=== PATIENT | female | born 1955 | race Caucasian/White ===

== ENCOUNTER → 2017-03-24 | Outpatient (CLI) | payer BC, SELFPAY | PROVIDERS: Family Provider Family Medicine; Visit Provider Family Medicine | DX: M79.605 Pain in left leg (principal) | CPT/HCPCS: 93971 ==

== ENCOUNTER → 2017-07-12 09:15 | Outpatient (CLI) | payer BC, SELFPAY ==
--- NOTE | 2017-07-12 09:30 | MR_ITS ---
MR lumbar spine wo con, MR 3-d myelogram/MRCP HISTORY: PT states low back pain X 6 months or longer. Bilateral Leg Pain, Numbness and tingling. ITS.REASON: SPINAL STENOSIS OF LUMBAR REGION ORDERING PHYSICIAN: Juan Pablo Nelson MD PATIENT AGE: 61 years COMPARISON: Prior MRI 06/28/13 TECHNIQUE: Standard multiplanar multiecho sequences are performed without contrast. 3-D MIP and myelographic images are also rendered and reviewed FINDINGS: There is normal alignment. The spinal cord ends at the L1-L2 level. Mild degenerative disc disease L1-L2 with minimal broad-based right paracentral disc protrusion causing mild right lateral recess narrowing abutting upon the anterior aspect of the right L2 nerve root with mild right lateral foraminal narrowing. L2-L3: Mild degenerative disc disease with minimal bulging disc along the second ligamentum hypertrophy. L3-L4: Minimal concentric bulging disc. Mild disc desiccation. L4-L5: Degenerative disc disease with bulging disc along with spurring of the endplates and facet hypertrophy with moderate bilateral foraminal narrowing and mild right lateral recess narrowing. L5-S1: Mild concentric bulging disc along with facet and ligamentum flavum hypertrophy with mild to moderate left foraminal narrowing. No extruded herniated disc. No fracture or dislocation. IMPRESSION: Multilevel lumbar spondylosis with degenerative disc disease, bulging disc, and facet and ligamentum flavum hypertrophy. Please see above for detailed description at each level. 2. Minimal broad-based right paracentral disc protrusion at L1-L2 causing mild right lateral recess narrowing abutting upon the anterior aspect of the right L2 nerve root with mild right lateral foraminal narrowing 3. Degenerative disc disease L4-5 with bulging disc along with spurring of the endplates and facet hypertrophy with moderate bilateral foraminal narrowing and mild right lateral recess narrowing
== END ==
PROVIDERS: Family Provider Family Medicine; PCP Family Medicine; Visit Provider Family Medicine
DX: M48.061 Spinal stenosis, lumbar region without neurogenic claudication (principal)
CPT/HCPCS: 72148; 76376

== ENCOUNTER 2017-10-06 10:00 | Outpatient (RCR) | payer BC, SELFPAY | END 2017-10-06 10:01 | disposition home or self-care (01) | LOC: PT 10:00 | PROVIDERS: Family Provider Family Medicine; PCP Family Medicine; Visit Provider Neurological Surgery | DX: M54.5 Low back pain (principal) | CPT/HCPCS: 97012; 97110; 97163; 97164 ==

== ENCOUNTER → 2017-10-17 08:48 | Outpatient (CLI) | payer BC, SELFPAY ==
--- NOTE | 2017-10-17 08:53 | XR_ITS ---
XR chest 2V HISTORY: ITS.REASON: LEFT SIDED CHEST WALL PAIN ORDERING PHYSICIAN: Juan Pablo Nelson MD PATIENT AGE: 62 years COMPARISON: PA and lateral chest 09/07/2016 FINDINGS: The cardiomediastinal silhouette and pulmonary vascularity are within normal limits. The lungs are clear without infiltrates, suspicious nodules, or pleural effusions. No acute bony abnormalities. Again noted are surgical clips projecting over the left lower lung field and left chest wall. There has been previous anterior cervical fusion. IMPRESSION: Negative chest, no acute finding
== END ==
PROVIDERS: PCP Family Medicine; Visit Provider Family Medicine
DX: R07.89 Other chest pain (principal)
CPT/HCPCS: 71046

== ENCOUNTER → 2017-11-01 12:49 | Outpatient (CLI) | payer BC, SELFPAY ==
--- NOTE | 2017-11-01 12:51 | US_ITS ---
US breast LT complete INDICATION: Left-sided breast pain ORDERING PHYSICIAN: Juan Pablo Nelson MD PATIENT AGE: 62 years COMPARISON: None TECHNIQUE: Complete left breast ultrasound with axilla FINDINGS: The patient has a left breast implant. No sonographic abnormalities are evident within the breast tissue. Sonographically, the implant appears intact. The implant however could be better evaluated with MRI if clinically warranted. IMPRESSION: Left implant in place, no breast nodules apparent. Negative ultrasound does not exclude the possibility of malignancy. Further evaluation suggested. Mammography may be of further value. MRI would be of further value for implant integrity of clinically warranted. BI-RADS Category: 0 Need Additional Imaging Evaluation RECOMMENDED FOLLOW-UP: IMM - IMMEDIATE FOLLOW-UP RECOMMENDED Negative ultrasound does not exclude the possibility of malignancy. (A letter has been sent to the patient regarding results of the study.)
== END ==
PROVIDERS: Family Provider Family Medicine; PCP Family Medicine; Visit Provider Family Medicine
DX: N64.4 Mastodynia (principal)
CPT/HCPCS: 76641

== ENCOUNTER 2018-01-02 11:00 | Outpatient (RCR) | payer BC, SELFPAY ==
--- NOTE | 2017-12-27 10:50 | HMH.PTOPEV ---
PT Outpatient Evaluation Rehab PT Outpatient Evaluation Start: 12/27/17 10:33 Freq: Status: Active Protocol: Document 12/27/17 10:33 WANDA (Rec: 12/27/17 10:50 WANDA [id number]) Electronically Signed By Alek Garcia, PT 12/27/17 10:33 Outpatient Therapy Subjective History Subjective History Patient is a 62 year old female presenting to outpatient PT with reports of chronic low back pain starting approximately 10 years ago of insidious onset. Most recent exacerbation started 12/14/17 after an episode of mowing her lawn. She have previously received skilled PT services and reports significant relief with lumbar traction. Pt reports LLE radiculopathy to L anterior thigh. No comorbidites to report. Chief Complaint Pain Paresthesia Symptom Type Ache Dull Numbness Symptoms Relieved By Rest/Positioning Ice OTC Meds Symptoms Aggravated By Sitting Bending/Stooping Walking Lifting Prior Functional Limitations Lifting Housework Standing Sitting Squatting Recreation Activity Walking Current Functional Limitations Lifting Housework Standing Sitting Squatting Recreation Activity Walking Symptom Description Constant but Variable Level of pain today (0-10) 5 Pain scale - at its best (0-10) 4 Pain scale - at its worst (0-10) 7 Lumbopelvic Eval Posture Thoracic Spine Posture Standing Position Flattened Lumbar Spine Posture Standing Position Flattened Assistive device Assistive Devices None / NA Gait Observation General Gait Pattern Observation No Deviations/Normal Palapation tenderness bilateral lumbar spinal tenderness Yes: 3/4 paraspinal tenderness Yes: 3/4 buttock tenderness Yes: 2/4 Accessory Movem
== END 2018-01-02 11:01 | disposition home or self-care (01) ==
LOC: PT 11:00
PROVIDERS: Family Provider Family Medicine; PCP Family Medicine; Visit Provider Family Medicine
DX: M54.42 Lumbago with sciatica, left side (principal); M54.41 Lumbago with sciatica, right side
CPT/HCPCS: 97012; 97163

== ENCOUNTER → 2018-05-05 09:12 | Outpatient (CLI) | payer BC, SELFPAY ==
--- NOTE | 2018-05-05 09:18 | CA_ITS ---
PROCEDURE: 2-D M-mode and color Doppler study INDICATIONS FOR THE TEST: Chest pain COPD Heart Murmur Tobacco Smoking Palpitations Fatigue Syncope Edema HypertensionXDiabetes Mellitus Rheumatic Fever SOB HAWK Obesity HyperlipidemiaX Family History HD Additional History CAD BREAST IMPLANT TDS PATIENT INFORMATION HEIGHT: 67 WEIGHT:171 GENDER: Female B/P:149/84 2-D/M-MODE INTERPRETATION: 2-D MEASUREMENTS OBSERVED VALUES IN CMS Right Ventricular Dimension (RVDd) 1.9 Interventricular Septum (Thickness)(IVsd) .9 Left Ventricular Internal Dimensions(LVIDd) 5.4 Left Ventricular Posterior Wall (Thickness)(LVPWd) .8 Aortic Root 3.2 Aortic Cusp Separation 1.5 Left Atrial Dimensions (LAD) 4.0 2D 1. Left atrium is mildly enlarged, left ventricle is normal size mild concentric left ventricular hypertrophy, visually estimated ejection fraction 55% with no regional wall motion abnormality. 2. The right atrium and right ventricle are normal size and contractility. 3. The aortic valve is minimally thickened and fibrosed. 4. The mitral and tricuspid valvular grossly normal. 5. The pulmonic valve is poorly present. 6. No significant pericardial effusion noted. DOPPLER INTERROGATION: Doppler interrogation of the aortic, mitral and tricuspid valvular presence of mild mitral and tricuspid regurgitation, tricuspid regurgitation jet velocity is inadequate for calculation of the right ventricular systolic pressure, grade 1 diastolic dysfunction seen without tissue Doppler evidence of raised left atrial pressure. CONCLUSION: 1. Mildly enlarged left atrium, normal left ventricular size, mild concentric left ventricular hypertrophy, visually estimated ejection fraction 55% with no regional wall motion abnormality, grade 1 diastolic dysfunction seen without tissue Doppler evidence of raised left atrial pressure. 2. Mild mitral and tricuspid regurgitation. 3. No significant pericardial effusion noted.
== END ==
PROVIDERS: PCP Family Medicine; Visit Provider Urology
DX: I25.10 Atherosclerotic heart disease of native coronary artery without angina pectoris (principal); I11.9 Hypertensive heart disease without heart failure; E78.2 Mixed hyperlipidemia; G47.33 Obstructive sleep apnea (adult) (pediatric)
CPT/HCPCS: 93306

== ENCOUNTER 2018-07-14 18:41 | Emergency (ER) | payer BC, SELFPAY ==
[2018-07-14 18:57] VITALS: BP 157/84; PULSE 69; RESP 16; TEMP 36.9; O2SAT 97; BMI 25.9
[2018-07-14 19:04] LABS: UTC Strep Screen (Rapid) Negative (Negative)
--- NOTE | 2018-07-14 19:06 | HMH.EDUTC ---
[facility] [place] Disposition Clinical Impression: Asthma exacerbation Qualifiers: Asthma severity: mild Asthma persistence: intermittent Qualified Code(s): J45.21 - Mild intermittent asthma with (acute) exacerbation Disposition: Home, Self-Care Condition on Discharge: Good Instructions: DI for Asthma -- Adult Referrals: Juan Pablo Nelson MD [Primary Care Provider] - Time of Disposition: 19:27 Medical Decision Making - Benjamin Inquiry Pt receiving controlled substance: No Vital Signs: 07/14/18 18:57 Temperature 98.4 F Temperature Source Oral Pulse Rate [Right Brachial] 69 Respiratory Rate 16 Blood Pressure [Right Arm] 157/84 H Blood Pressure Mean [Right Arm] 108 Blood Pressure Source [Right Arm] Automatic Cuff Blood Pressure Position [Right Arm] Sitting 02 Sat by Pulse Oximetry 97 Oxygen Delivery Method Room Air - Lab Data Lab results reviewed: Yes: I reviewed the patient's lab results. Lab Results 07/14/18 19:01: Strep Scn Rapid Clinic Negative Orders (Tests/Meds): ED MEDICATIONS Discontinued Medications Generic Name Dose Route Start Last Admin Trade Name Marge PRN Reason Stop Dose Admin Ceftriaxone Sodium 1 gm 07/14/18 19:14 07/14/18 19:20 Rocephin 1gm Vial IM 07/14/18 19:15 1 gm ONCE ONE Administration Protocol Lidocaine HCl 0 ml 07/14/18 19:14 07/14/18 19:21 Lidocaine 1% 10ml Mdv IM 07/14/18 19:15 2.1 ml ONCE ONE Administration Methylprednisolone Acetate 80 mg 07/14/18 19:14 07/14/18 19:21 Depo-Medrol 80mg/Ml Vial IM 07/14/18 19:15 80 mg ONCE ONE Administration ORDERS Category Date Time Status Strep Screen Confirmation Stat Micro 07/14/18 19:01 Received [facility] [place] HPI - General Stated complaint: sore throat,cough,RETANA Time Seen by Provider: 07/14/18 19:06 Mode of Arrival: Family Vehicle Source of Information: Patient Limitations: No Limitations Description of Symptoms (Recalled from Triage Doc. by RN): C/O CHEST CONGESTION,SORE THROAT AND HEADACHE X 3 DAYS HEENT Symptoms (Recalled from RN notes): Yes Resp Symptoms (Recalled from RN notes): Yes Skin Symptoms (Recalled from RN notes): No MS Symptoms (Recalled from RN notes): No Functional Status (Recalled from RN notes): N/A - History of Present Illness Provider Complaint: Cough, congestion, chest tightness X 3 days. H/O asthma. No fever. Onset (ago): day(s) (3) Relieving factors: none Exacerbating factors: none Associated symptoms: cough Treatments prior to arrival: none - Related Data Home Medications Medication Instructions Recorded Confirmed alprazolam 0.5 mg tablet 0.5 mg PO TID tab 04/25/17 05/19/18 aspirin 81 mg tablet,delayed 81 mg PO QDAY 04/25/17 05/19/18 release budesonide-formoterol HFA 160 2 inh INHALATION BID g 04/25/17 05/19/18 mcg-4.5 mcg/actuation aerosol inhaler esomeprazole magnesium 40 mg 40 mg PO QDAY cap 04/25/17 05/19/18 capsule,delayed release losartan 100 1 tab PO QDAY 04/25/17 05/19/18 mg-hydrochlorothiazide 25 mg tablet zolpidem 10 mg tablet 10 mg PO HS 04/25/17 05/19/18 montelukast 10 mg tablet 10 mg PO QPM 10/25/17 05/19/18 Previous Rx's Medication Instructions Recorded nifedipine ER 30 mg 30 mg PO DAILY #30 tab 05/19/18 tablet,extended release 24 hr Allergies Allergy/AdvReac Type Severity Reaction Status Date / Time acetaminophen [From PERCOCET] Allergy Severe IRREGULAR Verified 05/19/18 10:39 HEARTBEAT oxycodone [From PERCOCET] Allergy Severe IRREGULAR Verified 05/19/18 10:39 HEARTBEAT codeine Allergy Intermediate I-ITCHING, Verified 05/19/18 10:39 NAUSEA, FAST HEART RATE hydrocodone Allergy Intermediate I-ITCHING, Verified 05/19/18 10:39 NAUSEA, FAST HEART RATE ketorolac Allergy Intermediate I-ITCHING, Verified 05/19/18 10:39 NAUSEA, FAST HEART RATE meperidine [From Demerol] Allergy Intermediate I-ITCHING, Verified 05/19/18 10:39 NAUSEA, FAST HEART
--- NOTE | 2018-07-14 19:09 | ED_ITS ---
[facility] [place] Clinical Impression: Asthma exacerbation Qualifiers: Asthma severity: mild Asthma persistence: intermittent Qualified Code(s): J45.21 - Mild intermittent asthma with (acute) exacerbation Disposition: Home, Self-Care Condition on Discharge: Good Instructions: DI for Asthma -- Adult Referrals: Juan Pablo Nelson MD [Primary Care Provider] - Time of Disposition: 19:27 Medical Decision Making - Benjamin Inquiry Pt receiving controlled substance: No Vital Signs: 07/14/18 18:57 Temperature 98.4 F Temperature Source Oral Pulse Rate [Right Brachial] 69 Respiratory Rate 16 Blood Pressure [Right Arm] 157/84 H Blood Pressure Mean [Right Arm] 108 Blood Pressure Source [Right Arm] Automatic Cuff Blood Pressure Position [Right Arm] Sitting 02 Sat by Pulse Oximetry 97 Oxygen Delivery Method Room Air - Lab Data Lab results reviewed: Yes: I reviewed the patient's lab results. Lab Results 07/14/18 19:01: Strep Scn Rapid Clinic Negative Orders (Tests/Meds): ED MEDICATIONS Discontinued Medications Generic Name Dose Route Start Last Admin Trade Name Marge PRN Reason Stop Dose Admin Ceftriaxone Sodium 1 gm 07/14/18 19:14 07/14/18 19:20 Rocephin 1gm Vial IM 07/14/18 19:15 1 gm ONCE ONE Administration Protocol Lidocaine HCl 0 ml 07/14/18 19:14 07/14/18 19:21 Lidocaine 1% 10ml Mdv IM 07/14/18 19:15 2.1 ml ONCE ONE Administration Methylprednisolone Acetate 80 mg 07/14/18 19:14 07/14/18 19:21 Depo-Medrol 80mg/Ml Vial IM 07/14/18 19:15 80 mg ONCE ONE Administration ORDERS Category Date Time Status Strep Screen Confirmation Stat Micro 07/14/18 19:01 [place] [facility] [place] - General Stated complaint: sore throat,cough,RETANA Time Seen by Provider: 07/14/18 19:06 Mode of Arrival: Family Vehicle Source of Information: Patient Limitations: No Limitations Description of Symptoms (Recalled from Triage Doc. by RN): C/O CHEST CO NGESTION,SORE THROAT AND HEADACHE X 3 DAYS HEENT Symptoms (Recalled from RN notes): Yes Resp Symptoms (Recalled from RN notes): Yes Skin Symptoms (Recalled from RN notes): No MS Symptoms (Recalled from RN notes): No Functional Status (Recalled from RN notes): N/A - History of Present Illness Provider Complaint: Cough, congestion, chest tightness X 3 days. H/O asthma. No fever. Onset (ago): day(s) (3) Relieving factors: none Exacerbating factors: none Associated symptoms: cough Treatments prior to arrival: none - Related Data Home Medications Medication Instructions Recorded Confirmed alprazolam 0.5 mg tablet 0.5 mg PO TID tab 04/25/17 05/19/18 aspirin 81 mg tablet,delayed 81 mg PO QDAY 04/25/17 05/19/18 release budesonide-formoterol HFA 160 2 inh INHALATION BID g 04/25/17 05/19/18 mcg-4.5 mcg/actuation aerosol inhaler esomeprazole magnesium 40 mg 40 mg PO QDAY cap 04/25/17 05/19/18 capsule,delayed release losartan 100 1 tab PO QDAY 04/25/17 05/19/18 mg-hydrochlorothiazide 25 mg tablet zolpidem 10 mg tablet 10 mg PO HS
[2018-07-14 19:30] VITALS: BP 157/84; PULSE 69; RESP 16; TEMP 37.2; O2SAT 97
== END 2018-07-14 19:34 | disposition home or self-care (01) ==
PROVIDERS: Emergency Provider Physician Assistant; PCP Family Medicine
DX: J45.21 Mild intermittent asthma with (acute) exacerbation (principal); Z51.81 Encounter for therapeutic drug level monitoring; I10 Essential (primary) hypertension; K21.9 Gastro-esophageal reflux disease without esophagitis; E78.5 Hyperlipidemia, unspecified
CPT/HCPCS: 87880; 96372; 99202; J1040

== ENCOUNTER → 2018-11-16 07:51 | Outpatient (CLI) | payer BC, SELFPAY ==
--- NOTE | 2018-11-16 08:00 | CA_ITS ---
APPROVED REPORT Hold Worker: GENO Study Quality: Good Indications: Uncontrolled HTN Risk Factors Hypertension Renal Artery Doppler Origin (R) 166.0/46.9 cm/sec Proximal (R) 139.0/33.2 cm/sec Mid (R) 161.0/48.0 cm/sec Distal (R) 140.0/28.1 cm/sec Renal Aorta Ratio (R) 2.00 Segmental A. (R) 43.2/12.3 cm/sec RI: 0.71 Segmental A. Sup (R) 43.2/12.1 cm/sec Segmental A. Mid (R) 53.6/12.7 cm/sec Segmental A. Inf (R) 32.9/12.1 cm/sec Origin (L) 174.0/40.5 cm/sec Proximal (L) 210.0/47.7 cm/sec Mid (L) 194.0/56.2 cm/sec Distal (L) 92.4/28.5 cm/sec Renal Aorta Ratio (L) 2.60 Segmental A. (L) 46.2/13.7 cm/sec RI: 0.70 Segmental A. Sup (L) 48.7/15.2 cm/sec Segmental A. Mid (L) 53.2/12.9 cm/sec Segmental A. Inf (L) 36.7/12.9 cm/sec Renal Measurements Kidney Size (R) 10.7x7.1 cm Cortical Thickness (R) 1.8 cm Kidney Size (L) 10.3x7.7 cm Cortical Thickness (L) 1.9 cm Aortic Doppler Velocity Waveform Sup César Ao 82.1 cm/sec Findings Duplex evaluation demonstrates less than 60% stenosis of the left renal artery with PSV greater than 180 cm/s and/or Renal/Aortic ratio (RAR) less than 3.5. Normal right renal artery. Conclusion Duplex evaluation demonstrates 60% OR or less stenosis of the left renal artery . Normal right renal artery. Electronically signed by : Dimas Rg MD 11/16/2018 11:15:03
== END ==
PROVIDERS: PCP Family Medicine; Visit Provider Family Medicine
DX: I10 Essential (primary) hypertension (principal)
CPT/HCPCS: 93976

== ENCOUNTER → 2018-11-21 15:17 | Outpatient (CLI) | payer BC, SELFPAY ==
[2018-11-21 17:01] LABS: Blood Urea Nitrogen 23 mg/dL (7-18); Creatinine,Serum 0.83 mg/dL (0.55-1.02); Estimated Glomerular Filt Rate 69 ml/min (>60); GFR (African American) 84 ML/MIN (>60)
== END ==
PROVIDERS: Visit Provider Family Medicine
DX: R79.89 Other specified abnormal findings of blood chemistry (principal)
CPT/HCPCS: 36415; 82565; 84520

== ENCOUNTER → 2018-11-23 10:35 | Outpatient (CLI) | payer BC, SELFPAY ==
--- NOTE | 2018-11-23 10:38 | CT_ITS ---
Procedure: CT ANGIO ABDOMEN CLINICAL HISTORY: MALIGNANT HTN COMPARISON: CA RENAL ARTERY DUPLEX from 11/16/2018 TECHNIQUE: IV Contrast: 100ml Optiray 350 Axial images obtained with sagittal and coronal reformats. All CT scans at the facility use one or more dose reduction, viz: automated exposure control, ma/kV adjustment per patient size (including targeted exams where dose is matched to indication, i.e. head), or iterative reconstruction technique. FINDINGS: There are mild atheromatous changes of the abdominal aorta without significant stenosis or aneurysm. No significant stenosis of the celiac or superior mesenteric artery. The inferior mesenteric artery is patent. There are 2 main renal arteries. There are mild atheromatous changes at the ostium of the right renal artery with less than 20 percent stenosis. No stenosis of the left renal artery. Mild atheromatous changes are present involving the iliac arteries with no significant stenosis. Bilateral breast implants are noted. The lung bases are clear. No renal or adrenal mass evident. No renal calculi. No renal atrophy or scarring. There is no evidence of retroperitoneal mass. There is a small umbilical hernia which contains fat. There is a mild amount of retained colonic feces. There are small bilateral inguinal hernias containing fat IMPRESSION: 1. No evidence of significant renal artery stenosis. Minimal atheromatous changes involve the ostium of the right renal artery 2. No renal or adrenal mass apparent Dictated by: Dimas Rg MD 11/25/2018 13:32 Signed by: <Electronically signed by Dimas Rg MD in [place]> 11/25/2018 13:32
== END ==
PROVIDERS: PCP Family Medicine; Visit Provider Family Medicine
DX: I10 Essential (primary) hypertension (principal)
CPT/HCPCS: 74175; Q9967

== ENCOUNTER 2019-07-24 09:00 | Outpatient (RCR) | payer BC, SELFPAY ==
--- NOTE | 2019-07-19 09:10 | HMH.PTOPEV ---
PT Outpatient Evaluation Rehab PT Outpatient Evaluation Start: 07/19/19 08:09 Freq: Status: Active Protocol: Document 07/19/19 08:09 ANALI (Rec: 07/19/19 09:10 ANALI [id number]) Electronically Signed By Dominick Sheffield, PT 07/19/19 08:09 Outpatient Therapy Subjective History Subjective History Pt reports acute exacerbation of LBP ~1 week ago while lifting bag of monisha litter. Pt reports h/o lumbar spine OA , and previous exacerbation was ~2 yrs ago. Pt reports currently L sided LBP with radicular s/s down L LE into anterior thigh (N&T). Chief Complaint Pain,Stiff,Paresthesia Symptom Type Ache,Dull Symptoms Relieved By Rest/Positioning Symptoms Aggravated By Physical Activity,Lifting Prior Functional Limitations None Current Functional Limitations Lifting,Housework,Bending/ Stooping Symptom Description Constant but Variable Level of pain today (0-10) 7 Pain scale - at its best (0-10) 7 Pain scale - at its worst (0-10) 8 Lumbopelvic Eval Posture Thoracic Spine Posture Standing Position Flattened Lumbar Spine Posture Standing Position Flattened Assistive device Assistive Devices None / NA Palapation tenderness bilateral lumbar spinal tenderness Yes: 3/4 paraspinal tenderness Yes: 3/4 buttock tenderness Yes: 3/4 Lumbar/Sacral Palpation Findings Tenderness Accessory Movement L-spine Vertebrae Accessory Movements [facility] [place] that [place] Symptoms L2 bilateral L3 bilateral L4 bilateral L5 bilateral S1 bilateral Range of Motion Lumbar Spine Active Flexion Range of 0-40 Motion (degrees) Lumbar Spine Active Extension Range of 0-15 Motion (degrees) Left Lumbar Spine Lateral Flexion Active 0-20 Range of Motion (degrees) Right Lumbar Spine Lateral Flexion 0-20 Active Range of Motion (degrees) Lumbar Spine ROM Limitations Soft Tissue Tightness,Pain Manual Muscle Test Bilateral Knee Extension Strength Grade 5 Normal Knee Flexion Strength Grade 5 Normal Hip Flexion Strength Grade 4- Good- Extensor Hallucis Longus Strength Grade 5 Normal Ankle Dorsiflexion Strength Grade 5 Normal Gastronemius/Soleus Strength Grade 5 Normal DTR Rt Patellar 1+ Lt Patellar 1+ Rt Gastroc/Soleus 1+ Lt Gastroc/Soleus
== END 2019-07-24 09:05 | disposition home or self-care (01) ==
LOC: PT 09:00
PROVIDERS: PCP Family Medicine; Visit Provider Family Medicine
DX: M47.817 Spondylosis without myelopathy or radiculopathy, lumbosacral region (principal)
CPT/HCPCS: 97010; 97012; 97035; 97163

== ENCOUNTER → 2019-09-12 14:49 | Outpatient (CLI) | payer BC, SELFPAY ==
[2019-09-12 15:45] VITALS: PULSE 60; PULSE 64
== END ==
PROVIDERS: PCP Family Medicine; Visit Provider Family Medicine
DX: R06.02 Shortness of breath (principal); J45.30 Mild persistent asthma, uncomplicated
CPT/HCPCS: 94060; 94640

== ENCOUNTER → 2020-02-01 11:28 | Outpatient (CLI) | payer BC, SELFPAY ==
[2020-02-01 14:58] LABS: Blood Urea Nitrogen 28 mg/dl (7-17); Estimated Glomerular Filt Rate 56 ml/min (>60); GFR (African American) 68 ML/MIN (>60)
== END ==
PROVIDERS: Visit Provider Family Medicine
DX: R51.9 Headache, unspecified (principal); Z85.3 Personal history of malignant neoplasm of breast
CPT/HCPCS: 36415; 82565; 84520

== ENCOUNTER → 2020-02-06 08:39 | Outpatient (CLI) | payer BC, SELFPAY ==
--- NOTE | 2020-02-06 08:44 | MR_ITS ---
PROCEDURE: MR HEAD/BRAIN WO/W CON the CLINICAL INDICATION: NEW ONSET OF HEADACHE, HX BREAST CANCER headache intermittent daily [id number]. hx breast cancer diagnosed in 2007. COMPARISON: MR [facility] MRI-BRAIN WITH/WITHOUT from 07/25/2012 TECHNIQUE: Routine multiplanar multi echo sequences are performed without and with gadolinium enhancement. FINDINGS: Routine multi planar multi echo sequences are performed without and with gadolinium enhancement. The patient did experience some itching on her extremities following gadolinium enhancement. There was no urticaria. No shortness of breath or other symptoms. The patient was watched for approximately 30 minutes and the itching subsided. Patient left the radiology department in stable condition. No midline shift, mass effect, intracranial hemorrhage, or hydrocephalus is evident. No evidence of acute infarction. The cerebellopontine angles, cerebellum, and brainstem have an unremarkable appearance. There are scattered periventricular and subcortical T2 white matter hyperintensities. These do not demonstrate contrast enhancement and do not demonstrate restricted diffusion. No mastoid effusion or sinus air-fluid levels evident. The pituitary, optic chiasm, corpus callosum, and craniocervical junction have an unremarkable appearance. There is a small area of contrast enhancement involving the diet flowing region of the left frontal bone. This area measures approximately 5 mm and has an unremarkable T2 appearance. This is of questionable clinical significance and may have been present but smaller on 07/25/2012exam exam. IMPRESSION: 1. No acute intracranial findings. 2. Scattered periventricular and subcortical T2 white matter hyperintensities which may be due to ischemic gliotic change from microvascular disease. Migraine headache and demyelinating process would be included in the differential diagnosis. These changes have slightly increased since the previous exam. 3. Small enhancing focus in the left frontal bone which may been present on the old exam but more prominent on today's study. Possible small hemangioma. Follow-up suggested to confirm stability. Dictated by: Dimas Rg MD 02/07/2020 11:50 Dimas Rg MD in [place] 02/07/2020 11:50
== END ==
PROVIDERS: PCP Family Medicine; Visit Provider Family Medicine
DX: G44.52 New daily persistent headache (NDPH) (principal); Z85.3 Personal history of malignant neoplasm of breast
CPT/HCPCS: 70553; A9576

== ENCOUNTER → 2020-09-09 15:25 | Outpatient (CLI) | payer MEDICARE, SELFPAY ==
[2020-09-09 15:59] LABS: Basophils % 0.4 % (0.1-2.0); Eosinophils # 0.3 K/mm3 (0.0-0.4); Eosinophils % 2.5 % (0.1-12.0); Hematocrit 33.4 % (37.0-47.0); Hemoglobin 11.5 g/dL (12.2-16.2); Lymphocytes # 2.4 K/mm3 (0.7-4.5); Lymphocytes % 23.5 % (10-50); Mean Corpuscular HGB Conc 34.4 g/dL (31.8-35.4); Mean Corpuscular Hemoglobin 29.1 pg (27.0-31.2); Mean Corpuscular Volume 84.5 fl (81-99); Mean Platelet Volume 7.7 fl (7.4-10.4); Monocytes # 0.4 K/mm3 (0.1-1.0); Monocytes % 3.5 % (1.7-9.3); Neutrophils # 7.1 K/mm3 (1.8-7.8); Neutrophils % 70.1 % (37.0-80.0); Platelet Count 263 K/mm3 (142-424); Red Blood Count 3.95 M/mm3 (4.20-5.40); Red Cell Distribution Width 14.5 % (11.5-17.5); White Blood Count 10.2 K/mm3 (4.8-10.8)
[2020-09-09 16:27] LABS: Chloride 102 mmol/L (98-107)
[2020-09-09 16:28] LABS: Potassium 3.8 mmoL/L (3.5-5.1); Sodium 138 mmol/L (136-145)
[2020-09-09 16:30] LABS: Alanine Aminotransferase 15 U/L (12-78); Anion Gap 16.8 mEq/L (5-15); Aspartate Amino Transferase 22 U/L (14-36); Blood Urea Nitrogen 19 mg/dl (7-17); Carbon Dioxide 23 mmol/L (22.0-30.0); Estimated Glomerular Filt Rate 72 ml/min (>60); GFR (African American) 87 ML/MIN (>60)
[2020-09-09 16:31] LABS: Albumin Level 4.5 g/dl (3.5-5.0); Alkaline Phosphatase 104 U/L (38-126); Bilirubin,Direct 0.3 mg/dl (0.0-0.4); Bilirubin,Total 0.3 mg/dl (0.2-1.3); Calcium 9.9 mg/dl (8.4-10.2); Chol/HDL Ratio 4.4 (1-3.5); Cholesterol 176 mg/dl (140-200); Glucose 119 mg/dl (74-100); HDL Cholesterol 40 mg/dl (40-60); Total Protein,Serum 6.9 g/dl (6.3-8.2); Triglycerides 488 mg/dl (30-150)
[2020-09-09 16:42] LABS: Direct LDL Cholesterol 81.87 mg/dL (100-129)
[2020-09-09 18:10] LABS: Hemoglobin A1C 5.7 % (4.0-6.0)
== END ==
PROVIDERS: Visit Provider Physician Assistant
DX: E78.2 Mixed hyperlipidemia (principal); G47.33 Obstructive sleep apnea (adult) (pediatric); I11.9 Hypertensive heart disease without heart failure; I25.10 Atherosclerotic heart disease of native coronary artery without angina pectoris; K21.9 Gastro-esophageal reflux disease without esophagitis; R06.00 Dyspnea, unspecified; R73.9 Hyperglycemia, unspecified
CPT/HCPCS: 80048; 80061; 80076; 83036; 85025

== ENCOUNTER → 2020-09-15 07:16 | Outpatient (CLI) | payer MEDICARE, SELFPAY ==
--- NOTE | 2020-09-15 07:16 | NM_ITS ---
APPROVED REPORT Exam: Nuclear Stress Test Indication: Chest pain, SOB, HTN, CAD, Hx of SC, High cholesterol, Family history Patient Location: Outpatient Stress Tech: Rea Hughes [place] Tech:Dalia Sharif, ARRT, RT (R)(N) Ht: 5 ft 7 in Wt: 183 lbs Bra Size: A HR: 54 bpm BP: 144/69 mmHg BSA: 1.95 m2 BMI: 28.6 History: Chest pain, SOB, HTN, CAD, Hx of SC, High cholesterol, Family history Procedure: Patient received a 0.4 mg of intravenous Lexiscan, resting heart rate 54 bpm, resting blood pressure 144/69 mmHg, with Lexiscan maximum heart rate achived was 79 bpm which is Less than 85 % of the maximum predicted heart rate and blood pressure was 131/70 mmHg. With Lexiscan, patient denied any complaint of chest pain. Electrocardiogram Resting electrocardiogram showed sinus rhythm, with Lexiscan there is less than 1.[address] segment depression noted from the baseline EKG. The EKG portion of the Lexiscan is nondiagnostic. Cardiac Stress and Resting SPECT Images: Cardiac Stress and Resting SPECT images were obtained using technetium 99m Myoview 29.6 mCi stress and 10.36 mCi at rest. Gated SPECT for analysis of segmental wall motion and calculation of the ejection fraction also done. Cardiac stress and resting SPECT images show uniform myocardial activity without segmental perfusion abnormality, computer derived ejection fraction is 64% with no regional wall motion abnormality, right ventricle is normal size and contractility, however there is transient ischemic dilatation of the left ventricle seen, raising the concern for presence of balanced ischemia, other causes for transient ischemic dilatation include elevated left ventricular end-diastolic pressure, hypertensive heart disease, microvascular disease and diabetes mellitus. Conclusion: 1. The EKG portion of the Lexiscan is nondiagnostic. 2. No scintigraphic evidence of reversible ischemia seen, computer derived ejection fraction is 64% with no regional wall motion abnormality, right ventricle is normal size and contractility. There is transient ischemic dilatation of the left ventricle seen, raising the concern for presence of balanced ischemia, other causes for transient ischemic dilatation include elevated left ventricular end-diastolic pressure, hypertensive heart disease, microvascular disease and diabetes mellitus. 3. Abnormal Lexiscan Myoview study, clinical correlation is recommended. Electronically signed by : Vince Casas, 09/15/2020 19:07:29
--- NOTE | 2020-09-15 08:33 | CA_ITS ---
APPROVED REPORT EXAM: Comprehensive 2D, Doppler, and color-flow Echocardiogram Baker Test: Hanna Evans RVT Ht: 5 ft 8 in Wt: 188lbs BSA: 1.99 BP: 146/55 mmHg Indications: SOA,CAD,HTN,HLD,EX SMOKER,ISABELL,BREAST IMPLANTS TDS R/T BREAST IMPLANTS 2D Dimensions LVOT 2.12 cm (M/F) 1.5-2.5 LA Volume 42.80 mL LA Volume Index 21.50 mL/m2 (M/F) 16-34 M-Mode Dimensions RVDd 3.16 cm (0.9-2.6) LA Diam 4.34 cm (1.9-4.0) LVDd 5.85 cm (3.5-5.7) Ao Diam 2.97 cm (2.0-3.7) LVDs 4.08 cm (3.5-5.7) IVSd 1.44 cm (0.6-1.1) PWd 0.52 cm (0.6-1.1) EF (Teich) 56.80% FS 30.30% EDV (Teich) 169.90 mL TAPSE 2.51 (<1.7) ESV (Teich) 73.40 mL LV Diastology E Decel Time 267.00 (160-240 msec) E/A Ratio 1.1 MED E' 5.00 (< 7 cm/sec) E'/MED E' Ratio 18.30 (>14) LAT E' 8.40 (<10 cm/sec) E/LAT E' Ratio 10.89 (>14) Aortic Valve AO Peak GR. 8.50 mmHg Mitral Valve MV E Max Bobby. 91.00 (40-130 cm/s) MV A Velocity 82.00 (40-130 cm/s) E/A Ratio 1.12 MV Decel. Time 267.00 (160-240 ms) MV PHT 78.00 ms Pulmonary Valve PV Peak Velocity 71.00 (50-150 cm/s) Tricuspid Valve TR P. Velocity 301.00 cm/s RAP Estimate 10.00 mmHg RVSP 46.20 mmHg Left Ventricle Left atrium is mildly enlarged, left ventricle is normal size, mild concentric left ventricular hypertrophy, visually estimated ejection fraction 55% with no regional wall motion abnormality, grade 1 diastolic dysfunction seen with tissue Doppler evidence of raise left atrial pressure. Right Ventricle Right atrium and right ventricle are mildly enlarged with normal contractility. Aortic Valve Aortic valve is minimally thickened and fibrosed, there is no aortic stenosis or aortic insufficiency. Mitral Valve Mitral valve grossly normal, there is mild mitral regurgitation. Tricuspid Valve Tricuspid grossly normal, there is mild tricuspid regurgitation, calculated right ventricular systolic pressure is 45 mmHg.pressure. Pulmonic Valve Pulmonic valve is poorly visualized. Great Vessels Aortic root is normal size. Pericardium No significant pericardial effusion noted. Conclusion 1. Mild biatrial enlargement, normal left ventricular size, mild concentric left ventricular hypertrophy, visually estimated ejection fraction 55% with no regional wall motion abnormality, grade 1 diastolic dysfunction seen with tissue Doppler evidence of raise left atrial pressure. 2. Mildly enlarged right ventricle with normal contractility. 3. Mild mitral and tricuspid regurgitation, calculated right ventricular systolic pressure 45 mmHg 4. No significant pericardial effusion noted. Electronically signed by : Vince Casas, 09/15/2020 22:05:17
--- NOTE | 2020-09-15 09:34 | HMH.ITSHM ---
Current Home Medications as stated by this patient Justine Handley or bilingual call center representative. []ZOLPIDEM NEBIVOLOL ESOMEPRAZOLE BUDESONIDE AMLODIPINE ALPRAZOLAM
--- NOTE | 2020-09-15 09:54 | CA_ITS ---
APPROVED REPORT Exam: Pharmacologic Technologist: Rea Hughes, Ht: 5 ft 8 in Wt: 188 lbs BSA: 1.99 m2 HR: 54 bpm BP: 144/69 mmHg Medical History Medications: Amlodipine,,,,, Alprazolam,,,,, SyMBICORT,,,,, Zolpidem,,,,, Esomeprazole,,,,, NeBivolol,,,,, Stress Test Details Test: LEXISCAN HR Resting HR: 52 bpm Max Heart Rate (APMHR): 155.965867 bpm Max HR Achieved: 85 bpm Target HR (85% APMHR): 131.198413 bpm % of APMHR: 54.84 Recovery HR: 66 bpm BP Resting BP: 144/69 mmHg Max BP: 151/85 mmHg Recovery BP: 140.0/63.0 mmHg ECG Resting ECG: NSR Clinical Reason for Termination: Completed Protocol Exercise duration: 04:05 min Highest Stage Achieved: Exercise capacity: 1.0 METs Stress ECG Conclusion Symptoms: No CP Arrythmias/Ectopy: None ST-T Changes: <1.5mm ST Segment changes Conclusion: Non-Diagnostic Electronically signed by : Vince Casas, 09/15/2020 18:43:17
== END ==
PROVIDERS: PCP Family Medicine; Visit Provider Physician Assistant
DX: E78.2 Mixed hyperlipidemia (principal); G47.33 Obstructive sleep apnea (adult) (pediatric); I11.9 Hypertensive heart disease without heart failure; I25.10 Atherosclerotic heart disease of native coronary artery without angina pectoris; K21.9 Gastro-esophageal reflux disease without esophagitis; R06.00 Dyspnea, unspecified
CPT/HCPCS: 78452; 93017; 93306; A9502; J2785

== ENCOUNTER → 2020-09-16 07:14 | Outpatient (CLI) | payer MEDICARE, SELFPAY ==
[2020-09-16 07:55] LABS: Glucose,Fasting 149 mg/dl (74-100)
[2020-09-16 10:17] LABS: Glucose 1 Hour 278 mg/dL (74-100)
[2020-09-16 14:12] LABS: Glucose 2 Hour 242 mg/dL (74-100)
== END ==
PROVIDERS: Visit Provider Physician Assistant
DX: E78.2 Mixed hyperlipidemia (principal); R06.00 Dyspnea, unspecified; I25.10 Atherosclerotic heart disease of native coronary artery without angina pectoris; I11.9 Hypertensive heart disease without heart failure; Z79.899 Other long term (current) drug therapy; Z87.891 Personal history of nicotine dependence
CPT/HCPCS: 36415; 82951

== ENCOUNTER → 2020-09-24 07:06 | Outpatient (CLI) | payer MEDICARE, SELFPAY ==
[2020-09-24 07:50] LABS: Basophils % 0.4 % (0.1-2.0); Eosinophils # 0.2 K/mm3 (0.0-0.4); Hematocrit 33.6 % (37.0-47.0); Hemoglobin 11.5 g/dL (12.2-16.2); Lymphocytes # 1.9 K/mm3 (0.7-4.5); Lymphocytes % 25.1 % (10-50); Mean Corpuscular HGB Conc 34.1 g/dL (31.8-35.4); Mean Corpuscular Hemoglobin 29.2 pg (27.0-31.2); Mean Corpuscular Volume 85.5 fl (81-99); Mean Platelet Volume 8.3 fl (7.4-10.4); Monocytes # 0.3 K/mm3 (0.1-1.0); Monocytes % 3.7 % (1.7-9.3); Neutrophils # 5.2 K/mm3 (1.8-7.8); Neutrophils % 67.7 % (37.0-80.0); Platelet Count 245 K/mm3 (142-424); Red Blood Count 3.93 M/mm3 (4.20-5.40); Red Cell Distribution Width 14.6 % (11.5-17.5); White Blood Count 7.7 K/mm3 (4.8-10.8)
[2020-09-24 08:03] LABS: Chloride 103 mmol/L (98-107); Potassium 3.8 mmoL/L (3.5-5.1); Sodium 139 mmol/L (136-145)
[2020-09-24 08:06] LABS: Anion Gap 14.8 mEq/L (5-15); Blood Urea Nitrogen 18 mg/dl (7-17); Calcium 10.3 mg/dl (8.4-10.2); Carbon Dioxide 25 mmol/L (22.0-30.0); Estimated Glomerular Filt Rate 72 ml/min (>60); GFR (African American) 87 ML/MIN (>60); Glucose 121 mg/dl (74-100)
== END ==
PROVIDERS: Internal Medicine; Visit Provider Physician Assistant
DX: E78.5 Hyperlipidemia, unspecified (principal); G47.33 Obstructive sleep apnea (adult) (pediatric); I11.9 Hypertensive heart disease without heart failure; I20.9 Angina pectoris, unspecified; K21.9 Gastro-esophageal reflux disease without esophagitis; R06.00 Dyspnea, unspecified; Z01.818 Encounter for other preprocedural examination; Z11.52 Encounter for screening for COVID-19
CPT/HCPCS: 36415; 80048; 85025; U0003

== ENCOUNTER 2020-09-26 08:11 | Day surgery (SDC) | payer MEDICARE, SELFPAY ==
[2020-09-26] VITALS (13 sets, daily range): BP systolic 104–135; BP diastolic 49–67; PULSE 48–56; RESP 16–20; TEMP 36.1; O2SAT 90–98; BMI 28.5
--- NOTE | 2020-09-26 | IR_ITS ---
APPROVED REPORT Patient Location: Outpatient Material Engineer: ASIF Hardy RT (R) PROCEDURES Left heart catheterization Left ventriculogram Selective coronary angiogram INDICATION Abnormal Myoview, Abnormal EKG, Angina pectoris, Informed consent was obtained prior to the procedure. COMPLICATIONS None Estimated Blood Loss: Less than 10 mls TECHNIQUE One percent lidocaine used to anesthetize the right anterior aspect of the wrist. The right radial artery was accessed via the Seldinger technique. A 6 Hebrew sheath was placed in the right radial artery. 2.5 mg of verapamil, 800 mcg of nitroglycerin, 1mg Lidocaine and 5000 U Heparin were given through the arterial sheath. The trap catheter was also used to perform left heart catheterization, left ventriculogram and selective coronary angiogram. At the end of the procedure the sheath was removed good hemostasis was achieved using Traclet band, patient was transferred to the postop holding area in stable condition. ANGIOGRAPHIC RESULTS The left main artery Normal The left anterior descending artery Has proximal 10% luminal irregularities mid vessel 30% stenoses The circumflex artery Nondominant with mild 10% luminal irregularities The right coronary artery Dominant with proximal 20 to 30% stenosis in mid vessel 10% stenoses The MORIN ventriculogram reveals Normal 65 per The left ventricular end-diastolic pressure 10 mmHg IMPRESSION Mild nonflow limiting coronary disease as described above Normal ejection fraction Normal left ventricular end-diastolic pressure PLAN 1. Medical management Electronically signed by : Talat Gonzalez, 09/26/2020 10:12:59
--- NOTE | 2020-09-26 10:50 | SUR.PHASEII ---
PATIENT TAKEN TO POST OP FOR RECOVERY.
--- NOTE | 2020-09-26 11:02 | SUR.PHASEII ---
REPORT TO MAHENDRA ZALDIVAR RN
--- NOTE | 2020-09-26 12:28 | PC.NURSE ---
TC over to arely in solar lab technician to report r hand/FA feeling cold to touch. arely said that as long as has good cap refill, this is a normal from the sheath. pt has good cap refill at this time to Right extremity including hand. pt doing well, ate lunch, at bedside.
== END 2020-09-26 13:16 | disposition home or self-care (01) ==
LOC: CATHLAB 08:12
PROVIDERS: PCP Family Medicine; Visit Provider Internal Medicine
DX: I25.110 Atherosclerotic heart disease of native coronary artery with unstable angina pectoris (principal); E11.9 Type 2 diabetes mellitus without complications; Z79.84 Long term (current) use of oral hypoglycemic drugs; I27.20 Pulmonary hypertension, unspecified; I11.9 Hypertensive heart disease without heart failure; I25.2 Old myocardial infarction; Z79.899 Other long term (current) drug therapy; Z88.8 Allergy status to other drugs, medicaments and biological substances
CPT/HCPCS: 93458; 99152; C1725; C1769; J1644; Q9967

== ENCOUNTER → 2020-10-20 07:04 | Outpatient (CLI) | payer MEDICARE, SELFPAY ==
[2020-10-20 07:36] LABS: Basophils % 0.6 % (0.1-2.0); Eosinophils # 0.3 K/mm3 (0.0-0.4); Eosinophils % 3.9 % (0.1-12.0); Hematocrit 32.8 % (37.0-47.0); Hemoglobin 10.8 g/dL (12.2-16.2); Lymphocytes # 1.7 K/mm3 (0.7-4.5); Lymphocytes % 26.3 % (10-50); Mean Corpuscular HGB Conc 32.8 g/dL (31.8-35.4); Mean Corpuscular Hemoglobin 28.7 pg (27.0-31.2); Mean Corpuscular Volume 87.3 fl (81-99); Mean Platelet Volume 7.6 fl (7.4-10.4); Monocytes # 0.2 K/mm3 (0.1-1.0); Monocytes % 2.6 % (1.7-9.3); Neutrophils # 4.2 K/mm3 (1.8-7.8); Neutrophils % 66.6 % (37.0-80.0); Platelet Count 220 K/mm3 (142-424); Red Blood Count 3.76 M/mm3 (4.20-5.40); Red Cell Distribution Width 14.2 % (11.5-17.5); White Blood Count 6.3 K/mm3 (4.8-10.8)
[2020-10-20 08:04] LABS: Amylase 56 U/L (30-110); Anion Gap 12.6 mEq/L (5-15); Blood Urea Nitrogen 18 mg/dl (7-17); Calcium 9.4 mg/dl (8.4-10.2); Carbon Dioxide 27 mmol/L (22.0-30.0); Chloride 103 mmol/L (98-107); Estimated Glomerular Filt Rate 100 ml/min (>60); GFR (African American) 121 ML/MIN (>60); Glucose 138 mg/dl (74-100); Lipase 174 U/L (23-300); Potassium 3.6 mmoL/L (3.5-5.1); Sodium 139 mmol/L (136-145)
[2020-10-20 08:22] LABS: Free Thyroxine Index 2.8 ug/dL (5.93-13.13); T4 (Thyroxine) 11.3 ug/dl (5.53-11.0); Triiodothryronine (T3) Uptake 25 % (23.5-40.5)
[2020-10-20 08:36] LABS: Thyroid Stimulating Hormone 2.64 uIU/mL (0.465-4.68)
== END ==
PROVIDERS: Visit Provider Physician Assistant
DX: R53.83 Other fatigue (principal); E78.2 Mixed hyperlipidemia; G47.33 Obstructive sleep apnea (adult) (pediatric); I11.9 Hypertensive heart disease without heart failure; I25.110 Atherosclerotic heart disease of native coronary artery with unstable angina pectoris; K21.9 Gastro-esophageal reflux disease without esophagitis; R06.00 Dyspnea, unspecified; R07.89 Other chest pain; R11.0 Nausea
CPT/HCPCS: 36415; 80048; 82150; 83690; 84436; 84443; 84479; 85025

== ENCOUNTER → 2020-10-21 08:44 | Outpatient (CLI) | payer MEDICARE, SELFPAY ==
--- NOTE | 2020-10-21 08:45 | CT_ITS ---
PROCEDURE: CT ABDOMEN PELVIS WO/W CON CLINICAL INDICATION: nausea Hx of pancreatitis Mid abdominal pain COMPARISON: CT CT ANGIO ABDOMEN from 11/23/2018 TECHNIQUE: IV Contrast: 75ML Isovue 370 Oral Contrast None Axial images obtained with sagittal and coronal reformats. All CT scans at the facility use one or more dose reduction, viz: automated exposure control, ma/kV adjustment per patient size (including targeted exams where dose is matched to indication, i.e. head), or iterative reconstruction technique. FINDINGS: LOWER THORAX: There are bilateral breast implants with some minimal left-sided capsular calcification inferiorly. Coronary artery calcification noted. ABDOMEN & PELVIS: Diffuse fatty liver. Prior cholecystectomy. No focal liver lesion identified. The spleen, adrenal glands, and pancreas have an unremarkable appearance. No renal or ureteral calculi. No hydronephrosis. No evidence of pancreatitis or pancreatic mass. No intestinal obstruction or free air. No evidence of appendicitis. There is a mild amount of retained colonic feces. Tiny umbilical hernia containing fat. Status post hysterectomy. No evidence of diverticulitis. No pelvic mass or abnormal fluid collection is evident. Degenerative disc disease L4-5 with right-sided foraminal narrowing from endplate hypertrophic change. IMPRESSION: 1. No acute finding. 2. No evidence of pancreatitis 3. Status post cholecystectomy with diffuse fatty liver. Dictated by: Dimas Rg MD 10/22/2020 08:53 Dimas Rg MD in OV 10/22/2020 08:53
== END ==
PROVIDERS: PCP Family Medicine; Visit Provider Physician Assistant
DX: E78.2 Mixed hyperlipidemia (principal); G47.33 Obstructive sleep apnea (adult) (pediatric); I11.9 Hypertensive heart disease without heart failure; I25.110 Atherosclerotic heart disease of native coronary artery with unstable angina pectoris; K21.9 Gastro-esophageal reflux disease without esophagitis; R06.00 Dyspnea, unspecified; R07.89 Other chest pain; R11.0 Nausea
CPT/HCPCS: 74178; Q9967

== ENCOUNTER → 2020-11-03 15:00 | Outpatient (CLI) | payer MEDICARE, SELFPAY ==
[2020-11-03 15:59] VITALS: BMI 28.5
== END ==
PROVIDERS: PCP Family Medicine; Visit Provider Family Medicine
DX: Z71.3 Dietary counseling and surveillance (principal); E11.9 Type 2 diabetes mellitus without complications
CPT/HCPCS: 97802

== ENCOUNTER 2021-05-02 12:43 | Emergency (ER) | payer MEDICARE, SELFPAY ==
[2021-05-02 14:30] VITALS: BP 140/78; PULSE 91; RESP 18; TEMP 36.7; O2SAT 98
--- NOTE | 2021-05-02 14:58 | HMH.EDUTC ---
[facility] [place] Disposition Clinical Impression: Acute bronchitis Qualifiers: Bronchitis organism: unspecified organism Qualified Code(s): J20.9 - Acute bronchitis, unspecified Disposition: Home, Self-Care Condition on Discharge: Good Instructions: DI for Acute Bronchitis Additional Instructions: Start antibiotic today. Be sure to complete entire prescription even if feeling better Tylenol and ibuprofen as needed for pain or fever Humidifier/vaporizer/hot steamy shower Follow-up with primary care tuesday. Follow-up immediately in the ER of the [facility] for new or worsening symptoms or no noticeable improvement over the next 48-72 hours. Stop smoking Prescriptions: Azithromycin [Zithromax 250mg tab] 250 mg PO DIRECTED #6 tab Transmission Status: Pending to [id number] Referrals: Juan Pablo Nelson MD [Primary Care Provider] - Time of Disposition: 15:02 Medical Decision Making - Benjamin Inquiry Pt receiving controlled substance: No Vital Signs: 05/02/21 14:30 Temperature 98.1 F Temperature Source Oral Pulse Rate [Right Brachial] 91 H Respiratory Rate 18 Blood Pressure [Right Arm] 140/78 Blood Pressure Mean [Right Arm] 98 Blood Pressure Source [Right Arm] Automatic Cuff Blood Pressure Position [Right Arm] Sitting 02 Sat by Pulse Oximetry 98 Oxygen Delivery Method Room Air Orders (Tests/Meds): ED MEDICATIONS Discontinued Medications Generic Name Dose Route Start Last Admin Trade Name Eladioq PRN Reason Stop Dose Admin Ceftriaxone Sodium 1 gm 05/02/21 14:56 Ceftriaxone 1gm Vial IM 05/02/21 14:57 ONCE ONE Dexamethasone Sodium Phosphate 4 mg 05/02/21 14:56 Dexamethasone 4mg/Ml 1ml Vial IM 05/02/21 14:57 ONCE ONE Lidocaine HCl 0 ml 05/02/21 14:56 Lidocaine 1% 5ml Pf Vial IM 05/02/21 14:57 ONCE ONE ORDERS Category Date Time Status Covid-19 Nasal PCR ([facility]) Routine Lab 05/02/21 14:57 Ordered [facility] HPI - General Chief complaint: Urgent Treatment Center Stated complaint: h/a, sore throat, congestion Time Seen by Provider: 05/02/21 14:59 Mode of Arrival: Ambulatory Source of Information: Patient Limitations: No Limitations Description of Symptoms (Recalled from Triage Doc. by RN): PATIENT C/O CONGESTION, HEADACHE AND PRODUCTIVE COUGH HEENT Symptoms (Recalled from RN notes): Yes Resp Symptoms (Recalled from RN notes): Yes Skin Symptoms (Recalled from RN notes): No MS Symptoms (Recalled from RN notes): No Functional Status (Recalled from RN notes): WNL - History of Present Illness Provider Complaint: 65 yr old female presents for coughing up dark sputum, nasal congestion,tiredness and sinus pressure since . - Related Data Home Medications Medication Instructions Recorded Confirmed alprazolam 0.5 mg tablet 0.5 mg PO TID tab 04/25/17 10/13/20 budesonide-formoterol HFA 160 2 inh INHALATION BID g 04/25/17 10/13/20 mcg-4.5 mcg/actuation aerosol inhaler esomeprazole magnesium 40 mg 40 mg PO QDAY cap 04/25/17 10/13/20 capsule,delayed release zolpidem 10 mg tablet 10 mg PO HS 04/25/17 10/13/20 metformin 500 mg tablet,extended 500 mg PO DAILY tab 09/23/20 10/13/20 release 24 hr olmesartan 40 1 tab PO DAILY 09/23/20 10/13/20 mg-hydrochlorothiazide 12.5 mg tablet amlodipine 5 mg tablet 5 mg PO .PRN tab 10/13/20 10/13/20 famotidine 40 mg tablet 40 mg PO DAILY tab 10/13/20 10/13/20 nebivolol 20 mg tablet 10 mg PO DAILY tab 10/13/20 10/13/20 Previous Rx's Medication Instructions Recorded aspirin 81 mg tablet,delayed 81 mg PO .M,W,F #30 tab 10/13/20 release ezetimibe 10 mg tablet See Rx Instructions .ROUTE 12/17/20 .COMPLEX #30 tablet Azithromycin [Zithromax 250mg 250 mg PO DIRECTED #6 tab 05/02/21 tab] Allergies Allergy/AdvReac Type Severity Reaction Status Date / Time acetaminophen [From PERCOCET] Allergy Severe IRREGULAR Verified 09/23/20 14:44 HEARTBEAT oxycodone [From PERCOCET] Allergy Se
[2021-05-02 15:13] VITALS: BP 140/78; PULSE 91; RESP 18; TEMP 36.7; O2SAT 98
== END 2021-05-02 15:26 | disposition home or self-care (01) ==
PROVIDERS: Emergency Provider Nurse Practitioner Family; PCP Family Medicine
DX: U07.1 COVID-19 (principal); J20.9 Acute bronchitis, unspecified; I25.10 Atherosclerotic heart disease of native coronary artery without angina pectoris; K21.9 Gastro-esophageal reflux disease without esophagitis; E11.9 Type 2 diabetes mellitus without complications; Z79.899 Other long term (current) drug therapy; I10 Essential (primary) hypertension; E78.5 Hyperlipidemia, unspecified
CPT/HCPCS: G0463; 96372; 99202; C9803; J0696; U0003; U0005

== ENCOUNTER → 2021-05-26 09:54 | Outpatient (CLI) | payer MEDICARE, SELFPAY ==
[2021-05-26 10:55] LABS: Cholesterol 165 mg/dl (140-200); Triglycerides 241 mg/dl (30-150); VLDL Cholesterol 48 mg/dL (0-40)
[2021-05-26 10:56] LABS: Chol/HDL Ratio 3.8 (1-3.5); HDL Cholesterol 44 mg/dl (40-60)
[2021-05-26 11:06] LABS: Direct LDL Cholesterol 105.52 mg/dL (100-129)
== END ==
PROVIDERS: Visit Provider Family Medicine
DX: I25.10 Atherosclerotic heart disease of native coronary artery without angina pectoris (principal)
CPT/HCPCS: 36415; 80061

== ENCOUNTER 2021-06-20 18:52 | Emergency (ER) | payer MEDICARE, SELFPAY ==
[2021-06-20 19:27] VITALS: BP 93/51; PULSE 73; RESP 16; TEMP 36.6; O2SAT 95; BMI 27.3
--- NOTE | 2021-06-20 19:41 | HMH.EDUTC ---
[facility] [place] Disposition Clinical Impression: UTI (urinary tract infection) Qualifiers: Urinary tract infection type: site unspecified Hematuria presence: with hematuria Qualified Code(s): N39.0 - Urinary tract infection, site not specified; R31.9 - Hematuria, unspecified Disposition: Home, Self-Care Condition on Discharge: Good Instructions: Urinary Tract Infection, DI for Urinary Tract Infection (UTI), Phenazopyridine Additional Instructions: Drink plenty of fluids. Take tylenol or ibuprofen for pain or fever. Take the medications as directed. Follow up with your regular doctor. GO TO THE ER FOR ANY WORSENING SYMPTOMS The pyridium will make your urine turn orange, this is an expected side effect. It will stain your clothes if it comes into contact with them. We will culture the urine. That will tell what bacteria is causing your infection and which antibiotics will treat it best. Sometimes the first antibiotic we prescribe turns out to not work against different bacteria. So, make sure you follow up within 3 days if you are not getting better. Prescriptions: Ondansetron [Zofran 4mg ODT] 4 mg PO Q8HP PRN #9 tab PRN Reason: Nausea Transmission Status: Pending to [facility] Ciprofloxacin HCl [Cipro 500mg Tab] 500 mg PO BID 7 Days #14 tab Transmission Status: Pending to [facility] Referrals: Juan Pablo Nelson MD [Primary Care Provider] - Time of Disposition: 20:16 Medical Decision Making - Medical Records Medical records reviewed: No: I reviewed the patient's medical records. - Benjamin Inquiry Pt receiving controlled substance: No Vital Signs: 06/20/21 19:27 Temperature 98 F Temperature Source Oral Pulse Rate [Left] 73 Respiratory Rate 16 Blood Pressure [Right Arm] 93/51 L Blood Pressure Mean [Right Arm] 65 02 Sat by Pulse Oximetry 95 - Lab Data Lab results reviewed: Yes: I reviewed the patient's lab results. Lab Results 06/20/21 20:00: Urine Color [place], Urine Appearance Clear, Urine pH 6.0, Ur Specific [place] 1.020, Urine Protein 1+, Urine Glucose (UA) Trace, Urine Ketones Negative, Urine Blood Trace, Urine Nitrate Positive A, Urine Bilirubin 1+ A, Urine Urobilinogen 2, Ur Leukocyte Esterase Negative Orders (Tests/Meds): ORDERS Category Date Time Status Urine Culture Stat Micro 06/20/21 19:24 Received [facility] HPI - General Stated complaint: Blood in Urine Time Seen by Provider: 06/20/21 19:41 Mode of Arrival: Ambulatory Source of Information: Patient Limitations: No Limitations Description of Symptoms (Recalled from Triage Doc. by RN): pt c/o blood in urine and lower back pain HEENT Symptoms (Recalled from RN notes): No Resp Symptoms (Recalled from RN notes): No Skin Symptoms (Recalled from RN notes): No MS Symptoms (Recalled from RN notes): Yes Functional Status (Recalled from RN notes): wnl - History of Present Illness Provider Complaint: She states that she has had low back pain, urinary frequency, and dysuria for the past 3 days. Today, she started having blood in her urine. She denies any fever or chills. She believes that she has a uti. - Related Data Home Medications Medication Instructions Recorded Confirmed alprazolam 0.5 mg tablet 0.5 mg PO TID tab 04/25/17 10/13/20 budesonide-formoterol HFA 160 2 inh INHALATION BID g 04/25/17 10/13/20 mcg-4.5 mcg/actuation aerosol inhaler esomeprazole magnesium 40 mg 40 mg PO QDAY cap 04/25/17 10/13/20 capsule,delayed release zolpidem 10 mg tablet 10 mg PO HS 04/25/17 10/13/20 metformin 500 mg tablet,extended 500 mg PO DAILY tab 09/23/20 10/13/20 release 24 hr olmesartan 40 1 tab PO DAILY 09/23/20 10/13/20 mg-hydrochlorothiazide 12.5 mg tablet amlodipine 5 mg tablet 5 mg PO .PRN tab 10/13/20 10/13/20 famotidine 40 mg tablet 40 mg PO DAILY tab 10/13/20 10/13/20 nebivolol 20 mg tablet 10 mg PO DAILY tab 10/13/20 10/13/20 Previous Rx's Medication Instr
[2021-06-20 20:01] LABS: Apearance,Urine Clear (Clear); Bilirubin,Urine 1+ (Negative); Blood, Urine Trace (Negative); Color,Urine Orange (Yellow); Glucose,Urine (UA) Trace (Negative); Ketones,Urine Negative (Negative); Protein,Urine 1+ (Negative); UTC Leukocyte Esterase,Urine Negative (Negative); Urobilinogen,Urine 2 EU/dl (0.2)
[2021-06-20 20:02] LABS: UTC Nitrate,Urine Positive (Negative)
[2021-06-20 20:22] VITALS: BP 93/51; PULSE 73; RESP 16; TEMP 36.6
== END 2021-06-20 20:25 | disposition home or self-care (01) ==
PROVIDERS: Emergency Provider Nurse Practitioner Family; PCP Family Medicine
DX: N30.01 Acute cystitis with hematuria (principal); E11.9 Type 2 diabetes mellitus without complications; K21.9 Gastro-esophageal reflux disease without esophagitis; Z79.899 Other long term (current) drug therapy; Z88.0 Allergy status to penicillin; Z88.5 Allergy status to narcotic agent
CPT/HCPCS: 81003; 87086; 99212; G0463

== ENCOUNTER → 2021-11-03 09:50 | Outpatient (POV) | payer MEDICARE, SELFPAY | PROVIDERS: Visit Provider Dermatology | DX: Z00.00 Encounter for general adult medical examination without abnormal findings (principal) ==

== ENCOUNTER 2021-12-16 17:42 | Emergency (ER) | payer MEDICARE, SELFPAY ==
[2021-12-16 18:00] VITALS: BP 127/73; PULSE 80; RESP 17; TEMP 36.7; O2SAT 98; BMI 27.1
--- NOTE | 2021-12-16 18:14 | XR_ITS ---
PROCEDURE INFORMATION: Exam: XR Lumbosacral Spine Exam date and time: 12/16/2021 6:24 PM Age: 66 years old Clinical indication: Low back pain TECHNIQUE: Imaging protocol: Radiologic exam of the lumbosacral spine. Views: 2 or 3 views. COMPARISON: SPLUMBWO MR lumbar spine wo con 07/12/2017 9:35 AM FINDINGS: Bones/joints: Normal. No acute fracture. Normal alignment. Soft tissues: Unremarkable. Intraperitoneal space: Right upper quadrant surgical clips. Vasculature: Vascular calcifications. IMPRESSION: No acute findings.
--- NOTE | 2021-12-16 18:16 | XR_ITS ---
PROCEDURE INFORMATION: Exam: XR Right Hip Exam date and time: 12/16/2021 6:23 PM Age: 66 years old Clinical indication: Hip pain; Right hip TECHNIQUE: Imaging protocol: Radiologic exam of the Right hip. Views: 2 or 3 views hip with pelvis when performed. COMPARISON: CT ABDOMEN PELVIS WO/W CON 10/21/2020 9:31 AM FINDINGS: Bones/joints: No acute fracture or dislocation. Soft tissues: Unremarkable. IMPRESSION: No acute fracture or dislocation. If the patient is unable to bear weight, consider cross-sectional imaging to exclude occult fracture.
--- NOTE | 2021-12-16 18:18 | EXP.UTC ---
Discharge Plan Disposition Patient Disposition: Home, Self-Care Condition: Good Prescriptions Prescriptions: No Action famotidine 40 mg tablet 40 mg PO DAILY Bystolic 20 mg tablet 10 mg PO DAILY amlodipine 5 mg tablet 5 mg PO .PRN aspirin [Adult Low Dose Aspirin] 81 mg tablet,delayed release (DR/EC) 81 mg PO .M,W,F Qty: 30 2RF zolpidem [Ambien] 10 mg tablet 10 mg PO HS esomeprazole magnesium [Nexium] 40 mg capsule,delayed release(DR/EC) 40 mg PO QDAY budesonide-formoterol [Symbicort] 160-4.5 mcg/actuation HFA aerosol inhaler 2 inh INHALATION BID alprazolam [Xanax] 0.5 mg tablet 0.5 mg PO TID metformin 500 mg tablet extended release 24 hr 500 mg PO DAILY olmesartan-hydrochlorothiazide 40-12.5 mg tablet 1 tab PO DAILY ezetimibe 10 mg tablet See Rx Instructions .ROUTE .COMPLEX Qty: 30 5RF Dose Instruction: Take 1 tablet by mouth once daily Rx Instructions: Take 1 tablet by mouth once daily peg 3350-electrolytes [Golytely] 236-22.74-6.74 -5.86 gram recon soln 240 ml PO Q10M Qty: 4000 0RF Rx Instructions: until fecal effluent is clear azithromycin 250 MG tablet 250 mg PO DIRECTED Qty: 6 0RF Rx Instructions: Take two (2) tablets on day #1, then one (1) tablet day #2 thru #5 ciprofloxacin HCl 500 MG tablet 500 mg PO BID 7 Days Qty: 14 0RF ondansetron 4 MG tablet,disintegrating 4 mg PO Q8HP PRN (Reason: Nausea) Qty: 9 0RF Referrals Follow up/Referrals: Juan Pablo Nelson MD [Primary Care Provider] - See instructions Activity Restrictions/Add. Instructions Additional Instructions/Restrictions: *Ibuprofen alexus 6 hours with meal as needed for pain/inflammation if you can take it *Remember you had a Toradol shot in the clinic today, which is similar to Motrin *Not additional anti-inflammatory like motrin, aleve, advil with the above amount of ibuprofen. You can still take Tylenol every 4 hours as needed if you need something else for pain if you can take it *Ice 20 minutes every 2 hours for the first 48 hours after the initial injury followed by moist heat every 20 minutes 3-4 times a day to affected area *Keep this area active, no movement leads to more stiffness, However take it easy and avoid heavy lifting pushing or pulling *Follow up with you family doctor if no improvement for further treatment Clinical Impressions Clinical Impression: Sciatica, Strain of muscle of right groin region Instructions Patient Instructions: DI for Groin Strain, DI for Sciatica Discharge ED Provider: Katlyn Queen [facility] [place] HPI General Stated complaint: pain in groin no accident Mode of Arrival: Ambulatory Source of Information: Patient Limitations: No Limitations Time Seen by Provider: 12/16/21 18:19 Description of Symptoms (Recalled from Triage Doc. by RN): PATIENT C/O PAIN IN LEFT GROIN AREA AFTER LIFTING A SUIT CASE ONTO A SCALE 1 WEEK AGO HEENT Symptoms (Recalled from RN notes): No Resp Symptoms (Recalled from RN notes): No Skin Symptoms (Recalled from RN notes): No MS Symptoms (Recalled from RN notes): Yes Functional Status (Recalled from RN notes): WNL History of Present Illness Provider Complaint: Patient states that she has been having pain in her groin area since she lifted a suitcase to set on scale about a week ago and has continued to get worse States that she has a history of sciatica and has been having pain in her lower back on and off going into her hips/buttock area States that today pain was worse with walking so she came in to get it checked Related Data Home Medications Medication Instructions Recorded Confirmed alprazolam 0.5 mg tablet (Xanax) 0.5 mg PO TID Anxiety 04/25/17 10/13/20 budesonide-formoterol HFA 160 2 inh inhalation BID . 04/25/17 10/13/20 mcg-4.5 mcg/actuation aerosol inhaler (Symbicort) esomeprazole magnesium 40 mg 40 mg PO QDAY GERD 04/25/17 10/13/20 capsule,delayed re
[2021-12-16 18:59] VITALS: BP 127/73; PULSE 80; RESP 17; TEMP 36.7; O2SAT 98
== END 2021-12-16 19:38 | disposition home or self-care (01) ==
PROVIDERS: Emergency Provider Nurse Practitioner; PCP Family Medicine
DX: M54.41 Lumbago with sciatica, right side (principal)
CPT/HCPCS: 72100; 73502; 96372; 99212; G0463

== ENCOUNTER → 2021-12-21 09:06 | Outpatient (CLI) | payer MEDICARE, SELFPAY ==
--- NOTE | 2021-12-21 09:10 | XR_ITS ---
FINAL REPORT TECHNIQUE: Bone densitometry calculations of the lumbar spine and left hip were obtained. CLINICAL HISTORY: . post menopausal screening FINDINGS: DEXA BONE DENSITY AXIAL SKELETON Using L1-4, the bone mineral density of the spine is 1.096 g/cm2, corresponding to T-score of 0.4. Using the left hip, the bone mineral density of the femoral neck is 0.565 g/cm2, corresponding to a T-score of -2.6. NOTE: T-score: Standard deviation compared with peak bone mass of young adult mean. *Following the recommendations of the International Society of Bone Densitometry, classification of hip BMD is based on the lower of two T-scores; total hip or femoral neck. IMPRESSION: Osteoporosis: Lowest T-score is at or below -2.5. This patient's T-score meets the World Health Organization criteria for osteoporosis. Reviewed, Interpreted and Dictated by Bill Adame MD Transcribed by Amie Louise Authenticated and [facility]
== END ==
PROVIDERS: PCP Family Medicine; Visit Provider Family Medicine
DX: Z78.0 Asymptomatic menopausal state (principal)
CPT/HCPCS: 77080

== ENCOUNTER 2022-01-07 08:49 | Outpatient (CLI) | payer MEDICARE, SELFPAY ==
[2022-01-07 08:54] VITALS: BMI 25.8
[2022-01-07 09:32] LABS: Albumin Level 4.5 g/dl (3.5-5.0)
[2022-01-07 09:35] LABS: Calcium 9.7 mg/dl (8.4-10.2); Creatinine Clearance Estimated 65 mL/min (50-200); Estimated Glomerular Filt Rate 72 ml/min (>60); GFR (African American) 87 ML/MIN (>60)
[2022-01-07 09:49] VITALS: BP 136/71; PULSE 61; RESP 18; TEMP 36.4; O2SAT 98
[2022-01-07 10:20] VITALS: BP 131/76; PULSE 67; RESP 18; O2SAT 98
== END 2022-01-07 10:15 | disposition home or self-care (01) ==
LOC: INF 08:52
PROVIDERS: PCP Family Medicine; Visit Provider Family Medicine
DX: M81.0 Age-related osteoporosis without current pathological fracture (principal)
CPT/HCPCS: 82040; 82310; 82565; 96374; J3489

== ENCOUNTER → 2022-03-09 08:57 | Outpatient (POV) | payer MEDICARE, SELFPAY | PROVIDERS: Visit Provider Dermatology | DX: Z00.00 Encounter for general adult medical examination without abnormal findings (principal) ==

== ENCOUNTER 2022-03-09 15:30 | Outpatient (RCR) | payer MEDICARE, SELFPAY | END 2022-03-09 15:35 | disposition home or self-care (01) | LOC: PT 15:30 | PROVIDERS: PCP Family Medicine; Visit Provider Family Medicine | DX: S76.212A Strain of adductor muscle, fascia and tendon of left thigh, initial encounter (principal); S76.211A Strain of adductor muscle, fascia and tendon of right thigh, initial encounter | CPT/HCPCS: 97035; 97140; 97163 ==

== ENCOUNTER 2022-04-06 09:33 | Day surgery (SDC) | payer MEDICARE, SELFPAY ==
[2022-04-02 14:57] VITALS: BMI 25.5
[2022-04-06 10:16] VITALS: BP 111/58; PULSE 62; RESP 16; TEMP 36.6; O2SAT 94
--- NOTE | 2022-04-06 10:46 | P.PN_ITS ---
[facility] Disclaimer: The information contained in this section may have been updated after the patient was seen, as this information can be updated by other users. Medical History Anxiety Asthma Cancer Depression Diabetes mellitus, type 2 Dyspnea Gastroesophageal reflux disease History of gastroesophageal reflux (GERD) History of heart attack Hx of pancreatitis Hyperlipidemia Hypertension Hypertensive heart disease Nausea Obstructive sleep apnea syndrome Stable angina pectoris Surgical History History of cholecystectomy History of hysterectomy History of mastectomy S/P cervical spinal fusion Family History Father Family history of NE (myocardial infarction) Grandmother Family history of NE (myocardial infarction) Mother Family history of breast cancer Family/Other Family history of lung cancer Family/Other Family history of kidney cancer Social History (Updated 04/06/22 @ 10:11 by Tiara Juares RN) Smoking Status: Former smoker alcohol intake: never substance use type: denies use current occupational status: retired Travel in the last 8 weeks: Inside the [place] household members: spouse housing: house current occupational exposures/hazards: No [facility] Anesthesia Checklist Patient Identification Patient Identification: Arm Band and Verbal (Name & ) Structural Data Admitted From: Home Planned Operative Procedure/s: Colonoscopy Consent for Planned Operative Procedure(s) Verified: Yes Verified Documents: Surgical Consent NPO Status Verified Time NPO: 04:00 Airway Assessment C-Spine Mobility Assessed: Yes TMJ Mobility Assessed: Yes Dentition: Good Dentition Neurological Assessment Level of Consciousness: Awake, Alert and Appropriate Anesthesia Plan Anesthesia Risk discussed: Yes ASA Class: III Anesthesia Type: MAC
[2022-04-06 10:57] VITALS: O2SAT 97
[2022-04-06 11:08] LABS: POC Glucose,Bedside 101 (70-110)
[2022-04-06 11:35] VITALS: BP 74/49; PULSE 78; RESP 17; TEMP 36.8; O2SAT 97
--- NOTE | 2022-04-06 11:41 | P.PCN_ITS ---
Procedure: Date: 04/06/22 Patient Date of :: 1955 Procedure Performed:: Colonoscopy Indications:: Screening Performing Provider:: Pancho Nicholson MD Referring Provider:: . Sedation:: Monitored anesthesia care Procedure:: After informed consent was obtained the patient was taken to the endoscopy suite. Sedation ensued after the patient was transferred to the left lateral decubitus position. Pulse, blood pressure, and oxygen saturation were monitored throughout the procedure. Digital rectal exam revealed no significant abnormality. The colonoscope was placed in position. The entire colon was eval uated. The colonoscope was carefully removed and the patient was transferred to recovery in stable condition. Please see findings and specimens below for detail. Findings:: Bowel preparation fair to moderate Significant tortuosity Profound lack of relaxation/spasticity Specimens:: None Recommendations:: Repeat colonoscopy in 3-5 years secondary to spasticity/lack of relaxation and tortuosity. Complications:: No immediate Estimated blood obtained (mL): 0
[2022-04-06 11:45] VITALS: BP 78/46; PULSE 75; RESP 16; O2SAT 97
--- NOTE | 2022-04-06 11:48 | SUR.PHASEII ---
Constantino, MUSIC VIDEO DIRECTOR aware of pt low bp. no new orders
[2022-04-06 11:55] VITALS: BP 98/53; PULSE 67; RESP 17; O2SAT 99
[2022-04-06 12:05] VITALS: BP 112/66; PULSE 70; RESP 16; O2SAT 99
== END 2022-04-06 12:05 | disposition home or self-care (01) ==
PROVIDERS: PCP Family Medicine; Visit Provider Surgery
PROC: 0DJD8ZZ Inspection of Lower Intestinal Tract, Via Natural or Artificial Opening Endoscopic (ICD-10-PCS; principal; 2022-04-06 10:30)
DX: Z12.11 Encounter for screening for malignant neoplasm of colon (principal); Z79.899 Other long term (current) drug therapy; E11.9 Type 2 diabetes mellitus without complications
CPT/HCPCS: G0121; 82962

== ENCOUNTER → 2022-06-08 08:17 | Outpatient (POV) | payer MEDICARE, SELFPAY | PROVIDERS: Visit Provider Dermatology | DX: Z00.00 Encounter for general adult medical examination without abnormal findings (principal) ==

== ENCOUNTER → 2022-06-28 13:23 | Outpatient (CLI) | payer MEDICARE, SELFPAY ==
[2022-06-28 14:59] LABS: Basophils % 0.5 % (0.1-2.0); Eosinophils # 0.1 K/mm3 (0.0-0.4); Eosinophils % 1.5 % (0.1-12.0); Hematocrit 35.5 % (37.0-47.0); Hemoglobin 11.1 g/dL (12.2-16.2); Lymphocytes # 1.8 K/mm3 (0.7-4.5); Lymphocytes % 20.7 % (10-50); Mean Corpuscular HGB Conc 31.2 g/dL (31.8-35.4); Mean Corpuscular Volume 89.7 fl (81-99); Mean Platelet Volume 7.8 fl (7.4-10.4); Monocytes # 0.3 K/mm3 (0.1-1.0); Monocytes % 3.4 % (1.7-9.3); Neutrophils # 6.4 K/mm3 (1.8-7.8); Neutrophils % 73.8 % (37.0-80.0); Platelet Count 245 K/mm3 (142-424); Red Blood Count 3.96 M/mm3 (4.20-5.40); Red Cell Distribution Width 14.3 % (11.5-17.5); White Blood Count 8.6 K/mm3 (4.8-10.8)
[2022-06-28 15:04] LABS: Iron 49 ug/dL (37-170)
[2022-06-28 15:40] LABS: Total Iron Binding Capacity 303 ug/dL (265-497)
== END ==
PROVIDERS: PCP Family Medicine; Visit Provider Family Medicine
DX: R06.02 Shortness of breath (principal); R53.83 Other fatigue; L65.9 Nonscarring hair loss, unspecified
CPT/HCPCS: 36415; 82728; 83540; 83550; 85025

== ENCOUNTER 2022-07-29 15:06 | Emergency (ER) | payer MEDICARE, SELFPAY ==
--- NOTE | 2022-07-29 15:52 | XR_ITS ---
FINAL REPORT CLINICAL HISTORY: Shortness of breath, PATIENT IN AFIB COMPARISON: None FINDINGS: The heart size is normal. The mediastinum is normal. There is no focal infiltrate or edema. There are no pleural effusions. There is no pneumothorax. There is no osseous abnormality. Cervical fusion hardware is present. IMPRESSION: No acute cardiopulmonary process Reviewed, Interpreted and Dictated by Jim Guzman MD Transcribed by Kalpana Yin Authenticated and [facility]
[2022-07-29 15:58] VITALS: BP 109/68; PULSE 65; RESP 20; TEMP 36.8; O2SAT 96; BMI 23.1
[2022-07-29 16:00] VITALS: BP 94/64; PULSE 67; RESP 18; O2SAT 96
--- NOTE | 2022-07-29 16:00 | PC.NURSE ---
rounded on pt xray was at bs, eliceo at bs
--- NOTE | 2022-07-29 16:19 | PC.NURSE ---
lab called and advised issues with analyzer and they were running QC and d-dimer results would be delayed. MD notified and updated patient at this time.
[2022-07-29 16:21] LABS: Chloride 100 mmol/L (98-107); Sodium 140 mmol/L (136-145)
[2022-07-29 16:22] LABS: Basophils % 0.5 % (0.1-2.0); Eosinophils # 0.3 K/mm3 (0.0-0.4); Eosinophils % 2.8 % (0.1-12.0); Hematocrit 38.9 % (37.0-47.0); Hemoglobin 12.5 g/dL (12.2-16.2); Lymphocytes # 2.1 K/mm3 (0.7-4.5); Lymphocytes % 23.8 % (10-50); Mean Corpuscular HGB Conc 32.1 g/dL (31.8-35.4); Mean Corpuscular Hemoglobin 28.4 pg (27.0-31.2); Mean Corpuscular Volume 88.6 fl (81-99); Mean Platelet Volume 8.2 fl (7.4-10.4); Monocytes # 0.2 K/mm3 (0.1-1.0); Monocytes % 2.7 % (1.7-9.3); Neutrophils # 6.3 K/mm3 (1.8-7.8); Neutrophils % 70.3 % (37.0-80.0); Platelet Count 295 K/mm3 (142-424); Potassium 3.3 mmoL/L (3.5-5.1); Red Cell Distribution Width 14.1 % (11.5-17.5)
[2022-07-29 16:24] LABS: Alanine Aminotransferase 20 U/L (12-78); Albumin Level 4.8 g/dl (3.5-5.0); Albumin/Globulin Ratio 1.7 (1.1-1.8); Alkaline Phosphatase 85 U/L (38-126); Anion Gap 20.3 mEq/L (5-15); Aspartate Amino Transferase 28 U/L (14-36); Bilirubin,Total 0.4 mg/dl (0.2-1.3); Blood Urea Nitrogen 21 mg/dl (7-17); Calcium 9.7 mg/dl (8.4-10.2); Carbon Dioxide 23 mmol/L (22.0-30.0); Creatinine Clearance Estimated 53 mL/min (50-200); Estimated Glomerular Filt Rate 63 ml/min (>60); GFR (African American) 76 ML/MIN (>60); Globulin 2.9 g/dL (1.3-3.2); Glucose 112 mg/dl (74-100); Total Protein,Serum 7.7 g/dl (6.3-8.2)
[2022-07-29 16:25] LABS: Magnesium 2.2 mg/dl (1.6-2.3)
[2022-07-29 16:30] VITALS: BP 101/63; PULSE 70; O2SAT 96
[2022-07-29 16:35] LABS: NT Pro Brain Natriuretic Pep. 610 pg/mL (0-125)
[2022-07-29 16:39] LABS: Troponin I < 0.01 ng/ml (0.00-0.034)
[2022-07-29 17:00] VITALS: BP 100/67; PULSE 65; O2SAT 98
[2022-07-29 17:07] LABS: D-Dimer 0.31 ug/mL (0.0-0.5)
--- NOTE | 2022-07-29 17:12 | ECG_ITS ---
APPROVED REPORT Exam: Resting ECG HR:62 bpm ECG Measurements Heart Rate 62 AXES LA 193 P 52 QRSd 125 QRS -43 QT 422 T 42 QTc 427 Conclusion SINUS RHYTHM LEFT AXIS DEVIATION [QRS AXIS < -30] POSSIBLE LATERAL MYOCARDIAL INFARCTION , OF INDETERMINATE AGE [30 ms Q WAVE IN I/aVL/V5/V6] ABNORMAL ECG UNCONFIRMED REPORT Electronically signed by : Juan Pablo Richards MD 07/31/2022 15:57:14
--- NOTE | 2022-07-29 17:22 | HMH.EDGENADL ---
Discharge Plan Disposition Patient Disposition: Home, Self-Care Prescriptions Prescriptions: New bisoprolol fumarate 10 mg tablet 10 mg PO DAILY Qty: 30 0RF No Action zolpidem [Ambien] 10 mg tablet 10 mg PO HS esomeprazole magnesium [Nexium] 40 mg capsule,delayed release(DR/EC) 40 mg PO QDAY alprazolam [Xanax] 0.5 mg tablet 0.5 mg PO TID olmesartan-hydrochlorothiazide 40-12.5 mg tablet 1 tab PO DAILY carvedilol 6.25 mg tablet 3.125 mg PO BID metformin 500 mg tablet extended release 24 hr 500 mg PO ONCE Nurtec ODT 75 mg tablet,disintegrating 75 mg PO Q OTHER DAY Qty: 15 3RF ondansetron 4 MG tablet,disintegrating 4 mg PO Q8HP PRN (Reason: Nausea) Qty: 9 0RF atorvastatin 10 mg Tablet 5 mg PO DAILY Referrals Follow up/Referrals: Juan Pablo Nelson MD [Primary Care Provider] - See instructions Activity Restrictions/Add. Instructions Additional Instructions/Restrictions: Stop the Coreg, return for dizziness chest pain shortness of air or any other concerns within the next [address] Gonzalez's office and he can see you again on Tuesday. Clinical Impressions Clinical Impression: A-fib Discharge ED Provider: Gio Obando General Adult HPI General Chief complaint: Arrhythmia/Palpitations Stated complaint: A FIB sent from Dr. Gonzalez's Office Time Seen by Provider: 07/29/22 16:10 Mode of Arrival: Ambulatory Source of Information: Patient Limitations: No Limitations Description of Symptoms (Recalled from ER Triage Doc. by RN): pt to ed c/o heart palpitations. pt was sent from cardiology office with new onset afib. per cardiology office pt was hypotensive on arrival to visit. History of Present Illness HPI narrative: 66-year-old female with history of atrial fibrillation migraines diabetes coronary disease presented with palpitations. She was at cardiology office for the first time and began having A-fib. Heart rate was in the 120s and blood pressure was 90 systolic. She was sent over to the emergency department for evaluation in the emergency department she did not have any chest pain difficulty breathing headache vomiting. She says she periodically has intermittent A-fib and will come out of it occasionally. Related Data Home Medications Medication Instructions Recorded Confirmed alprazolam 0.5 mg tablet (Xanax) 0.5 mg PO TID Anxiety 04/25/17 07/29/22 esomeprazole magnesium 40 mg 40 mg PO QDAY GERD 04/25/17 07/29/22 capsule,delayed release (Nexium) zolpidem 10 mg tablet (Ambien) 10 mg PO HS . 04/25/17 07/29/22 olmesartan 40 1 tab PO DAILY High blood pressure 09/23/20 07/29/22 mg-hydrochlorothiazide 12.5 mg tablet atorvastatin 10 mg tablet 5 mg PO DAILY Cholesterol 04/02/22 07/29/22 carvedilol 6.25 mg tablet 3.125 mg PO BID htn 04/20/22 07/29/22 metformin 500 mg tablet,extended 500 mg PO ONCE 07/29/22 07/29/22 release 24 hr Previous Rx's Medication Instructions Recorded ondansetron 4 mg disintegrating 4 mg PO Q8HP PRN Nausea #9 tabs 06/20/21 tablet bisoprolol fumarate 10 mg tablet 10 mg PO DAILY #30 tabs 07/29/22 rimegepant 75 mg disintegrating 75 mg PO Q OTHER DAY Episodic 07/29/22 tablet (Nurtec ODT) migraine #15 tabs Allergies Allergy/AdvReac Type Severity Reaction Status Date / Time oxycodone [From PERCOCET] Allergy Severe IRREGULAR Verified 07/29/22 14:23 HEARTBEAT codeine Allergy Intermediate I-ITCHING, Verified 07/29/22 14:23 NAUSEA, FAST HEART RATE hydrocodone Allergy Intermediate I-ITCHING, Verified 07/29/22 14:23 NAUSEA, FAST HEART RATE ketorolac Allergy Intermediate I-ITCHING, Verified 07/29/22 14:23 NAUSEA, FAST HEART RATE meperidine [From Demerol] Allergy Intermediate I-ITCHING, Verified 07/29/22 14:23 NAUSEA, FAST HEART RATE morphine Allergy Intermediate I-ITCHING, Verified 07/29/22 14:23 NAUSEA, FAST HEART R
[2022-07-29 17:30] VITALS: BP 107/73; PULSE 67; RESP 18; O2SAT 96
[2022-07-29 18:00] VITALS: BP 107/73; PULSE 67; RESP 18; TEMP 36.8; O2SAT 96
== END 2022-07-29 18:01 | disposition home or self-care (01) ==
PROVIDERS: Emergency Provider Emergency Medicine; PCP Family Medicine
DX: I48.91 Unspecified atrial fibrillation (principal)
CPT/HCPCS: 71045; 80053; 83735; 83880; 84484; 85025; 85378; 93005; 99285

== ENCOUNTER → 2022-08-02 11:35 | Outpatient (CLI) | payer MEDICARE, SELFPAY ==
[2022-08-02 13:29] LABS: Intact Parathyroid Hormone 58.7 pg/mL (7.5-53.5)
[2022-08-02 14:29] LABS: Folate 6.79 ng/mL
[2022-08-02 15:36] LABS: Chloride 102 mmol/L (98-107); Potassium 3.6 mmoL/L (3.5-5.1); Sodium 139 mmol/L (136-145)
[2022-08-02 15:39] LABS: Anion Gap 18.6 mEq/L (5-15); Blood Urea Nitrogen 21 mg/dl (7-17); Calcium 9.7 mg/dl (8.4-10.2); Carbon Dioxide 22 mmol/L (22.0-30.0); Estimated Glomerular Filt Rate 72 ml/min (>60); GFR (African American) 87 ML/MIN (>60); Glucose 87 mg/dl (74-100)
[2022-08-03 12:12] LABS: Rapid Plasma Reagin Ab Titer Non Reactive (NonRea<1:1)
[2022-08-03 14:23] LABS: Calcium, Ionized 5.3 mg/dL (4.5-5.6)
== END ==
PROVIDERS: Specialist; PCP Nurse Practitioner Family; Visit Provider Nurse Practitioner
DX: G93.40 Encephalopathy, unspecified (principal); Z85.9 Personal history of malignant neoplasm, unspecified; I48.91 Unspecified atrial fibrillation
CPT/HCPCS: 36415; 80048; 82330; 82746; 83970; 86593; 93270

== ENCOUNTER → 2022-08-05 12:41 | Outpatient (CLI) | payer MEDICARE, SELFPAY ==
--- NOTE | 2022-08-05 12:41 | MR_ITS ---
FINAL REPORT TECHNIQUE: Multiplanar MR, without and with gadolinium enhancement CLINICAL HISTORY: History of breast cancer, recurrent headache. MEMORY LOSS. MIGRAINE HEADACHE. FINDINGS: Scattered white matter signal changes, predominantly subcortical but some periventricular throughout both hemispheres are suspicious for chronic microvascular changes. There is no hemorrhage or mass. There is a small enhancing extra-axial lesion in the inferior left frontal region measuring up to 6 mm which may represent a small meningioma or, much less likely, dural metastases. There is no associated mass effect. The ventricles are normal. IMPRESSION: No evidence of parenchymal brain metastasis. Scattered white matter signal changes favored to be chronic microvascular disease Reviewed, Interpreted and Dictated by Bill Adame MD Transcribed by Radha Sherwood Authenticated and [facility]
== END ==
PROVIDERS: PCP Family Medicine; Visit Provider Specialist
DX: R90.89 Other abnormal findings on diagnostic imaging of central nervous system (principal); Z85.9 Personal history of malignant neoplasm, unspecified
CPT/HCPCS: 70553; A9576

== ENCOUNTER → 2022-08-12 14:04 | Outpatient (CLI) | payer MEDICARE, SELFPAY | PROVIDERS: PCP Family Medicine; Visit Provider Specialist | DX: G47.33 Obstructive sleep apnea (adult) (pediatric) (principal) | CPT/HCPCS: G0399 ==

== ENCOUNTER → 2022-08-24 06:49 | Outpatient (CLI) | payer MEDICARE, SELFPAY ==
--- NOTE | 2022-08-24 06:50 | CA_ITS ---
APPROVED REPORT Exam: Pharmacologic Technologist: Marjorie Ward, Ht: 5 ft 7 in Wt: 164 lbs BSA: 1.86 m2 Rhythm: A-FIB/ABNORMAL ECG Medical History Medical History: HTN, Hyperlipidemia, Diabetic ??? Noninsulin Medications: Alprazolam,,,,, Atorvastatin,,,,, Nexium,,,,, XaRELTO,,,,, Ambien,,,,, ONdansetron,,,,, Bisprolol Fumarate,,,,, Metformin ER,,,,, RImegepant,,,,, OmeSARTAN-HYDROCHLORTHIAZIDE,,,,, Allergies: OXYCODONE,KETOROLAC,MEPERIDINE,MORPHINE,PCN Cardiac Risk Factors: HTN, Hyperlipidemia, Diabetes (non-insulin), FHX of CAD Stress Test Details Test: LEXISCAN HR Resting HR: 48 bpm Max Heart Rate (APMHR): 154 bpm Max HR Achieved: 69 bpm Target HR (85% APMHR): 131 bpm % of APMHR: 45 BP Resting BP: 149/72 mmHg Max BP: 154/86 mmHg Recovery BP: 141.0/79.0 mmHg ECG Resting ECG: Normal or ectopic sinus rhythm, PACs, IVCD, LAD, delayed R/S progression in precordial leads. Baseline [address] elevations in lateral leads ST Change: No change Arrhythmia: APC's Recovery ECG: APC's Clinical Exercise duration: 04:06 min Highest Stage Achieved: Exercise capacity: n/a METs Stress ECG Conclusion During infusion, the patient had mild SOA, chest pressure, and headache. Baseline ECG demonstrates normal or ectopic sinus rhythm, PACs, IVCD, LAD, delayed R/S progression in precordial leads. Baseline [address] elevations in lateral leads. No significant ECG changes were present at stress or recovery. Unremarkable Lexiscan stress. Myoview images reported separately. Test Summary REST 04:23 . . 48 . 149/ 72 . . Stage 1 . . . . . . . Myoview Injected Stage 1 01:00 . . 61 . . . . Stage 2 01:00 . . 65 . . . . Stage 3 01:00 . . 60 . 142/ 74 . . Stage 4 01:00 . . 51 . 135/ 74 . . Stage 4 01:06 . . 53 . 135/ 73 . Stop exercise at 04:06 RECOVERY 01:00 . . 60 . . . . RECOVERY 02:00 . . 57 . 154/ 86 . . RECOVERY 03:00 . . 56 . 141/ 79 . . RECOVERY 03:29 . . 58 . 141/ 79 . . Electronically signed by : Kristin Zuleta, 08/25/2022 19:28:42
--- NOTE | 2022-08-24 06:50 | NM_ITS ---
APPROVED REPORT Exam: Nuclear Stress Test Indication: H/O ID, A-FIB, HTN, DM, HYPERLIPIDEMIA, FM HX, PALPITATIONS, ABN EKG Patient Location: Outpatient Stress Tech: Marjorie Ward ID Tech:ASIF Holder RT (R)(N)(M) Ht: 5 ft 7 in Wt: 160 lbs Bra Size: C HR: 40 bpm BP: 149/72 mmHg BSA: 1.84 m2 TID: 1.13 BMI: 25.0 History: H/O ID, A-FIB, HTN, DM, HYPERLIPIDEMIA, FM HX, PALPITATIONS, ABN EKG Procedure: Patient received 0.4 mg of intravenous Lexiscan, resting heart rate 40 bpm, resting blood pressure 149/72 mmHg, with Lexiscan maximum heart rate achieved was 65 bpm which is % of the maximum predicted heart rate and blood pressure was 142/74 mmHg. PT C/O CHEST PRESSURE WITH LEXISCAN Cardiac Stress and Resting SPECT Images: Cardiac Stress and Resting SPECT images were obtained using technetium 99m Myoview 31.1 mCi stress and 10.55 mCi at rest. Resting and stress imaging in both supine and prone positions demonstrate a medium-sized, moderate, partially reversible perfusion defects in the anteroseptal, anterior, and inferior LV chowdary. Gated imaging demonstrates a normal LV global systolic function. There is mild hypokinesis in the anterior and inferior LV chowdary. LVEF is calculated at 57% Conclusion: Medium-sized, moderate, partially reversible perfusion defects in the anterior, anteroseptal, and inferior LV chowdary. These findings are most consistent with an infarct with a region of reversible ischemia. Gated imaging demonstrates a normal LV global systolic function. There is mild hypokinesis in the anterior and inferior LV chowdary. LVEF is calculated at 57% Electronically signed by : Kristin Zuleta, 08/25/2022 19:36:47
== END ==
PROVIDERS: PCP Family Medicine; Visit Provider Nurse Practitioner
DX: D64.9 Anemia, unspecified (principal); E11.69 Type 2 diabetes mellitus with other specified complication; E78.2 Mixed hyperlipidemia; G47.33 Obstructive sleep apnea (adult) (pediatric); I11.9 Hypertensive heart disease without heart failure; I25.110 Atherosclerotic heart disease of native coronary artery with unstable angina pectoris; I27.20 Pulmonary hypertension, unspecified; I48.19 Other persistent atrial fibrillation; I95.9 Hypotension, unspecified; R00.2 Palpitations; R53.83 Other fatigue; R94.31 Abnormal electrocardiogram [ECG] [EKG]; Z79.84 Long term (current) use of oral hypoglycemic drugs
CPT/HCPCS: 78452; 93017; 93306; A9502; J2785

== ENCOUNTER 2022-09-03 07:54 | Day surgery (SDC) | payer MEDICARE, SELFPAY ==
[2022-09-03] VITALS (12 sets, daily range): BP systolic 117–134; BP diastolic 54–72; PULSE 46–50; RESP 16–20; TEMP 36.8; O2SAT 93–100; BMI 25.3
--- NOTE | 2022-09-03 07:09 | IR_ITS ---
APPROVED REPORT Patient Location: Outpatient PROCEDURES Left heart catheterization Left ventriculogram Selective coronary angiogram INDICATION Abnormal Myoview, To the pectoris, Informed consent was obtained prior to the procedure. COMPLICATIONS None Estimated Blood Loss: Less than 10 mls TECHNIQUE One percent lidocaine used to anesthetize the right anterior aspect of the wrist. The right radial artery was accessed via the Seldinger technique. A 6 Sammarinese sheath was placed in the right radial artery. 150 mg magnesium sulfate, 800 mcg of nitroglycerin, 1mg Lidocaine and 5000 U Heparin were given through the arterial sheath. The papa catheter was also used to perform left heart catheterization, left ventriculogram and selective coronary angiogram. At the end of the procedure the sheath was removed good hemostasis was achieved using Traclet band, patient was transferred to the postop holding area in stable condition. ANGIOGRAPHIC RESULTS The left main artery Normal The left anterior descending artery Has proximal mid vessel 30% stenoses The circumflex artery Nondominant normal The right coronary artery Dominant with proximal and mid vessel 30% stenoses The MORIN ventriculogram reveals Normal 65% The left ventricular end-diastolic pressure 10 mmHg IMPRESSION Mild nonflow limiting coronary disease Normal ejection fraction PLAN 1. Continue medical management 2. Risk factor modification LDL less than 55 Electronically signed by : Talat Gonzalez MD 09/03/2022 13:19:10
[2022-09-03 08:53] LABS: Basophils % 0.5 % (0.1-2.0); Eosinophils # 0.2 K/mm3 (0.0-0.4); Eosinophils % 2.5 % (0.1-12.0); Hematocrit 39.4 % (37.0-47.0); Hemoglobin 12.7 g/dL (12.2-16.2); Lymphocytes # 1.8 K/mm3 (0.7-4.5); Lymphocytes % 27.9 % (10-50); Mean Corpuscular HGB Conc 32.2 g/dL (31.8-35.4); Mean Corpuscular Hemoglobin 28.5 pg (27.0-31.2); Mean Corpuscular Volume 88.6 fl (81-99); Monocytes # 0.3 K/mm3 (0.1-1.0); Monocytes % 4.1 % (1.7-9.3); Neutrophils # 4.1 K/mm3 (1.8-7.8); Neutrophils % 64.9 % (37.0-80.0); Platelet Count 226 K/mm3 (142-424); Red Blood Count 4.44 M/mm3 (4.20-5.40); Red Cell Distribution Width 15.3 % (11.5-17.5); White Blood Count 6.4 K/mm3 (4.8-10.8)
[2022-09-03 08:57] LABS: Anion Gap 18.8 mEq/L (5-15); Blood Urea Nitrogen 18 mg/dl (7-17); Carbon Dioxide 22 mmol/L (22.0-30.0); Chloride 105 mmol/L (98-107); Creatinine Clearance Estimated 64 mL/min (50-200); Estimated Glomerular Filt Rate 84 ml/min (>60); GFR (African American) 101 ML/MIN (>60); Glucose 120 mg/dl (74-100); Potassium 3.8 mmoL/L (3.5-5.1); Sodium 142 mmol/L (136-145)
== END 2022-09-03 14:04 | disposition home or self-care (01) ==
PROVIDERS: PCP Family Medicine; Visit Provider Internal Medicine
DX: I25.110 Atherosclerotic heart disease of native coronary artery with unstable angina pectoris (principal); I48.91 Unspecified atrial fibrillation; R94.31 Abnormal electrocardiogram [ECG] [EKG]
CPT/HCPCS: 80048; 85025; 93458; 99152; C1725; C1769; J1644; Q9967

== ENCOUNTER → 2022-09-07 08:05 | Outpatient (POV) | payer MEDICARE, SELFPAY | PROVIDERS: Visit Provider Dermatology | DX: Z00.00 Encounter for general adult medical examination without abnormal findings (principal) ==

== ENCOUNTER → 2022-11-16 15:00 | Outpatient (CLI) | payer MEDICARE, SELFPAY ==
--- NOTE | 2022-11-16 15:05 | XR_ITS ---
FINAL REPORT CLINICAL HISTORY: NECK PAIN COMPARISON: None FINDINGS: CERVICAL SPINE 5 views were obtained. There is anterior and interbody fusion hardware at C5-6. There is no acute fracture or malalignment. There is mild anterior osteophyte formation at C3-4, C4-5, and C6-7. IMPRESSION: Degenerative and postoperative change without acute process. Reviewed, Interpreted and Dictated by Jim Guzman MD Transcribed by Kalpana Yin Authenticated and [facility]
== END ==
PROVIDERS: PCP Family Medicine; Visit Provider Family Medicine
DX: M54.2 Cervicalgia (principal)
CPT/HCPCS: 72050

== ENCOUNTER → 2022-11-30 08:40 | Outpatient (POV) | payer MEDICARE, SELFPAY | PROVIDERS: Visit Provider Dermatology | DX: Z00.00 Encounter for general adult medical examination without abnormal findings (principal) ==

== ENCOUNTER 2022-12-26 09:57 | Emergency (ER) | payer MEDICARE, SELFPAY ==
[2022-12-26] VITALS (11 sets, daily range): BP systolic 126–149; BP diastolic 59–88; PULSE 62–73; RESP 18–20; TEMP 36.5–36.8; O2SAT 94–99; BMI 26.2
--- NOTE | 2022-12-26 10:24 | EXP.UTC ---
Discharge Plan Disposition Patient Disposition: Home, Self-Care Prescriptions Prescriptions: No Action acetaminophen 500 mg capsule 500 mg PO Q6H zolpidem [Ambien] 10 mg tablet 10 mg PO HS esomeprazole magnesium [Nexium] 40 mg capsule,delayed release(DR/EC) 40 mg PO QDAY alprazolam [Xanax] 0.5 mg tablet 0.5 mg PO TID olmesartan-hydrochlorothiazide 40-12.5 mg tablet 1 tab PO DAILY ibuprofen 200 mg tablet 200 mg PO Q6H PRN metformin 500 mg tablet extended release 24 hr 500 mg PO ONCE montelukast 10 mg tablet 10 mg PO HS Patient Comments: TAKE 1 TABLET BY MOUTH ONCE DAILY AT NIGHT estradiol 1 mg tablet 1 mg PO DAILY Patient Comments: TAKE 1 TABLET BY MOUTH ONCE DAILY celecoxib 200 mg capsule 200 mg PO DAILY diltiazem HCl 120 mg capsule,extended release 24 hr 120 mg PO DAILY 30 Days Qty: 30 2RF atorvastatin 10 mg tablet 10 mg PO DAILY Qty: 30 2RF ondansetron 4 MG tablet,disintegrating 4 mg PO Q8HP PRN (Reason: Nausea) Qty: 9 0RF Referrals Follow up/Referrals: Juan Pablo Nelson MD [Primary Care Provider] - See instructions Clinical Impressions Clinical Impression: Gastroenteritis Instructions Patient Instructions: DI for Acute Abdominal Pain Discharge ED Provider: Shad Mace [facility] General Chief complaint: Abdominal Pain Stated complaint: diarrhea, RETANA, nausea Mode of Arrival: Ambulatory Source of Information: Patient Limitations: No Limitations Time Seen by Provider: 12/26/22 10:24 Description of Symptoms (Recalled from Triage Doc. by RN): PATIENT C/O DIARRHEA, NAUSEA AND FATIGUE X 4 DAYS HEENT Symptoms (Recalled from RN notes): No Resp Symptoms (Recalled from RN notes): No Skin Symptoms (Recalled from RN notes): No MS Symptoms (Recalled from RN notes): No Functional Status (Recalled from RN notes): WNL History of Present Illness Provider Complaint: Patient states that for the last 4 days she has been having severe diarrhea, nausea and fatigue States that she is having some stomach pain and stomach feels sore like someone is punching her States that she hasnt been able to take her medications for a couple days and hasnt been out of the bed much in the last couple of days States she feels like she did when she had pancreatitis the last time but she got jaundice then and today she was pale so family brought her in Related Data Home Medications Medication Instructions Recorded Confirmed alprazolam 0.5 mg tablet (Xanax) 0.5 mg PO TID Anxiety 04/25/17 12/20/22 esomeprazole magnesium 40 mg 40 mg PO QDAY GERD 04/25/17 12/20/22 capsule,delayed release (Nexium) zolpidem 10 mg tablet (Ambien) 10 mg PO HS . 04/25/17 12/20/22 olmesartan 40 1 tab PO DAILY High blood pressure 09/23/20 12/20/22 mg-hydrochlorothiazide 12.5 mg tablet metformin 500 mg tablet,extended 500 mg PO ONCE . 07/29/22 12/20/22 release 24 hr estradiol 1 mg tablet 1 mg PO DAILY 09/17/22 12/20/22 montelukast 10 mg tablet 10 mg PO HS 09/17/22 12/20/22 acetaminophen 500 mg capsule 500 mg PO Q6H 10/05/22 12/20/22 ibuprofen 200 mg tablet 200 mg PO Q6H PRN 11/09/22 12/20/22 celecoxib 200 mg capsule 200 mg PO DAILY 12/20/22 12/20/22 Previous Rx's Medication Instructions Recorded ondansetron 4 mg disintegrating 4 mg PO Q8HP PRN Nausea #9 tabs 06/20/21 tablet atorvastatin 10 mg tablet 10 mg PO DAILY #30 tabs 12/20/22 diltiazem HCl 120 mg capsule,24 120 mg PO DAILY 30 days #30 caps 12/20/22 hr,extended release Allergies Allergy/AdvReac Type Severity Reaction Status Date / Time oxycodone [From PERCOCET] Allergy Severe IRREGULAR Verified 12/20/22 13:20 HEARTBEAT codeine Allergy Intermediate I-ITCHING, Verified 12/20/22 13:20 NAUSEA, FAST HEART RATE hydrocodone Allergy Intermediate I-ITCHING, Verified 12/20/22 13:20 NAUSEA, FAST HEART RATE ketorolac Allergy Intermediate I-ITCHING, Verified 12/20
--- NOTE | 2022-12-26 10:49 | PC.NURSE ---
PATIENT UNABLE TO GIVE URINE SAMPLE AT THIS TIME. TRANSFERRED TO ER ROOM 10 VIA WHEELCHAIR AND UTC STAFF ASSIST. AT BEDSIDE
--- NOTE | 2022-12-26 11:08 | XR_ITS ---
PROCEDURE INFORMATION: Exam: XR Chest Exam date and time: 12/26/2022 12:14 PM Age: 67 years old Clinical indication: Sternal or substernal pain; Additional info: Cp TECHNIQUE: Imaging protocol: Radiologic exam of the chest. Views: 1 view. COMPARISON: CR XR CHEST PORTABLE 07/29/2022 4:16 PM FINDINGS: Lungs: Unremarkable. No consolidation. Pleural spaces: Unremarkable. No pleural effusion. No pneumothorax. Heart/Mediastinum: Stable cardiac silhouette Bones/joints: Anterior cervical fusion IMPRESSION: No acute process
[2022-12-26 11:16] LABS: Basophils % 0.4 % (0.1-2.0); Eosinophils # 0.2 K/mm3 (0.0-0.4); Eosinophils % 2.6 % (0.1-12.0); Hematocrit 37.6 % (37.0-47.0); Hemoglobin 12.1 g/dL (12.2-16.2); Lymphocytes # 1.7 K/mm3 (0.7-4.5); Lymphocytes % 19.4 % (10-50); Mean Corpuscular HGB Conc 32.1 g/dL (31.8-35.4); Mean Corpuscular Hemoglobin 29.3 pg (27.0-31.2); Mean Corpuscular Volume 91.2 fl (81-99); Mean Platelet Volume 8.1 fl (7.4-10.4); Monocytes # 0.3 K/mm3 (0.1-1.0); Monocytes % 3.8 % (1.7-9.3); Neutrophils # 6.4 K/mm3 (1.8-7.8); Neutrophils % 73.8 % (37.0-80.0); Platelet Count 241 K/mm3 (142-424); Red Blood Count 4.13 M/mm3 (4.20-5.40); Red Cell Distribution Width 13.8 % (11.5-17.5); White Blood Count 8.7 K/mm3 (4.8-10.8)
[2022-12-26 11:19] LABS: Chloride 106 mmol/L (98-107); Potassium 3.9 mmoL/L (3.5-5.1); Sodium 138 mmol/L (136-145)
[2022-12-26 11:22] LABS: Alanine Aminotransferase 20 U/L (12-78); Albumin Level 4.1 g/dl (3.5-5.0); Albumin/Globulin Ratio 1.4 (1.1-1.8); Alkaline Phosphatase 69 U/L (38-126); Anion Gap 12.9 mEq/L (5-15); Aspartate Amino Transferase 23 U/L (14-36); Bilirubin,Total 0.1 mg/dl (0.2-1.3); Blood Urea Nitrogen 13 mg/dl (7-17); Calcium 9.4 mg/dl (8.4-10.2); Carbon Dioxide 23 mmol/L (22.0-30.0); Creatinine Clearance Estimated 65 mL/min (50-200); Estimated Glomerular Filt Rate 83 ml/min (>60); GFR (African American) 101 ML/MIN (>60); Glucose 112 mg/dl (74-100); Lipase 99 U/L (23-300); Total Protein,Serum 7.1 g/dl (6.3-8.2)
--- NOTE | 2022-12-26 11:34 | PC.NURSE ---
Dr. Mace at [facility] for pt eval
[2022-12-26 11:35] LABS: Troponin I < 0.01 ng/ml (0.00-0.034)
--- NOTE | 2022-12-26 11:51 | ECG_ITS ---
APPROVED REPORT Exam: Resting ECG HR:62 bpm ECG Measurements Heart Rate 62 AXES NE 211 P 67 QRSd 126 QRS -50 QT 461 T 48 QTc 466 Conclusion SINUS RHYTHM WITH FIRST DEGREE AV BLOCK LEFT ANTERIOR FASCICULAR BLOCK [QRS AXIS <= -45, QR IN I, RS IN II] PROBABLE LATERAL MYOCARDIAL INFARCTION , PROBABLY OLD [35 ms Q WAVE IN I/aVL/V5/V6] ABNORMAL ECG UNCONFIRMED REPORT Electronically signed by : Juan Pablo Richards MD 12/27/2022 17:12:18
[2022-12-26 12:04] LABS: Lactic Acid 1.2 mmol/L (0.7-2.1)
--- NOTE | 2022-12-26 12:24 | PC.NURSE ---
rounded on pt no needs at this time,call light at bs
--- NOTE | 2022-12-26 15:01 | HMH.EDGENADL ---
Discharge Plan Disposition Patient Disposition: Home, Self-Care Prescriptions Prescriptions: No Action acetaminophen 500 mg capsule 500 mg PO Q6H zolpidem [Ambien] 10 mg tablet 10 mg PO HS esomeprazole magnesium [Nexium] 40 mg capsule,delayed release(DR/EC) 40 mg PO QDAY alprazolam [Xanax] 0.5 mg tablet 0.5 mg PO TID olmesartan-hydrochlorothiazide 40-12.5 mg tablet 1 tab PO DAILY ibuprofen 200 mg tablet 200 mg PO Q6H PRN metformin 500 mg tablet extended release 24 hr 500 mg PO ONCE montelukast 10 mg tablet 10 mg PO HS Patient Comments: TAKE 1 TABLET BY MOUTH ONCE DAILY AT NIGHT estradiol 1 mg tablet 1 mg PO DAILY Patient Comments: TAKE 1 TABLET BY MOUTH ONCE DAILY celecoxib 200 mg capsule 200 mg PO DAILY diltiazem HCl 120 mg capsule,extended release 24 hr 120 mg PO DAILY 30 Days Qty: 30 2RF atorvastatin 10 mg tablet 10 mg PO DAILY Qty: 30 2RF ondansetron 4 MG tablet,disintegrating 4 mg PO Q8HP PRN (Reason: Nausea) Qty: 9 0RF Referrals Follow up/Referrals: Juan Pablo Nelson MD [Primary Care Provider] - See instructions Clinical Impressions Clinical Impression: Gastroenteritis Instructions Patient Instructions: DI for Acute Abdominal Pain Discharge ED Provider: Shad Mace General Adult HPI General Chief complaint: Abdominal Pain Stated complaint: diarrhea, RETANA, nausea Time Seen by Provider: 12/26/22 10:24 Mode of Arrival: Wheelchair Source of Information: Patient and Spouse Limitations: No Limitations Description of Symptoms (Recalled from ER Triage Doc. by RN): c/o upper gastric pain that started Tuesday with some nausea. History of Present Illness HPI narrative: 67-year-old female with history of A-fib not currently anticoagulation, pancreatitis, hypertension, hyperlipidemia, CAD presenting with epigastric abdominal pain and diarrhea. This been going on for couple days. Has had nausea without vomiting since. She has been tolerating p.o. intake fine, every time she eats she has watery diarrhea. No fevers or chills, but abdominal pain is epigastric, does not radiate, feels like last time she had pancreatitis. Related Data Home Medications Medication Instructions Recorded Confirmed alprazolam 0.5 mg tablet (Xanax) 0.5 mg PO TID Anxiety 04/25/17 12/20/22 esomeprazole magnesium 40 mg 40 mg PO QDAY GERD 04/25/17 12/20/22 capsule,delayed release (Nexium) zolpidem 10 mg tablet (Ambien) 10 mg PO HS . 04/25/17 12/20/22 olmesartan 40 1 tab PO DAILY High blood pressure 09/23/20 12/20/22 mg-hydrochlorothiazide 12.5 mg tablet metformin 500 mg tablet,extended 500 mg PO ONCE . 07/29/22 12/20/22 release 24 hr estradiol 1 mg tablet 1 mg PO DAILY 09/17/22 12/20/22 montelukast 10 mg tablet 10 mg PO HS 09/17/22 12/20/22 acetaminophen 500 mg capsule 500 mg PO Q6H 10/05/22 12/20/22 ibuprofen 200 mg tablet 200 mg PO Q6H PRN 11/09/22 12/20/22 celecoxib 200 mg capsule 200 mg PO DAILY 12/20/22 12/20/22 Previous Rx's Medication Instructions Recorded ondansetron 4 mg disintegrating 4 mg PO Q8HP PRN Nausea #9 tabs 06/20/21 tablet atorvastatin 10 mg tablet 10 mg PO DAILY #30 tabs 12/20/22 diltiazem HCl 120 mg capsule,24 120 mg PO DAILY 30 days #30 caps 12/20/22 hr,extended release Allergies Allergy/AdvReac Type Severity Reaction Status Date / Time oxycodone [From PERCOCET] Allergy Severe IRREGULAR Verified 12/20/22 13:20 HEARTBEAT codeine Allergy Intermediate I-ITCHING, Verified 12/20/22 13:20 NAUSEA, FAST HEART RATE hydrocodone Allergy Intermediate I-ITCHING, Verified 12/20/22 13:20 NAUSEA, FAST HEART RATE ketorolac Allergy Intermediate I-ITCHING, Verified 12/20/22 13:20 NAUSEA, FAST HEART RATE meperidine [From Demerol] Allergy Intermediate I-ITCHING, Verified 12/20/22 13:20 NAUSEA, FAST HEART RATE morphine Allergy Intermediate
== END 2022-12-26 15:13 | disposition home or self-care (01) ==
LOC: UTC 10:39 → ER 10:48
PROVIDERS: Emergency Provider Emergency Medicine; PCP Family Medicine
DX: K52.9 Noninfective gastroenteritis and colitis, unspecified (principal); R53.83 Other fatigue; F41.9 Anxiety disorder, unspecified; J45.909 Unspecified asthma, uncomplicated; F32.A Depression, unspecified; E11.9 Type 2 diabetes mellitus without complications; K21.9 Gastro-esophageal reflux disease without esophagitis; I25.2 Old myocardial infarction; I11.9 Hypertensive heart disease without heart failure; E78.5 Hyperlipidemia, unspecified; G47.33 Obstructive sleep apnea (adult) (pediatric); Z87.891 Personal history of nicotine dependence; I25.118 Atherosclerotic heart disease of native coronary artery with other forms of angina pectoris; I48.91 Unspecified atrial fibrillation
CPT/HCPCS: 71045; 80053; 83605; 83690; 84484; 85025; 93005; 96361; 96374; 96375; 99285; J0131; J2405

== ENCOUNTER 2023-01-03 10:46 | Outpatient (CLI) | payer MEDICARE, SELFPAY ==
[2023-01-03 11:10] VITALS: BP 135/74; PULSE 84; RESP 18; O2SAT 97
[2023-01-03 11:30] VITALS: BP 131/74; PULSE 80
== END 2023-01-03 11:35 | disposition home or self-care (01) ==
LOC: INF 10:47
PROVIDERS: PCP Family Medicine; Visit Provider Family Medicine
DX: M81.0 Age-related osteoporosis without current pathological fracture (principal)
CPT/HCPCS: 96374; J3489

== ENCOUNTER 2023-01-03 14:00 | Outpatient (RCR) | payer MEDICARE, SELFPAY | END 2023-01-03 14:05 | disposition home or self-care (01) | LOC: PT 14:00 | PROVIDERS: PCP Family Medicine; Visit Provider Family Medicine | DX: M54.2 Cervicalgia (principal) | CPT/HCPCS: 97010; 97035; 97110; 97140; 97163; 97164 ==

== ENCOUNTER 2023-02-18 11:05 | Outpatient (CLI) | payer MEDICARE, SELFPAY ==
[2023-02-18 14:24] LABS: PHA INR Fingerstick 1.4 (0.9-1.1)
== END 2023-02-18 14:31 ==
LOC: ACC 11:06
PROVIDERS: PCP Family Medicine; Visit Provider Family Medicine
DX: Z79.01 Long term (current) use of anticoagulants (principal); Z51.81 Encounter for therapeutic drug level monitoring; I48.91 Unspecified atrial fibrillation
CPT/HCPCS: 85610; 99211; G0463

== ENCOUNTER 2023-02-22 11:06 | Outpatient (CLI) | payer MEDICARE, SELFPAY ==
[2023-02-22 12:07] LABS: PHA INR Fingerstick 2.2 (0.9-1.1)
== END 2023-02-22 12:13 ==
LOC: ACC 11:07
PROVIDERS: PCP Family Medicine; Visit Provider Family Medicine
DX: Z79.01 Long term (current) use of anticoagulants (principal); Z51.81 Encounter for therapeutic drug level monitoring; I48.91 Unspecified atrial fibrillation
CPT/HCPCS: 85610; 99211; G0463

== ENCOUNTER 2023-02-25 10:56 | Outpatient (CLI) | payer MEDICARE, SELFPAY | END 2023-02-25 13:43 | LOC: ACC 10:57 | PROVIDERS: PCP Family Medicine; Visit Provider Family Medicine | DX: Z79.01 Long term (current) use of anticoagulants (principal); Z51.81 Encounter for therapeutic drug level monitoring; I48.91 Unspecified atrial fibrillation | CPT/HCPCS: 85610; 99211; G0463 ==

== ENCOUNTER 2023-03-07 10:41 | Outpatient (CLI) | payer MEDICARE, SELFPAY ==
[2023-03-07 11:35] LABS: PHA INR Fingerstick 2.4 (0.9-1.1)
== END 2023-03-07 11:37 ==
LOC: ACC 10:43
PROVIDERS: PCP Family Medicine; Visit Provider Family Medicine
DX: Z79.01 Long term (current) use of anticoagulants (principal); Z51.81 Encounter for therapeutic drug level monitoring; I48.91 Unspecified atrial fibrillation
CPT/HCPCS: 85610; 99211; G0463

== ENCOUNTER → 2023-03-08 08:45 | Outpatient (POV) | payer MEDICARE, SELFPAY | PROVIDERS: PCP Family Medicine; Visit Provider Dermatology | DX: Z00.00 Encounter for general adult medical examination without abnormal findings (principal) ==

== ENCOUNTER 2023-03-25 12:28 | Emergency (ER) | payer MEDICARE, SELFPAY ==
[2023-03-25] VITALS (8 sets, daily range): BP systolic 110–159; BP diastolic 55–110; PULSE 59–124; RESP 16–21; TEMP 36.6–36.7; O2SAT 93–97; BMI 25.8
--- NOTE | 2023-03-25 12:23 | ECG_ITS ---
APPROVED REPORT Exam: Resting ECG HR:139 bpm ECG Measurements Heart Rate 139 AXES QRSd 112 QRS -52 QT 309 T 82 QTc 390 Conclusion ATRIAL FIBRILLATION WITH RAPID VENTRICULAR RESPONSE PATTERN CONSISTENT WITH PULMONARY DISEASE INCOMPLETE RIGHT BUNDLE BRANCH BLOCK [90+ ms QRS DURATION, TERMINAL R IN V1/V2, 40+ ms S IN I/aVL/V4/V5/V6] LEFT ANTERIOR FASCICULAR BLOCK [QRS AXIS <= -45, QR IN I, RS IN II] MODERATE VOLTAGE CRITERIA FOR LVH, CONSIDER NORMAL VARIANT [MEETS CRITERIA IN ONE OF: R(aVL), S(V1), R(V5), R(V5/V6)+S(V1)] NONSPECIFIC ST & T-WAVE ABNORMALITY ABNORMAL ECG UNCONFIRMED REPORT Electronically signed by : Juan Pablo Richards MD 03/26/2023 08:44:29
--- NOTE | 2023-03-25 12:46 | XR_ITS ---
FINAL REPORT CLINICAL HISTORY: chest pain, palpitations COMPARISON: 12/26/2022 FINDINGS: The heart size is normal. The mediastinum is normal. There is no focal infiltrate or edema. There are no pleural effusions. There is no pneumothorax. There is no osseous abnormality. Cervical fusion hardware is noted. IMPRESSION: No acute cardiopulmonary process Reviewed, Interpreted and Dictated by Jim Guzman MD Transcribed by Kalpana Yin Authenticated and [facility]
[2023-03-25] MEDS: LACTATED RINGERS 1000ML 1,000 ML 999 ML IV (12:54)
[2023-03-25 12:57] LABS: Chloride 105 mmol/L (98-107); Potassium 3.3 mmoL/L (3.5-5.1); Sodium 137 mmol/L (136-145)
[2023-03-25 12:58] LABS: Basophils % 0.6 % (0.1-2.0); Eosinophils # 0.2 K/mm3 (0.0-0.4); Eosinophils % 2.1 % (0.1-12.0); Hematocrit 37.8 % (37.0-47.0); Hemoglobin 12.8 g/dL (12.2-16.2); Lymphocytes # 2.5 K/mm3 (0.7-4.5); Lymphocytes % 31.6 % (10-50); Mean Corpuscular Hemoglobin 30.2 pg (27.0-31.2); Mean Corpuscular Volume 88.9 fl (81-99); Mean Platelet Volume 8.2 fl (7.4-10.4); Monocytes # 0.2 K/mm3 (0.1-1.0); Neutrophils # 4.9 K/mm3 (1.8-7.8); Neutrophils % 62.7 % (37.0-80.0); Platelet Count 210 K/mm3 (142-424); Red Blood Count 4.25 M/mm3 (4.20-5.40); Red Cell Distribution Width 14.4 % (11.5-17.5); White Blood Count 7.8 K/mm3 (4.8-10.8)
[2023-03-25 12:59] LABS: Alanine Aminotransferase 20 U/L (12-78); Blood Urea Nitrogen 19 mg/dl (7-17); Creatinine Clearance Estimated 66 mL/min (50-200); Estimated Glomerular Filt Rate 72 ml/min (>60); GFR (African American) 87 ML/MIN (>60)
[2023-03-25 13:00] LABS: Albumin/Globulin Ratio 1.5 (1.1-1.8); Alkaline Phosphatase 89 U/L (38-126); Anion Gap 12.3 mEq/L (5-15); Aspartate Amino Transferase 30 U/L (14-36); Bilirubin,Total 0.3 mg/dl (0.2-1.3); Carbon Dioxide 23 mmol/L (22.0-30.0); Globulin 2.7 g/dL (1.3-3.2); Glucose 110 mg/dl (74-100); Phosphorous 3.7 mg/dl (2.5-4.5); Total Protein,Serum 6.7 g/dl (6.3-8.2)
[2023-03-25] MEDS: dilTIAZem 25MG/5ML VIAL 20 MG IV (13:01)
[2023-03-25] MEDS: ONDANSETRON 4MG/2ML VIAL 4 MG IV (13:01)
[2023-03-25 13:04] LABS: Prothrombin Time 21.6 seconds (10.1-12.5)
--- NOTE | 2023-03-25 13:10 | PC.NURSE ---
portable xray at
--- NOTE | 2023-03-25 13:14 | ED_ITS ---
Discharge Plan Disposition Patient Disposition: Home, Self-Care Condition: Good Prescriptions Prescriptions: No Action acetaminophen 500 mg capsule 500 mg PO Q6H zolpidem [Ambien] 10 mg tablet 10 mg PO HS esomeprazole magnesium [Nexium] 40 mg capsule,delayed release(DR/EC) 40 mg PO QDAY alprazolam [Xanax] 0.5 mg tablet 0.5 mg PO TID olmesartan-hydrochlorothiazide 40-12.5 mg tablet 1 tab PO DAILY metformin 500 mg tablet extended release 24 hr 500 mg PO ONCE montelukast 10 mg tablet 10 mg PO HS Patient Comments: TAKE 1 TABLET BY MOUTH ONCE DAILY AT NIGHT estradiol 1 mg tablet 1 mg PO DAILY Patient Comments: TAKE 1 TABLET BY MOUTH ONCE DAILY celecoxib 200 mg capsule 200 mg PO DAILY warfarin 5 mg tablet PO carvedilol 6.25 mg tablet PO Patient Comments: TAKE 1 TABLET BY MOUTH TWICE DAILY atorvastatin 10 mg tablet 10 mg PO DAILY Qty: 30 5RF ondansetron 4 MG tablet,disintegrating 4 mg PO Q8HP PRN (Reason: Nausea) Qty: 9 0RF Referrals Follow up/Referrals: Talat Gonzalez MD [Staff Physician] - See instructions ProviderCitlali MD [Referring] - See instructions Activity Restrictions/Add. Instructions Additional Instructions/Restrictions: Please follow-up with your preconstruction manager. Please return with any new or worsening symptoms Clinical Impressions Clinical Impression: Atrial fibrillation with RVR Discharge ED Provider: Ludwin Villegas Adult HPI General Chief complaint: Chest Pain Stated complaint: chest pain Time Seen by Provider: 03/25/23 12:31 Mode of Arrival: Ambulatory Source of Information: Patient and Spouse Limitations: No Limitations Description of Symptoms (Recalled from ER Triage Doc. by RN): pt presents to ED with c/o chest pressure, heart palpitations. symptomsbegan a few hours ago. pt reports she knows that she has afib and can feel palpitations . History of Present Illness HPI narrative: Patient presents with palpitations, chest pain, headache, beginning this morning. Onset of symptoms was approximately 9:00. She first noticed pal pitations and subsequently developed the chest pain. She denies any shortness of breath. No previous therapies. She does have known history of paroxysmal A- fib and has been compliant with medications. She is anticoagulated on warfarin. No missed doses of medications or changes in medications. No identifiable exacerbating or alleviating factors. Pain is nonradiating, nonpleuritic, nonexertional in nature. It is nonreproducible. No leg pain or leg swelling. Related Data Home Medications Medication Instructions Recorded Confirmed alprazolam 0.5 mg tablet (Xanax) 0.5 mg PO TID Anxiety 04/25/17 03/07/23 esomeprazole magnesium 40 mg 40 mg PO QDAY GERD 04/25/17 03/07/23 capsule,delayed release (Nexium) zolpidem 10 mg tablet (Ambien) 10 mg PO HS . 04/25/17 03/07/23 olmesartan 40 1 tab PO DAILY High blood pressure 09/23/20 03/07/23 mg-hydrochlorothiazide 12.5 mg tablet metformin 500 mg tablet,extended 500 mg PO ONCE . 07/29/22 03/07/23 release 24 hr estradiol 1 mg tablet 1 mg PO DAILY 09/17/22 03/07/23 montelukast 10 mg tablet 10 mg PO HS 09/17/22 03/07/23 acetaminophen 500 mg capsule 500 mg PO Q6H 10/05/22 03/07/23 celecoxib 200 mg capsule 200 mg PO DAILY 12/20/22 03/07/23 carvedilol 6.25 mg tablet mg PO 03/07/23 03/07/23 warfarin 5 mg tablet mg PO 03/07/23 03/07/23 Previous Rx's Medication Instructions Recorded ondansetron 4 mg disintegrating 4 mg PO Q8HP PRN Nausea #9 tabs 06/20/21 tablet atorvastatin 10 mg tablet 10 mg PO DAILY #30 tabs 03/24/23 Allergies Allergy/AdvReac Type Severity Reaction Status Date / Time oxycodone [From PERCOCET] Allergy Severe IRREGULAR Verified 03/07/23 09:58 HEARTBEAT codeine Allergy Intermediate I-ITCHING, Verified 03/07/23 09:58 NAUSEA, FAST HEART RATE hydrocodone Allergy Intermediate I-ITCHING, Verified 03/07/23 09:58 NAUSEA, FAST HEART RATE ketorolac Allergy Intermediate I-ITCHING, Verified 03/07/23 09:58 NAUSEA, FAST HEART RATE meperidine [From Demerol] Allergy Intermediate I-ITCHING, Verified 03/07/23 09:58 NAUSEA, FAST HEART RATE morphine Allergy Intermediate I-ITCHING, Verified 03/07/23 09:58 NAUSEA, FAST HEART RATE Penicillins Allergy Intermediate I-ITCHING, Verified 03/07/23 09:58 NAUSEA, FAST HEART RATE PFSH [facility] Disclaimer: The information contained in this section may have been updated after the patient was seen, as this information can be updated by other users. Medical History Abnormal electrocardiogram [ECG] [EKG] Anxiety Asthma Cancer Depression Diabetes mellitus, type 2 She has lost 20 pounds working on lifestyle modification and most recent A1c hemoglobin 5.6. Random glucose level 99. Dyspnea Gastroesophageal reflux disease History of gastroesophageal reflux (GERD) History of heart attack Hx of pancreatitis Hyperlipidemia Hypertension Hypertensive heart disease Nausea Obstructive sleep apnea syndrome History of mild ISABELL previously treated with CPAP. She quit using the CPAP following [employer] recall. Since then she has lost 20 pounds. Stable angina pectoris Surgical History History of cholecystectomy History of hysterectomy History of mastectomy LIMB ALERT LT ARM S/P cervical spinal fusion Family History Father Family history of [place] (myocardial infarction) Grandmother Family history of [place] (myocardial infarction) Mother Family history of breast cancer Family/Other Family history of lung cancer Family/Other Family history of kidney cancer Social History Smoking Status: Never smoker alcohol intake: never substance use type: denies use current occupational status: retired Travel in the last 8 weeks: Inside the [place] household members: spouse housing: house current occupational exposures/hazards: No ROS Obtained: Yes Systems reviewed as appropriate & no additional complaints except as documented As per HPI Physical Exam General General appearance: alert and in no apparent distress Head Head exam: atraumatic and normocephalic Eye Eye exam: Present normal appearance Neck Neck exam: Present normal inspection Chest Chest inspection: Present normal inspection and symmetric chest wall rise Respiratory Respiratory exam: Present normal lung sounds bilaterally; Absent respiratory distress Cardiovascular Cardiovascular exam: Present tachycardia and irregular rhythm Abdominal Exam Abdominal exam: Present soft Neurological Exam Neurological exam: Present alert and oriented X3 Psychiatric Psychiatric exam: Present normal affect and normal mood Skin Skin exam: Present warm and dry Medical Decision Making Medical Records Medical records reviewed: Yes I reviewed the patient's medical records. Benjamin Inquiry Pt receiving controlled substance: No Vital Signs: 03/25/23 12:28 03/25/23 12:34 03/25/23 12:45 Temperature 97.9 F Temperature Source Oral Pulse Rate 124 H 122 H Pulse Rate [Left Radial] 124 H Respiratory Rate 16 16 Blood Pressure Blood Pressure [Right Arm] 159/110 H Blood Pressure Mean Blood Pressure Mean [Right Arm] 126 Blood Pressure Source 02 Sat by Pulse Oximetry 97 96 Oxygen Delivery Method Room Air Room Air 03/25/23 13:00 03/25/23 13:05 03/25/23 13:30 Temperature Temperature Source Pulse Rate 121 H 70 76 Pulse Rate [Left Radial] Respiratory Rate 19 17 21 Blood Pressure 149/90 H 110/55 L 139/80 Blood Pressure [Right Arm] Blood Pressure Mean 113 73 99 Blood Pressure Mean [Right Arm] Blood Pressure Source 02 Sat by Pulse Oximetry 93 L 95 95 Oxygen Delivery Method Room Air Room Air Room Air 03/25/23 14:01 03/25/23 15:48 Temperature 98.0 F Temperature Source Pulse Rate 60 59 L Pulse Rate [Left Radial] Respiratory Rate 16 18 Blood Pressure 116/57 L 114/67 Blood Pressure [Right Arm] Blood Pressure Mean 81 Blood Pressure Mean [Right Arm] Blood Pressure Source Automatic Cuff 02 Sat by Pulse Oximetry 95 Oxygen Delivery Method Room Air Room Air Lab Data Lab Results 03/25/23 12:40: WBC 7.8, RBC 4.25, Hgb 12.8, Hct 37.8, MCV 88.9, MCH 30.2, MCHC 34.0, RDW 14.4, Plt Count 210, MPV 8.2, Neut % (Auto) 62.7, Lymph % (Auto) 31.6, Nelson % (Auto) 3.0, Eos % (Auto) 2.1, Baso % (Auto) 0.6, Neut # (Auto) 4.9, Lymph # (Auto) 2.5, Nelson # (Auto) 0.2, Eos # (Auto) 0.2, Baso # (Auto) 0.0, PT 21.6 H, INR 2.10 H, Sodium 137, Potassium 3.3 L, Chloride 105, Carbon Dioxide 23, Anion Gap 12.3, BUN 19 H, Creatinine 0.80, Estimated Creat Clear 66, Estimated GFR 72, Est GFR ( Amer) 87, Glucose 110 H, Calcium 9.0, Phosphorus 3.7, Magnesium 2.0, Total Bilirubin 0.3, AST 30, ALT 20, Alkaline Phosphatase 89, Troponin I < 0.01, Total Protein 6.7, Albumin 4.0, Globulin 2.7, Albumin/Globulin Ratio 1.5, TSH 1.08, Free T4 0.83 03/25/23 14:59: Troponin I 0.02 03/25/23 12:40 03/25/23 12:40 Orders (Tests/Meds): ED MEDICATIONS Discontinued Medications Generic Name Dose Route Start Last Admin Trade Name Freq PRN Reason Stop Dose Admin Acetaminophen 1,000 mg 03/25/23 13:18 03/25/23 13:21 Acetaminophen 500mg Tab PO 03/25/23 13:19 1,000 mg ONCE ONE Administration Diltiazem HCl 20 mg 03/25/23 12:49 03/25/23 13:01 Diltiazem 25mg/5ml Vial IV 03/25/23 12:50 20 mg ONCE ONE Administration Lactated Ringer's 1,000 mls @ 999 mls/hr 03/25/23 12:46 03/25/23 12:54 Lactated Ringer's 1000 Ml Bag IV 03/25/23 13:46 999 mls/hr .Q1H1M ONE Administration Ondansetron HCl 4 mg 03/25/23 12:57 03/25/23 13:01 Ondansetron 4mg/2ml Vial IV 03/25/23 12:58 4 mg ONCE ONE Administration ORDERS Category Date Time Status XR chest portable Stat Exams 03/25/23 12:46 Completed CBC w/Auto Diff [Complete Blood Count Auto Diff] Stat Lab 03/25/23 12:40 Completed CMP [Comprehensive Metabolic Panel] Stat Lab 03/25/23 12:40 Completed Free T4 (Free Thyroxine) Stat Lab 03/25/23 12:40 Completed MAG [Magnesium] Stat Lab 03/25/23 12:40 Completed PHOS [Phosphorous] Stat Lab 03/25/23 12:40 Completed PT INR [Prothrombin Time INR] Stat Lab 03/25/23 12:40 Completed TSH [Thyroid Stimulating Hormone] Stat Lab 03/25/23 12:40 Completed Troponin I Q2H Lab 03/25/23 12:40 Completed Troponin I Q2H Lab 03/25/23 14:59 Completed ECG initial Besson Routine Y 03/25/23 12:23 Completed Medical Decision Narrative: Patient with history and exam per above presenting for evaluation of chest pain, headache, palpitations Diagnoses considered include atrial fibrillation with RVR, other arrhythmia, ACS, electrolyte abnormality ED workup and treatment included: ED MEDICATIONS Discontinued Medications Generic Name Dose Route Start Last Admin Trade Name Freq PRN Reason Stop Dose Admin Acetaminophen 1,000 mg 03/25/23 13:18 03/25/23 13:21 Acetaminophen 500mg Tab PO 03/25/23 13:19 1,000 mg ONCE ONE Administration Diltiazem HCl 20 mg 03/25/23 12:49 03/25/23 13:01 Diltiazem 25mg/5ml Vial IV 03/25/23 12:50 20 mg ONCE ONE Administration Lactated Ringer's 1,000 mls @ 999 mls/hr 03/25/23 12:46 03/25/23 12:54 Lactated Ringer's 1000 Ml Bag IV 03/25/23 13:46 999 mls/hr .Q1H1M ONE Administration Ondansetron HCl 4 mg 03/25/23 12:57 03/25/23 13:01 Ondansetron 4mg/2ml Vial IV 03/25/23 12:58 4 mg ONCE ONE Administration ORDERS Category Date Time Status XR chest portable Stat Exams 03/25/23 12:46 Completed CBC w/Auto Diff [Complete Blood Count Auto Diff] Stat Lab 03/25/23 12:40 Compl eted CMP [Comprehensive Metabolic Panel] Stat Lab 03/25/23 12:40 Completed Free T4 (Free Thyroxine) Stat Lab 03/25/23 12:40 Completed MAG [Magnesium] Stat Lab 03/25/23 12:40 Completed PHOS [Phosphorous] Stat Lab 03/25/23 12:40 Completed PT INR [Prothrombin Time INR] Stat Lab 03/25/23 12:40 Completed TSH [Thyroid Stimulating Hormone] Stat Lab 03/25/23 12:40 Completed Troponin I Q2H Lab 03/25/23 12:40 Completed Troponin I Q2H Lab 03/25/23 14:59 Completed ECG initial Besson Routine Y 03/25/23 12:23 Completed Labs were independently interpreted by me, significant for troponins within normal limits x 2, mild hypokalemia, thyroid studies within normal limits Imaging was independently visualized and interpreted by me, significant for no acute findings EKG was independently visualized and interpreted by me significant for atrial fibrillation with RVR, normal axis, no acute ST changes, after administration of diltiazem, patient converted to controlled rate, sinus rhythm, intermittent atrial fibrillation Symptoms at this time are thought to be most consistent with known history of atrial fibrillation with RVR Patient reports improvement of symptoms upon repeat evaluation. Remains rate controlled. I discussed my clinical impression with patient and answered all questions. At this time, given reassuring workup and exam, I discussed that I have a low index of suspicion for any acute pathology necessitating inpatient management. Specific return precautions were given, with understanding and agreement. Patient will follow up with primary care provider as needed. Additionally will follow-up with preconstruction manager Critical Care Critical Care Time Critical Care Time: No
[2023-03-25 13:18] LABS: Troponin I < 0.01 ng/ml (0.00-0.034)
[2023-03-25] MEDS: ACETAMINOPHEN 500MG TAB 1000 MG PO (13:21)
[2023-03-25 13:31] LABS: Thyroid Stimulating Hormone 1.08 uIU/mL (0.465-4.68)
[2023-03-25 13:43] LABS: Free T4 (Free Thyroxine) 0.83 ng/dl (0.78-2.19)
--- NOTE | 2023-03-25 14:25 | PC.NURSE ---
ambulated pt to restroom.
[2023-03-25 15:27] LABS: Troponin I 0.02 ng/ml (0.00-0.034)
== END 2023-03-25 15:51 | disposition home or self-care (01) ==
PROVIDERS: Emergency Provider Emergency Medicine; PCP Family Medicine
DX: I48.91 Unspecified atrial fibrillation (principal); R07.9 Chest pain, unspecified; R00.2 Palpitations; R51.9 Headache, unspecified; E11.9 Type 2 diabetes mellitus without complications; J45.909 Unspecified asthma, uncomplicated; I11.9 Hypertensive heart disease without heart failure; E78.5 Hyperlipidemia, unspecified; I20.9 Angina pectoris, unspecified; G47.33 Obstructive sleep apnea (adult) (pediatric)
CPT/HCPCS: 71045; 80053; 83735; 84100; 84439; 84443; 84484; 85025; 85610; 93005; 96361; 96374; 96375; 99285; J2405

== ENCOUNTER 2023-03-29 10:59 | Outpatient (CLI) | payer MEDICARE, SELFPAY | END 2023-03-29 15:00 | LOC: ACC 11:01 | PROVIDERS: PCP Family Medicine; Visit Provider Family Medicine | DX: Z79.01 Long term (current) use of anticoagulants (principal); Z51.81 Encounter for therapeutic drug level monitoring; I48.91 Unspecified atrial fibrillation | CPT/HCPCS: 99211; G0463 ==

== ENCOUNTER 2023-04-26 10:13 | Outpatient (CLI) | payer MEDICARE, SELFPAY ==
[2023-04-26 10:31] LABS: PHA INR Fingerstick 2.3 (0.9-1.1)
== END 2023-04-26 10:32 ==
LOC: ACC 10:14
PROVIDERS: PCP Family Medicine; Visit Provider Family Medicine
DX: Z79.01 Long term (current) use of anticoagulants (principal); Z51.81 Encounter for therapeutic drug level monitoring; I48.91 Unspecified atrial fibrillation
CPT/HCPCS: 85610; 99211; G0463

== ENCOUNTER 2023-06-07 10:05 | Outpatient (POV) | payer MEDICARE, SELFPAY | END 2023-06-07 23:59 | disposition home or self-care (01) | LOC: SC 10:06 | PROVIDERS: PCP Family Medicine; Visit Provider Dermatology | DX: Z00.00 Encounter for general adult medical examination without abnormal findings (principal) ==

== ENCOUNTER 2023-06-10 10:16 | Outpatient (CLI) | payer MEDICARE, SELFPAY ==
[2023-06-10 10:32] LABS: PHA INR Fingerstick 1.7 (0.9-1.1)
== END 2023-06-10 10:34 ==
LOC: ACC 10:17
PROVIDERS: PCP Family Medicine; Visit Provider Family Medicine
DX: Z79.01 Long term (current) use of anticoagulants (principal); Z51.81 Encounter for therapeutic drug level monitoring; I48.91 Unspecified atrial fibrillation
CPT/HCPCS: 85610; 99211; G0463

== ENCOUNTER 2023-06-24 17:50 | Emergency (ER) | payer MEDICARE, SELFPAY ==
--- NOTE | 2023-06-24 18:02 | EXP.UTC ---
Discharge Plan Disposition Patient Disposition: Home, Self-Care Condition: Good Prescriptions Prescriptions: New methylprednisolone [Medrol (Chris)] 4 mg tablets,dose pack 4 mg PO DIRECTED Qty: 21 0RF No Action acetaminophen 500 mg capsule 500 mg PO Q6H gabapentin 100 mg capsule PO Patient Comments: TAKE 1 CAPSULE BY MOUTH THREE TIMES DAILY carvedilol 6.25 mg tablet 6.25 mg PO BID Qty: 60 5RF Rx Instructions: must administer with a meal/food flecainide 150 mg tablet 150 mg PO Q12H Qty: 60 0RF zolpidem [Ambien] 10 mg tablet 10 mg PO HS esomeprazole magnesium [Nexium] 40 mg capsule,delayed release(DR/EC) 40 mg PO QDAY alprazolam [Xanax] 0.5 mg tablet 0.5 mg PO TID olmesartan-hydrochlorothiazide 40-12.5 mg tablet 1 tab PO DAILY metformin 500 mg tablet extended release 24 hr 500 mg PO ONCE montelukast 10 mg tablet 10 mg PO HS Patient Comments: TAKE 1 TABLET BY MOUTH ONCE DAILY AT NIGHT estradiol 1 mg tablet 1 mg PO DAILY Patient Comments: TAKE 1 TABLET BY MOUTH ONCE DAILY celecoxib 200 mg capsule 200 mg PO DAILY warfarin 5 mg tablet PO atorvastatin 10 mg tablet 10 mg PO DAILY Qty: 30 5RF ondansetron 4 MG tablet,disintegrating 4 mg PO Q8HP PRN (Reason: Nausea) Qty: 9 0RF Referrals Follow up/Referrals: Juan Pablo Nelson MD [Primary Care Provider] - See instructions Clinical Impressions Clinical Impression: Rash and nonspecific skin eruption Instructions Patient Instructions: DI for Rash Discharge ED Provider: Lia Montoya [facility] General Stated complaint: Rash on face and spreading Time Seen by Provider: 06/24/23 18:10 History of Present Illness Provider Complaint: Rash on forehead since this morning, spreading. It is stinging and itchy. No blisters. Did change hair products but otherwise unsure what else could have caused it. Onset (ago): day(s) (1) Location: head Relieving factors: none Exacerbating factors: none Associated symptoms: denies other symptoms Treatments prior to arrival: none Related Data Home Medications Medication Instructions Recorded Confirmed alprazolam 0.5 mg tablet (Xanax) 0.5 mg PO TID Anxiety 04/25/17 03/29/23 esomeprazole magnesium 40 mg 40 mg PO QDAY GERD 04/25/17 03/29/23 capsule,delayed release (Nexium) zolpidem 10 mg tablet (Ambien) 10 mg PO HS . 04/25/17 03/29/23 olmesartan 40 1 tab PO DAILY High blood pressure 09/23/20 03/29/23 mg-hydrochlorothiazide 12.5 mg tablet metformin 500 mg tablet,extended 500 mg PO ONCE . 07/29/22 03/29/23 release 24 hr estradiol 1 mg tablet 1 mg PO DAILY 09/17/22 03/29/23 montelukast 10 mg tablet 10 mg PO HS 09/17/22 03/29/23 acetaminophen 500 mg capsule 500 mg PO Q6H 10/05/22 03/29/23 celecoxib 200 mg capsule 200 mg PO DAILY 12/20/22 03/29/23 warfarin 5 mg tablet mg PO 03/07/23 03/29/23 gabapentin 100 mg capsule mg PO 03/29/23 03/29/23 Previous Rx's Medication Instructions Recorded ondansetron 4 mg disintegrating 4 mg PO Q8HP PRN Nausea #9 tabs 06/20/21 tablet atorvastatin 10 mg tablet 10 mg PO DAILY #30 tabs 03/24/23 carvedilol 6.25 mg tablet 6.25 mg PO BID #60 tabs 03/29/23 flecainide 150 mg tablet 150 mg PO Q12H #60 tabs 03/29/23 methylprednisolone 4 mg tablets in 4 mg PO DIRECTED #21 tabs 06/24/23 a dose pack (Medrol (Chris)) Allergies Allergy/AdvReac Type Severity Reaction Status Date / Time oxycodone [From PERCOCET] Allergy Severe IRREGULAR Verified 03/29/23 14:56 HEARTBEAT codeine Allergy Intermediate I-ITCHING, Verified 03/29/23 14:56 NAUSEA, FAST HEART RATE hydrocodone Allergy Intermediate I-ITCHING, Verified 03/29/23 14:56 NAUSEA, FAST HEART RATE ketorolac Allergy Intermediate I-ITCHING, Verified 03/29/23 14:56 NAUSEA, FAST HEART RATE meperidine [From Demerol] Allergy Intermediate I-ITCHING, Verified 03/29/23 14:56 NAUSEA, FAST HEART RATE morphine Allergy Intermediate I-ITCHING, Verified 03/29/23 14:56 NAUSEA, FAST HEART RATE Penicillins Allergy Intermediate I-ITCHING, Verified 03/29/23 14:56 NAUSEA, FAST HEART RATE PFSH [facility] Disclaimer: The information contained in this section may have been updated after the patient was seen, as this information can be updated by other users. Medical History Abnormal electrocardiogram [ECG] [EKG] Anxiety Asthma Cancer Depression Diabetes mellitus, type 2 She has lost 20 pounds working on lifestyle modification and most recent A1c hemoglobin 5.6. Random glucose level 99. Dyspnea Gastroesophageal reflux disease History of gastroesophageal reflux (GERD) History of heart attack Hx of pancreatitis Hyperlipidemia Hypertension Hypertensive heart disease Nausea Obstructive sleep apnea syndrome History of mild ISABELL previously treated with CPAP. She quit using the CPAP following [employer] recall. Since then she has lost 20 pounds. Stable angina pectoris Surgical History History of cholecystectomy History of hysterectomy History of mastectomy LIMB ALERT LT ARM S/P cervical spinal fusion Family History Father Family history of [place] (myocardial infarction) Grandmother Family history of [place] (myocardial infarction) Mother Family history of breast cancer Family/Other Family history of lung cancer Family/Other Family history of kidney cancer Social History Smoking Status: Never smoker alcohol intake: never substance use type: denies use current occupational status: retired Travel in the last 8 weeks: [place] the [place] household members: spouse housing: house current occupational exposures/hazards: No ROS Obtained: Yes All systems reviewed & no additional complaints except as documented Integumentary/Breasts Skin/Breast: Reports dry skin, Reports pruritus and Reports skin pain Physical Exam General General appearance: alert and in no apparent distress Head Head exam: atraumatic and normocephalic Respiratory Respiratory exam: Present normal lung sounds bilaterally; Absent respiratory distress Cardiovascular Cardiovascular exam: Present tachycardia and irregular rhythm Neurological Exam Neurological exam: Present alert and oriented X3 Psychiatric Psychiatric exam: Present normal affect and normal mood Skin Skin exam: Present warm, dry and rash Medical Decision Making Benjamin Inquiry Pt receiving controlled substance: No
[2023-06-24 18:05] VITALS: BP 149/90; PULSE 68; RESP 17; TEMP 36.6; O2SAT 98; BMI 19.0
[2023-06-24] MEDS: DEXAMETHASONE 4MG/ML 1ML VIAL 4 MG IM (18:24)
[2023-06-24] MEDS: methylPREDNISolone ACETATE 80MG/ML VIAL 80 MG IM (18:24)
[2023-06-24 18:26] VITALS: BP 149/90; PULSE 68; RESP 17; TEMP 36.6; O2SAT 98
== END 2023-06-24 18:33 | disposition home or self-care (01) ==
PROVIDERS: Emergency Provider Physician Assistant; PCP Family Medicine
DX: R21 Rash and other nonspecific skin eruption (principal); E11.9 Type 2 diabetes mellitus without complications; K21.9 Gastro-esophageal reflux disease without esophagitis; I10 Essential (primary) hypertension; E78.5 Hyperlipidemia, unspecified; Z79.84 Long term (current) use of oral hypoglycemic drugs
CPT/HCPCS: 96372; 99212; 99214; G0463; J1040

== ENCOUNTER 2023-07-04 09:51 | Outpatient (CLI) | payer MEDICARE, SELFPAY ==
[2023-07-04 10:18] LABS: PHA INR Fingerstick 2.2 (0.9-1.1)
== END 2023-07-04 10:19 ==
LOC: ACC 09:52
PROVIDERS: PCP Family Medicine; Visit Provider Family Medicine
DX: Z51.81 Encounter for therapeutic drug level monitoring (principal); Z79.01 Long term (current) use of anticoagulants; I48.91 Unspecified atrial fibrillation
CPT/HCPCS: 85610; 99211; G0463

== ENCOUNTER 2023-08-25 10:13 | Outpatient (CLI) | payer MEDICARE, SELFPAY ==
[2023-08-25 12:15] LABS: PHA INR Fingerstick 1.9 (0.9-1.1)
== END 2023-08-25 14:06 ==
LOC: ACC 10:14
PROVIDERS: PCP Family Medicine; Visit Provider Family Medicine
DX: Z79.01 Long term (current) use of anticoagulants (principal); Z51.81 Encounter for therapeutic drug level monitoring; I48.91 Unspecified atrial fibrillation
CPT/HCPCS: 85610; 99211; G0463

== ENCOUNTER 2023-09-22 10:14 | Outpatient (CLI) | payer MEDICARE, SELFPAY ==
[2023-09-22 10:52] LABS: PHA INR Fingerstick 2.1 (0.9-1.1)
== END 2023-09-22 10:55 ==
LOC: ACC 10:14
PROVIDERS: PCP Family Medicine; Visit Provider Family Medicine
DX: Z79.01 Long term (current) use of anticoagulants (principal); I48.91 Unspecified atrial fibrillation
CPT/HCPCS: 85610; 99211; G0463

== ENCOUNTER 2023-09-27 10:21 | Outpatient (POV) | payer MEDICARE, SELFPAY | END 2023-09-27 23:59 | disposition home or self-care (01) | LOC: SC 10:21 | PROVIDERS: PCP Family Medicine; Visit Provider Dermatology | DX: Z00.00 Encounter for general adult medical examination without abnormal findings (principal) ==

== ENCOUNTER 2023-11-12 15:44 | Emergency (ER) | payer MEDICARE, SELFPAY ==
[2023-11-12] VITALS (9 sets, daily range): BP systolic 114–139; BP diastolic 69–94; PULSE 62–107; RESP 12–20; TEMP 36.6; O2SAT 94–97; BMI 23.5
--- NOTE | 2023-11-12 15:41 | ECG_ITS ---
APPROVED REPORT Exam: Resting ECG HR:116 bpm ECG Measurements Heart Rate 116 AXES QRSd 119 QRS -61 QT 332 T 88 QTc 401 Conclusion ATRIAL FIBRILLATION WITH RAPID VENTRICULAR RESPONSE PATTERN CONSISTENT WITH PULMONARY DISEASE INCOMPLETE RIGHT BUNDLE BRANCH BLOCK [90+ ms QRS DURATION, TERMINAL R IN V1/V2, 40+ ms S IN I/aVL/V4/V5/V6] LEFT ANTERIOR FASCICULAR BLOCK [QRS AXIS <= -45, QR IN I, RS IN II] POSSIBLE SEPTAL MYOCARDIAL INFARCTION , PROBABLY OLD [30 ms Q WAVE IN V1/V2] ABNORMAL ECG No stemi Electronically signed by : PERLA TRUJILLO, 11/13/2023 03:40:08
--- NOTE | 2023-11-12 15:55 | PC.NURSE ---
in room talking with patient at this time.
--- NOTE | 2023-11-12 15:59 | XR_ITS ---
PROCEDURE INFORMATION: Exam: XR Chest Exam date and time: 11/12/2023 4:01 PM Age: 68 years old Clinical indication: Other: Palpitations; Prior surgery; Surgery date: 6+ months; Surgery type: Double mastectomy TECHNIQUE: Imaging protocol: Radiologic exam of the chest. Views: 1 view. COMPARISON: CR XR CHEST PORTABLE 03/25/2023 1:05 PM FINDINGS: Lungs: Unremarkable. No consolidation. Pleural spaces: Unremarkable. No pleural effusion. No pneumothorax. Heart/Mediastinum: Unremarkable. No cardiomegaly. Bones/joints: Anterior cervical fusion IMPRESSION: No acute process
--- NOTE | 2023-11-12 16:04 | HMH.EDGENADL ---
Discharge Plan Disposition Patient Disposition: Home, Self-Care Condition: Good Prescriptions Prescriptions: No Action acetaminophen 500 mg capsule 500 mg PO Q6H flecainide 150 mg tablet 150 mg PO Q12H Qty: 60 0RF zolpidem [Ambien] 10 mg tablet 10 mg PO HS esomeprazole magnesium [Nexium] 40 mg capsule,delayed release(DR/EC) 40 mg PO QDAY alprazolam [Xanax] 0.5 mg tablet 0.5 mg PO TID olmesartan-hydrochlorothiazide 40-12.5 mg tablet 1 tab PO DAILY metformin 500 mg tablet extended release 24 hr 500 mg PO ONCE montelukast 10 mg tablet 10 mg PO HS Patient Comments: TAKE 1 TABLET BY MOUTH ONCE DAILY AT NIGHT estradiol 1 mg tablet 1 mg PO DAILY Patient Comments: TAKE 1 TABLET BY MOUTH ONCE DAILY celecoxib 200 mg capsule 200 mg PO DAILY warfarin 5 mg tablet PO Ozempic 0.25 mg or 0.5 mg (2 mg/3 mL) pen injector 0.5 mg SQ Patient Comments: INJECT 0.5 MG SUBCUTANEOUSLY ONCE A WEEK DIRECTED gabapentin 300 mg capsule 300 mg PO Patient Comments: TAKE 1 CAPSULE BY MOUTH IN THE MORNING AND 1 IN THE AFTERNOON, THEN 2 CAPSULES AT NIGHT carvedilol 12.5 mg tablet 12.5 mg PO Patient Comments: TAKE 1 TABLET BY MOUTH TWICE DAILY MUST ADMINISTER WITH A MEAL/FOOD atorvastatin 10 mg tablet 10 mg PO DAILY Qty: 30 5RF methylprednisolone [Medrol (Chris)] 4 mg tablets,dose pack 4 mg PO DIRECTED Qty: 21 0RF ondansetron 4 MG tablet,disintegrating 4 mg PO Q8HP PRN (Reason: Nausea) Qty: 9 0RF Referrals Follow up/Referrals: Provider,Referral, [Referring] - See instructions Clinical Impressions Clinical Impression: A-fib Instructions Patient Instructions: Cardiac Arrhythmia (Alternative Therapy) Print Language Print Language: Greenlandic Discharge ED Provider: Lew Cheng General Adult HPI General Chief complaint: Arrhythmia/Palpitations Stated complaint: chest pain Time Seen by Provider: 11/12/23 15:55 History of Present Illness HPI narrative: 68 yoF patient presents with a chief complaint of atrial fibrillation (AFib) that started approximately 20 minutes after eating lunch. She reports not having experienced AFib for the past six months. The patient is currently on Warfarin as an anticoagulant, having switched from Eliquis due to affordability issues. She has a history of being treated for AFib with medication. The patient describes a sensation of tightness in her chest, localized and not radiating. She denies any pain upon palpation. She also reports feeling a little nauseous and experiencing a mild headache that started concurrently with her AFib symptoms. The patient denies any shortness of breath, vomiting, or abdominal pain. She also denies any numbness or weakness. No changes in medication have been made since her last visit to the [facility] in July. Related Data Home Medications ?Medication ?Instructions ?Recorded ?Confirmed alprazolam 0.5 mg tablet (Xanax) 0.5 mg PO TID Anxiety 04/25/17 08/25/23 esomeprazole magnesium 40 mg 40 mg PO QDAY GERD 04/25/17 08/25/23 capsule,delayed release (Nexium) zolpidem 10 mg tablet (Ambien) 10 mg PO HS . 04/25/17 08/25/23 olmesartan 40 1 tab PO DAILY High blood pressure 09/23/20 08/25/23 mg-hydrochlorothiazide 12.5 mg tablet metformin 500 mg tablet,extended 500 mg PO ONCE . 07/29/22 08/25/23 release 24 hr estradiol 1 mg tablet 1 mg PO DAILY 09/17/22 08/25/23 montelukast 10 mg tablet 10 mg PO HS 09/17/22 08/25/23 acetaminophen 500 mg capsule 500 mg PO Q6H 10/05/22 08/25/23 celecoxib 200 mg capsule 200 mg PO DAILY 12/20/22 08/25/23 warfarin 5 mg tablet mg PO 03/07/23 08/25/23 carvedilol 12.5 mg tablet 12.5 mg PO 08/25/23 08/25/23 gabapentin 300 mg capsule 300 mg PO 08/25/23 08/25/23 semaglutide 0.25 mg or 0.5 mg (2 0.5 mg SQ 08/25/23 08/25/23 mg/3 mL) subcutaneous pen injector (Ozempic) Previous Rx's ?Medication ?Instructions ?Recorded ondansetron 4 mg disintegrating 4 mg PO Q8HP PRN Nausea #9 tabs 06/20/21 tablet atorvastatin 10 mg tablet 10 mg PO DAILY #30 tabs 12/28/23 flecainide 150 mg tablet 150 mg PO Q12H #60 tabs 03/29/23 methylprednisolone 4 mg tablets in 4 mg PO DIRECTED #21 tabs 06/24/23 a dose pack (Medrol (Chris)) Allergies Allergy/AdvReac Type Severity Reaction Status Date / Time oxycodone [From PERCOCET] Allergy Severe IRREGULAR Verified 08/25/23 09:46 HEARTBEAT codeine Allergy Intermediate I-ITCHING, Verified 08/25/23 09:46 NAUSEA, FAST HEART RATE hydrocodone Allergy Intermediate I-ITCHING, Verified 08/25/23 09:46 NAUSEA, FAST HEART RATE ketorolac Allergy Intermediate I-ITCHING, Verified 08/25/23 09:46 NAUSEA, FAST HEART RATE meperidine [From Demerol] Allergy Intermediate I-ITCHING, Verified 08/25/23 09:46 NAUSEA, FAST HEART RATE morphine Allergy Intermediate I-ITCHING, Verified 08/25/23 09:46 NAUSEA, FAST HEART RATE Penicillins Allergy Intermediate I-ITCHING, Verified 08/25/23 09:46 NAUSEA, FAST HEART RATE PFS PFS Disclaimer: The information contained in this section may have been updated after the patient was seen, as this information can be updated by other users. Medical History Abnormal electrocardiogram [ECG] [EKG] Cancer Depression Anxiety History of gastroesophageal reflux (GERD) Diabetes mellitus, type 2 She has lost 20 pounds working on lifestyle modification and most recent A1c hemoglobin 5.6. Random glucose level 99. Asthma History of heart attack Hypertension Hx of pancreatitis Nausea Dyspnea Stable angina pectoris Obstructive sleep apnea syndrome History of mild ISABELL previously treated with CPAP. She quit using the CPAP following [facility] recall. Since then she has lost 20 pounds. Gastroesophageal reflux disease Hyperlipidemia Hypertensive heart disease Surgical History S/P cervical spinal fusion History of mastectomy LIMB ALERT LT ARM History of hysterectomy History of cholecystectomy Family History Father Family history of PA (myocardial infarction) Grandmother Family history of PA (myocardial infarction) Mother Family history of breast cancer Family/Other Family history of lung cancer Family/Other Family history of kidney cancer Social History (Reviewed 08/25/23 @ 09:46 by Katya Corona Smoking Status: Former smoker alcohol intake: never substance use type: denies use current occupational status: retired Travel in the last 8 weeks: Inside the [place] household members: spouse housing: house current occupational exposures/hazards: No ROS Obtained: Yes Systems reviewed as appropriate & no additional complaints except as documented Physical Exam General General appearance: alert and in no apparent distress Head Head exam: atraumatic and normocephalic Eye Eye exam: Present normal appearance and EOMI ENT ENT exam: Present normal exam Neck Neck exam: Present normal inspection Chest Chest inspection: Present normal inspection and symmetric chest wall rise; Absent tenderness Respiratory Respiratory exam: Present normal lung sounds bilaterally; Absent respiratory distress Cardiovascular Cardiovascular exam: Present tachycardia, irregular rhythm and normal heart sounds; Absent regular rate or normal rhythm Abdominal Exam Abdominal exam: Present soft; Absent distention or tenderness Neurological Exam Neurological exam: Present alert and oriented X3 Psychiatric Psychiatric exam: Present normal affect and normal mood Skin Skin exam: Present warm, dry, intact and normal color Medical Decision Making Medical Records Medical records reviewed: Yes I reviewed the patient's medical records. Benjamin Inquiry Pt receiving controlled substance: No Vital Signs: 11/12/23 15:44 11/12/23 16:01 11/12/23 16:30 Temperature 97.9 F Temperature Source Oral Pulse Rate 94 H Pulse Rate [Left Radial] 107 H Respiratory Rate 19 15 20 Blood Pressure 139/87 129/81 Blood Pressure [Right Arm] 139/87 Blood Pressure Mean [Right Arm] 104 02 Sat by Pulse Oximetry 96 94 L Oxygen Delivery Method Room Air 11/12/23 16:44 11/12/23 17:00 11/12/23 17:31 Temperature Temperature Source Pulse Rate 70 69 68 Pulse Rate [Left Radial] Respiratory Rate 15 18 12 Blood Pressure 136/94 H 123/81 119/84 Blood Pressure [Right Arm] Blood Pressure Mean [Right Arm] 02 Sat by Pulse Oximetry 97 96 95 Oxygen Delivery Method 11/12/23 18:08 11/12/23 18:30 11/12/23 18:48 Temperature 97.9 F Temperature Source Pulse Rate 65 62 70 Pulse Rate [Left Radial] Respiratory Rate 12 16 18 Blood Pressure 119/71 114/69 114/69 Blood Pressure [Right Arm] Blood Pressure Mean [Right Arm] 02 Sat by Pulse Oximetry 97 97 Oxygen Delivery Method Lab Data Lab Results 11/12/23 15:48: WBC 4.5 L, RBC 4.46, Hgb 13.7, Hct 42.4, MCV 95.2, MCH 30.6, MCHC 32.2, RDW 14.0, Plt Count 198, MPV 7.7, Neut % (Auto) 59.5, Lymph % (Auto) 33.2, [place] % (Auto) 4.0, Eos % (Auto) 2.7, Baso % (Auto) 0.5, Neut # (Auto) 2.7, Lymph # (Auto) 1.5, [place] # (Auto) 0.2, Eos # (Auto) 0.1, Baso # (Auto) 0.0, Sodium 138, Potassium 3.6, Chloride 108 H, Carbon Dioxide 23, Anion Gap 10.6, BUN 18 H, Creatinine 0.80, Estimated Creat Clear 58, Estimated GFR 71, Est GFR ( Amer) 86, Glucose 112 H, Calcium 9.8, Total Bilirubin 0.4, AST 23, ALT 18, Alkaline Phosphatase 66, Troponin I < 0.01, NT-Pro-B Natriuret Pep 103, Total Protein 7.2, Albumin 4.4, Globulin 2.8, Albumin/Globulin Ratio 1.6 11/12/23 15:48 11/12/23 15:48 Orders (Tests/Meds): ED MEDICATIONS Discontinued Medications Generic Name Dose Route Start Last Admin Trade Name Freq PRN Reason Stop Dose Admin Metoprolol Tartrate 5 mg 11/12/23 15:59 11/12/23 16:41 Metoprolol Tartrate 5mg/5ml Vial IV 11/12/23 16:00 5 mg ONCE ONE Administration Ondansetron HCl 4 mg 11/12/23 15:59 11/12/23 16:41 Ondansetron 4mg/2ml Vial IV 11/12/23 16:00 4 mg ONCE ONE Administration ORDERS Category Date Time Status Chest XR -- portable [XR chest portable] Stat Exams 11/12/23 15:59 Completed BNP [NT Pro Brain Natriuretic Pep.] Stat Lab 11/12/23 15:48 Completed CBC w/Auto Diff [Complete Blood Count Auto Diff] Stat Lab 11/12/23 15:48 Completed CMP [Comprehensive Metabolic Panel] Stat Lab 11/12/23 15:48 Completed Trop I [Troponin I] Stat Lab 11/12/23 15:48 Completed ECG Data Tracing #1: I reviewed this ECG and interpreted as documented below: Atrial fibrillation with rapid ventricular response, ventricular rate at time of EKG was 116 bpm, no noted ST elevation, left axis deviation Medical Decision Narrative: patient with history and exam per above presenting for evaluation of atrial fibrillation Diagnoses considered include A-fib, arrhythmia, electrolyte abnormality, ACS ED workup and treatment included: As above Labs were independently interpreted by me, significant for no noted leukocytosis, no noted anemia, coags elevated consistent with anticoagulant prescription, no noted JACINTO, negative troponin. Laboratory workup grossly nonactionable Imaging was independently visualized and interpreted by me, significant for no acute cardiopulmonary process Please refer to radiology report for full details. My clinical impression at this time is most consistent with A-fib. Following metoprolol IV patient converted to regular rate and rhythm. Monitored for period of time without repeated atrial fibrillation. On reassessment patient states she is feeling well. Has remained hemodynamically stable. Medically cleared for discharge with outpatient follow-up at this time. Given strict instructions to return to ED if symptoms worsen I discussed my clinical impression with patient and answered all questions. At this time, the evidence for any other entities in the differential is insufficient to warrant any further testing or ED observation. This was explained to the patient. The patient was advised that persistent or worsening symptoms require further evaluation. Critical Care Critical Care Time Critical Care Time: Yes Attestation: On 11/12/23, the high probability of a clinically significant, sudden or life threatening deterioration of the following system(s) required my full and direct attention, intervention and personal management. The time I documented below is in addition to time spent performing reported procedures but includes the following listed in this critical care notation. Total Time Total Critical Care Time: 35
[2023-11-12 16:10] LABS: Albumin Level 4.4 g/dl (3.5-5.0); Chloride 108 mmol/L (98-107)
[2023-11-12 16:11] LABS: Potassium 3.6 mmoL/L (3.5-5.1); Sodium 138 mmol/L (136-145)
[2023-11-12 16:13] LABS: Alanine Aminotransferase 18 U/L (12-78); Anion Gap 10.6 mEq/L (5-15); Aspartate Amino Transferase 23 U/L (14-36); Blood Urea Nitrogen 18 mg/dl (7-17); Carbon Dioxide 23 mmol/L (22.0-30.0); Creatinine Clearance Estimated 58 mL/min (50-200); Estimated Glomerular Filt Rate 71 ml/min (>60); GFR (African American) 86 ML/MIN (>60)
[2023-11-12 16:14] LABS: Albumin/Globulin Ratio 1.6 (1.1-1.8); Alkaline Phosphatase 66 U/L (38-126); Bilirubin,Total 0.4 mg/dl (0.2-1.3); Calcium 9.8 mg/dl (8.4-10.2); Globulin 2.8 g/dL (1.3-3.2); Glucose 112 mg/dl (74-100); Total Protein,Serum 7.2 g/dl (6.3-8.2)
[2023-11-12 16:23] LABS: NT Pro Brain Natriuretic Pep. 103 pg/mL (0-125)
[2023-11-12 16:28] LABS: Troponin I < 0.01 ng/ml (0.00-0.034)
[2023-11-12 16:38] LABS: Basophils % 0.5 % (0.1-2.0); Eosinophils # 0.1 K/mm3 (0.0-0.4); Eosinophils % 2.7 % (0.1-12.0); Hematocrit 42.4 % (37.0-47.0); Hemoglobin 13.7 g/dL (12.2-16.2); Lymphocytes # 1.5 K/mm3 (0.7-4.5); Lymphocytes % 33.2 % (10-50); Mean Corpuscular HGB Conc 32.2 g/dL (31.8-35.4); Mean Corpuscular Hemoglobin 30.6 pg (27.0-31.2); Mean Corpuscular Volume 95.2 fl (81-99); Mean Platelet Volume 7.7 fl (7.4-10.4); Monocytes # 0.2 K/mm3 (0.1-1.0); Neutrophils # 2.7 K/mm3 (1.8-7.8); Neutrophils % 59.5 % (37.0-80.0); Platelet Count 198 K/mm3 (142-424); Red Blood Count 4.46 M/mm3 (4.20-5.40); White Blood Count 4.5 K/mm3 (4.8-10.8)
[2023-11-12] MEDS: METOPROLOL TARTRATE 5MG/5ML VIAL 5 MG IV (16:41)
[2023-11-12] MEDS: ONDANSETRON 4MG/2ML VIAL 4 MG IV (16:41)
== END 2023-11-12 18:50 | disposition home or self-care (01) ==
PROVIDERS: Emergency Provider Student in an Organized Health Care Education/Training Program; PCP Family Medicine
DX: I48.91 Unspecified atrial fibrillation (principal); I10 Essential (primary) hypertension; E78.5 Hyperlipidemia, unspecified; K21.9 Gastro-esophageal reflux disease without esophagitis; E11.9 Type 2 diabetes mellitus without complications; Z79.84 Long term (current) use of oral hypoglycemic drugs; Z79.85 Long-term (current) use of injectable non-insulin antidiabetic drugs
CPT/HCPCS: 71045; 80053; 83880; 84484; 85025; 93005; 96374; 96375; 99284; J2405

== ENCOUNTER 2023-12-05 13:13 | Emergency (ER) | payer MEDICARE, SELFPAY ==
[2023-12-05 14:08] VITALS: BP 121/79; PULSE 63; RESP 16; TEMP 36.6; O2SAT 97; BMI 25.8
--- NOTE | 2023-12-05 14:22 | ED_ITS ---
Discharge Plan Disposition Patient Disposition: Home, Self-Care Condition: Good Prescriptions Prescriptions: New methocarbamol 500 mg tablet 500 mg PO TID PRN (Reason: muscle spasm) Qty: 12 0RF No Action acetaminophen 500 mg capsule 500 mg PO Q6H flecainide 150 mg tablet 150 mg PO Q12H Qty: 60 0RF zolpidem [Ambien] 10 mg tablet 10 mg PO HS esomeprazole magnesium [Nexium] 40 mg capsule,delayed release(DR/EC) 40 mg PO QDAY alprazolam [Xanax] 0.5 mg tablet 0.5 mg PO TID olmesartan-hydrochlorothiazide 40-12.5 mg tablet 1 tab PO DAILY metformin 500 mg tablet extended release 24 hr 500 mg PO ONCE montelukast 10 mg tablet 10 mg PO HS Patient Comments: TAKE 1 TABLET BY MOUTH ONCE DAILY AT NIGHT estradiol 1 mg tablet 1 mg PO DAILY Patient Comments: TAKE 1 TABLET BY MOUTH ONCE DAILY celecoxib 200 mg capsule 200 mg PO DAILY warfarin 5 mg tablet PO Ozempic 0.25 mg or 0.5 mg (2 mg/3 mL) pen injector 0.5 mg SQ Patient Comments: INJECT 0.5 MG SUBCUTANEOUSLY ONCE A WEEK DIRECTED gabapentin 300 mg capsule 300 mg PO Patient Comments: TAKE 1 CAPSULE BY MOUTH IN THE MORNING AND 1 IN THE AFTERNOON, THEN 2 CAPSULES AT NIGHT carvedilol 12.5 mg tablet 12.5 mg PO Patient Comments: TAKE 1 TABLET BY MOUTH TWICE DAILY MUST ADMINISTER WITH A MEAL/FOOD atorvastatin 10 mg tablet 10 mg PO DAILY Qty: 30 5RF methylprednisolone [Medrol (Chris)] 4 mg tablets,dose pack 4 mg PO DIRECTED Qty: 21 0RF ondansetron 4 MG tablet,disintegrating 4 mg PO Q8HP PRN (Reason: Nausea) Qty: 9 0RF Referrals Follow up/Referrals: Juan Pablo Nelson MD [Primary Care Provider] - See instructions Activity Restrictions/Add. Instructions Additional Instructions/Restrictions: *Ibuprofen alexus 6 hours with meal as needed for pain/inflammation if you can take if not take Tylenol *Not additional anti-inflammatory like motrin, aleve, advil with the above amount of ibuprofen. You can still take Tylenol every 4 hours as needed if you need something else for pain *Ice 20 minutes every 2 hours for the first 48 hours after the initial injury followed by moist heat every 20 minutes 3-4 times a day to affected area *Muscle relaxer every 8 hours as needed for muscle spasms but remember, it WILL cause drowsiness You cannot take it and drive, operate machinery or care for small children. *Keep this area active, no movement leads to more stiffness, However take it easy and avoid heavy lifting pushing or pulling *Follow up with you family doctor if no improvement for further treatment Clinical Impressions Clinical Impression: Low back pain Instructions Patient Instructions: Low Back Pain, Methocarbamol Print Language Print Language: Martiniquais Discharge ED Provider: Katlyn Queen [facility] HPI General Stated complaint: lower/mid back pain Mode of Arrival: Ambulatory Source of Information: Patient Limitations: No Limitations Time Seen by Provider: 12/05/23 14:22 Description of Symptoms (Recalled from Triage Doc. by RN): pt to the [facility] with middle lower back pain and right hip pain. pt denies any injury but did report her son got this weekend and she did more activity than normal HEENT Symptoms (Recalled from RN notes): No Resp Symptoms (Recalled from RN notes): No Skin Symptoms (Recalled from RN notes): No MS Symptoms (Recalled from RN notes): Yes Functional Status (Recalled from RN notes): WDL History of Present Illness Provider Complaint: Patient states that she went to a wedding over the weekend and she danced and walked more than normal States that she has been having pain in her lower back into her right hip worse with walking and moving Denies known injury and denies urinary symptoms States she has had sciatica before but usually hurts down her leg and this is just going into her hip for now Related Data Home Medications ?Medication ?Instructions ?Recorded ?Confirmed alprazolam 0.5 mg tablet (Xanax) 0.5 mg PO TID Anxiety 04/25/17 08/25/23 esomeprazole magnesium 40 mg 40 mg PO QDAY GERD 04/25/17 08/25/23 capsule,delayed release (Nexium) zolpidem 10 mg tablet (Ambien) 10 mg PO HS . 04/25/17 08/25/23 olmesartan 40 1 tab PO DAILY High blood pressure 09/23/20 08/25/23 mg-hydrochlorothiazide 12.5 mg tablet metformin 500 mg tablet,extended 500 mg PO ONCE . 07/29/22 08/25/23 release 24 hr estradiol 1 mg tablet 1 mg PO DAILY 09/17/22 08/25/23 montelukast 10 mg tablet 10 mg PO HS 09/17/22 08/25/23 acetaminophen 500 mg capsule 500 mg PO Q6H 10/05/22 08/25/23 celecoxib 200 mg capsule 200 mg PO DAILY 12/20/22 08/25/23 warfarin 5 mg tablet mg PO 03/07/23 08/25/23 carvedilol 12.5 mg tablet 12.5 mg PO 08/25/23 08/25/23 gabapentin 300 mg capsule 300 mg PO 08/25/23 08/25/23 semaglutide 0.25 mg or 0.5 mg (2 0.5 mg SQ 08/25/23 08/25/23 mg/3 mL) subcutaneous pen injector (Ozempic) Previous Rx's ?Medication ?Instructions ?Recorded ondansetron 4 mg disintegrating 4 mg PO Q8HP PRN Nausea #9 tabs 06/20/21 tablet atorvastatin 10 mg tablet 10 mg PO DAILY #30 tabs 03/24/23 flecainide 150 mg tablet 150 mg PO Q12H #60 tabs 03/29/23 methylprednisolone 4 mg tablets in 4 mg PO DIRECTED #21 tabs 06/24/23 a dose pack (Medrol (Chris)) methocarbamol 500 mg tablet 500 mg PO TID PRN muscle spasm #12 12/05/23 tabs Allergies Allergy/AdvReac Type Severity Reaction Status Date / Time oxycodone [From PERCOCET] Allergy Severe IRREGULAR Verified 08/25/23 09:46 HEARTBEAT codeine Allergy Intermediate I-ITCHING, Verified 08/25/23 09:46 NAUSEA, FAST HEART RATE hydrocodone Allergy Intermediate I-ITCHING, Verified 08/25/23 09:46 NAUSEA, FAST HEART RATE ketorolac Allergy Intermediate I-ITCHING, Verified 08/25/23 09:46 NAUSEA, FAST HEART RATE meperidine [From Demerol] Allergy Intermediate I-ITCHING, Verified 08/25/23 09:46 NAUSEA, FAST HEART RATE morphine Allergy Intermediate I-ITCHING, Verified 08/25/23 09:46 NAUSEA, FAST HEART RATE Penicillins Allergy Intermediate I-ITCHING, Verified 08/25/23 09:46 NAUSEA, FAST HEART RATE Worker's Comp Is this a Worker's Comp case?: No PFSH PFSH Disclaimer: The information contained in this section may have been updated after the patient was seen, as this information can be updated by other users. Medical History Abnormal electrocardiogram [ECG] [EKG] Cancer Depression Anxiety History of gastroesophageal reflux (GERD) Diabetes mellitus, type 2 She has lost 20 pounds working on lifestyle modification and most recent A1c hemoglobin 5.6. Random glucose level 99. Asthma History of heart attack Hypertension Hx of pancreatitis Nausea Dyspnea Stable angina pectoris Obstructive sleep apnea syndrome History of mild ISABELL previously treated with CPAP. She quit using the CPAP following [facility] recall. Since then she has lost 20 pounds. Gastroesophageal reflux disease Hyperlipidemia Hypertensive heart disease Surgical History S/P cervical spinal fusion History of mastectomy LIMB ALERT LT ARM History of hysterectomy History of cholecystectomy Family History Father Family history of [place] (myocardial infarction) Grandmother Family history of IN (myocardial infarction) Mother Family history of breast cancer Family/Other Family history of lung cancer Family/Other Family history of kidney cancer Social History Smoking Status: Former smoker alcohol intake: never substance use type: denies use current occupational status: retired Travel in the last 8 weeks: Inside the [place] household members: spouse housing: house current occupational exposures/hazards: No ROS Obtained: Yes All systems reviewed & no additional complaints except as documented and Yes Systems reviewed as appropriate & no additional complaints except as documented Constitutional Constitutional: Reports system reviewed and no additional complaints, except as documented and Reports as per HPI ENT Ears, Nose, Mouth, and Throat: Reports system reviewed and no additional complaints, except as documented and Reports as per HPI Respiratory Respiratory: Reports system reviewed and no additional complaints, except as documented and Reports as per HPI Gastrointestinal Gastrointestingal: Reports system reviewed and no additional complaints, except as documented and as per HPI Genitourinary Female Genitourinary: Reports system reviewed and no additional complaints, except as documented, Reports as per HPI, Denies dysuria, Denies flank pain, Denies urinary frequency and Denies urinary urgency Musculoskeletal Musculoskeletal: Reports system reviewed and no additional complaints, except as documented, Reports as per HPI and Reports back pain (low back pain into right hip denies known injury) Comments: Denies loss of control of bowel or bladder Physical Exam General General appearance: alert and in no apparent distress ENT ENT exam: Present normal exam, normal oropharynx, mucous membranes moist and TM's normal bilaterally Respiratory Respiratory exam: Present normal lung sounds bilaterally; Absent respiratory distress or wheezes Cardiovascular Cardiovascular exam: Present regular rate, normal rhythm and normal heart sounds Back Exam Back exam: Present tenderness, muscle spasm and sciatic notch tenderness (R) Back 1 view image: 2 1. reports pain with movement denies known injury Denies loss of control of bowel or bladder Neurological Exam Neurological exam: Present alert, oriented X3 and normal gait Medical Decision Making Benjamin Inquiry Pt receiving controlled substance: No Benjamin was queried for this patient: No Vital Signs: 12/05/23 14:08 Temperature 97.8 F Temperature Source Oral Pulse Rate [Left Radial] 63 Respiratory Rate 16 Blood Pressure [Right Arm] 121/79 Blood Pressure Mean [Right Arm] 93 Blood Pressure Source [Right Arm] Automatic Cuff Blood Pressure Position [Right Arm] Sitting 02 Sat by Pulse Oximetry 97 Oxygen Delivery Method Room Air Medical Decision Narrative: Discussed Xray and patient declined, patient is a diabetic but states has taken Ernestine Medrol injection in the past without complications from diabetes
[2023-12-05] MEDS: METHYLPREDNISOLONE SOD SUCC 125MG VIAL 125 MG IM (14:38)
[2023-12-05 15:01] VITALS: BP 121/79; PULSE 63; RESP 16; TEMP 36.6; O2SAT 97
== END 2023-12-05 15:06 | disposition home or self-care (01) ==
PROVIDERS: Emergency Provider Nurse Practitioner; PCP Family Medicine
DX: M54.50 Low back pain, unspecified (principal)
CPT/HCPCS: 96372; 99212; 99214; G0463; J2919

== ENCOUNTER 2023-12-26 08:47 | Outpatient (CLI) | payer MEDICARE, SELFPAY ==
--- NOTE | 2023-12-26 | MR_ITS ---
FINAL REPORT CLINICAL HISTORY: chronic low back pain COMPARISON: None FINDINGS: Multiplanar MR imaging of the lumbar spine was performed without contrast. On the sagittal T2-weighted images, there is abnormal decreased signal throughout the lumbar discs. The vertebrae are of normal height. There is minimal spondylolisthesis of L4 on L5. L1-2: A mild annular bulge is present with mild bilateral neural foraminal narrowing. L2-3: A mild annular bulge is present with mild bilateral neural foraminal narrowing. L3-4: A moderate annular bulge is present with posterolateral disc protrusions bilaterally, and mild to moderate bilateral neural foraminal narrowing. L4-5: There is a moderate annular bulge with bilateral posterolateral disc protrusions, moderate right and mild to moderate left neural foraminal narrowing. L5-S1: There is a mild left posterolateral disc protrusion, with mild to moderate left neural foraminal narrowing. IMPRESSION: Multilevel lumbar degenerative change is present, with mild to moderate degenerative change at multiple levels. Reviewed, Interpreted and Dictated by Jim Guzman MD Transcribed by Bev Quinones Authenticated and [facility]
[2023-12-26 11:04] LABS: PHA INR Fingerstick 2.8 (0.9-1.1)
== END 2023-12-26 11:07 ==
PROVIDERS: PCP Family Medicine; Visit Provider Family Medicine
DX: Z79.01 Long term (current) use of anticoagulants (principal); M54.16 Radiculopathy, lumbar region
CPT/HCPCS: 72148; 85610; 99211; G0463

== ENCOUNTER 2024-01-16 15:56 | Emergency (ER) | payer MEDICARE, SELFPAY ==
[2024-01-16 16:29] LABS: Microscopic, Urine URINE MICROSCOPIC (MICROSCOPIC)
[2024-01-16 16:54] LABS: Appearance,Urine CLEAR (Clear); Bilirubin,Urine Negative (Negative); Blood, Urine 1+ (Negative); Color,Urine YELLOW (Yellow); Glucose,Urine (UA) Negative (Negative); Ketones,Urine Negative (Negative); Leukocyte Esterase,Urine Negative (Negative); Nitrate,Urine Negative (Negative); PH,Urine 6.5 (5.0-8.5); Protein,Urine Negative (Negative); Urobilinogen,Urine 0.2 EU/dl (0.2)
[2024-01-16 16:55] VITALS: BP 138/60; PULSE 61; RESP 18; TEMP 36.7; O2SAT 97; BMI 27.3
--- NOTE | 2024-01-16 17:09 | EXP.UTC ---
Discharge Plan Disposition Patient Disposition: Home, Self-Care Condition: Good Prescriptions Prescriptions: New nitrofurantoin monohyd/m-cryst [Macrobid] 100 mg capsule 100 mg PO Q12H 5 Days Qty: 10 0RF Rx Instructions: must administer with a meal/food phenazopyridine [Pyridium] 200 mg tablet 200 mg PO Q8H 2 Days Qty: 6 0RF No Action celecoxib 200 mg capsule 200 mg PO DAILY Patient Comments: TAKE 1 CAPSULE BY MOUTH ONCE DAILY carvedilol 12.5 mg tablet 12.5 mg PO BID Patient Comments: TAKE 1 TABLET BY MOUTH TWICE DAILY WITH MEALS famotidine 40 mg tablet 40 mg PO DAILY Patient Comments: TAKE 2 TABLETS BY MOUTH ONCE DAILY alprazolam 0.5 mg tablet 0.5 mg PO TID Patient Comments: TAKE 1 TABLET BY MOUTH THREE TIMES DAILY estradiol 1 mg tablet 1 mg PO DAILY Patient Comments: TAKE 1 TABLET BY MOUTH ONCE DAILY esomeprazole magnesium 40 mg capsule,delayed release(DR/EC) 80 mg PO AM Patient Comments: TAKE 2 CAPSULES BY MOUTH IN THE MORNING BEFORE BREAKFAST warfarin 5 mg tablet 5 mg PO HS Patient Comments: TAKE 1 TABLET BY MOUTH ONCE DAILY AT NIGHT gabapentin 300 mg capsule 300 mg PO DAILY Patient Comments: TAKE 1 CAPSULE BY MOUTH IN THE MORNING AND AFTERNOON, THEN 2 CAPSULES BY MOUTH AT BEDTIME montelukast 10 mg tablet 10 mg PO DAILY Patient Comments: TAKE 1 TABLET BY MOUTH ONCE DAILY AT NIGHT zolpidem 10 mg tablet 10 mg PO HS Patient Comments: TAKE 1 TABLET BY MOUTH AT NIGHT NEEDED FOR SLEEP metformin 500 mg tablet extended release 24 hr 500 mg PO DAILY Patient Comments: TAKE 1 TABLET BY MOUTH ONCE DAILY WITH BREAKFAST olmesartan-hydrochlorothiazide 40-25 mg tablet 1 tab PO DAILY Patient Comments: TAKE 1 TABLET BY MOUTH ONCE DAILY Ozempic 0.25 mg or 0.5 mg (2 mg/3 mL) pen injector 0.25 mg SQ WEEKLY Patient Comments: INJECT 0.5 MG SUBCUTANEOUSLY ONCE A WEEK DIRECTED Referrals Follow up/Referrals: Juan Pablo Nelson MD [Primary Care Provider] - See instructions Activity Restrictions/Add. Instructions Additional Instructions/Restrictions: *Increase fluids. Water not Soda or Tea *Start antibiotic immediately and be sure to take as ordered for the FULL length of time although you should start to see improvement over the next 48 hours *Pyridium as needed Remember this medication will turn your urine . This is normal but it will stain what ever it gets on *You should not use Pyridium for more than 48 hours. If so , follow up with your primary physician to review urine culture and ensure that antibiotic is adequate for infection *Be SURE to follow up anytime for new or worsening symptoms with your family doctor. AND in 48 hours for urine culture results with your family doctor, if you do not have a doctor then you may call back to the [facility] for urine culture results and further treatment. We do recommend that you choose and establish care with a Primary Care Physician. ?AND follow up with them ?in 10-14 days to repeat UA to ensure infection is resolved and blood no longer present *Be sure to let your PCP know that we sent urine cultures from the [facility] so they can follow up to ensure that you area the on the correct antibiotic Call your doctor office and make appointment for 48 hours (2 days from today) ?to follow up and get the results of your urine culture and further treatment Make sure to let Warfarin clinic know you are on antibitoics you may need your Warfarin dose adjusted Clinical Impressions Clinical Impression: UTI symptoms Instructions Patient Instructions: Phenazopyridine, Nitrofurantoin Print Language Print Language: Danish Discharge ED Provider: Katlyn Queen [facility] [place] [facility] [place] General Stated complaint: pain when urinating Mode of Arrival: Ambulatory Source of Information: Patient Limitations: No Limitations Time Seen by Provider: 01/16/24 17:10 Description of Symptoms (Recalled from Triage Doc. by RN): PATIENT C/O BLADDER PRESSURE AND URINARY URGENCY THAT STARTED EARLIER TODAY HEENT Symptoms (Recalled from RN notes): No Resp Symptoms (Recalled from RN notes): No Skin Symptoms (Recalled from RN notes): No MS Symptoms (Recalled from RN notes): No Functional Status (Recalled from RN notes): WNL History of Present Illness Provider Complaint: Patient states that today she has been having burning with urination, feeling of urgency and frequency and at times can barely make it to the bathroom states same symptoms she has when she has a UTI States she also started with achy like feeling in her back like she has when she has a UTI Related Data Home Medications ?Medication ?Instructions ?Recorded ?Confirmed alprazolam 0.5 mg tablet 0.5 mg PO TID 01/16/24 01/16/24 carvedilol 12.5 mg tablet 12.5 mg PO BID 01/16/24 01/16/24 celecoxib 200 mg capsule 200 mg PO DAILY 01/16/24 01/16/24 esomeprazole magnesium 40 mg 80 mg PO AM 01/16/24 01/16/24 capsule,delayed release estradiol 1 mg tablet 1 mg PO DAILY 01/16/24 01/16/24 famotidine 40 mg tablet 40 mg PO DAILY 01/16/24 01/16/24 gabapentin 300 mg capsule 300 mg PO DAILY 01/16/24 01/16/24 metformin 500 mg tablet,extended 500 mg PO DAILY 01/16/24 01/16/24 release 24 hr montelukast 10 mg tablet 10 mg PO DAILY 01/16/24 01/16/24 olmesartan 40 1 tab PO DAILY 01/16/24 01/16/24 mg-hydrochlorothiazide 25 mg tablet semaglutide 0.25 mg or 0.5 mg (2 0.25 mg SQ WEEKLY 01/16/24 01/16/24 mg/3 mL) subcutaneous pen injector (Ozempic) warfarin 5 mg tablet 5 mg PO HS 01/16/24 01/16/24 zolpidem 10 mg tablet 10 mg PO HS 01/16/24 01/16/24 Previous Rx's ?Medication ?Instructions ?Recorded nitrofurantoin 100 mg PO Q12H 5 days #10 caps 01/16/24 monohydrate/macrocrystals 100 mg capsule (Macrobid) phenazopyridine 200 mg tablet 200 mg PO Q8H pain 2 days #6 tabs 01/16/24 (Pyridium) Allergies Allergy/AdvReac Type Severity Reaction Status Date / Time oxycodone [From PERCOCET] Allergy Severe IRREGULAR Verified 01/04/24 08:19 HEARTBEAT codeine Allergy Intermediate I-ITCHING, Verified 01/04/24 08:19 NAUSEA, FAST HEART RATE hydrocodone Allergy Intermediate I-ITCHING, Verified 01/04/24 08:19 NAUSEA, FAST HEART RATE ketorolac Allergy Intermediate I-ITCHING, Verified 01/04/24 08:19 NAUSEA, FAST HEART RATE meperidine [From Demerol] Allergy Intermediate I-ITCHING, Verified 01/04/24 08:19 NAUSEA, FAST HEART RATE morphine Allergy Intermediate I-ITCHING, Verified 01/04/24 08:19 NAUSEA, FAST HEART RATE Penicillins Allergy Intermediate I-ITCHING, Verified 01/04/24 08:19 NAUSEA, FAST HEART RATE flecainide Allergy Mild facial Verified 01/04/24 08:19 itching sotalol AdvReac Mild high BP Verified 01/04/24 08:19 Worker's Comp Is this a Worker's Comp case?: No [facility] Disclaimer: The information contained in this section may have been updated after the patient was seen, as this information can be updated by other users. Medical History Abnormal electrocardiogram [ECG] [EKG] Cancer Depression Anxiety History of gastroesophageal reflux (GERD) Diabetes mellitus, type 2 She has lost 20 pounds working on lifestyle modification and most recent A1c hemoglobin 5.6. Random glucose level 99. Asthma History of heart attack Hypertension Hx of pancreatitis Nausea Dyspnea Stable angina pectoris Obstructive sleep apnea syndrome History of mild ISABELL previously treated with CPAP. She quit using the CPAP following [employer] recall. Since then she has lost 20 pounds. Gastroesophageal reflux disease Hyperlipidemia Hypertensive heart disease Surgical History S/P cervical spinal fusion History of mastectomy LIMB ALERT LT ARM History of hysterectomy History of cholecystectomy Family History Father Family history of [place] (myocardial infarction) Grandmother Family history of [place] (myocardial infarction) Mother Family history of breast cancer Family/Other Family history of lung cancer Family/Other Family history of kidney cancer Social History Smoking Status: Former smoker alcohol intake: never substance use type: denies use current occupational status: retired Travel in the last 8 weeks: Inside the [place] household members: spouse housing: house current occupational exposures/hazards: No ROS Obtained: Yes All systems reviewed & no additional complaints except as documented and Yes Systems reviewed as appropriate & no additional complaints except as documented Constitutional Constitutional: Reports system reviewed and no additional complaints, except as documented, Reports as per HPI, Denies body ache, Denies chills and Denies fever(s) ENT Ears, Nose, Mouth, and Throat: Reports system reviewed and no additional complaints, except as documented and Reports as per HPI Cardiovascular Cardiovascular: Reports system reviewed and no additional complaints, except as documented and Reports as per HPI Respiratory Respiratory: Reports system reviewed and no additional complaints, except as documented and Reports as per HPI Gastrointestinal Gastrointestingal: Reports system reviewed and no additional complaints, except as documented and as per HPI; Denies abdominal pain Genitourinary Female Genitourinary: Reports system reviewed and no additional complaints, except as documented, Reports as per HPI, Reports dysuria, Reports urinary frequency and Reports urinary urgency Physical Exam General General appearance: alert and in no apparent distress ENT ENT exam: Present mucous membranes moist Respiratory Respiratory exam: Present normal lung sounds bilaterally; Absent respiratory distress or wheezes Cardiovascular Cardiovascular exam: Present regular rate, normal rhythm and normal heart sounds Abdominal Exam Abdominal exam: Present soft and normal bowel sounds; Absent distention or tenderness Neurological Exam Neurological exam: Present alert, oriented X3 and normal gait Medical Decision Making Medical Records Screening: Per USPSTF and CDC recommendations, given the prevalence of disease in our region, it is our hospital?s policy to screen for HIV and viral Hepatitis for all patients aged 18 and over and those with ongoing risk factors. Benjamin Inquiry Pt receiving controlled substance: No Benjamin was queried for this patient: No Vital Signs: 01/16/24 16:55 Temperature 98.0 F Temperature Source Oral Pulse Rate [Left Brachial] 61 Respiratory Rate 18 Blood Pressure [Left Arm] 138/60 Blood Pressure Mean [Left Arm] 86 Blood Pressure Source [Left Arm] Automatic Cuff Blood Pressure Position [Left Arm] Sitting 02 Sat by Pulse Oximetry 97 Oxygen Delivery Method Room Air Lab Data Lab results reviewed: Yes I reviewed the patient's lab results. Orders (Tests/Meds): ORDERS Category Date Time Status Urinalysis and Microscopic Stat Lab 01/16/24 16:18 Received Medical Decision Narrative: medication discussed with pharmacy Patient states that she is allergic to PCN and flecainide but has taken Rocephin with lidocaine in the past without complications or reactions requesting Rocephin shot discussed with pharmacy
[2024-01-16] MEDS: cefTRIAXone 1GM VIAL 1 GM IM (17:45)
[2024-01-16] MEDS: LIDOCAINE 1% 5ML PF VIAL IM (17:45)
[2024-01-16 17:46] VITALS: BP 138/60; PULSE 61; RESP 18; TEMP 36.7; O2SAT 97
[2024-01-16 17:49] LABS: Bacteria,Urine 2+ /lpf; Squamous Epithelial Cell,Urine Occasional #/hpf (0-5)
--- NOTE | 2024-01-18 16:39 | PC.NURSE ---
REVIEWED URINE CULTURE RESULTS WITH Vitaliy ALMANZA APRN, NO CHANGES NEEDED AT THIS TIME
== END 2024-01-16 17:58 | disposition home or self-care (01) ==
PROVIDERS: Emergency Provider Nurse Practitioner; PCP Family Medicine
DX: N39.0 Urinary tract infection, site not specified (principal)
CPT/HCPCS: 81001; 87086; 87088; 87186; 96372; 99213; G0381; J0696

== ENCOUNTER 2024-01-23 12:57 | Outpatient (POV) | payer MEDICARE, SELFPAY ==
[2024-01-23 13:37] VITALS: BP 101/70; PULSE 63; RESP 18; O2SAT 96; BMI 26.6
--- NOTE | 2024-01-23 15:15 | EXP.PAIN.OV ---
HPI Data of Consult Patient: new to practice Consult date: 01/23/24 Requesting Physician: Kayley Martino APRN Primary Care Provider: Juan Pablo Nelson MD Consult Narrative Reason for consult: Low back pain, bilateral hip pain, upper thigh pain History of present illness: Ms. Handley is a 68 year old female who presents today as a new patient. She is a referral from Dr. Nelson's office. Today she rates her pain a 5 out of 10. Patient states that she has chronic pain that is gone on for years in her low back and bilateral hips. She does state that the left side is worse than the right side and that it does seem like it is progressively worsened over time. Patient states that it was more intermittent and would occasionally pop up however the frequency has increased. She does describe it as a sharp sensation that goes into her upper thighs. Patient states that when the pain is severe she can even lift her legs to get dressed. She states that she had to rely on her to help. Patient has tried oral medications, heat and ice and topicals with minimal relief. Patient did complete physical therapy and states that it made no difference. Patient denies any chiropractor therapy. Patient does state that she has had a history of neck issues in the past and that she did do injections and physical therapy for that and it made no change and she ended up having to have a cervical fusion. Patient states following that procedure she had much better improvement and due to this fact she does have hesitation with additional injections because they never seem to do as well for her for her neck. Patient is currently managed with Celebrex, gabapentin, alprazolam and Ambien from her PCP. Patient was previously prescribed Dilaudid in the past however she would only take this as needed. Her Benjamin has been reviewed and is appropriate. CC: Kayley Martino APRN [facility] Disclaimer: The information contained in this section may have been updated after the patient was seen, as this information can be updated by other users. Medical History Abnormal electrocardiogram [ECG] [EKG] Cancer Depression Anxiety History of gastroesophageal reflux (GERD) Diabetes mellitus, type 2 She has lost 20 pounds working on lifestyle modification and most recent A1c hemoglobin 5.6. Random glucose level 99. Asthma History of heart attack Hypertension Hx of pancreatitis Nausea Dyspnea Stable angina pectoris Obstructive sleep apnea syndrome History of mild ISABELL previously treated with CPAP. She quit using the CPAP following [facility] [employer]. Since then she has lost 20 pounds. Gastroesophageal reflux disease Hyperlipidemia Hypertensive heart disease Surgical History S/P cervical spinal fusion History of mastectomy LIMB ALERT LT ARM History of hysterectomy History of cholecystectomy Family History Father Family history of [place] (myocardial infarction) Grandmother Family history of [place] (myocardial infarction) Mother Family history of breast cancer Family/Other Family history of lung cancer Family/Other Family history of kidney cancer Social History (Updated 01/23/24 @ 13:38 by Gifty Hernandez RN) Smoking Status: Former smoker alcohol intake: never substance use type: denies use current occupational status: retired Travel in the last 8 weeks: None household members: spouse housing: house current occupational exposures/hazards: No Review of Systems Review of Systems Review of systems:: pertinent systems reviewed and negative unless documented below Review of systems (narrative): Review of Systems: General: No recent weight changes, no fever, no sleep disturbances Respiratory: No cough, no shortness of air, no recurring pulmonary infections Cardiovascular/peripheral vascular: No chest pain, no palpitations, no edema, no shortness of breath Gastrointestinal: No new onset incontinence, normal bowel movements reported Genitourinary: No new onset incontinence Musculoskeletal: Low back pain, bilateral hip pain, upper thigh pain Psychiatric: [Normal mood/affect] Neurological: [Denies weakness in extremities], [denies balance issues] Meds Home Medications and Allergies Home Medications ?Medication ?Instructions ?Recorded ?Confirmed ?Type alprazolam 0.5 mg tablet 0.5 mg PO TID 01/16/24 01/23/24 History carvedilol 12.5 mg tablet 12.5 mg PO BID 01/16/24 01/23/24 History celecoxib 200 mg capsule 200 mg PO DAILY 01/16/24 01/23/24 History esomeprazole magnesium 40 mg 80 mg PO AM 01/16/24 01/23/24 History capsule,delayed release estradiol 1 mg tablet 1 mg PO DAILY 01/16/24 01/23/24 History famotidine 40 mg tablet 40 mg PO DAILY 01/16/24 01/23/24 History gabapentin 300 mg capsule 300 mg PO DAILY 01/16/24 01/23/24 History metformin 500 mg tablet,extended 500 mg PO DAILY 01/16/24 01/23/24 History release 24 hr montelukast 10 mg tablet 10 mg PO DAILY 01/16/24 01/23/24 History nitrofurantoin 100 mg PO Q12H 5 days #10 caps 01/16/24 01/23/24 Rx monohydrate/macrocrystals 100 mg capsule (Macrobid) olmesartan 40 1 tab PO DAILY 01/16/24 01/23/24 History mg-hydrochlorothiazide 25 mg tablet phenazopyridine 200 mg tablet 200 mg PO Q8H pain 2 days #6 tabs 01/16/24 01/23/24 Rx (Pyridium) semaglutide 0.25 mg or 0.5 mg (2 0.25 mg SQ WEEKLY 01/16/24 01/23/24 History mg/3 mL) subcutaneous pen injector (Ozempic) warfarin 5 mg tablet 5 mg PO HS 01/16/24 01/23/24 History zolpidem 10 mg tablet 10 mg PO HS 01/16/24 01/23/24 History New Prescriptions to Start Prescriptions: Allergies Allergy/AdvReac Type Severity Reaction Status Date / Time oxycodone [From PERCOCET] Allergy Severe IRREGULAR Verified 01/04/24 08:19 HEARTBEAT codeine Allergy Intermediate I-ITCHING, Verified 01/04/24 08:19 NAUSEA, FAST HEART RATE hydrocodone Allergy Intermediate I-ITCHING, Verified 01/04/24 08:19 NAUSEA, FAST HEART RATE ketorolac Allergy Intermediate I-ITCHING, Verified 01/04/24 08:19 NAUSEA, FAST HEART RATE meperidine [From Demerol] Allergy Intermediate I-ITCHING, Verified 01/04/24 08:19 NAUSEA, FAST HEART RATE morphine Allergy Intermediate I-ITCHING, Verified 01/04/24 08:19 NAUSEA, FAST HEART RATE Penicillins Allergy Intermediate I-ITCHING, Verified 01/04/24 08:19 NAUSEA, FAST HEART RATE flecainide Allergy Mild facial Verified 01/04/24 08:19 itching sotalol AdvReac Mild high BP Verified 01/04/24 08:19 Objective Vital signs: Pulse Resp BP Pulse Ox O2 Del Method 63 18 101/70 L 96 Room Air 01/23/24 13:37 01/23/24 13:37 01/23/24 13:37 01/23/24 13:37 01/23/24 13:37 Narrative: Physical Exam: General: Alert and oriented x3, no acute distress, pleasant and cooperative Lungs: Respirations even and unlabored, symmetrical chest expansion Eyes: PERRL Musculoskeletal: Flexion and extension of lumbar [spine] somewhat guarded secondary to pain, [antalgic gait noted] point tenderness along bilateral SIs with positive bilateral Svetlana's, Kishore's, Gaenslen's, compression and distraction exam Neurological: Speech clear, no gross sensory deficit Assessment and Plan *Assessment and plan (1) Bilateral sacroiliitis: Status: Acute Category: Medical Code(s): M46.1 - Sacroiliitis, not elsewhere classified Plan Patient is experiencing significant pain throughout her low back and bilateral hips with limited range of motion and point tenderness along her bilateral SIs. Patient did have positive bilateral Svetlana's, Kishore's, Gaenslen's, compression and distraction exam. I did discuss with the patient that I do believe that she would benefit from bilateral SI injections. Risk and benefits were discussed with the patient and she would like to proceed forward with this plan of care. Patient has tried and failed conservative therapy including continued at home stretching exercise for longer than 12 weeks. Patient will be scheduled for bilateral SI injections under fluoroscopy. Patient has been instructed to contact the clinic with any concerns before the next appointment. Dr. Ragsdale has reviewed this note and agrees with this plan of care. This note was dictated using voice recognition software and make contain errors or omissions. All injections are used with Lidocaine or Bupivacaine and Depo Medrol.
== END 2024-01-23 23:59 | disposition home or self-care (01) ==
LOC: SC.PAIN 12:58
PROVIDERS: PCP Family Medicine; Visit Provider Nurse Practitioner Family
DX: M46.1 Sacroiliitis, not elsewhere classified (principal); Z79.85 Long-term (current) use of injectable non-insulin antidiabetic drugs
CPT/HCPCS: 99202; G0463

== ENCOUNTER 2024-02-06 11:21 | Outpatient (CLI) | payer MEDICARE, SELFPAY ==
[2024-02-06 14:08] LABS: PHA INR Fingerstick 2.2 (0.9-1.1)
== END 2024-02-06 14:23 ==
LOC: ACC 11:22
PROVIDERS: PCP Family Medicine; Visit Provider Family Medicine
DX: Z79.01 Long term (current) use of anticoagulants (principal); I48.91 Unspecified atrial fibrillation
CPT/HCPCS: 85610; 99211; G0463

== ENCOUNTER 2024-02-10 07:28 | Day surgery (SDC) | payer MEDICARE, SELFPAY ==
[2024-02-10 08:07] VITALS: BP 118/67; PULSE 63; RESP 16; TEMP 36.6; O2SAT 98; BMI 26.6
[2024-02-10 08:44] VITALS: BP 118/57; PULSE 71; RESP 16; O2SAT 94
[2024-02-10] MEDS: IOPAMIDOL-200 (41%);10ML VIAL 10 ML IV (08:44)
[2024-02-10 08:46] VITALS: BP 118/57; PULSE 71; RESP 16; O2SAT 94
[2024-02-10] MEDS: LIDOCAINE 1% 5ML PF VIAL 10 ML (08:48)
[2024-02-10] MEDS: BUPIVACAINE 0.25% 10ML INJ 25 MG IJ (08:48)
[2024-02-10 09:00] VITALS: BP 124/78; PULSE 73; RESP 16; O2SAT 97
--- NOTE | 2024-02-10 09:05 | EXP.PAIN.PRO ---
Procedure Date: 02/10/24 Time: 09:08 Anesthesiologist:: Juan Ragsdale MD Complications:: None Pre-procedure Diagnosis:: Sacroiliitis Post-procedure Diagnosis:: Same Indications for Procedure:: The patient is a pleasant 68-year-old white female who we are treating for bilateral sacroiliitis. She is tender over both SI joints. She has a positive Svetlana's test bilaterally. She has positive Kahlil test bilaterally. She has positive SI joint compression test bilaterally. Will plan on doing bilateral SI joint injections under fluoroscopy today to help with her pain symptoms. Procedure Details:: B/L SI joint injection under fluoroscopy Informed consent was obtained and the risks and benefits of the procedure was explained to the patient. The patient was taken to the procedure room and placed prone on the procedure table. The patient was prepped using ChloraPrep. The skin and subcutaneous tissues overlying the SI joints were anesthetized using lidocaine. I placed a 22-gauge needle first in the left SI joint and second in the right SI joint. Needle placement was confirmed with dye. After this we injected 5 mL bupivacaine 0.25% and Depo-Medrol 40 mg into each SI joint. Patient tolerated the procedure well with no complication. Plan and Disposition:: Will follow-up with this patient in 2 weeks. Will reevaluate her symptoms at that time.
== END 2024-02-10 09:00 | disposition home or self-care (01) ==
LOC: SC.PAINP 07:31
PROVIDERS: PCP Family Medicine; Visit Provider Anesthesiology
DX: M46.1 Sacroiliitis, not elsewhere classified (principal)
CPT/HCPCS: 27096; G0260; J1010; Q9966

== ENCOUNTER 2024-03-01 10:26 | Outpatient (POV) | payer MEDICARE, SELFPAY ==
--- NOTE | 2024-03-01 10:36 | A.OFFVIS_ITS ---
[facility] Disclaimer: The information contained in this section may have been updated after the patient was seen, as this information can be updated by other users. Medical History Abnormal electrocardiogram [ECG] [EKG] Cancer Depression Anxiety History of gastroesophageal reflux (GERD) Diabetes mellitus, type 2 She has lost 20 pounds working on lifestyle modification and most recent A1c hemoglobin 5.6. Random glucose level 99. Asthma History of heart attack Hypertension Hx of pancreatitis Nausea Dyspnea Stable angina pectoris Obstructive sleep apnea syndrome History of mild ISABELL previously treated with CPAP. She quit using the CPAP following [employer] recall. Since then she has lost 20 pounds. Gastroesophageal reflux disease Hyperlipidemia Hypertensive heart disease Surgical History S/P cervical spinal fusion History of mastectomy LIMB ALERT LT ARM History of hysterectomy History of cholecystectomy Family History Father Family history of [place] (myocardial infarction) Grandmother Family history of [place] (myocardial infarction) Mother Family history of breast cancer Family/Other Family history of lung cancer Family/Other Family history of kidney cancer Social History Smoking Status: Former smoker alcohol intake: never substance use type: denies use current occupational status: retired Travel in the last 8 weeks: None household members: spouse housing: house current occupational exposures/hazards: No PM Subjective & Objective Subjective Subjective:: Patient is a pleasant 68-year-old female who presents today for follow-up of bilateral SI injections on 02/10/2024. Today she rates her pain a 1 out of 10. Patient denies any new trauma or injury. Patient does state that she has had approximately 80% improvement and feels its still helping well. patient is currently managed with Celebrex, gabapentin, alprazolam and Ambien from her PCP. Her Benjamin has been reviewed and is appropriate. Review of Systems: General: No recent weight changes, no fever, no sleep disturbances Respiratory: No cough, no shortness of air, no recurring pulmonary infections Cardiovascular/peripheral vascular: No chest pain, no palpitations, no edema, no shortness of breath Gastrointestinal: No new onset incontinence, normal bowel movements reported Genitourinary: No new onset incontinence Musculoskeletal: Low back pain Psychiatric: [Normal mood/affect] Neurological: [Denies weakness in extremities], [denies balance issues] Pain at rest (0-10 scale): 1 Objective Objective:: Physical Exam: General: Alert and oriented x3, no acute distress, pleasant and cooperative Lungs: Respirations even and unlabored, symmetrical chest expansion Eyes: PERRL Musculoskeletal: Flexion and extension of lumbar spine within normal limits Neurological: Speech clear, no gross sensory deficit Has patient had previous pain injection?: Yes Percent improvement in pain since last injection: 80% Conservative treatment options previously tried: Home exercise plan Length of treatment: Longer than 12 weeks Meds Home Medications and Allergies Home Medications ?Medication ?Instructions ?Recorded ?Confirmed ?Type alprazolam 0.5 mg tablet 0.5 mg PO TID 01/16/24 02/10/24 History carvedilol 12.5 mg tablet 12.5 mg PO BID 01/16/24 02/10/24 History celecoxib 200 mg capsule 200 mg PO DAILY 01/16/24 02/10/24 History esomeprazole magnesium 40 mg 80 mg PO AM 01/16/24 02/10/24 History capsule,delayed release estradiol 1 mg tablet 1 mg PO DAILY 01/16/24 02/10/24 History famotidine 40 mg tablet 40 mg PO DAILY 01/16/24 02/10/24 History gabapentin 300 mg capsule 300 mg PO DAILY 01/16/24 02/10/24 History metformin 500 mg tablet,extended 500 mg PO DAILY 01/16/24 02/10/24 History release 24 hr montelukast 10 mg tablet 10 mg PO DAILY 01/16/24 02/10/24 History nitrofurantoin 100 mg PO Q12H 5 days #10 caps 01/16/24 02/10/24 Rx monohydrate/macrocrystals 100 mg capsule (Macrobid) olmesartan 40 1 tab PO DAILY 01/16/24 02/10/24 History mg-hydrochlorothiazide 25 mg tablet phenazopyridine 200 mg tablet 200 mg PO Q8H pain 2 days #6 tabs 01/16/24 02/10/24 Rx (Pyridium) semaglutide 0.25 mg or 0.5 mg (2 0.25 mg SQ WEEKLY 01/16/24 02/10/24 History mg/3 mL) subcutaneous pen injector (Ozempic) warfarin 5 mg tablet 5 mg PO HS 01/16/24 02/10/24 History zolpidem 10 mg tablet 10 mg PO HS 01/16/24 02/10/24 History New Prescriptions to Start Prescriptions: Allergies Allergy/AdvReac Type Severity Reaction Status Date / Time oxycodone (From PERCOCET) Allergy Severe IRREGULAR Verified 01/26/24 11:50 HEARTBEAT codeine Allergy Intermediate I-ITCHING, Verified 01/26/24 11:50 NAUSEA, FAST HEART RATE hydrocodone Allergy Intermediate I-ITCHING, Verified 01/26/24 11:50 NAUSEA, FAST HEART RATE ketorolac Allergy Intermediate I-ITCHING, Verified 01/26/24 11:50 NAUSEA, FAST HEART RATE meperidine (From Demerol) Allergy Intermediate I-ITCHING, Verified 01/26/24 11:50 NAUSEA, FAST HEART RATE morphine Allergy Intermediate I-ITCHING, Verified 01/26/24 11:50 NAUSEA, FAST HEART RATE Penicillins Allergy Intermediate I-ITCHING, Verified 01/26/24 11:50 NAUSEA, FAST HEART RATE flecainide Allergy Mild facial Verified 01/26/24 11:50 itching sotalol AdvReac Mild high BP Verified 01/26/24 11:50 Assessment and Plan *Assessment and plan (1) Bilateral sacroiliitis: Status: Acute Category: Medical Code(s): M46.1 - Sacroiliitis, not elsewhere classified Plan Patient has had significant improvement following her SI injections and does not require any at this time. Patient will return to clinic in 6 weeks for reevaluation of symptoms and plan of care. Patient has been instructed to contact the clinic with any concerns before the next appointment. Dr. Ragsdale has reviewed this note and agrees with this plan of care. This note was dictated using voice recognition software and make contain errors or omissions. All injections are used with Lidocaine or Bupivacaine and Depo Medrol.
[2024-03-01 11:30] VITALS: BP 134/81; PULSE 61; RESP 16; O2SAT 98; BMI 25.8
== END 2024-03-01 23:59 | disposition home or self-care (01) ==
LOC: SC.PAIN 10:28
PROVIDERS: PCP Family Medicine; Visit Provider Nurse Practitioner Family
DX: M46.1 Sacroiliitis, not elsewhere classified (principal); Z87.891 Personal history of nicotine dependence; Z79.899 Other long term (current) drug therapy
CPT/HCPCS: 99212; G0463

== ENCOUNTER 2024-03-08 10:13 | Outpatient (POV) | payer MEDICARE, SELFPAY ==
--- NOTE | 2024-03-08 10:50 | EXP.PAIN.SOA ---
[facility] Disclaimer: The information contained in this section may have been updated after the patient was seen, as this information can be updated by other users. Medical History Abnormal electrocardiogram [ECG] [EKG] Cancer Depression Anxiety History of gastroesophageal reflux (GERD) Diabetes mellitus, type 2 She has lost 20 pounds working on lifestyle modification and most recent A1c hemoglobin 5.6. Random glucose level 99. Asthma History of heart attack Hypertension Hx of pancreatitis Nausea Dyspnea Stable angina pectoris Obstructive sleep apnea syndrome History of mild ISABELL previously treated with CPAP. She quit using the CPAP following [employer] recall. Since then she has lost 20 pounds. Gastroesophageal reflux disease Hyperlipidemia Hypertensive heart disease Surgical History S/P cervical spinal fusion History of mastectomy LIMB ALERT LT ARM History of hysterectomy History of cholecystectomy Family History Father Family history of [place] (myocardial infarction) Grandmother Family history of [place] (myocardial infarction) Mother Family history of breast cancer Family/Other Family history of lung cancer Family/Other Family history of kidney cancer Social History Smoking Status: Former smoker alcohol intake: never substance use type: denies use current occupational status: other Travel in the last 8 weeks: None household members: spouse housing: house current occupational exposures/hazards: No PM Subjective & Objective Subjective Subjective:: Patient is a pleasant 68-year-old female who presents today for worsening pain in her low back, hips and upper legs down to her knees. Patient denies any new trauma or injury. Patient does have a longstanding history of chronic low back pain and sacroiliitis. Patient did previously get SI injections back in the middle of January that did provide 80% improvement and has lasted up until about Tuesday. Patient states that she just woke up with more pain and that she is a side sleeper and noticed that she was having more difficulty laying on her hips at night. Patient describes the pain as an aching, throbbing sensation with some numbness and that it does interfere with her ability perform activities of daily living such as cooking and cleaning. Patient is interested in any help we may be able to provide. Patient has continued conservative treatment including oral medications, heat and ice, topicals, continued at home stretching exercise for longer than 12 weeks and in between injections. Patient does make mention that she is scheduled for cardiac ablation for her A-fib next Tuesday with [facility]. Patient is currently managed with Celebrex, gabapentin, alprazolam and Ambien from her PCP. Her Benjamin has been reviewed and is appropriate. Review of Systems: General: No recent weight changes, no fever, no sleep disturbances Respiratory: No cough, no shortness of air, no recurring pulmonary infections Cardiovascular/peripheral vascular: No chest pain, no palpitations, no edema, no shortness of breath Gastrointestinal: No new onset incontinence, normal bowel movements reported Genitourinary: No new onset incontinence Musculoskeletal: Low back pain, bilateral hip pain, upper leg pain Psychiatric: [Normal mood/affect] Neurological: [Denies weakness in extremities], [denies balance issues] Pain at rest (0-10 scale): 8 Objective Objective:: Physical Exam: General: Alert and oriented x3, no acute distress, pleasant and cooperative Lungs: Respirations even and unlabored, symmetrical chest expansion Eyes: PERRL Musculoskeletal: Flexion and extension of lumbar [spine] somewhat guarded secondary to pain, [antalgic gait noted] positive bilateral leg raise with point tenderness along bilateral SIs and lower lumbar spine Neurological: Speech clear, no gross sensory deficit Has patient had previous pain injection?: No Conservative treatment options previously tried: Home exercise plan Length of treatment: Longer than 12 weeks Meds Home Medications and Allergies Home Medications ?Medication ?Instructions ?Recorded ?Confirmed ?Type alprazolam 0.5 mg tablet 0.5 mg PO TID 01/16/24 03/01/24 History carvedilol 12.5 mg tablet 12.5 mg PO BID 01/16/24 03/01/24 History celecoxib 200 mg capsule 200 mg PO DAILY 01/16/24 03/01/24 History esomeprazole magnesium 40 mg 80 mg PO AM 01/16/24 03/01/24 History capsule,delayed release estradiol 1 mg tablet 1 mg PO DAILY 01/16/24 03/01/24 History famotidine 40 mg tablet 40 mg PO DAILY 01/16/24 03/01/24 History gabapentin 300 mg capsule 300 mg PO DAILY 01/16/24 03/01/24 History metformin 500 mg tablet,extended 500 mg PO DAILY 01/16/24 03/01/24 History release 24 hr montelukast 10 mg tablet 10 mg PO DAILY 01/16/24 03/01/24 History nitrofurantoin 100 mg PO Q12H 5 days #10 caps 01/16/24 03/01/24 Rx monohydrate/macrocrystals 100 mg capsule (Macrobid) olmesartan 40 1 tab PO DAILY 01/16/24 03/01/24 History mg-hydrochlorothiazide 25 mg tablet phenazopyridine 200 mg tablet 200 mg PO Q8H pain 2 days #6 tabs 01/16/24 03/01/24 Rx (Pyridium) semaglutide 0.25 mg or 0.5 mg (2 0.25 mg SQ WEEKLY 01/16/24 03/01/24 History mg/3 mL) subcutaneous pen injector (Ozempic) warfarin 5 mg tablet 5 mg PO HS 01/16/24 03/01/24 History zolpidem 10 mg tablet 10 mg PO HS 01/16/24 03/01/24 History New Prescriptions to Start Prescriptions: Allergies Allergy/AdvReac Type Severity Reaction Status Date / Time oxycodone (From PERCOCET) Allergy Severe IRREGULAR Verified 01/26/24 11:50 HEARTBEAT codeine Allergy Intermediate I-ITCHING, Verified 01/26/24 11:50 NAUSEA, FAST HEART RATE hydrocodone Allergy Intermediate I-ITCHING, Verified 01/26/24 11:50 NAUSEA, FAST HEART RATE ketorolac Allergy Intermediate I-ITCHING, Verified 01/26/24 11:50 NAUSEA, FAST HEART RATE meperidine (From Demerol) Allergy Intermediate I-ITCHING, Verified 01/26/24 11:50 NAUSEA, FAST HEART RATE morphine Allergy Intermediate I-ITCHING, Verified 01/26/24 11:50 NAUSEA, FAST HEART RATE Penicillins Allergy Intermediate I-ITCHING, Verified 01/26/24 11:50 NAUSEA, FAST HEART RATE flecainide Allergy Mild facial Verified 01/26/24 11:50 itching sotalol AdvReac Mild high BP Verified 01/26/24 11:50 Assessment and Plan *Assessment and plan (1) Bilateral sacroiliitis: Status: Acute Category: Medical Code(s): M46.1 - Sacroiliitis, not elsewhere classified (2) Degenerative disc disease, lumbar: Status: Acute Category: Medical Code(s): M51.369 - Other intervertebral disc degeneration, lumbar region without mention of lumbar back pain or lower extremity pain (3) Lumbar radiculopathy: Status: Acute Category: Medical Code(s): M54.16 - Radiculopathy, lumbar region Plan Patient is experiencing worsening pain in her low back, bilateral hips and going into her bilateral legs. Patient did have very limited lumbar range of motion as well as point tenderness along her bilateral SIs and lower lumbar spine with positive bilateral leg raise. Patient does have a history of degenerative disc disease with bulging disc and varying degrees of narrowing with significant findings at the L4-L5 level. I did discuss with the patient that I do believe she would benefit from a lumbar epidural steroid injection. Risk and benefits were discussed with the patient and she would like to proceed forward with this plan of care. Patient has tried and failed conservative therapy including continued at home stretching exercise for longer than 12 weeks. Due to the fact that the patient is scheduled for a cardiac ablation next Tuesday, I have counseled her that we will reach out to Dr. Evans and confirm that he has no contraindications for this procedure following her ablation. Patient is on blood thinners and would have to stop for this injection. I did also discuss with the patient that if we are unable to get her in sooner they are at our [place] location that we can see about getting her scheduled at the [place] location. Patient agrees with this plan of care. 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 Patient will be tentatively scheduled for a LESI L4-L5 under fluoroscopy. I will also send in a 2-week dose of baclofen 5 mg 3 times daily. Patient has been instructed to contact the clinic with any concerns before the next appointment. Dr. Ragsdale has reviewed this note and agrees with this plan of care. This note was dictated using voice recognition software and make contain errors or omissions. All injections are used with Lidocaine or Bupivacaine and Depo Medrol.
[2024-03-08 12:15] VITALS: BP 127/99; PULSE 78; RESP 14; O2SAT 95; BMI 25.8
== END 2024-03-08 23:59 | disposition home or self-care (01) ==
PROVIDERS: PCP Family Medicine; Visit Provider Nurse Practitioner Family
DX: M46.1 Sacroiliitis, not elsewhere classified (principal); M51.16 Intervertebral disc disorders with radiculopathy, lumbar region; Z87.891 Personal history of nicotine dependence; Z73.89 Other problems related to life management difficulty; Z79.899 Other long term (current) drug therapy
CPT/HCPCS: 99212; G0463

== ENCOUNTER 2024-03-18 14:17 | Observation (INO) | payer MEDICARE, SELFPAY ==
[2024-03-18] VITALS (10 sets, daily range): BP systolic 94–138; BP diastolic 53–77; PULSE 57–65; RESP 14–20; TEMP 36.6–36.9; O2SAT 95–98; BMI 26.6
--- NOTE | 2024-03-18 14:16 | ECG_ITS ---
APPROVED REPORT Exam: Resting ECG HR:63 bpm ECG Measurements Heart Rate 63 AXES IN 197 P 84 QRSd 125 QRS -43 QT 413 T 41 QTc 419 Conclusion Sinus rhythm Left axis deviation Q waves in 1 and aVL, likely old ischemia Electronically signed by : DOMINICK MACEDO, 03/18/2024 19:11:04
--- NOTE | 2024-03-18 14:18 | HMH.EDGENADL ---
Discharge Plan Disposition Patient Disposition: Admitted Condition: Fair Clinical Impressions Clinical Impression: Chest pain, Elevated troponin Discharge ED Provider: Shad Mace General Adult HPI <SUGAR Stein - Last Filed: 03/18/24 16:16> General Chief complaint: Chest Pain Stated complaint: chest pain Time Seen by Provider: 03/18/24 14:18 History of Present Illness HPI narrative: Patient presents for evaluation of chest pain. Patient has been having intermittent chest pain yesterday following a cardiac ablation at [facility] for atrial fibrillation. However when she awoke at 5 AM this morning it has been continuous and nonstop. Patient rates her pain as an 8 out of 10. She does have a history of previous VT but has not had stents placed previously. She also has a history of breast cancer status postmastectomy with reconstruction. She denies shortness of breath fever chills hemoptysis hematochezia melena nausea vomiting diarrhea. She is anticoagulated on Coumadin but has not had an INR done since her ablation. Related Data Home Medications ?Medication ?Instructions ?Recorded ?Confirmed alprazolam 0.5 mg tablet 0.5 mg PO TID 01/16/24 03/18/24 carvedilol 12.5 mg tablet 12.5 mg PO BID 01/16/24 03/18/24 celecoxib 200 mg capsule 200 mg PO DAILY 01/16/24 03/18/24 esomeprazole magnesium 40 mg 80 mg PO AM 01/16/24 03/18/24 capsule,delayed release estradiol 1 mg tablet 1 mg PO DAILY 01/16/24 03/18/24 famotidine 40 mg tablet 40 mg PO DAILY 01/16/24 03/18/24 gabapentin 300 mg capsule 300 mg PO DAILY 01/16/24 03/18/24 metformin 500 mg tablet,extended 500 mg PO DAILY 01/16/24 03/18/24 release 24 hr montelukast 10 mg tablet 10 mg PO DAILY 01/16/24 03/18/24 olmesartan 40 1 tab PO DAILY 01/16/24 03/18/24 mg-hydrochlorothiazide 25 mg tablet semaglutide 0.25 mg or 0.5 mg (2 0.25 mg SQ WEEKLY 01/16/24 03/18/24 mg/3 mL) subcutaneous pen injector (Ozempic) warfarin 5 mg tablet 5 mg PO HS 01/16/24 03/18/24 zolpidem 10 mg tablet 10 mg PO HS 01/16/24 03/18/24 Previous Rx's ?Medication ?Instructions ?Recorded baclofen 5 mg tablet 5 mg PO TID #42 tabs 03/08/24 Allergies Allergy/AdvReac Type Severity Reaction Status Date / Time oxycodone (From PERCOCET) Allergy Severe IRREGULAR Verified 01/26/24 11:50 HEARTBEAT codeine Allergy Intermediate I-ITCHING, Verified 01/26/24 11:50 NAUSEA, FAST HEART RATE hydrocodone Allergy Intermediate I-ITCHING, Verified 01/26/24 11:50 NAUSEA, FAST HEART RATE ketorolac Allergy Intermediate I-ITCHING, Verified 01/26/24 11:50 NAUSEA, FAST HEART RATE meperidine (From Demerol) Allergy Intermediate I-ITCHING, Verified 01/26/24 11:50 NAUSEA, FAST HEART RATE morphine Allergy Intermediate I-ITCHING, Verified 01/26/24 11:50 NAUSEA, FAST HEART RATE Penicillins Allergy Intermediate I-ITCHING, Verified 01/26/24 11:50 NAUSEA, FAST HEART RATE flecainide Allergy Mild facial Verified 01/26/24 11:50 itching sotalol AdvReac Mild high BP Verified 01/26/24 11:50 [facility] <SUGAR Stein - Last Filed: 03/18/24 16:16> [facility] Disclaimer: The information contained in this section may have been updated after the patient was seen, as this information can be updated by other users. Medical History Abnormal electrocardiogram [ECG] [EKG] Cancer Depression Anxiety History of gastroesophageal reflux (GERD) Diabetes mellitus, type 2 She has lost 20 pounds working on lifestyle modification and most recent A1c hemoglobin 5.6. Random glucose level 99. Asthma History of heart attack Hypertension Hx of pancreatitis Nausea Dyspnea Stable angina pectoris Obstructive sleep apnea syndrome History of mild ISABELL previously treated with CPAP. She quit using the CPAP following [facility] recall. Since then she has lost 20 pounds. Gastroesophageal reflux disease Hyperlipidemia Hypertensive heart disease Surgical History S/P cervical spinal fusion History of mastectomy LIMB ALERT LT ARM History of hysterectomy History of cholecystectomy Family History Father Family history of VT (myocardial infarction) Grandmother Family history of VT (myocardial infarction) Mother Family history of breast cancer Family/Other Family history of lung cancer Family/Other Family history of kidney cancer Social History Smoking Status: Never smoker alcohol intake: never substance use type: denies use current occupational status: other Travel in the last 8 weeks: None household members: spouse housing: house current occupational exposures/hazards: No Have you lived/traveled outside [place] in past 30 days?: No Contact w/someone who lives/traveled outside US past 30 days?: No Exposure to someone with infectious disease in past 14 days?: No Do you have a fever (greater than 100.4 F or 38 C)?: No Have you tested positive for COVID-19: No Exposed to someone with COVID-19 in past 14 days?: No Do you have a sore throat?: No Do you have a cough?: No Do you have any weakness?: No Do you have any diarrhea?: No Are you experiencing any unusual bleeding?: No Do you have any muscle aches/pain?: Yes Do you have any abdominal pain?: No Are you experiencing loss of taste or smell?: No Other Medical History Have you received the Flu Vaccine for this season: Yes Have you received the Pneumonia Vaccine: Yes <SUGAR Stein - Last Filed: 03/18/24 16:16> ROS Obtained: Yes Systems reviewed as appropriate & no additional complaints except as documented Physical Exam <SUGAR Stein - Last Filed: 03/18/24 16:16> General General appearance: alert and in no apparent distress Respiratory Respiratory exam: Present normal lung sounds bilaterally Cardiovascular Cardiovascular exam: Present regular rate Neurological Exam Neurological exam: Present alert and oriented X3 Medical Decision Making <SUGAR Stein - Last Filed: 03/18/24 16:16> Medical Records Medical records reviewed: Yes I reviewed the patient's medical records. Screening: Per USPSTF and CDC recommendations, given the prevalence of disease in our region, it is our hospital?s policy to screen for HIV and viral Hepatitis for all patients aged 18 and over and those with ongoing risk factors. Benjamin Inquiry Pt receiving controlled substance: No Vital Signs: 03/18/24 14:17 03/18/24 14:22 03/18/24 14:31 Temperature 98.5 F Temperature Source Oral Pulse Rate 64 62 Pulse Rate [Right] 65 Respiratory Rate 18 17 Blood Pressure 123/74 122/58 L Blood Pressure [Right Arm] 132/77 Blood Pressure Mean [Right Arm] 95 02 Sat by Pulse Oximetry 95 98 98 Oxygen Delivery Method Room Air Room Air Room Air 03/18/24 15:00 03/18/24 15:30 03/18/24 16:00 Temperature Temperature Source Pulse Rate 59 L Pulse Rate [Right] Respiratory Rate 16 14 20 Blood Pressure 111/67 123/77 101/53 L Blood Pressure [Right Arm] Blood Pressure Mean [Right Arm] 02 Sat by Pulse Oximetry 96 Oxygen Delivery Method Room Air Room Air Room Air 03/18/24 16:31 03/18/24 17:01 Temperature 98.1 F Temperature Source Pulse Rate 57 L 57 L Pulse Rate [Right] Respiratory Rate 15 18 Blood Pressure 138/75 138/75 Blood Pressure [Right Arm] Blood Pressure Mean [Right Arm] 02 Sat by Pulse Oximetry 97 Oxygen Delivery Method Room Air Room Air Lab Data Lab results reviewed: Yes I reviewed the patient's lab results. Lab Results 03/18/24 14:19: PT 15.1 H, INR 1.39 H 03/18/24 14:20: WBC 11.7 H, RBC 3.34 L, Hgb 9.9 L, Hct 30.4 L, MCV 91.0, MCH 29.6, MCHC 32.6, RDW 14.9, Plt Count 243, MPV 9.4, Neut % (Auto) 58.0, Lymph % (Auto) 31.3, [place] % (Auto) 7.0, Eos % (Auto) 2.2, Baso % (Auto) 0.4, Neut # (Auto) 6.8, Lymph # (Auto) 3.7, [place] # (Auto) 0.8, Eos # (Auto) 0.3, Baso # (Auto) 0.1, Sodium 134 L, Potassium 3.6, Chloride 109 H, Carbon Dioxide 25, Anion Gap 3.6 L, BUN 27 H, Creatinine 1.00, Estimated Creat Clear 66, Estimated GFR 55 L, Est GFR ( Amer) 67, Glucose 97, Calcium 9.3, Magnesium 2.2, Total Bilirubin 0.4, AST 36, ALT 29, Alkaline Phosphatase 57, Troponin I 2.96 H, NT-Pro-B Natriuret Pep 378 H, Total Protein 6.7, Albumin 4.1, Globulin 2.6, Albumin/Globulin Ratio 1.6 03/18/24 14:20 03/18/24 14:20 Orders (Tests/Meds): ED MEDICATIONS Generic Name Dose Route Start Last Admin Trade Name Freq PRN Reason Stop Dose Admin Acetaminophen 650 mg 03/18/24 18:02 Acetaminophen 325mg Tab PO 04/17/24 18:01 Q4HP PRN Fever or Mild Pain (1-3) Alprazolam 0.5 mg 03/18/24 21:00 Alprazolam 0.5mg Tablet PO 04/17/24 20:59 TID SIDNEY Carvedilol 12.5 mg 03/18/24 21:00 Carvedilol 12.5mg Tablet PO 04/17/24 20:59 BID SIDNEY Enoxaparin Sodium 75 mg 03/18/24 18:04 03/18/24 18:32 Enoxaparin 100mg/Ml Syringe 1 mg/kg (75 mg) 03/18/24 18:05 75 mg SUBCUT Administration ONCE ONE Gabapentin 300 mg 03/19/24 09:00 Gabapentin 300mg Capsule PO 04/18/24 08:59 DAILY [facility] Non-Formulary Medication 5 mg 03/18/24 21:00 Baclofen PO 04/17/24 20:59 TID SIDNEY Non-Formulary Medication 80 mg 03/19/24 07:00 Esomeprazole Magnesium PO 04/18/24 06:59 AM SIDNEY Non-Formulary Medication 40 mg 03/19/24 09:00 Famotidine PO 04/18/24 08:59 DAILY [facility] Non-Formulary Medication 500 mg 03/19/24 09:00 Metformin PO 04/18/24 08:59 DAILY [facility] Ondansetron HCl 4 mg 03/18/24 18:02 Ondansetron 4mg/2ml Vial IV 04/17/24 18:01 Q8HP PRN Nausea Warfarin Sodium 5 mg 03/18/24 21:00 Warfarin 5mg Tablet PO 04/17/24 20:59 HS SIDNEY Zolpidem Tartrate 10 mg 03/18/24 21:00 Zolpidem Tartrate 10 Mg Tablet PO 04/17/24 20:59 HS [facility] Discontinued Medications Generic Name Dose Route Start Last Admin Trade Name Marge PRN Reason Stop Dose Admin Acetaminophen 1,000 mg 03/18/24 14:19 03/18/24 14:26 Acetaminophen 500mg Tab PO 03/18/24 14:20 1,000 mg ONCE ONE Administration Aspirin 324 mg 03/18/24 16:01 03/18/24 16:37 Aspirin 81mg Chewable Tablet PO 03/18/24 16:02 324 mg ONCE ONE Administration Diphenhydramine HCl 12.5 mg 03/18/24 14:47 03/18/24 14:54 Diphenhydramine 50mg/Ml Vial IV 03/18/24 14:48 12.5 mg ONCE ONE Administration Hydromorphone HCl 0.25 mg 03/18/24 14:47 03/18/24 14:54 Hydromorphone 2mg/Ml Syringe IV 03/18/24 14:48 0.25 mg ONCE ONE Administration ORDERS Category Date Time Status Chest XR -- portable [XR chest portable] Stat Exams 03/18/24 14:19 Completed POCUS Point of Care (ER Only) Stat Exams 03/18/24 15:33 Completed BNP [NT Pro Brain Natriuretic Pep.] Stat Lab 03/18/24 14:20 Completed CBC w/Auto Diff [Complete Blood Count Auto Diff] Stat Lab 03/18/24 14:20 Completed CMP [Comprehensive Metabolic Panel] Stat Lab 03/18/24 14:20 Completed HIV Combo Stat Lab 03/18/24 14:25 Received Hep C Ab with Reflex to RNA Stat Lab 03/18/24 14:25 Received INR [Prothrombin Time INR] Stat Lab 03/18/24 14:19 Completed Magnesium Stat Lab 03/18/24 14:20 Completed Trop I [Troponin I] Stat Lab 03/18/24 14:20 Completed Troponin I Q3H Lab 03/18/24 17:15 Completed Troponin I Q3H Lab 03/18/24 20:30 Ordered HEART Score History (anamnesis): Slightly suspicious ECG: Non-specific disturbance Age: >65 years Risk factors: Atherosclerosis history Troponin: > 3x normal limit HEART Score: 7 Medical Decision Narrative: In summary patient is a 68-year-old female who presents to the emergency department for evaluation of chest pain. Patient is hemodynamically stable upon arrival, afebrile. Physical exam was remarkable for nonreproducible chest pain on palpation, normal breath sounds normal heart sounds, what appears to be a normal sinus rhythm on the bedside monitor with normal oxygen saturation.. Differential diagnosis includes ACS versus myocardial pain from ablation versus PE versus pericardial effusion etc. Initial workup will be conducted with hematologic labs, POCUS, twelve-lead EKG, plain film chest x-ray. D-dimer was considered as well as CTA PE protocol however patient is both allergic to contrast and given her recent procedure likely to be unhelpful but we will order it. Initial interventions include crystalloid bolus Tylenol Dilaudid Benadryl. Initial workup reviewed by me shows that her troponin is 2.96 and the remainder of her hematologic labs resulted thus far are nonactionable. INR still pending. Given this I had an interactive discussion with Dr. Gonzalez regarding patient management and he recommended admission for pain control and continual troponin trending with further evaluation and possible intervention tomorrow. I then had a interactive discussion with hospital medicine regarding patient management and she will be admitted for further evaluation and care. <Shad Mace MD - Last Filed: 03/18/24 18:53> Vital Signs: 03/18/24 14:17 03/18/24 14:22 03/18/24 14:31 Temperature 98.5 F Temperature Source Oral Pulse Rate 64 62 Pulse Rate [Right] 65 Respiratory Rate 18 17 Blood Pressure 123/74 122/58 L Blood Pressure [Right Arm] 132/77 Blood Pressure Mean [Right Arm] 95 02 Sat by Pulse Oximetry 95 98 98 Oxygen Delivery Method Room Air Room Air Room Air 03/18/24 15:00 03/18/24 15:30 03/18/24 16:00 Temperature Temperature Source Pulse Rate 59 L Pulse Rate [Right] Respiratory Rate 16 14 20 Blood Pressure 111/67 123/77 101/53 L Blood Pressure [Right Arm] Blood Pressure Mean [Right Arm] 02 Sat by Pulse Oximetry 96 Oxygen Delivery Method Room Air Room Air Room Air 03/18/24 16:31 03/18/24 17:01 Temperature 98.1 F Temperature Source Pulse Rate 57 L 57 L Pulse Rate [Right] Respiratory Rate 15 18 Blood Pressure 138/75 138/75 Blood Pressure [Right Arm] Blood Pressure Mean [Right Arm] 02 Sat by Pulse Oximetry 97 Oxygen Delivery Method Room Air Room Air Lab Data Lab Results 03/18/24 14:19: PT 15.1 H, INR 1.39 H 03/18/24 14:20: WBC 11.7 H, RBC 3.34 L, Hgb 9.9 L, Hct 30.4 L, MCV 91.0, MCH 29.6, MCHC 32.6, RDW 14.9, Plt Count 243, MPV 9.4, Neut % (Auto) 58.0, Lymph % (Auto) 31.3, [place] % (Auto) 7.0, Eos % (Auto) 2.2, Baso % (Auto) 0.4, Neut # (Auto) 6.8, Lymph # (Auto) 3.7, [place] # (Auto) 0.8, Eos # (Auto) 0.3, Baso # (Auto) 0.1, Sodium 134 L, Potassium 3.6, Chloride 109 H, Carbon Dioxide 25, Anion Gap 3.6 L, BUN 27 H, Creatinine 1.00, Estimated Creat Clear 66, Estimated GFR 55 L, Est GFR ( Amer) 67, Glucose 97, Calcium 9.3, Magnesium 2.2, Total Bilirubin 0.4, AST 36, ALT 29, Alkaline Phosphatase 57, Troponin I 2.96 H, NT-Pro-B Natriuret Pep 378 H, Total Protein 6.7, Albumin 4.1, Globulin 2.6, Albumin/Globulin Ratio 1.6 Orders (Tests/Meds): ED MEDICATIONS Generic Name Dose Route Start Last Admin Trade Name Eladioq PRN Reason Stop Dose Admin Acetaminophen 650 mg 03/18/24 18:02 Acetaminophen 325mg Tab PO 04/17/24 18:01 Q4HP PRN Fever or Mild Pain (1-3) Alprazolam 0.5 mg 03/18/24 21:00 Alprazolam 0.5mg Tablet PO 04/17/24 20:59 TID SIDNEY Carvedilol 12.5 mg 03/18/24 21:00 Carvedilol 12.5mg Tablet PO 04/17/24 20:59 BID SIDNEY Enoxaparin Sodium 75 mg 03/18/24 18:04 03/18/24 18:32 Enoxaparin 100mg/Ml Syringe 1 mg/kg (75 mg) 03/18/24 18:05 75 mg SUBCUT Administration ONCE ONE Gabapentin 300 mg 03/19/24 09:00 Gabapentin 300mg Capsule PO 04/18/24 08:59 DAILY S[facility]NEY Non-Formulary Medication 5 mg 03/18/24 21:00 Baclofen PO 04/17/24 20:59 TID SIDNEY Non-Formulary Medication 80 mg 03/19/24 07:00 Esomeprazole Magnesium PO 04/18/24 06:59 AM SIDNEY Non-Formulary Medication 40 mg 03/19/24 09:00 Famotidine PO 04/18/24 08:59 DAILY [facility] Non-Formulary Medication 500 mg 03/19/24 09:00 Metformin PO 04/18/24 08:59 DAILY [facility]NEY Ondansetron HCl 4 mg 03/18/24 18:02 Ondansetron 4mg/2ml Vial IV 04/17/24 18:01 Q8HP PRN Nausea Warfarin Sodium 5 mg 03/18/24 21:00 Warfarin 5mg Tablet PO 04/17/24 20:59 HS SIDNEY Zolpidem Tartrate 10 mg 03/18/24 21:00 Zolpidem Tartrate 10 Mg Tablet PO 04/17/24 20:59 HS SIDNEY Discontinued Medications Generic Name Dose Route Start Last Admin Trade Name Freq PRN Reason Stop Dose Admin Acetaminophen 1,000 mg 03/18/24 14:19 03/18/24 14:26 Acetaminophen 500mg Tab PO 03/18/24 14:20 1,000 mg ONCE ONE Administration Aspirin 324 mg 03/18/24 16:01 03/18/24 16:37 Aspirin 81mg Chewable Tablet PO 03/18/24 16:02 324 mg ONCE ONE Administration Diphenhydramine HCl 12.5 mg 03/18/24 14:47 03/18/24 14:54 Diphenhydramine 50mg/Ml Vial IV 03/18/24 14:48 12.5 mg ONCE ONE Administration Hydromorphone HCl 0.25 mg 03/18/24 14:47 03/18/24 14:54 Hydromorphone 2mg/Ml Syringe IV 03/18/24 14:48 0.25 mg ONCE ONE Administration ORDERS Category Date Time Status Chest XR -- portable [XR chest portable] Stat Exams 03/18/24 14:19 Completed POCUS Point of Care (ER Only) Stat Exams 03/18/24 15:33 Completed BNP [NT Pro Brain Natriuretic Pep.] Stat Lab 03/18/24 14:20 Completed CBC w/Auto Diff [Complete Blood Count Auto Diff] Stat Lab 03/18/24 14:20 Completed CMP [Comprehensive Metabolic Panel] Stat Lab 03/18/24 14:20 Completed HIV Combo Stat Lab 03/18/24 14:25 Received Hep C Ab with Reflex to RNA Stat Lab 03/18/24 14:25 Received INR [Prothrombin Time INR] Stat Lab 03/18/24 14:19 Completed Magnesium Stat Lab 03/18/24 14:20 Completed Trop I [Troponin I] Stat Lab 03/18/24 14:20 Completed Troponin I Q3H Lab 03/18/24 17:15 Completed Troponin I Q3H Lab 03/18/24 20:30 Ordered HEART Score HEART Score: 7 Medical Decision Narrative: In summary patient is a 68-year-old female who presents to the emergency department for evaluation of chest pain. Patient is hemodynamically stable upon arrival, afebrile. Physical exam was remarkable for nonreproducible chest pain on palpation, normal breath sounds normal heart sounds, what appears to be a normal sinus rhythm on the bedside monitor with normal oxygen saturation.. Differential diagnosis includes ACS versus myocardial pain from ablation versus PE versus pericardial effusion etc. Initial workup will be conducted with hematologic labs, POCUS, twelve-lead EKG, plain film chest x-ray. D-dimer was considered as well as CTA PE protocol however patient is both allergic to contrast and given her recent procedure likely to be unhelpful but we will order it. Initial interventions include crystalloid bolus Tylenol Dilaudid Benadryl. Initial workup reviewed by me shows that her troponin is 2.96 and the remainder of her hematologic labs resulted thus far are nonactionable. INR still pending. Given this I had an interactive discussion with Dr. Gonzalez regarding patient management and he recommended admission for pain control and continual troponin trending with further evaluation and possible intervention tomorrow. I then had a interactive discussion with hospital medicine regarding patient management and she will be admitted for further evaluation and care. I was consulted by the ANGELO, and we discussed the complexity of the problems being addressed. I approved the treatment and management plan for this patient's care in the Emergency Department, thus performing a substantive portion of the medical decision making. Shad Mace MD Critical Care <SUGAR Stein - Last Filed: 03/18/24 16:16> Critical Care Time Critical Care Time: Yes Attestation: On 03/18/24, the high probability of a clinically significant, sudden or life threatening deterioration of the following system: Cardiovascular; required my full and direct attention, intervention and personal management. The time I documented below is in addition to time spent performing reported procedures but includes the following listed in this critical care notation. Total Time Total Critical Care Time: 45
--- NOTE | 2024-03-18 14:19 | XR_ITS ---
PROCEDURE INFORMATION: Exam: XR Chest Exam date and time: 03/18/2024 2:27 PM Age: 68 years old Clinical indication: Other: Chest pain TECHNIQUE: Imaging protocol: Radiologic exam of the chest. Views: 1 view. COMPARISON: CR XR CHEST PORTABLE 11/12/2023 4:01 PM FINDINGS: Lungs: Unremarkable. No consolidation. Pleural spaces: Unremarkable. No pleural effusion. No pneumothorax. Heart/Mediastinum: Mild cardiomegaly Bones/joints: Anterior cervical fusion IMPRESSION: No acute process
[2024-03-18] MEDS: ACETAMINOPHEN 500MG TAB 1000 MG PO (14:26)
[2024-03-18 14:41] LABS: Hemoglobin 9.9 g/dL (12.2-16.2); Red Blood Count 3.34 M/mm3 (4.20-5.40); White Blood Count 11.7 K/mm3 (4.8-10.8)
[2024-03-18 14:42] LABS: Basophils # 0.1 K/mm3 (0-0.2); Basophils % 0.4 % (0.1-2.0); Eosinophils # 0.3 K/mm3 (0.0-0.4); Eosinophils % 2.2 % (0.1-12.0); Hematocrit 30.4 % (37.0-47.0); Lymphocytes # 3.7 K/mm3 (0.7-4.5); Lymphocytes % 31.3 % (10-50); Mean Corpuscular HGB Conc 32.6 g/dL (31.8-35.4); Mean Corpuscular Hemoglobin 29.6 pg (27.0-31.2); Mean Platelet Volume 9.4 fl (7.4-10.4); Monocytes # 0.8 K/mm3 (0.1-1.0); Neutrophils # 6.8 K/mm3 (1.8-7.8); Platelet Count 243 K/mm3 (142-424); Red Cell Distribution Width 14.9 % (11.5-17.5)
[2024-03-18 14:52] LABS: Albumin Level 4.1 g/dl (3.5-5.0); Chloride 109 mmol/L (98-107)
[2024-03-18 14:53] LABS: Potassium 3.6 mmoL/L (3.5-5.1); Sodium 134 mmol/L (136-145)
[2024-03-18] MEDS: diphenhydrAMINE 50MG/ML VIAL 12.5 MG IV (14:54)
[2024-03-18] MEDS: HYDROMORPHONE 2MG/ML SYRINGE 0.25 MG IV (14:54)
[2024-03-18 14:55] LABS: Alanine Aminotransferase 29 U/L (12-78); Alkaline Phosphatase 57 U/L (38-126); Anion Gap 3.6 mEq/L (5-15); Aspartate Amino Transferase 36 U/L (14-36); Bilirubin,Total 0.4 mg/dl (0.2-1.3); Blood Urea Nitrogen 27 mg/dl (7-17); Carbon Dioxide 25 mmol/L (22.0-30.0); Creatinine Clearance Estimated 66 mL/min (50-200); Estimated Glomerular Filt Rate 55 ml/min (>60); GFR (African American) 67 ML/MIN (>60)
[2024-03-18 14:56] LABS: Albumin/Globulin Ratio 1.6 (1.1-1.8); Calcium 9.3 mg/dl (8.4-10.2); Globulin 2.6 g/dL (1.3-3.2); Glucose 97 mg/dl (74-100); Magnesium 2.2 mg/dl (1.6-2.3); Total Protein,Serum 6.7 g/dl (6.3-8.2)
[2024-03-18 15:05] LABS: NT Pro Brain Natriuretic Pep. 378 pg/mL (0-125)
[2024-03-18 15:11] LABS: Troponin I 2.96 ng/ml (0.00-0.034)
--- NOTE | 2024-03-18 15:26 | ECG_ITS ---
APPROVED REPORT Exam: Resting ECG HR:57 bpm ECG Measurements Heart Rate 57 AXES WI 195 P 91 QRSd 126 QRS -46 QT 432 T 6 QTc 426 Conclusion Sinus bradycardia Left anterior fascicular block Q waves in 1 and aVL, likely old ischemia Electronically signed by : DOMINICK MACEDO, 03/18/2024 19:12:08
--- NOTE | 2024-03-18 15:46 | PC.NURSE ---
aware of trop of 2.96
[2024-03-18 16:18] LABS: INR 1.39 (0.9-1.1); Prothrombin Time 15.1 seconds (10.1-12.5)
[2024-03-18] MEDS: ASPIRIN 81MG CHEWABLE TABLET 324 MG PO (16:37)
--- NOTE | 2024-03-18 16:47 | PC.NURSE ---
Unattached patient from monitors to use the restroom.
--- NOTE | 2024-03-18 16:56 | PC.NURSE ---
REPORT CALLED TO Cathy
--- NOTE | 2024-03-18 17:04 | PC.NURSE ---
arrived by w/c from ED
[2024-03-18 17:51] LABS: Troponin I 2.25 ng/ml (0.00-0.034)
--- NOTE | 2024-03-18 18:27 | P.HP_ITS ---
[facility] Disclaimer: The information contained in this section may have been updated after the patient was seen, as this information can be updated by other users. Medical History Abnormal electrocardiogram [ECG] [EKG] Cancer Depression Anxiety History of gastroesophageal reflux (GERD) Diabetes mellitus, type 2 She has lost 20 pounds working on lifestyle modification and most recent A1c hemoglobin 5.6. Random glucose level 99. Asthma History of heart attack Hypertension Hx of pancreatitis Nausea Dyspnea Stable angina pectoris Obstructive sleep apnea syndrome History of mild ISABELL previously treated with CPAP. She quit using the CPAP following [employer] recall. Since then she has lost 20 pounds. Gastroesophageal reflux disease Hyperlipidemia Hypertensive heart disease Surgical History S/P cervical spinal fusion History of mastectomy LIMB ALERT LT ARM History of hysterectomy History of cholecystectomy Family History Father Family history of [place] (myocardial infarction) Grandmother Family history of [place] (myocardial infarction) Mother Family history of breast cancer Family/Other Family history of lung cancer Family/Other Family history of kidney cancer Social History Smoking Status: Never smoker alcohol intake: never substance use type: denies use current occupational status: other Travel in the last 8 weeks: None household members: spouse housing: house current occupational exposures/hazards: No Have you lived/traveled outside [place] in past 30 days?: No Contact w/someone who lives/traveled outside US past 30 days?: No Exposure to someone with infectious disease in past 14 days?: No Do you have a fever (greater than 100.4 F or 38 C)?: No Have you tested positive for COVID-19: No Exposed to someone with COVID-19 in past 14 days?: No Do you have a sore throat?: No Do you have a cough?: No Do you have any weakness?: No Do you have any diarrhea?: No Are you experiencing any unusual bleeding?: No Do you have any muscle aches/pain?: Yes Do you have any abdominal pain?: No Are you experiencing loss of taste or smell?: No Other Medical History Have you received the Flu Vaccine for this season: Yes Have you received the Pneumonia Vaccine: Yes Meds Home Medications and Allergies Home Medications ?Medication ?Instructions ?Recorded ?Confirmed ?Type alprazolam 0.5 mg tablet 0.5 mg PO TID 01/16/24 03/18/24 History carvedilol 12.5 mg tablet 12.5 mg PO BID 01/16/24 03/18/24 History celecoxib 200 mg capsule 200 mg PO DAILY 01/16/24 03/18/24 History esomeprazole magnesium 40 mg 80 mg PO AM 01/16/24 03/18/24 History capsule,delayed release estradiol 1 mg tablet 1 mg PO DAILY 01/16/24 03/18/24 History famotidine 40 mg tablet 40 mg PO DAILY 01/16/24 03/18/24 History gabapentin 300 mg capsule 300 mg PO DAILY 01/16/24 03/18/24 History metformin 500 mg tablet,extended 500 mg PO DAILY 01/16/24 03/18/24 History release 24 hr montelukast 10 mg tablet 10 mg PO DAILY 01/16/24 03/18/24 History olmesartan 40 1 tab PO DAILY 01/16/24 03/18/24 History mg-hydrochlorothiazide 25 mg tablet semaglutide 0.25 mg or 0.5 mg (2 0.25 mg SQ WEEKLY 01/16/24 03/18/24 History mg/3 mL) subcutaneous pen injector (Ozempic) warfarin 5 mg tablet 5 mg PO HS 01/16/24 03/18/24 History zolpidem 10 mg tablet 10 mg PO HS 01/16/24 03/18/24 History baclofen 5 mg tablet 5 mg PO TID #42 tabs 03/08/24 03/18/24 Rx New Prescriptions to Start Prescriptions: Allergies Allergy/AdvReac Type Severity Reaction Status Date / Time oxycodone (From PERCOCET) Allergy Severe IRREGULAR Verified 01/26/24 11:50 HEARTBEAT codeine Allergy Intermediate I-ITCHING, Verified 01/26/24 11:50 NAUSEA, FAST HEART RATE hydrocodone Allergy Intermediate I-ITCHING, Verified 01/26/24 11:50 NAUSEA, FAST HEART RATE ketorolac Allergy Intermediate I-ITCHING, Verified 01/26/24 11:50 NAUSEA, FAST HEART RATE meperidine (From Demerol) Allergy Intermediate I-ITCHING, Verified 01/26/24 11:50 NAUSEA, FAST HEART RATE morphine Allergy Intermediate I-ITCHING, Verified 01/26/24 11:50 NAUSEA, FAST HEART RATE Penicillins Allergy Intermediate I-ITCHING, Verified 01/26/24 11:50 NAUSEA, FAST HEART RATE flecainide Allergy Mild facial Verified 01/26/24 11:50 itching sotalol AdvReac Mild high BP Verified 01/26/24 11:50 Exam Data for Last 24 hours Vital signs and Labs for Last 24 Hours: Temp Pulse Resp BP Pulse Ox O2 Del Method 97.9 F 61 16 138/75 97 Room Air 03/18/24 18:00 03/18/24 18:00 03/18/24 18:00 03/18/24 18:00 03/18/24 18:00 03/18/24 18:00 Laboratory Results - last 24 hr 03/18/24 14:19: PT 15.1 H, INR 1.39 H 03/18/24 14:20: WBC 11.7 H, RBC 3.34 L, Hgb 9.9 L, Hct 30.4 L, MCV 91.0, MCH 29.6, MCHC 32.6, RDW 14.9, Plt Count 243, MPV 9.4, Neut % (Auto) 58.0, Lymph % (Auto) 31.3, [place] % (Auto) 7.0, Eos % (Auto) 2.2, Baso % (Auto) 0.4, Neut # (Auto) 6.8, Lymph # (Auto) 3.7, [place] # (Auto) 0.8, Eos # (Auto) 0.3, Baso # (Auto) 0.1, Sodium 134 L, Potassium 3.6, Chloride 109 H, Carbon Dioxide 25, Anion Gap 3.6 L, BUN 27 H, Creatinine 1.00, Estimated Creat Clear 66, Estimated GFR 55 L, Est GFR ( Amer) 67, Glucose 97, Calcium 9.3, Magnesium 2.2, Total Bilirubin 0.4, AST 36, ALT 29, Alkaline Phosphatase 57, Troponin I 2.96 H, NT-Pro-B Natriuret Pep 378 H, Total Protein 6.7, Albumin 4.1, Globulin 2.6, Albumin/Globulin Ratio 1.6 03/18/24 17:15: Troponin I 2.25 H I & O for Last 24 hours: Intake & Output 03/15/24 03/16/24 03/17/24 03/18/24 23:59 23:59 23:59 23:59 Intake Total 300 / 300 Output Total 0 / 0 Balance 300 / 300 Weight 77.11 kg Assessment and Plan *Assessment and plan Plan #Chest pain #Costochondritis versus acute muscle strain #Possible NSTEMI ? Midsternal and left-sided chest pain under left breast is completely reproducible to palpation. ? Patient does have elevated troponin, but did have a recent ablation for A-fib at [facility] on 03/16/2024. ? Given 1 dose of therapeutic Lovenox tonight. Aspirin was loaded in the ED. ? Continuous cardiac telemetry. ? Echo in the morning, anticipate discharge. #Subtherapeutic INR - INR 1.36. - Will need Lovenox bridge. Dose given tonight.
[2024-03-18] MEDS: ENOXAPARIN 100MG/ML SYRINGE 75 MG SUBCUT (18:32)
[2024-03-18 20:15] LABS: HIV Combo NEGATIVE (Negative)
[2024-03-18] MEDS: ALPRAZolam 0.5MG TABLET 0.5 MG PO (20:28)
[2024-03-18] MEDS: ZOLPIDEM TARTRATE 10 MG TABLET PO (20:28)
[2024-03-18] MEDS: ACETAMINOPHEN 325MG TAB 650 MG PO (20:28)
[2024-03-18] MEDS: CARVEDILOL 12.5MG TABLET 12.5 MG PO (20:28)
[2024-03-18 21:07] LABS: Troponin I 2.05 ng/ml (0.00-0.034)
[2024-03-19] VITALS: PULSE 60
--- NOTE | 2024-03-19 03:42 | PC.NURSE ---
RN went into patient room due to patient calling out for pain medication. RN brought patient tylenol as that is the only thing PRN to give for pain. Patient refused the pain medication said it didnt work. RN offered to call provider lending consultant for pain medication (patient requested dilaudid). RN called provider, provider did not want to prescribe the medication as She did not see a reason for the medication and would prescribe something different if the patient was willing. RN went and asked the patient if there was anything else she was willing to take for pain, Patient stated that she had that at home and she could just go home and take it and be in a more comfortable bed and be miserable there. RN educated patient of the importance of staying as she will see cardiology this morning and get an echo. Patient understood that, but still wanted to leave. Patient was given AMA forms that she signed. She apologized for being difficult, but she wanted to go home. Provider lending consultant was notified of the AMA.
--- NOTE | 2024-03-19 03:43 | P.DS_ITS ---
<Statement entered by Patrick Velasquez MD - 03/25/24 13:13> Agree with plan of care as outlined by the MANAGER DIABETES. General Admission date:: 03/18/24 Discharge date: 03/19/24 HPI HPI HPI: 68 year old female admitted to facility on 03/18/2024 due to complaints of chest pain. #Chest pain #Costochondritis versus acute muscle strain #Possible NSTEMI ? Midsternal and left-sided chest pain under left breast is completely reproducible to palpation. ? Patient does have elevated troponin, but did have a recent ablation for A-fib at [facility] on 03/16/2024. ? Given 1 dose of therapeutic Lovenox tonight. Aspirin was loaded in the ED. ? Continuous cardiac telemetry. ? Echo in the morning, anticipate discharge. Hospital Course Hospital Course Hospital Course: 68-year-old female admitted to facility on 03/18 due to complaints of chest pain. Demanding Dilaudid overnight, would not take any other medication for pain. Would not allow Provider to come to bedside to discuss. Per RN, when informed that she could not have Dilaudid left AMA. Exam Data for Last 24 hours Vital signs and Labs for Last 24 Hours: Temp Pulse Resp BP Pulse Ox O2 Del Method 97.8 F 60 16 94/55 L 97 Room Air 03/18/24 20:00 03/19/24 00:00 03/18/24 20:00 03/18/24 20:00 03/18/24 20:00 03/18/24 23:00 Laboratory Results - last 24 hr 03/18/24 14:19: PT 15.1 H, INR 1.39 H 03/18/24 14:20: WBC 11.7 H, RBC 3.34 L, Hgb 9.9 L, Hct 30.4 L, MCV 91.0, MCH 29.6, MCHC 32.6, RDW 14.9, Plt Count 243, MPV 9.4, Neut % (Auto) 58.0, Lymph % (Auto) 31.3, [place] % (Auto) 7.0, Eos % (Auto) 2.2, Baso % (Auto) 0.4, Neut # (Auto) 6.8, Lymph # (Auto) 3.7, [place] # (Auto) 0.8, Eos # (Auto) 0.3, Baso # (Auto) 0.1, Sodium 134 L, Potassium 3.6, Chloride 109 H, Carbon Dioxide 25, Anion Gap 3.6 L, BUN 27 H, Creatinine 1.00, Estimated Creat Clear 66, Estimated GFR 55 L, Est GFR ( Amer) 67, Glucose 97, Calcium 9.3, Magnesium 2.2, Total Bilirubin 0.4, AST 36, ALT 29, Alkaline Phosphatase 57, Troponin I 2.96 H, NT-Pro-B Natriuret Pep 378 H, Total Protein 6.7, Albumin 4.1, Globulin 2.6, Albumin/Globulin Ratio 1.6 03/18/24 14:25: HIV Ag/Ab Combo Qual Negative 03/18/24 17:15: Troponin I 2.25 H 03/18/24 20:30: Troponin I 2.05 H I & O for Last 24 hours: Intake & Output 03/16/24 03/17/24 03/18/24 03/19/24 23:59 23:59 23:59 23:59 Intake Total 450 / 450 Output Total 0 / 0 Balance 450 / 450 Weight 77.11 kg Results Data Completed and Pending Labs on day of discharge: Labs from last 24 hours 03/18/24 03/18/24 03/18/24 20:30 17:15 14:25 WBC RBC Hgb Hct MCV MCH MCHC RDW Plt Count MPV Neut % (Auto) Lymph % (Auto) [place] % (Auto) Eos % (Auto) Baso % (Auto) Neut # (Auto) Lymph # (Auto) [place] # (Auto) Eos # (Auto) Baso # (Auto) PT INR Sodium Potassium Chloride Carbon Dioxide Anion Gap BUN Creatinine Estimated Creat Clear Estimated GFR Est GFR ( Amer) Glucose Calcium Magnesium Total Bilirubin AST ALT Alkaline Phosphatase Troponin I 2.05 H 2.25 H NT-Pro-B Natriuret Pep Total Protein Albumin Globulin Albumin/Globulin Ratio HIV Ag/Ab Combo Qual Negative 03/18/24 03/18/24 14:20 14:19 WBC 11.7 H RBC 3.34 L Hgb 9.9 L Hct 30.4 L MCV 91.0 MCH 29.6 MCHC 32.6 RDW 14.9 Plt Count 243 MPV 9.4 Neut % (Auto) 58.0 Lymph % (Auto) 31.3 [place] % (Auto) 7.0 Eos % (Auto) 2.2 Baso % (Auto) 0.4 Neut # (Auto) 6.8 Lymph # (Auto) 3.7 [place] # (Auto) 0.8 Eos # (Auto) 0.3 Baso # (Auto) 0.1 PT 15.1 H INR 1.39 H Sodium 134 L Potassium 3.6 Chloride 109 H Carbon Dioxide 25 Anion Gap 3.6 L BUN 27 H Creatinine 1.00 Estimated Creat Clear 66 Estimated GFR 55 L Est GFR ( Amer) 67 Glucose 97 Calcium 9.3 Magnesium 2.2 Total Bilirubin 0.4 AST 36 ALT 29 Alkaline Phosphatase 57 Troponin I 2.96 H NT-Pro-B Natriuret Pep 378 H Total Protein 6.7 Albumin 4.1 Globulin 2.6 Albumin/Globulin Ratio 1.6 HIV Ag/Ab Combo Qual Meds Home Medications and Allergies Home Medications ?Medication ?Instructions ?Recorded ?Confirmed ?Type alprazolam 0.5 mg tablet 0.5 mg PO TID 01/16/24 03/18/24 History carvedilol 12.5 mg tablet 12.5 mg PO BID 01/16/24 03/18/24 History celecoxib 200 mg capsule 200 mg PO DAILY 01/16/24 03/18/24 History esomeprazole magnesium 40 mg 80 mg PO AM 01/16/24 03/18/24 History capsule,delayed release estradiol 1 mg tablet 1 mg PO DAILY 01/16/24 03/18/24 History famotidine 40 mg tablet 40 mg PO DAILY 01/16/24 03/18/24 History gabapentin 300 mg capsule 300 mg PO DAILY 01/16/24 03/18/24 History metformin 500 mg tablet,extended 500 mg PO DAILY 01/16/24 03/18/24 History release 24 hr montelukast 10 mg tablet 10 mg PO DAILY 01/16/24 03/18/24 History olmesartan 40 1 tab PO DAILY 01/16/24 03/18/24 History mg-hydrochlorothiazide 25 mg tablet semaglutide 0.25 mg or 0.5 mg (2 0.25 mg SQ WEEKLY 01/16/24 03/18/24 History mg/3 mL) subcutaneous pen injector (Ozempic) warfarin 5 mg tablet 5 mg PO HS 01/16/24 03/18/24 History zolpidem 10 mg tablet 10 mg PO HS 01/16/24 03/18/24 History baclofen 5 mg tablet 5 mg PO TID #42 tabs 03/08/24 03/18/24 Rx New Prescriptions to Start Prescriptions: Allergies Allergy/AdvReac Type Severity Reaction Status Date / Time oxycodone (From PERCOCET) Allergy Severe IRREGULAR Verified 01/26/24 11:50 HEARTBEAT codeine Allergy Intermediate I-ITCHING, Verified 01/26/24 11:50 NAUSEA, FAST HEART RATE hydrocodone Allergy Intermediate I-ITCHING, Verified 01/26/24 11:50 NAUSEA, FAST HEART RATE ketorolac Allergy Intermediate I-ITCHING, Verified 01/26/24 11:50 NAUSEA, FAST HEART RATE meperidine (From Demerol) Allergy Intermediate I-ITCHING, Verified 01/26/24 11:50 NAUSEA, FAST HEART RATE morphine Allergy Intermediate I-ITCHING, Verified 01/26/24 11:50 NAUSEA, FAST HEART RATE Penicillins Allergy Intermediate I-ITCHING, Verified 01/26/24 11:50 NAUSEA, FAST HEART RATE flecainide Allergy Mild facial Verified 01/26/24 11:50 itching sotalol AdvReac Mild high BP Verified 01/26/24 11:50 Discharge Plan Disposition Patient Disposition: Left Against Medical Advice Condition: Fair Discharge Order Discharge Orders: Discharge Order (Routine); Ordered 03/19/24 Ordered By: Wilmer Brown Follow up Plan Prescriptions/Medication Reconciliation: No Action celecoxib 200 mg capsule 200 mg PO DAILY Patient Comments: TAKE 1 CAPSULE BY MOUTH ONCE DAILY carvedilol 12.5 mg tablet 12.5 mg PO BID Patient Comments: TAKE 1 TABLET BY MOUTH TWICE DAILY WITH MEALS famotidine 40 mg tablet 40 mg PO DAILY Patient Comments: TAKE 2 TABLETS BY MOUTH ONCE DAILY alprazolam 0.5 mg tablet 0.5 mg PO TID Patient Comments: TAKE 1 TABLET BY MOUTH THREE TIMES DAILY estradiol 1 mg tablet 1 mg PO DAILY Patient Comments: TAKE 1 TABLET BY MOUTH ONCE DAILY esomeprazole magnesium 40 mg capsule,delayed release(DR/EC) 80 mg PO AM Patient Comments: TAKE 2 CAPSULES BY MOUTH IN THE MORNING BEFORE BREAKFAST warfarin 5 mg tablet 5 mg PO HS Patient Comments: TAKE 1 TABLET BY MOUTH ONCE DAILY AT NIGHT gabapentin 300 mg capsule 300 mg PO DAILY Patient Comments: TAKE 1 CAPSULE BY MOUTH IN THE MORNING AND AFTERNOON, THEN 2 CAPSULES BY MOUTH AT BEDTIME montelukast 10 mg tablet 10 mg PO DAILY Patient Comments: TAKE 1 TABLET BY MOUTH ONCE DAILY AT NIGHT zolpidem 10 mg tablet 10 mg PO HS Patient Comments: TAKE 1 TABLET BY MOUTH AT NIGHT NEEDED FOR SLEEP metformin 500 mg tablet extended release 24 hr 500 mg PO DAILY Patient Comments: TAKE 1 TABLET BY MOUTH ONCE DAILY WITH BREAKFAST olmesartan-hydrochlorothiazide 40-25 mg tablet 1 tab PO DAILY Patient Comments: TAKE 1 TABLET BY MOUTH ONCE DAILY Ozempic 0.25 mg or 0.5 mg (2 mg/3 mL) pen injector 0.25 mg SQ WEEKLY Patient Comments: INJECT 0.5 MG SUBCUTANEOUSLY ONCE A WEEK DIRECTED baclofen 5 mg tablet 5 mg PO TID Qty: 42 0RF Patient Discharge Instructions Patient Instructions: Angina Print Language: [place] Providers Primary Care Provider: Juan Pablo Nelson Admit Provider: Patrick Velasquez Attending Provider: Patrick Velasquez
--- NOTE | 2024-03-19 03:45 | PC.NURSE ---
Pt signed and discharged off floor AMA @03:44
[2024-03-20 05:08] LABS: HCV Ab Non Reactive (Non Reactive)
== END 2024-03-19 03:44 | disposition left against medical advice (07) ==
LOC: ER 16:02 → 2ND 16:46
PROVIDERS: Physician Assistant; Admitting Provider Student in an Organized Health Care Education/Training Program; Emergency Provider Emergency Medicine; PCP Family Medicine; Visit Provider Student in an Organized Health Care Education/Training Program
DX: I20.89 Other forms of angina pectoris (principal); E11.9 Type 2 diabetes mellitus without complications; Z79.85 Long-term (current) use of injectable non-insulin antidiabetic drugs; Z79.899 Other long term (current) drug therapy; Z79.84 Long term (current) use of oral hypoglycemic drugs; Z79.01 Long term (current) use of anticoagulants; M94.0 Chondrocostal junction syndrome [Tietze]
CPT/HCPCS: 36415; 71045; 80053; 83735; 83880; 84484; 85025; 85610; 86803; 87389; 93005; 99291; G0378; J1171; J1200; J1650

== ENCOUNTER 2024-04-18 10:12 | Outpatient (POV) | payer MEDICARE, SELFPAY ==
[2024-04-18 10:33] VITALS: BP 112/67; PULSE 73; RESP 18; O2SAT 96; BMI 26.7
--- NOTE | 2024-04-18 10:45 | A.OFFVIS_ITS ---
[facility] Disclaimer: The information contained in this section may have been updated after the patient was seen, as this information can be updated by other users. Medical History Abnormal electrocardiogram [ECG] [EKG] Cancer Depression Anxiety History of gastroesophageal reflux (GERD) Diabetes mellitus, type 2 She has lost 20 pounds working on lifestyle modification and most recent A1c hemoglobin 5.6. Random glucose level 99. Asthma History of heart attack Hypertension Hx of pancreatitis Nausea Dyspnea Stable angina pectoris Obstructive sleep apnea syndrome History of mild ISABELL previously treated with CPAP. She quit using the CPAP following [employer] recall. Since then she has lost 20 pounds. Gastroesophageal reflux disease Hyperlipidemia Hypertensive heart disease Surgical History S/P cervical spinal fusion History of mastectomy LIMB ALERT LT ARM History of hysterectomy History of cholecystectomy Family History Father Family history of [place] (myocardial infarction) Grandmother Family history of [place] (myocardial infarction) Mother Family history of breast cancer Family/Other Family history of lung cancer Family/Other Family history of kidney cancer Social History Smoking Status: Never smoker alcohol intake: never substance use type: denies use current occupational status: other Travel in the last 8 weeks: None household members: spouse housing: house current occupational exposures/hazards: No PM Subjective & Objective Subjective Subjective:: Patient is a pleasant 68-year-old female who presents today for worsening pain and follow-up. Today she rates her pain a 4 out of 10 however does state that it will get much worse of at least a 6 or more with increased activity. She states the pain is all in her hips and goes into her groin area. She states that she has not had any falls or injuries. Patient has had a cardiac ablation and is currently on blood thinner and is not scheduled to see her maxillofacial surgeon until May. She does state that she is expected to stay on the blood thinner until after this appointment. Patient did previously have SI injections back in January that did provide more than 80% relief and lasted. Patient does state that she is trying to overall get improvements. She states that due to the fact that every time she goes to get up and starts doing any type of work such as cooking and cleaning she is very limited and has to stop due to the worsening pain. Patient does state that her and her do have travel plans scheduled in June and that she would like to be at her best. Patient is currently managed with Celebrex, gabapentin, alprazolam and Ambien from her PCP. At our last visit we did prescribe her baclofen 5 mg 3 times daily. She denies any side effects from this medication and feels like it did help. Patient is requesting refills. Her Benjamin has been reviewed and is appropriate. Review of Systems: General: No recent weight changes, no fever, no sleep disturbances Respiratory: No cough, no shortness of air, no recurring pulmonary infections Cardiovascular/peripheral vascular: No chest pain, no palpitations, no edema, no shortness of breath Gastrointestinal: No new onset incontinence, normal bowel movements reported Genitourinary: No new onset incontinence Musculoskeletal: Bilateral hip pain, groin pain Psychiatric: [Normal mood/affect] Neurological: [Denies weakness in extremities], [denies balance issues] Pain at rest (0-10 scale): 6 Objective Objective:: Physical Exam: General: Alert and oriented x3, no acute distress, pleasant and cooperative Lungs: Respirations even and unlabored, symmetrical chest expansion Eyes: PERRL Musculoskeletal: Flexion and extension of lumbar [spine] somewhat guarded secondary to pain, [antalgic gait noted] point tenderness along bilateral SIs with positive bilateral Svetlana's, Kishore's, Gaenslen's, compression and distraction exam Neurological: Speech clear, no gross sensory deficit Has patient had previous pain injection?: No Conservative treatment options previously tried: Home exercise plan Length of treatment: Longer than 12 weeks Meds Home Medications and Allergies Home Medications ?Medication ?Instructions ?Recorded ?Confirmed ?Type alprazolam 0.5 mg tablet 0.5 mg PO TID 01/16/24 03/18/24 History carvedilol 12.5 mg tablet 12.5 mg PO BID 01/16/24 03/18/24 History celecoxib 200 mg capsule 200 mg PO DAILY 01/16/24 03/18/24 History esomeprazole magnesium 40 mg 80 mg PO AM 01/16/24 03/18/24 History capsule,delayed release estradiol 1 mg tablet 1 mg PO DAILY 01/16/24 03/18/24 History famotidine 40 mg tablet 40 mg PO DAILY 01/16/24 03/18/24 History gabapentin 300 mg capsule 300 mg PO DAILY 01/16/24 03/18/24 History metformin 500 mg tablet,extended 500 mg PO DAILY 01/16/24 03/18/24 History release 24 hr montelukast 10 mg tablet 10 mg PO DAILY 01/16/24 03/18/24 History olmesartan 40 1 tab PO DAILY 01/16/24 03/18/24 History mg-hydrochlorothiazide 25 mg tablet semaglutide 0.25 mg or 0.5 mg (2 0.25 mg SQ WEEKLY 01/16/24 03/18/24 History mg/3 mL) subcutaneous pen injector (Ozempic) warfarin 5 mg tablet 5 mg PO HS 01/16/24 03/18/24 History zolpidem 10 mg tablet 10 mg PO HS 01/16/24 03/18/24 History baclofen 5 mg tablet 5 mg PO TID #42 tabs 03/08/24 03/18/24 Rx New Prescriptions to Start Prescriptions: Allergies Allergy/AdvReac Type Severity Reaction Status Date / Time oxycodone (From PERCOCET) Allergy Severe IRREGULAR Verified 01/26/24 11:50 HEARTBEAT codeine Allergy Intermediate I-ITCHING, Verified 01/26/24 11:50 NAUSEA, FAST HEART RATE hydrocodone Allergy Intermediate I-ITCHING, Verified 01/26/24 11:50 NAUSEA, FAST HEART RATE ketorolac Allergy Intermediate I-ITCHING, Verified 01/26/24 11:50 NAUSEA, FAST HEART RATE meperidine (From Demerol) Allergy Intermediate I-ITCHING, Verified 01/26/24 11:50 NAUSEA, FAST HEART RATE morphine Allergy Intermediate I-ITCHING, Verified 01/26/24 11:50 NAUSEA, FAST HEART RATE Penicillins Allergy Intermediate I-ITCHING, Verified 01/26/24 11:50 NAUSEA, FAST HEART RATE flecainide Allergy Mild facial Verified 01/26/24 11:50 itching sotalol AdvReac Mild high BP Verified 01/26/24 11:50 Assessment and Plan *Assessment and plan (1) Bilateral sacroiliitis: Status: Acute Category: Medical Code(s): M46.1 - Sacroiliitis, not elsewhere classified Plan Patient is starting to experience worsening pain in her hips that does radiate into her groins. Patient did have point tenderness along her bilateral SIs with a positive bilateral Svetlana's, Kishore's, Gaenslen's, compression and distraction exam. I did discuss with the patient that it does appear that she is having increased sacroiliitis symptoms. I did review over the risk and benefits of repeat injection and she would like to proceed forward with this plan of care. Patient did have her last injection in January that did provide 80% relief and lasted up until the last couple of weeks. Patient has continued conservative treatment such as oral medication, heat and ice, topicals, at home stretching exercise for longer than 12 weeks between injections. I will schedule the patient for bilateral SI injections under fluoroscopy and refill her baclofen. We did also review over ordering new physical therapy evaluation. I will proceed forward with this. Patient has been instructed to contact the clinic with any concerns before the next appointment. Dr. Ragsdale has reviewed this note and agrees with this plan of care. This note was dictated using voice recognition software and make contain errors or omissions. All injections are used with Lidocaine, Bupivacaine and Depo Medrol. Occasionally urine drug screen is needed to verify patient's compliance with our office pain contract. This is ordered based off specific treatments related to chronic pain with the potential to abuse certain medications.
== END 2024-04-18 23:59 | disposition home or self-care (01) ==
PROVIDERS: PCP Family Medicine; Visit Provider Nurse Practitioner Family
DX: M46.1 Sacroiliitis, not elsewhere classified (principal); Z79.01 Long term (current) use of anticoagulants; Z79.85 Long-term (current) use of injectable non-insulin antidiabetic drugs
CPT/HCPCS: 99212; G0463

== ENCOUNTER 2024-04-26 08:00 | Outpatient (RCR) | payer MEDICARE, SELFPAY ==
--- NOTE | 2024-04-25 07:46 | HMH.PTOPEV ---
PT Outpatient Evaluation Rehab PT Outpatient Evaluation Start: 04/24/24 14:50 Freq: Status: Active Protocol: Document 04/24/24 14:50 MICHAEL (Rec: 04/24/24 16:22 MICHAEL [id number]) E-signed By Dalia Cassidy, PT Outpatient Therapy Subjective History Subjective History This is an initial PT evaluation for 68 y/o female, Justine Handley, who presents to PT with referral for lumbar radiculopathy and inflammation of bilateral SIJ. Pt has been seen by pain management and reports she will receive SIJ injections in April. Pt last received injections in January and reports ~1 month duration symptom relief. Majority of pt 's pain is in her hips (R>L) and groin. Pt reports difficulty squatting, standing , sitting, and walking. Pt denies having any hip imaging. Pt's symptoms started insidiously ~3 years ago and denies any fall or injury. Pt' s pain is worse at night. Pt does report intermittent numbness that goes from hip to knee. Medications: Celebrex and OTCs . Chief complaint: Worsening bilateral hip and groin pain that began ~3 years ago PMH: Heart attack, Afib, pancreatitis, cervical fusion, osteoporosis, breast cancer in 2006 Imaging: [facility] MRI demo'd degenerative changes in Nov 2023 New diagnosis of cancer in past 12 Yes: Melanoma, cancer-free now months? Chief Complaint Pain Symptom Type Ache,Throb,Sharp,Dull Symptoms Relieved By Heat Symptoms Aggravated By Sitting,Standing,Physical Activity Prior Functional Limitations None Current Functional Limitations Reaching,Lifting,Housework, Standing,Sitting,Squatting, Recreation Activity,Walking, Stairs,Bending/Stooping Symptom Description Constant but Variable Level of pain today (0-10) 7 Pain scale - at its best (0-10) 1 Pain scale - at its worst (0-10) 10 Lumbopelvic Eval Posture Thoracic Spine Posture Standing Position Neutral Lumbar Spine Posture Standing Position Neutral Assistive device Assistive Devices None / NA Gait Observation General Gait Pattern Observation No Deviations/Normal Palapation tenderness bilateral lumbar spinal tenderness Yes: 2/4 paraspinal tenderness Yes: 1/4 buttock tenderness Yes: 3/4 Lumbar/Sacral Palpation Findings Tenderness,Muscle Guarding Lumbar/Sacral Palpation Overall Comment SIJ 3/4 TTP Range of Motion Lumbar Spine Active Flexion Range of 25%, painful Motion (degrees) Lumbar Spine Active Extension Range of 50% Motion (degrees) Left Lumbar Spine Lateral Flexion Active 75% Range of Motion (degrees) Right Lumbar Spine Lateral Flexion 75% Active Range of Motion (degrees) Lumbar Spine ROM Limitations Soft Tissue Tightness,Pain Manual Muscle Test Left Knee Extension Strength Grade 4 Good Knee Flexion Strength Grade 4 Good Hip Flexion Strength Grade 4- Good- Hip Abduction Strength Grade 4- Good- Hip Adduction Strength Grade 4- Good- Hip Extension Strength Grade 4- Good- Right Knee Extension Strength Grade 4 Good Knee Flexion Strength Grade 4 Good Hip Flexion Strength Grade 3+ Fair+ Hip Abduction Strength Grade 4- Good- Hip Adduction Strength Grade 4- Good- Hip Extension Strength Grade 4- Good- Special Tests Hip Ken (CHRIS) Test Positive Right Hip Piriformis Test Positive Right Sciatic Nerve Tension Test Positive Left,Positive Right Crossed Straight Leg Raise Test Negative Left,Negative Right Sacroiliac Joint Compression Test Positive Left,Positive Right Sacroiliac Joint Distraction Test Positive Left,Positive Right Hip/Knee Eval Special Tests Hip Scouring (Quadrant) Test Positive Left,Positive Right Oswestry Index Section 1 Pain Intensity The pain comes and goes and is severe Section 2 Personal Care (Washing,Dresing) increase the pain and I find it necessary to change my way of doing it Section 3 Lifting Pain prevents me from lifting weights off the floor Section 4 Walking I cannot walk more than 1/2 mile without increasing pain Section 5 Sitting Pain prevents me from sitting for more than 1/2 hour Section 6 Standing I cannot stand more than 1 hour without increasing pain Section 7 Sleeping I get pain in bed, but it does not prevent me from sleeping well Section 8 Social Life My social life is normal but increases the degree of pain Section 9 Traveling I get extra pain while traveling, but it does not compel me to seek al Section 10 Changing Degreee of Pain My pain is gradually getting worse Score and Risk Level Oswestry Sc 25 Oswestry Risk Level Severe Disability Miscellaneous Dx PT Eval Objective Objective Laslett's Cluster: 07/30 + for SIJ involvement 1) Distraction: + 2) Thigh thrust: + 3) [place]len: + 4) Compression: + 5) Sacral thrust: + Outpatient Therapy Assessment Impairments Problems/Impairmments Palpation Tenderness,Impaired Range of Motion,Impaired Strength,Impaired Transfers, Impaired Gait Pattern,Impaired Walking,Impaired Standing, Impaired Sitting,Impaired Lifting,Impaired Household Care,Impaired Stair Climbing, Impaired Incline Stepping, Impaired Squatting,Impaired Bending,Impaired Recreational Activities,Subjective C/O Pain Prognosis Rehab Potential Good Comment Pt's objective findings and subjective reports are consistent with her medical diagnosis of sacroiliitis. Clinical Impression Consistent with Diagnosis Yes Short Term Goals Number of Weeks 4 Decreased Palpation Tenderness Yes: Decrease SIJ TTP to 1-2/4 Increase Range of Motion Yes: Improve lumbar flexion to at least 50% available ROM Increase Strength Yes: Improve B hip flexion by 1/2 grade. 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 Improve Oswestry Score Yes: Improve by 5 points since IE to improve QOL. Decrease Subjective C/O Pain Yes: Verbalize 05/07 48 hour pain average to decrease symptom severity. Patient to be Ind w/ Advanced HEP Yes: Verbalize IND with HEP Outpatient Therapy Plan of Care Treatment Plan May Include Therapeutic Exercise Including Home Yes Exercise Program Manual Therapy Techniques Yes Neuromuscular Re-education Yes Therapeutic Activities to Return to Yes Previous Functional/Work Level Gait Training Yes ADL/Self Care Education Yes Dry Needling Yes Thermal Modalities Yes Electrical Stimulation Yes Ultrasound/Phonophoresis Yes Iontophoresis Yes Orthotics/Bracing/Splinting Yes Vasopneumatic Compression Pump Yes Massage Yes Eval/Re-Eval Yes Aquatic Therapy Yes Frequency Times per week 2-3 times Duration Number of Weeks 6-8 weeks Addendums This patient is a candidate for social No or vocational rehab? Patient/Guardian verbally acknowledges Yes understanding of treatment program and consents to further treatment? Patient/Guardian verbally acknowledges Yes understanding of diagnosis, prognosis and goals for treatment? Eval Complexity PT Charges 32841 - Moderate Complexity Shoulder/Elbow Eval Shoulder Objective Measurements Elbow Objective Measurements PHYSICIAN CERTIFICATION: I certify the specified therapy services for Justine Costellorory are required, authorized, and reviewed every 30 days.
== END 2024-04-26 23:59 | disposition home or self-care (01) ==
LOC: PT 08:00
PROVIDERS: PCP Family Medicine; Visit Provider Nurse Practitioner Family
DX: M46.1 Sacroiliitis, not elsewhere classified (principal); M54.16 Radiculopathy, lumbar region; M51.369 Other intervertebral disc degeneration, lumbar region without mention of lumbar back pain or lower extremity pain
CPT/HCPCS: 97110; 97163

== ENCOUNTER 2024-05-07 09:16 | Outpatient (CLI) | payer MEDICARE, SELFPAY ==
[2024-05-07 12:09] LABS: PHA INR Fingerstick 2.5 (0.9-1.1)
== END 2024-05-07 12:14 ==
LOC: ACC 09:18
PROVIDERS: PCP Family Medicine; Visit Provider Family Medicine
DX: Z79.01 Long term (current) use of anticoagulants (principal); I48.91 Unspecified atrial fibrillation
CPT/HCPCS: 85610; 99211; G0463

== ENCOUNTER 2024-05-18 12:36 | Day surgery (SDC) | payer MEDICARE, SELFPAY ==
[2024-05-18 12:55] VITALS: BP 132/74; PULSE 74; RESP 16; TEMP 36.9; O2SAT 97; BMI 26.3
[2024-05-18] MEDS: IOPAMIDOL-200 (41%);10ML VIAL 10 ML IV (13:51)
--- NOTE | 2024-05-18 14:08 | P.PCN_ITS ---
Procedure Date: 05/18/24 Time: 14:08 Anesthesiologist:: Juan Ragsdale MD Complications:: None Pre-procedure Diagnosis:: Sacroiliitis Post-procedure Diagnosis:: Same Indications for Procedure:: This patient is a pleasant 68-year-old white female who we are treating for bilateral sacroiliitis. She is tender over both SI joints. She has a positive Svetlana's test bilaterally. She has a positive Kahlil test bilaterally. She has positive SI joint compression test bilaterally. She has positive distraction test bilaterally. We will plan on doing therapeutic bilateral SI joint injections today. She does get significant relief from these injections. Procedure Details:: Informed consent was obtained risk and benefits of the procedure were explained the patient. The patient was taken to the procedure room placed prone on the procedure table. She was prepped and draped in sterile fashion. C-arm fluoroscopy was used to view the left SI joint. The skin and subcutaneous tissues were anesthetized using lidocaine. A 22-gauge spinal needle was inserted and advanced into the left SI joint under fluoroscopic guidance. Needle placement was confirmed with dye. After this we injected 5 mL bupivacaine 0.25% and Depo-Medrol 40 mg into the left SI joint. We did the same thing for the right SI joint. Again injecting 5 mL bupivacaine 0.25% and Depo- Medrol 40 mg into the right SI joint. Patient tolerated the procedure well with no complications. Plan and Disposition:: Will follow-up with this patient in 1 month. Will evaluate efficacy of this bilateral SI joint injection. Will reevaluate symptoms at that time.
[2024-05-18 14:10] VITALS: BP 165/87; PULSE 66; RESP 16; O2SAT 97
[2024-05-18] MEDS: methylPREDNISolone ACETATE 80MG/ML VIAL 80 MG (14:27)
[2024-05-18] MEDS: LIDOCAINE 1% 5ML PF VIAL 5 ML ×2 (14:28)
[2024-05-18] MEDS: BUPIVACAINE 0.25% 10ML INJ 25 MG IJ (14:28)
[2024-05-18 14:29] VITALS: BP 136/73; PULSE 65; RESP 18; O2SAT 96
[2024-05-18 15:43] VITALS: BP 136/73; PULSE 65; RESP 18; O2SAT 96
== END 2024-05-18 14:10 | disposition home or self-care (01) ==
PROVIDERS: PCP Family Medicine; Visit Provider Anesthesiology
DX: M46.1 Sacroiliitis, not elsewhere classified (principal)
CPT/HCPCS: 27096; G0260; J1010; Q9966

== ENCOUNTER 2024-05-24 08:00 | Outpatient (RCR) | payer MEDICARE, SELFPAY ==
--- NOTE | 2024-05-24 10:04 | HMH.RHREAS ---
Rehab Reassessment Rehab OP Re-assessment Start: 04/30/24 07:55 Freq: Status: Active Protocol: Document 05/24/24 08:20 JYOTI (Rec: 05/24/24 10:03 JYOTI [id number]) E-signed By Kayley Glass, PT Oswestry Index Section 1 Pain Intensity The pain is moderate and does not vary much Section 2 Personal Care (Washing,Dresing) my way of washing or dressing even though it causes some pain Section 3 Lifting lifting heavy weights off the floor, but I can manage if they are Section 4 Walking I have some pain when walking but it does not increase with distance Section 5 Sitting Pain prevents me from sitting for more than one hour Section 6 Standing I cannot stand more than 1 hour without increasing pain Section 7 Sleeping I get pain in bed, but it does not prevent me from sleeping well Section 8 Social Life My social life is normal but increases the degree of pain Section 9 Traveling I get extra pain while traveling, but it does not compel me to seek al Section 10 Changing Degreee of Pain My pain seems to be getting better, but improvement is slow Score and Risk Level Oswestry Sc 18 Oswestry Risk Level Moderate Disability Rehab Re-assessment Subjective Subjective Pt reports she feels 50% improved since starting PT. Pt states she received injections in B SIJ last Tuesday with improvement in L sided symptoms only. Pt reports continued bilateral posterolateral hip pain and anterior groin pain. Pt reports pain is aggravated by prolonged sitting, walking, and lifting. Pt reports R sided pain at worst as 8/10 and L sided pain at worst as 4 -5/10 on VAS. Pt denies true numbness/tingling but states her legs don't feel like her own. Objective Objective Notes Palpation: 3/4 TTP of L1-S1 SP , gluteal mm, greater trochanter Lumbar AROM: 55 flex, ext 15, LF 15 L hip AROM: 98 flex R hip AROM 105 flex BLE MMT: 4/5 grossly with exception of hip adduction and hip flexion 4-/5 + hip scour Assessment Progress Assessment Progressing as Expected Assessment Notes Pt has attended 8 PT treatment sessions consisting of aerobic exercises, lumbopelvic mobility, LE/core strengthening, LE stretching, and HEP with fair-good tolerance. Pt demonstrated improved subjective report of pain, GENEVIEVE score and lumbar mobility this date compared to the initial evaluation. Pt continues to report moderate to severe pain of R>L low back and anterior groin aggravated by activities such as sitting , walking and lifting. Overall , the pt would continue to benefit from skilled PT to further improve subjective report of pain, lumbopelvic mobility, LE strength and functional activity tolerance to improve overall QOL. Patient goals met ST/6 Goals Not Met TTP, hip flexion strength, subjective report of pain for R side Revised Goals n/a Plan Plan Continue initial POC Frequency of Therapy 2x/week Duration of therapy 4 more weeks Time and Billing Re-Eval Time 10 Re-Eval Billing Units 0 Charge for PT reassessment? No Charge for OT reassessment? No PHYSICIAN CERTIFICATION: I certify the specified therapy services for Justine Handley are required, authorized, and reviewed every 30 days.
== END 2024-05-24 23:59 | disposition home or self-care (01) ==
LOC: PT 08:00
PROVIDERS: PCP Family Medicine; Visit Provider Nurse Practitioner Family
DX: M46.1 Sacroiliitis, not elsewhere classified (principal); M54.16 Radiculopathy, lumbar region; M51.369 Other intervertebral disc degeneration, lumbar region without mention of lumbar back pain or lower extremity pain
CPT/HCPCS: 97110; 97530

== ENCOUNTER 2024-05-31 13:14 | Outpatient (POV) | payer MEDICARE, SELFPAY ==
--- NOTE | 2024-05-31 13:23 | EXP.PAIN.SOA ---
[facility] Disclaimer: The information contained in this section may have been updated after the patient was seen, as this information can be updated by other users. Medical History Abnormal electrocardiogram [ECG] [EKG] Cancer Depression Anxiety History of gastroesophageal reflux (GERD) Diabetes mellitus, type 2 She has lost 20 pounds working on lifestyle modification and most recent A1c hemoglobin 5.6. Random glucose level 99. Asthma History of heart attack Hypertension Hx of pancreatitis Nausea Dyspnea Stable angina pectoris Obstructive sleep apnea syndrome History of mild ISABELL previously treated with CPAP. She quit using the CPAP following [employer] recall. Since then she has lost 20 pounds. Gastroesophageal reflux disease Hyperlipidemia Hypertensive heart disease Surgical History S/P cervical spinal fusion History of mastectomy LIMB ALERT LT ARM History of hysterectomy History of cholecystectomy Family History Father Family history of [place] (myocardial infarction) Grandmother Family history of [place] (myocardial infarction) Mother Family history of breast cancer Family/Other Family history of lung cancer Family/Other Family history of kidney cancer Social History Smoking Status: Never smoker alcohol intake: never substance use type: denies use current occupational status: other Travel in the last 8 weeks: None household members: spouse housing: house current occupational exposures/hazards: No PM Subjective & Objective Subjective Subjective:: Patient is a pleasant 68-year-old female who presents today for follow-up of bilateral SI injections on 05/18/2024. Today she rates her pain a 7 out of 10. She denies any new trauma or injury. Patient does state that these injections did provide 80-90 percent improvement. She does state that they did significantly help on the left side however has still pain more prominent on the right side. She does state that her hips are just killing her. Patient states this has been a chronic issue for longer than a year. She states that it just feels like it is progressively worsened over time. Patient describes it as an aching, throbbing sensation. She states that she was hoping that the physical therapy that she has been going to twice a week would improve this however she feels like is just not making much of a difference. She states that she often cannot sleep on her sides due to the worsening pain with tenderness. She states that is interfering with her ability perform activities of daily living such as cooking and cleaning. Patient is currently managed with Celebrex, gabapentin, alprazolam and Ambien from her PCP. Patient is managed with baclofen 5 mg 3 times daily from our office. Her Benjamin has been reviewed and is appropriate. Review of Systems: General: No recent weight changes, no fever, no sleep disturbances Respiratory: No cough, no shortness of air, no recurring pulmonary infections Cardiovascular/peripheral vascular: No chest pain, no palpitations, no edema, no shortness of breath Gastrointestinal: No new onset incontinence, normal bowel movements reported Genitourinary: No new onset incontinence Musculoskeletal: Bilateral hip pain Psychiatric: [Normal mood/affect] Neurological: [Denies weakness in extremities], [denies balance issues] Pain at rest (0-10 scale): 7 Objective Objective:: Physical Exam: General: Alert and oriented x3, no acute distress, pleasant and cooperative Lungs: Respirations even and unlabored, symmetrical chest expansion Eyes: PERRL Musculoskeletal: Flexion and extension of bilateral hips somewhat guarded secondary to pain, [antalgic gait noted] extreme point tenderness along bilateral greater trochanteric bursa's Neurological: Speech clear, no gross sensory deficit Has patient had previous pain injection?: Yes Percent improvement in pain since last injection: 80 to 90% Conservative treatment options previously tried: Home exercise plan Length of treatment: Longer than 12 weeks Meds Home Medications and Allergies Home Medications ?Medication ?Instructions ?Recorded ?Confirmed ?Type alprazolam 0.5 mg tablet 0.5 mg PO TID 01/16/24 05/18/24 History carvedilol 12.5 mg tablet 12.5 mg PO BID 01/16/24 05/18/24 History celecoxib 200 mg capsule 200 mg PO DAILY 01/16/24 05/18/24 History esomeprazole magnesium 40 mg 80 mg PO AM 01/16/24 05/18/24 History capsule,delayed release estradiol 1 mg tablet 1 mg PO DAILY 01/16/24 05/18/24 History famotidine 40 mg tablet 40 mg PO DAILY 01/16/24 05/18/24 History gabapentin 300 mg capsule 300 mg PO DAILY 01/16/24 05/18/24 History metformin 500 mg tablet,extended 500 mg PO DAILY 01/16/24 05/18/24 History release 24 hr montelukast 10 mg tablet 10 mg PO DAILY 01/16/24 05/18/24 History olmesartan 40 1 tab PO DAILY 01/16/24 05/18/24 History mg-hydrochlorothiazide 25 mg tablet semaglutide 0.25 mg or 0.5 mg (2 0.25 mg SQ WEEKLY 01/16/24 05/18/24 History mg/3 mL) subcutaneous pen injector (Ozempic) warfarin 5 mg tablet 5 mg PO HS 01/16/24 05/18/24 History zolpidem 10 mg tablet 10 mg PO HS 01/16/24 05/18/24 History baclofen 5 mg tablet 5 mg PO TID #90 tabs 04/18/24 05/18/24 Rx New Prescriptions to Start Prescriptions: Allergies Allergy/AdvReac Type Severity Reaction Status Date / Time oxycodone (From PERCOCET) Allergy Severe IRREGULAR Verified 05/18/24 12:56 HEARTBEAT codeine Allergy Intermediate I-ITCHING, Verified 05/18/24 12:56 NAUSEA, FAST HEART RATE hydrocodone Allergy Intermediate I-ITCHING, Verified 05/18/24 12:56 NAUSEA, FAST HEART RATE ketorolac Allergy Intermediate I-ITCHING, Verified 05/18/24 12:56 NAUSEA, FAST HEART RATE meperidine (From Demerol) Allergy Intermediate I-ITCHING, Verified 05/18/24 12:56 NAUSEA, FAST HEART RATE morphine Allergy Intermediate I-ITCHING, Verified 05/18/24 12:56 NAUSEA, FAST HEART RATE Penicillins Allergy Intermediate I-ITCHING, Verified 05/18/24 12:56 NAUSEA, FAST HEART RATE flecainide Allergy Mild facial Verified 05/18/24 12:56 itching sotalol AdvReac Mild high BP Verified 05/18/24 12:56 Assessment and Plan *Assessment and plan (1) Degenerative disc disease, lumbar: Status: Acute Category: Medical Code(s): M51.369 - Other intervertebral disc degeneration, lumbar region without mention of lumbar back pain or lower extremity pain (2) Bilateral sacroiliitis: Status: Acute Category: Medical Code(s): M46.1 - Sacroiliitis, not elsewhere classified (3) Greater trochanteric bursitis of both hips: Status: Acute Category: Medical Code(s): M70.61 - Trochanteric bursitis, right hip; M70.62 - Trochanteric bursitis, left hip Plan Patient had extreme point tenderness along her greater trochanteric bursa's during today's exam with limited range of motion. I did discuss with the patient that I do believe she would very much benefit from bilateral bursa injections. Patient has been experience this pain for longer than 6 months and is still trying conservative treatment including oral medication, heat and ice, topicals, physical therapy and at home stretching exercise for longer than 12 weeks that was physician guided. I will refill the patient's baclofen and schedule her for bilateral greater trochanteric bursa injections under fluoroscopy. Patient has been instructed to contact the clinic with any concerns before the next appointment. Dr. Ragsdale has reviewed this note and agrees with this plan of care. This note was dictated using voice recognition software and make contain errors or omissions. All injections are used with Lidocaine, Bupivacaine and Depo Medrol. Occasionally urine drug screen is needed to verify patient's compliance with our office pain contract. This is ordered based off specific treatments related to chronic pain with the potential to abuse certain medications.
[2024-05-31 14:12] VITALS: BP 137/70; PULSE 67; RESP 14; O2SAT 98; BMI 25.9
== END 2024-05-31 23:59 | disposition home or self-care (01) ==
PROVIDERS: PCP Family Medicine; Visit Provider Nurse Practitioner Family
DX: M51.369 Other intervertebral disc degeneration, lumbar region without mention of lumbar back pain or lower extremity pain (principal); M46.1 Sacroiliitis, not elsewhere classified; M70.61 Trochanteric bursitis, right hip; M70.62 Trochanteric bursitis, left hip; Z73.89 Other problems related to life management difficulty
CPT/HCPCS: 99212; G0463

== ENCOUNTER 2024-06-21 08:00 | Outpatient (RCR) | payer MEDICARE, SELFPAY ==
--- NOTE | 2024-06-19 16:10 | HMH.RHREAS ---
Rehab Reassessment Rehab OP Re-assessment Start: 05/29/24 07:47 Freq: Status: Active Protocol: Document 06/19/24 15:45 PHOTRINI (Rec: 06/19/24 16:07 PHORNE [id number]) E-signed By Austyn Florence, PT Oswestry Index Section 1 Pain Intensity The pain comes and goes and is moderate Section 2 Personal Care (Washing,Dresing) increase the pain, but I manage not to change my way of doing it Section 3 Lifting Pain prevents me from lifting weights off the floor Section 4 Walking I cannot walk more than one mile wihtout increasing pain Section 5 Sitting Pain prevents me from sitting for more than one hour Section 6 Standing I cannot stand more than 1/2 hour without increasing pain Section 7 Sleeping I get pain in bed, but it does not prevent me from sleeping well Section 8 Social Life Pain has no significant effect on my social life apart from limiting Section 9 Traveling I get extra pain while traveling, but it does not compel me to seek al Section 10 Changing Degreee of Pain My pain fluctuates, but overall is definitely getting better Score and Risk Level Oswestry Sc 19 Oswestry Risk Level Moderate Disability Rehab Re-assessment Subjective Subjective Pt states she wasn't in too much pain today. She does feel she has gotten better, pain is a little less, notices improved strength and ROM. Scheduled to get bursa injections in a couple weeks. Objective Objective Notes Palpation: 1/4 TTP of L1-S1 SP , 2/4 TTP gluteal mm, greater trochanter Lumbar AROM: 0-55 flex, 0-20 ext, R SB 0-15, L SB 0-20 BLE MMT: 4+/5 grossly with exception of hip adduction and hip flexion 4-/5 Pain: at worst over past 48 hrs 5/10 and increased with standing or walking leg length discrepancy: L LE 17 mm longer than R. Assessment Progress Assessment Progressing as Expected Assessment Notes Pt has shown improvement in overall B LE strength and lumbar spine AROM. However, her overall pain remains above expectations and her Oswestry Disability Index score is relatively unchanged vs most recent reassessment. Pt does continue to feel she is improved over her initial evaluation with overall function, but continues to have increased pain with standing activities. Skilled therapy services remain indicated to continue to decrease pain, increase strength, and aid pt return to PLOF. Patient goals met ST/6 LTG 04/03 Plan Plan Continue per initial POC. Frequency of Therapy 2 x/wk Duration of therapy 4 wks Time and Billing Re-Eval Time 13 Re-Eval Billing Units 0 Charge for PT reassessment? No PHYSICIAN CERTIFICATION: I certify the specified therapy services for Justine Handley are required, authorized, and reviewed every 30 days.
== END 2024-06-21 23:59 | disposition home or self-care (01) ==
LOC: PT 08:00
PROVIDERS: PCP Family Medicine; Visit Provider Nurse Practitioner Family
DX: M54.16 Radiculopathy, lumbar region (principal); M51.369 Other intervertebral disc degeneration, lumbar region without mention of lumbar back pain or lower extremity pain; M46.1 Sacroiliitis, not elsewhere classified
CPT/HCPCS: 97110; 97530

== ENCOUNTER 2024-07-10 08:04 | Day surgery (SDC) | payer MEDICARE, SELFPAY ==
[2024-07-10 08:16] VITALS: BP 145/72; PULSE 62; RESP 16; TEMP 36.6; O2SAT 96; BMI 26.3
[2024-07-10] MEDS: BUPIVACAINE 0.25% 10ML INJ 25 MG IJ (08:45)
[2024-07-10] MEDS: LIDOCAINE 1% 5ML PF VIAL 5 ML (08:46)
[2024-07-10] MEDS: methylPREDNISolone ACETATE 80MG/ML VIAL 80 MG (08:46)
[2024-07-10 08:47] VITALS: BP 137/67; PULSE 69; RESP 18; O2SAT 96
[2024-07-10 08:48] VITALS: BP 137/67; PULSE 71; RESP 18; O2SAT 97
--- NOTE | 2024-07-10 08:53 | P.PCN_ITS ---
Procedure Date: 07/10/24 Time: 08:35 Anesthesiologist:: Ken Avelar CRNA Complications:: None Pre-procedure Diagnosis:: Bilateral trochanteric bursitis Post-procedure Diagnosis:: Same Indications for Procedure:: Patient very pleasant 68-year-old female who comes our clinic today for bilat eral trochanteric bursa injection. Patient describes bilateral lateral hip pain as constant, dull, aching, sharp, stabbing at times. She rates pain 7/10. Procedure Details:: Procedure: Bilateral trochanteric bursa joint injections under fluoroscopy Informed consent was obtained and the risks and benefits of the procedure were explained to the patient.~ The patient was taken to the procedure room and noninvasive monitors were placed including a noninvasive blood pressure cuff and pulse oximeter.~ The patient was placed prone on the procedure table. Both hips were cleansed using Betadine as a cleansing solution. C-arm fluoroscopy was used to view the right trochanteric bursa joint.~ The skin and subcutaneous tissues were anesthetized using lidocaine 1.5% and a 25-gauge needle.~ After this, a 22- gauge spinal needle was inserted under fluoroscopic guidance into the inferior aspect of the right trochanteric bursa.~ Omnipaque dye was injected and good spread was seen throughout the joint.~ After this, approximately 5 mL of bupivacaine, 0.25% and Depo-Medrol, 40 mg was incrementally injected into the right sacroiliac joint. We then moved to the left trochanteric bursa joint.~ The skin and subcutaneous tissues were anesthetized using lidocaine 1.5% and a 25-gauge needle.~ After this, a 22-gauge spinal needle was inserted under fluoroscopic guidance into the inferior aspect of the left trochanteric bursa joint.~ Omnipaque dye was injected and good spread was seen throughout the joint. After this, approximately 5 mL of bupivacaine, 0.25% and Depo-Medrol, 40 mg was incrementally injected into the left sacroiliac joint.~ The patient tolerated the procedure well with no complications. The patient was observed in the Pain Clinic and then was discharged home neurologically intact. Plan and Disposition:: Patient was discharged without incident.
[2024-07-10 08:57] VITALS: BP 131/73; PULSE 67; RESP 16; O2SAT 96
== END 2024-07-10 08:57 | disposition home or self-care (01) ==
PROVIDERS: PCP Family Medicine; Visit Provider Nurse Anesthetist, Certified Registered
DX: M70.61 Trochanteric bursitis, right hip (principal); M70.62 Trochanteric bursitis, left hip
CPT/HCPCS: 20610; 77002; J1010

== ENCOUNTER 2024-07-16 08:00 | Outpatient (RCR) | payer MEDICARE, SELFPAY ==
--- NOTE | 2024-07-16 15:39 | HMH.RHREAS ---
Rehab Reassessment Rehab OP Re-assessment Start: 06/28/24 07:55 Freq: Status: Active Protocol: Document 07/16/24 15:13 PHORNE (Rec: 07/16/24 15:39 PHORNE [id number]) E-signed By Austyn Florence, PT Oswestry Index Section 1 Pain Intensity The pain is mild and does not vary much Section 2 Personal Care (Washing,Dresing) increase the pain, but I manage not to change my way of doing it Section 3 Lifting Pain prevents me from lifting weights off the floor Section 4 Walking I cannot walk more than 1/2 mile without increasing pain Section 5 Sitting Pain prevents me from sitting for more than one hour Section 6 Standing I cannot stand more than 1/2 hour without increasing pain Section 7 Sleeping I get pain in bed, but it does not prevent me from sleeping well Section 8 Social Life My social life is normal but increases the degree of pain Section 9 Traveling I get extra pain while traveling, but it does not compel me to seek al Section 10 Changing Degreee of Pain My pain is neither getting better or worse Score and Risk Level Oswestry Sc 20 Oswestry Risk Level Moderate Disability Rehab Re-assessment Subjective Subjective Pt has been absent from therapy due to vacation and appt unavailability when she returned. Pt reports she had injections again last week and says that her pain is consistently worse. Had improved with therapy prior to the injections but feels like injections have increased pain with most movements. Currently pain is 7/10. I went on a cruise and I actually felt really great the whole time. I didn't have any trouble until I got the injections. I have been in terrible pain since they gave me the injections on the outside of both of my hips. Objective Objective Notes Palpation: 2/4 TTP of L1-S1 SP , 2/4 TTP gluteal mm, B greater trochanter, B quad lumborum Lumbar AROM: 0-40 flex, 0-20 ext, R SB 0-15, L SB 0-15 BLE MMT: 4+/5 grossly with exception of hip adduction and hip flexion 4-/5 Pain: at worst over past 48 hrs 10/10 and increased with standing or walking Assessment Progress Assessment Slower Than Expected Assessment Notes Pt has shown improvement with all symptoms until recently. She presents to the clinic this date with significantly increased c/o pain throughout her low back and B hips. She reports increased palpation tenderness and difficulty with all transfers and ambulation also. She has increased TTP throughout her low back and hips B. She also has decreased AROM vs last reassessment due to increased pain. Skilled therapy services remain indicated to continue to decrease pain, increase strength, and aid pt return to PLOF. Patient goals met ST/6 LTG 04/03 Plan Plan Continue per initial POC. Recommended pt seek MD appointment with pain management or PCP to discuss increased pain since last trochanteric bursae injections . Frequency of Therapy 2 x/wk Duration of therapy 4 wks Time and Billing Re-Eval Time 12 Re-Eval Billing Units 0 Charge for PT reassessment? No PHYSICIAN CERTIFICATION: I certify the specified therapy services for Justine Handley are required, authorized, and reviewed every 30 days.
== END 2024-07-16 23:59 | disposition home or self-care (01) ==
LOC: PT 08:00
PROVIDERS: PCP Family Medicine; Visit Provider Nurse Practitioner Family
DX: M54.16 Radiculopathy, lumbar region (principal); M51.369 Other intervertebral disc degeneration, lumbar region without mention of lumbar back pain or lower extremity pain; M46.1 Sacroiliitis, not elsewhere classified
CPT/HCPCS: 97110; 97530

== ENCOUNTER 2024-07-16 08:40 | Outpatient (RCR) | payer MEDICARE, SELFPAY | END 2024-07-16 23:59 | disposition home or self-care (01) | LOC: PT 08:40 | PROVIDERS: PCP Family Medicine; Visit Provider Family Medicine | DX: M47.812 Spondylosis without myelopathy or radiculopathy, cervical region (principal); M54.2 Cervicalgia | CPT/HCPCS: 97110; 97163 ==

== ENCOUNTER 2024-07-23 08:49 | Outpatient (POV) | payer MEDICARE, SELFPAY ==
--- OUTSIDE RECORDS SUMMARY | 2024-07-23 08:51 | XMS_ITS | Continuity of Care Document ---
Author Organization [facility] Phone Care Team Providers Care Clinical Nursing Instructor Name Role Phone ADILENE SAAVEDRA Primary Attending ADILENE SAAVEDRA Unavailable [phone] ADILENE SAAVEDRA Admitting ADILENE SAAVEDRA Primary Care MEDICATIONS HOME MEDICATIONS Status RXNORM NDC Medication Dose Route Frequency Dates Comments Reported By Updated By Drug Treatment Unknown DISCHARGE MEDICATIONS Status RXNORM NDC Medication Dose Route Frequency Dates Comments Physician Updated By No Discharge Medication Info rmation Available INPATIENT MEDICATIONS Status RXNORM NDC Medication Dose Route Frequency Rat e Quantity Dates Comments Physician Updated By No Inpatient Medication Info rmation Available SOCIAL HISTORY SOCIAL HISTORY SNOMED-CT Social History Element Description Effective Dates Offered Cessation Comment UpdatedBy [id number] Smoking Status Unknown If Ever Smoked SOCIAL HISTORY - Gender Sex: Female SOCIAL HISTORY - Status : status i nformation is not available Intention in Next Year: intention information is not available SOCIAL HISTORY - Sexual Behavior Sexual Orientation Gender Identity SNOMED-CT Description SNO MED -CT Description Activity Level No of Partners Partner Type UpdatedBy Information is not available HEALTH CONCERNS Problems Concern Status Health Concern problem infor mation not available. Smoking Status Status Years Used Consumed packs p er day Health Concern smoking histo ry information not available. Family History Concern Status Health Concern family histor y information not available. ENCOUNTERS ENCOUNTER INFORMATION Reason for Visit Not Specified Admission May 14, 2024 2:13:00 AM [facility] [address] [facility] [address] Discharge May 14, 2024 2:13:00 PM [facility] DISCHARGED TO HOME OR SELF CARE ENCOUNTER DIAGNOSES Notes information is not francia ilable. Code System Diagnosis Onset Date Diagnosis information is not available. ABSTRACT DIAGNOSES Code System Diagnosis Updated By I48.0 ICD10 PAROXYSMAL ATRIAL FIBRILLATI ON [id number] on May 17, 2024 5:16:20 AM UT G47.33 ICD10 OBSTRUCTIVE SLEE P APNEA (ADULT) (PEDIATRIC) [id number] on May 17, 2024 5:16:20 AM UTC G47.10 ICD10 HYPERSOMNIA, UNSPECIFIED ILX 3573 on May 17, 2024 5:16:20 AM UT I10 ICD10 ESSENTIAL (PRIMARY) HYPERTEN DUSTY [id number] on May 17, 2024 5:16:20 AM UT I48.0 ICD10 PAROXYSMAL ATRIAL FIBRILLATI ON [id number] on May 17, 2024 5:16:20 AM UT G47.33 ICD10 OBSTRUCTIVE SLEE P APNEA (ADULT) (PEDIATRIC) [id number] on May 17, 2024 5:16:20 AM UT G47.10 ICD10 HYPERSOMNIA, UNSPECIFIED ILX 3573 on May 17, 2024 5:16:20 AM [facility] CARE TEAM Care Clinical Nursing Instructor Role ADILENE SAAVEDRA Primary Attending ADILENE SAAVEDRA Referring ADILENE SAAVEDRA Admitting ADILENE SAAVEDRA Primary Care CARE TEAM CARE filenet p8 developer Role on Team Status Start Date End Date Update d By KERI Boudreaux APRN PCP normal May 03, 2024 4:31:59 PM [facility] May 14, 2024 2:13:00 PM [facility] [id number] on May 03, 2024 4:31:59 PM [facility] KERI Boudreaux APRN Referring normal May 03, 2024 4:31:59 PM [facility] May 14, 2024 2:13:00 PM [facility] [id number] on May 03, 2024 4:31:59 PM [facility] KERI Boudreaux APRN Attending normal May 03, 2024 4:31:59 PM [facility] May 14, 2024 2:13:00 PM [facility] [id number] on May 03, 2024 4:31:59 PM [facility] KERI Boudreaux APRN Admitting normal May 03, 2024 4:31:59 PM [facility] May 14, 2024 2:13:00 PM [facility] [id number] on May 03, 2024 4:31:59 PM [facility]
--- OUTSIDE RECORDS SUMMARY | 2024-07-23 08:51 | XMS_ITS | Data Portability ---
Author Organization [facility] Address [address] [place] [address] Care Team Providers Care Senior Product Analyst Name Role Phone LAURA LUDWIG Referring Provider [phone] Assessment No assessment recorded. Plan of Treatment Reminders Order Date Submit Date Provider Last Modified By Organization Details Last Modified Time Details Appointments None recorded. Lab None recorded. Referral None recorded. Procedures None recorded. Surgeries None recorded. Imaging None recorded. Medication Orders Neurontin 300 mg capsule 2017 018 gphillips 15 [facility] 591, [address], [address], 8 16:04:15 Patient TargetsNo targets recorded. Patient Instructions Encounter Date Encounter Id Patient Instructions Last Modified By Organization Details Last Modified Time 07/27/2017 [id number] Spent {{20# }} total minutes with the patient today in counseling regarding information documented in my assessment and plan above. The time represents more than 50% of the encounter. [email or web address] Not available 07/27/2017 16:03:05 11/08/2017 [id number] Spent {{10# }} total minutes with the patient today. Greater than 50% of this time was spent counseling/coordi nation of care as documented in my assessment and plan above. [email or web address] Not available 11/08/2017 11:25:24 Reason for Referral None Reported. Problems Name Problem SNOMED Code Status Onset Date Resolution Date Notes Provider Name and Address Organization Details Recorded Time Neck pain [id number] Active 016 Status: Active Not Available [facility] 02/24/2016 04:49:53 Problem Notes None recorded. Procedures Surgical History Date Name Laterality Status Provider Name and Address Organization Details Recorded Time 4 Neck Surgery completed [place] [facility] 07/27/2017 14:59:12 Imaging Results None recorded. Procedure Notes None recorded. Medical Equipment None Reported. Allergies Allergen ID Allergen Name Allergen Category Reaction Reaction Severity Criticality Documentation Date Start Date Code Code System Note Provider Name and Address Organization Details Recorded Time 712563 Product containin g penicilli n (product) medicatio n Not available Not available Not available 02/19/20162006 29205 8001 SNOMED Comme nt: Creat ed By: Bernard petersen; Creat ed Date: 2006 2:20: 21 PM; Not Available [facility] 6 13:31:21 645019 morphine sulfate medicatio n Not available Not available Not available 02/19/20162006 01680 RxNorm Comme nt: Creat ed By: Bernard petersen; Creat ed Date: 2006 2:21: 02 PM; Not Available [facility] 6 13:31:21 003810 codeine medicatio n Not available Not available Not available 02/19/20162006 2670 RxNorm Comme nt: irreg ular heart beat; Creat ed By: Bernard petersen; Creat ed Date: 2006 2:20: 10 PM; Not Available [facility] 6 13:58:58 813444 Demerol medicatio n Not available Not available Not available 02/19/20162006 69133 1 RxNorm Comme nt: irreg ular heart beat; Creat ed By: Bernard petersen; Creat ed Date: 2006 2:20: 29 PM; Not Available [facility] 6 13:58:58 996743 Iodinated contrast media (substanc e) medicatio n rash moderate Not available 02/19/20162007 99921 2004 SNOMED React ion: RASH; Sever ity: Moder ate; Comme nt: Hot feeli ng all over her body- react ion to gadil lium (MRI contr ast); Creat ed By: Bernard kaur;Cre ated Date: 008 1:14: 36 PM; Not Available [facility] 6 13:58:58 Medications Name Sig Start Date Stop Date Status Note LastModified by Organization Details LastModified Time cyclobenza janie 10 mg tablet active Not Available Not Available No t Available promethazi ne-DM 6.25 mg-15 mg/5 mL oral syrup active Not Available Not Available Not Available tizanidine 2 mg tablet active Not Available Not Available Not Available atorvastat in 10 mg tablet active Not Available Not Available Not Available azithromyc in 250 mg tablet active Not Available Not Available Not Available ondansetro n HCl 4 mg tablet active Not Available Not Available Not Available potassium chloride ER 10 mEq tablet,ext ended release active Not Available Not Available Not Available bisoprolol fumarate 5 mg tablet active Not Available Not Available No t Available K-Efferves cent 25 mEq tablet active Not Available Not Available N ot Available alprazolam 0.5 mg tablet Daily active Not Available Not Available Not Available hydromorph one 2 mg tablet active Not Available Not Available Not Available esomeprazo le magnesium 40 mg capsule,de layed release active Not Available Not Available Not Available ranitidine 150 mg tablet active Not Available Not Available Not Available Betty-D 12 Hour 60 mg-120 mg tablet,ext ended release active Medicatio n Descripti on: fexofenad ine-pseud oephedrin e; Dosage:as directed; Route:ora l; refills:0 Not Available Not Available Not Available Hyzaar 50 mg-12.5 mg tablet Daily active Frequency : daily;Med ication Descripti on: hydrochlo rothiazid e-losarta n; Dosage:1; Route:ora l; refills:0 ; Quantity: 30 tablet Not Available Not Available Not Available Advair Diskus 250 mcg-50 mcg/dose powder for inhalation As Directed active Duration: 30 days;Freq uency: as direct.;M edication Descripti on: fluticaso ne-salmet omar; Dosage:as directed; Route:inh alation; refills:0 ; Quantity: 1 powder Not Available Not Available Not Available gabapentin 300 mg capsule Take one tab daily at bedtime ? 5 days then increased to twice a day if tolerates active Not Available Not Available No t Available montelukas t 10 mg tablet active Not Available Not Available Not Available zolpidem 10 mg tablet Bedtime active Not Available Not Available Not Available methylpred nisolone 4 mg tablets in a dose pack active Not Available Not Available Not Available losartan 100 mg tablet active Not Available Not Available Not Available Premarin 0.625 mg tablet active Not Available Not Available Not Available rosuvastat in 5 mg tablet active Not Available Not Available Not Available Wellbutrin XL 150 mg 24 hr tablet, extended release Daily active Duration: 30 days;Freq uency: daily;Med ication Descripti on: bupropion ; Dosage:1; Route:ora l; refills:0 ; Quantity: 30 tablet, extended release Not Available Not Available Not Available Wellbutrin XL 300 mg 24 hr tablet, extended release As Directed active Duration: 30 days;Freq uency: as direct.;M edication Descripti on: bupropion ; Dosage:as directed; Route:ora l; refills:0 ; Quantity: 30 tablet, extended release Not Available Not Available Not Available Mucinex DM 30 mg-600 mg tablet,ext ended release 12 hr As Directed active Frequency : as direct.;M edication Descripti on: dextromet horphan-g uaifenesi n; Dosage:as directed; Route:ora l; refills:0 Not Available Not Available Not Available losartan 100 mg-hydroch lorothiazi de 12.5 mg tablet active Not Available Not Available Not Available calcium active Medicatio n Descripti on: calcium carbonate ; Route:ora l; refills:0 Not Available Not Available Not Available Ranexa 500 mg tablet,ext ended release active Not Available Not Available Not Available ProAir HFA 90 mcg/actuat ion aerosol inhaler active Not Available Not Available Not Available Symbicort 160 mcg-4.5 mcg/actuat ion HFA aerosol inhaler active Not Available Not Available Not Available Edarbyclor 40 mg-25 mg tablet active Not Available Not Available No t Available QNASL 80 mcg/actuat ion nasal aerosol spray active Not Available Not Available Not Available Fetzima 40 mg capsule,ex tended release active Medicatio n Descripti on: levomilna cipran; Dosage:as directed; Route:ora l; refills:0 Not Available Not Available Not Available Procto-Med HC 2.5 % topical cream perineal applicator active Not Available Not Available N ot Available Vitals Date Recorded Body height Body mass index (BMI) Body weight Systolic blood pressure Diastolic blood pressure Provider Name and Address Organization Details Last Updated DateTime 07/27/2017 170.18 cm 25.4 kg/m2 10927.96 g 150 mm[Hg] 70 mm[Hg] [place] [facility] 8 14:57:32 Date Recorded Body height Body mass index (BMI) Body weight Heart rate Systolic blood pressure Diastolic blood pressure Provider Name and Address Organization Details Last Updated DateTime 8 170.18 cm 25.1 kg/m2 42704.7 8 g 75 /min 152 mm[Hg] 87 mm[Hg] Isabelle Alford [facility] 8 10:57:31 Social History None recorded. Functional Status None recorded. Mental Status None recorded. Family History Nothing Reported. Medical History Condition Response Sleep Apnea Y High Cholesterol Y Heart Attack (DE) Y Cancer Y Hypertension Y Asthma Y Gynecological HistoryNo gynecological history recorded. Obstetrics History GPAL:G 0 P 0 0 0 0 Past Encounters Encounter ID Performer Location Encounter Start Date Encounter Closed Date Diagnosis/Indication Diagnosis SNOMED-CT Code Diagnosis ICD10 Code Diagnosis Note [id number] AVNI DURHAM MD NEUROSURG [facility] [address] [place] [address] 07/27/2017 14:09:31 07/28/2017 10:55:17 Lumbosacral spondylosis with radiculopathy [id number] M47.27 -The MRI was reviewed. CD-ROM. Mild lumbar spondylosi s. Degenerati ve disc disease L4-5. Foraminal stenosis mild to moderate left L5-S1. My interpreta tion of the MRI was shared with the patient. I think she will benefit from further conservati ve measures. She does not show enthusiasm for epidural injections . We will reinitiate physical therapy. Trial of gabapentin . Educated about the side effects. Plan to see her back in 3-4 months to reassess her progress. Could consider a foraminoto my at L5-S1 in the future she had refractory symptoms. Obviously, could also consider referral for injections as well. [id number] [facility] [address] [place] [address] 11/08/2017 10:38:33 11/09/2017 07:20:40 Lumbosacral spondylosis without myelopathy [id number] M47.817 -The patient has responded well to conservati ve measures. She may continue therapy in the future as her symptoms dictate. At this point, no role for neurosurgi gissel interventi on. We will release her from our care. Thank you again Dr. Ludwig for this referral. Please contact us if we can be of further assistance in this patient's care. Health Concerns Section Related Observation LastModified by Organization Detai ls LastModified Time None Recorded Concern Status LastModified by Organization Details LastModified Time None Recorded Advance Directives Directive None Recorded Payers Encounter Date Sequence Insurance Name Policy Number Policy Zavala Covered Member ID Zavala Member ID Guarantor Name 07/27/2017 1 [place] [id number] Justine Handley [id number] Justine Handley 11/08/2017 1 [place] [id number] Justine Emmanuelle [id number] Justine Emmanuelle Notes Date Note Type Note Provider Name and Address Organization Details Recorded Time 07/27/2017 text/html The patient presents for evaluation of her low back issues. She is known to our clinic because she underwent a ACDF with success in January 2014. She presents with a constellation of low back as well as lumbar radicular symptoms. She has referred pain into the left leg which is present at all times are worse with standing or walking. She will also have referred pain to the right leg which is worse with standing or walking. Left seems to be greater than the right side. She underwent a treatment of physical therapy in February without lasting relief. She does walk on the treadmill 4 times a week. Currently taking Advil 600 800 mg 4 times a day to combat her pain. No lasting relief with the previous modalities. She has not had injections in the past but does not express enthusiasm for this treatment option. AVNI DURHAM MD [facility] [place], [address], [facility] 07/27/2017 16:04:23 11/08/2017 text/html Routine visit. T he patient has lumbar spondylosis at the time of her last visit, she was having an aggravation symptoms. We sent her to physical therapy. The patient states that she has improved. She thought that lumbar traction provided the most amount of relief. Small episode last weekend with transient numbness in the left leg that has resolved. Overall she is doing well today. AVNI DURHAM MD [address] [place], [address], [facility] 11/08/2017 11:25:56 OBGyn Episode No OBEpisode recorded.
[2024-07-23 08:59] VITALS: BP 100/59; PULSE 66; RESP 18; O2SAT 98; BMI 25.8
--- NOTE | 2024-07-23 09:08 | EXP.PAIN.SOA ---
[facility] Disclaimer: The information contained in this section may have been updated after the patient was seen, as this information can be updated by other users. Medical History Abnormal electrocardiogram [ECG] [EKG] Cancer Depression Anxiety History of gastroesophageal reflux (GERD) Diabetes mellitus, type 2 She has lost 20 pounds working on lifestyle modification and most recent A1c hemoglobin 5.6. Random glucose level 99. Asthma History of heart attack Hypertension Hx of pancreatitis Nausea Dyspnea Stable angina pectoris Obstructive sleep apnea syndrome History of mild ISABELL previously treated with CPAP. She quit using the CPAP following Tiv[employer] recall. Since then she has lost 20 pounds. Gastroesophageal reflux disease Hyperlipidemia Hypertensive heart disease Surgical History S/P cervical spinal fusion History of mastectomy LIMB ALERT LT ARM History of hysterectomy History of cholecystectomy Family History Father Family history of [place] (myocardial infarction) Grandmother Family history of [place] (myocardial infarction) Mother Family history of breast cancer Family/Other Family history of lung cancer Family/Other Family history of kidney cancer Social History Smoking Status: Never smoker alcohol intake: never substance use type: denies use current occupational status: other Travel in the last 8 weeks: None household members: spouse housing: house current occupational exposures/hazards: No PM Subjective & Objective Subjective Subjective:: Patient is a pleasant 68-year-old female who presents today for follow-up of bilateral bursa injections on 07/10/2024. Patient rates her pain today a 3 out of 10. She does state that the right hip was very painful for this procedure and it did take about 3 days for that to go away before she really noticed significant improvement. Patient does state at least 80% improvement overall. She states she does still have a little bit of pain on the left hip but it is manageable. Patient states that she was able to even go to a music concert here recently and sit on bleachers for hours and it was much more bearable and got to enjoy the show. Patient does state that she is excited to be going on a upcoming trip to [place] with her daughter and that she would never have attempted this vacation with the pain she had previously been in. Patient does also state that physical therapy does seem to be helping. She denies any other changes. Patient has been prescribed compounded cream from our office in the past however did not notice significant relief. Patient is currently managed with baclofen 5 mg 3 times a day from our office. She only uses this as needed and states she does not need refills today. Her Benjamin has been reviewed and is appropriate. Review of Systems: General: No recent weight changes, no fever, no sleep disturbances Respiratory: No cough, no shortness of air, no recurring pulmonary infections Cardiovascular/peripheral vascular: No chest pain, no palpitations, no edema, no shortness of breath Gastrointestinal: No new onset incontinence, normal bowel movements reported Genitourinary: No new onset incontinence Musculoskeletal: Left hip pain Psychiatric: [Normal mood/affect] Neurological: [Denies weakness in extremities], [denies balance issues] Pain at rest (0-10 scale): 3 Objective Objective:: Physical Exam: General: Alert and oriented x3, no acute distress, pleasant and cooperative Lungs: Respirations even and unlabored, symmetrical chest expansion Eyes: PERRL Musculoskeletal: Flexion and extension of lumbar [spine] within normal limits Neurological: Speech clear, no gross sensory deficit Has patient had previous pain injection?: Yes Percent improvement in pain since last injection: 80% Conservative treatment options previously tried: Home exercise plan Length of treatment: Longer than 12 weeks and Physical Therapy Length of treatment: Ongoing Meds Home Medications and Allergies Home Medications ?Medication ?Instructions ?Recorded ?Confirmed ?Type alprazolam 0.5 mg tablet 0.5 mg PO TID 01/16/24 07/23/24 History carvedilol 12.5 mg tablet 12.5 mg PO BID 01/16/24 07/23/24 History celecoxib 200 mg capsule 200 mg PO DAILY 01/16/24 07/23/24 History esomeprazole magnesium 40 mg 80 mg PO AM 01/16/24 07/23/24 History capsule,delayed release estradiol 1 mg tablet 1 mg PO DAILY 01/16/24 07/23/24 History famotidine 40 mg tablet 40 mg PO DAILY 01/16/24 07/23/24 History gabapentin 300 mg capsule 300 mg PO DAILY 01/16/24 07/23/24 History metformin 500 mg tablet,extended 500 mg PO DAILY 01/16/24 07/23/24 History release 24 hr montelukast 10 mg tablet 10 mg PO DAILY 01/16/24 07/23/24 History olmesartan 40 1 tab PO DAILY 01/16/24 07/23/24 History mg-hydrochlorothiazide 25 mg tablet semaglutide 0.25 mg or 0.5 mg (2 0.25 mg SQ WEEKLY 01/16/24 07/23/24 History mg/3 mL) subcutaneous pen injector (Ozempic) warfarin 5 mg tablet 5 mg PO HS 01/16/24 07/23/24 History zolpidem 10 mg tablet 10 mg PO HS 01/16/24 07/23/24 History baclofen 5 mg tablet 5 mg PO TID #90 tabs 05/31/24 07/23/24 Rx New Prescriptions to Start Prescriptions: Allergies Allergy/AdvReac Type Severity Reaction Status Date / Time oxycodone (From PERCOCET) Allergy Severe IRREGULAR Verified 07/09/24 08:32 HEARTBEAT codeine Allergy Intermediate I-ITCHING, Verified 07/09/24 08:32 NAUSEA, FAST HEART RATE hydrocodone Allergy Intermediate I-ITCHING, Verified 07/09/24 08:32 NAUSEA, FAST HEART RATE ketorolac Allergy Intermediate I-ITCHING, Verified 07/09/24 08:32 NAUSEA, FAST HEART RATE meperidine (From Demerol) Allergy Intermediate I-ITCHING, Verified 07/09/24 08:32 NAUSEA, FAST HEART RATE morphine Allergy Intermediate I-ITCHING, Verified 07/09/24 08:32 NAUSEA, FAST HEART RATE Penicillins Allergy Intermediate I-ITCHING, Verified 07/09/24 08:32 NAUSEA, FAST HEART RATE flecainide Allergy Mild facial Verified 07/09/24 08:32 itching sotalol AdvReac Mild high BP Verified 07/09/24 08:32 Assessment and Plan *Assessment and plan (1) Greater trochanteric bursitis of both hips: Status: Acute Category: Medical Code(s): M70.61 - Trochanteric bursitis, right hip; M70.62 - Trochanteric bursitis, left hip Plan Patient has had significant improvement following her bursa injections and does not require any additional injection therapy at this time. Patient will return to clinic in 6 weeks for reevaluation of symptoms and plan of care. Patient has been instructed to contact the clinic with any concerns before the next appointment. Dr. Ragsdale has reviewed this note and agrees with this plan of care. This note was dictated using voice recognition software and make contain errors or omissions. All injections are used with Lidocaine, Bupivacaine and dexamethasone. Occasionally urine drug screen is needed to verify patient's compliance with our office pain contract. This is ordered based off specific treatments related to chronic pain with the potential to abuse certain medications.
== END 2024-07-23 23:59 | disposition home or self-care (01) ==
LOC: SC.PAIN 08:50
PROVIDERS: PCP Family Medicine; Visit Provider Nurse Practitioner Family
DX: M70.61 Trochanteric bursitis, right hip (principal); M70.62 Trochanteric bursitis, left hip
CPT/HCPCS: 99212; G0463

== ENCOUNTER 2024-08-21 08:00 | Outpatient (RCR) | payer MEDICARE, SELFPAY ==
--- NOTE | 2024-08-16 09:38 | HMH.RHREAS ---
Rehab Reassessment Rehab OP Re-assessment Start: 07/26/24 08:57 Freq: Status: Active Protocol: Document 08/16/24 08:07 NARCISO (Rec: 08/16/24 09:38 PHORNE [id number]) E-signed By Austyn Florence, PT Oswestry Index Section 1 Pain Intensity The pain comes and goes and is moderate Section 2 Personal Care (Washing,Dresing) increase the pain and I find it necessary to change my way of doing it Section 3 Lifting Pain prevents me from lifting weights off the floor Section 4 Walking I cannot walk more than one mile wihtout increasing pain Section 5 Sitting Pain prevents me from sitting for more than one hour Section 6 Standing I cannot stand more than 1 hour without increasing pain Section 7 Sleeping Because of my pain, my normal night's sleep is less than 6 hours sleep Section 8 Social Life Pain has restricted my social life and I do not go out often Section 9 Traveling I get extra pain while traveling, but it does not compel me to seek al Section 10 Changing Degreee of Pain My pain is neither getting better or worse Score and Risk Level Oswestry Sc 23 Oswestry Risk Level Moderate Disability Rehab Re-assessment Subjective Subjective Pt reports increased pain this date and for the past week due to a new fall. She states, I was on a trip with my daughter and I fell out of the shower. I didn't get my back checked out because I also hit my head and that was much more of a concern at the time. I was doing a lot better overall, but now my back is hurting worse after that fall. She reports pain 5/10 this date and 7/10 at worst over the past 48 hrs. Objective Objective Notes Palpation: 2/4 TTP of L1-S1 SP , 2/4 TTP gluteal mm, 3/4 B SI jt. Lumbar AROM: 0-35 flex, 0-20 ext, R SB 0-15, L SB 0-10 BLE MMT: 4+/5 grossly with exception of hip adduction and hip flexion 4-/5 Pain: at worst over past 48 hrs 7/10 and increased with standing or walking Posture: Pt presents with decreased wt bearing on the L LE in standing due to increased pain. Assessment Progress Assessment Slower Than Expected Assessment Notes Pt was showing improvement in all symptoms with her low back pain until her recent fall. In the absence of new work-up, it is uncertain if her current symptoms are a continuation/worsening of previous condition or a new diagnosis. At this time it is determined that the best course of action would be for pt to receive new work-up in light of a new onset of acute symptoms due to the fall. Pt was educated on this topic and agreeable to seek a further work-up from a provider to ensure no new injury has occurred. Patient goals met ST/6 LTG 04/03 Plan Plan Will discharge pt from therapy services at this time and anticipate a new consult for treatment as necessary based on new work-uo of acute issues . Frequency of Therapy 0 Duration of therapy 0 Time and Billing Re-Eval Time 12 Re-Eval Billing Units 0 Charge for PT reassessment? No PHYSICIAN CERTIFICATION: I certify the specified therapy services for Justine Handley are required, authorized, and reviewed every 30 days.
== END 2024-08-21 23:59 | disposition home or self-care (01) ==
LOC: PT 08:00
PROVIDERS: PCP Family Medicine; Visit Provider Nurse Practitioner Family
DX: M54.16 Radiculopathy, lumbar region (principal); M51.369 Other intervertebral disc degeneration, lumbar region without mention of lumbar back pain or lower extremity pain; M46.1 Sacroiliitis, not elsewhere classified
CPT/HCPCS: 97110; 97530

== ENCOUNTER 2024-08-21 08:00 | Outpatient (RCR) | payer MEDICARE, SELFPAY | END 2024-08-21 23:59 | disposition home or self-care (01) | LOC: PT 08:00 | PROVIDERS: PCP Family Medicine; Visit Provider Family Medicine | DX: M47.812 Spondylosis without myelopathy or radiculopathy, cervical region (principal) | CPT/HCPCS: 97035; 97110 ==

== ENCOUNTER 2024-09-03 08:45 | Outpatient (POV) | payer MEDICARE, SELFPAY ==
--- NOTE | 2024-09-03 08:49 | EXP.PAIN.SOA ---
[facility] Disclaimer: The information contained in this section may have been updated after the patient was seen, as this information can be updated by other users. Medical History Abnormal electrocardiogram [ECG] [EKG] Cancer Depression Anxiety History of gastroesophageal reflux (GERD) Diabetes mellitus, type 2 She has lost 20 pounds working on lifestyle modification and most recent A1c hemoglobin 5.6. Random glucose level 99. Asthma History of heart attack Hypertension Hx of pancreatitis Nausea Dyspnea Stable angina pectoris Obstructive sleep apnea syndrome History of mild ISABELL previously treated with CPAP. She quit using the CPAP following [employer]IK[employer] recall. Since then she has lost 20 pounds. Gastroesophageal reflux disease Hyperlipidemia Hypertensive heart disease Surgical History S/P cervical spinal fusion History of mastectomy LIMB ALERT LT ARM History of hysterectomy History of cholecystectomy Family History Father Family history of [place] (myocardial infarction) Grandmother Family history of [place] (myocardial infarction) Mother Family history of breast cancer Family/Other Family history of lung cancer Family/Other Family history of kidney cancer Social History Smoking Status: Never smoker alcohol intake: never substance use type: denies use current occupational status: other Travel in the last 8 weeks?: None household members: spouse housing: house current occupational exposures/hazards: No Have you lived/traveled outside [place] in past 30 days?: No Contact w/someone who lives/traveled outside [place] past 30 days?: No Exposure to someone with infectious disease in past 14 days?: No Do you have a fever (greater than 100.4 F or 38 C)?: No Have you tested positive for COVID-19?: No Exposed to someone with COVID-19 in past 14 days?: No Do you have a sore throat?: No Do you have a cough?: No Do you have any weakness?: No Do you have any diarrhea?: No Are you experiencing any unusual bleeding?: No Do you have any muscle aches/pain?: No Do you have any abdominal pain?: No Are you experiencing loss of taste or smell?: No PM Subjective & Objective Subjective Subjective:: Patient is a pleasant 68-year-old female who presents today for follow-up. Today she rates her pain a 4 out of 10. She did state that she did end up going to [place] with her daughter but ended up being a fall where she fell out of the shower hitting her hips and her head. Patient states she had a lot of soreness. She does state when she returned back she was still seeing physical therapy however due to the fact of having increased pain at that time they ended up dismissing her feeling like she was not getting improvement. Patient does state today that she would like to try this again as she felt like she was having improvement and this was an isolated event related to her fall for the worsening pain. Patient does states she still has the chronic low back pain and into her hips. Patient had her last bilateral bursa injections in June that did provide 80% relief patient is prescribed compound cream and baclofen 5 mg 3 times a day from our office. She denies any side effects. She does state that she is scheduled for a procedure coming up on October 16 to have a Watchman device placed. Patient had been diagnosed with A-fib and had ablation but was trying to prevent having to be put on blood thinners. Her Benjamin has been reviewed and is appropriate. Injections: 07/10/2024 bilateral bursa injections 80% 05/18/2024 bilateral SI injections 80 to 90% Review of Systems: General: No recent weight changes, no fever, no sleep disturbances Respiratory: No cough, no shortness of air, no recurring pulmonary infections Cardiovascular/peripheral vascular: No chest pain, no palpitations, no edema, no shortness of breath Gastrointestinal: No new onset incontinence, normal bowel movements reported Genitourinary: No new onset incontinence Musculoskeletal: Low back pain Psychiatric: [Normal mood/affect] Neurological: [Denies weakness in extremities], [denies balance issues] Pain at rest (0-10 scale): 4 Objective Objective:: Physical Exam: General: Alert and oriented x3, no acute distress, pleasant and cooperative Lungs: Respirations even and unlabored, symmetrical chest expansion Eyes: PERRL Musculoskeletal: Flexion and extension of lumbar [spine] somewhat guarded secondary to pain, [antalgic gait noted] Neurological: Speech clear, no gross sensory deficit Has patient had previous pain injection?: No Conservative treatment options previously tried: Home exercise plan Length of treatment: Longer than 12 weeks and Physical Therapy Length of treatment: Completed the requesting additional visits Meds Home Medications and Allergies Home Medications ?Medication ?Instructions ?Recorded ?Confirmed ?Type alprazolam 0.5 mg tablet 0.5 mg PO TID 01/16/24 07/23/24 History carvedilol 12.5 mg tablet 12.5 mg PO BID 01/16/24 07/23/24 History celecoxib 200 mg capsule 200 mg PO DAILY 01/16/24 07/23/24 History esomeprazole magnesium 40 mg 80 mg PO AM 01/16/24 07/23/24 History capsule,delayed release estradiol 1 mg tablet 1 mg PO DAILY 01/16/24 07/23/24 History famotidine 40 mg tablet 40 mg PO DAILY 01/16/24 07/23/24 History gabapentin 300 mg capsule 300 mg PO DAILY 01/16/24 07/23/24 History metformin 500 mg tablet,extended 500 mg PO DAILY 01/16/24 07/23/24 History release 24 hr montelukast 10 mg tablet 10 mg PO DAILY 01/16/24 07/23/24 History olmesartan 40 1 tab PO DAILY 01/16/24 07/23/24 History mg-hydrochlorothiazide 25 mg tablet semaglutide 0.25 mg or 0.5 mg (2 0.25 mg SQ WEEKLY 01/16/24 07/23/24 History mg/3 mL) subcutaneous pen injector (Ozempic) warfarin 5 mg tablet 5 mg PO HS 01/16/24 07/23/24 History zolpidem 10 mg tablet 10 mg PO HS 01/16/24 07/23/24 History baclofen 5 mg tablet 5 mg PO TID #90 tabs 05/31/24 07/23/24 Rx New Prescriptions to Start Prescriptions: Allergies Allergy/AdvReac Type Severity Reaction Status Date / Time oxycodone (From PERCOCET) Allergy Severe IRREGULAR Verified 07/09/24 08:32 HEARTBEAT codeine Allergy Intermediate I-ITCHING, Verified 07/09/24 08:32 NAUSEA, FAST HEART RATE hydrocodone Allergy Intermediate I-ITCHING, Verified 07/09/24 08:32 NAUSEA, FAST HEART RATE ketorolac Allergy Intermediate I-ITCHING, Verified 07/09/24 08:32 NAUSEA, FAST HEART RATE meperidine (From Demerol) Allergy Intermediate I-ITCHING, Verified 07/09/24 08:32 NAUSEA, FAST HEART RATE morphine Allergy Intermediate I-ITCHING, Verified 07/09/24 08:32 NAUSEA, FAST HEART RATE Penicillins Allergy Intermediate I-ITCHING, Verified 07/09/24 08:32 NAUSEA, FAST HEART RATE flecainide Allergy Mild facial Verified 07/09/24 08:32 itching sotalol AdvReac Mild high BP Verified 07/09/24 08:32 Assessment and Plan *Assessment and plan (1) Degenerative disc disease, lumbar: Status: Acute Category: Medical Code(s): M51.369 - Other intervertebral disc degeneration, lumbar region without mention of lumbar back pain or lower extremity pain (2) Greater trochanteric bursitis of both hips: Status: Acute Category: Medical Code(s): M70.61 - Trochanteric bursitis, right hip; M70.62 - Trochanteric bursitis, left hip (3) Bilateral sacroiliitis: Status: Acute Category: Medical Code(s): M46.1 - Sacroiliitis, not elsewhere classified Plan I did discuss with the patient related to her upcoming heart procedure that we will wait until after she has this done before Trying for possible additional injections. I will send in refills on her muscle relaxer and provide a 2-month prescription. I will also put in for a new order of physical therapy. Patient will return to clinic in 2 months for reevaluation of symptoms and plan of care. patient has been instructed to contact the clinic with any concerns before the next appointment. Dr. Ragsdale has reviewed this note and agrees with this plan of care. This note was dictated using voice recognition software and make contain errors or omissions. All injections are used with Lidocaine, Bupivacaine and dexamethasone. Occasionally urine drug screen is needed to verify patient's compliance with our office pain contract. This is ordered based off specific treatments related to chronic pain with the potential to abuse certain medications.
--- OUTSIDE RECORDS SUMMARY | 2024-09-03 08:50 | XMS_ITS | Data Portability ---
Author Organization [facility] SONG Crowell [place] [facility] Address [address] [facility] [address] [place] [address] Care Team Providers Care Consumer Marketing Analyst Name Role Phone LAURA LUDWIG Referring Provider [phone] Assessment No assessment recorded. Plan of Treatment Reminders Order Date Submit Date Provider Last Modified By Organization Details Last Modified Time Details Appointments None recorded. Lab None recorded. Referral None recorded. Procedures None recorded. Surgeries None recorded. Imaging None recorded. Medication Orders Neurontin 300 mg capsule [address] [facility] 591, [address], [address], 8 16:04:15 Patient TargetsNo targets recorded. Patient Instructions Encounter Date Encounter Id Patient Instructions Last Modified By Organization Details Last Modified Time 07/27/2017 [id number] Spent 20# total minutes with the patient today in counseling regarding information documented in my assessment and plan above. The time represents more than 50% of the encounter. Not available 07/27/2017 16:03:05 11/08/2017 [id number] Spent 10# total minutes with the patient today. Greater than 50% of this time was spent counseling/coordi nation of care as documented in my assessment and plan above. [email or web address] Not available 11/08/2017 11:25:24 Reason for Referral None Reported. Problems Name Problem SNOMED Code Status Onset Date Resolution Date Notes Provider Name and Address Organization Details Recorded Time Neck pain 15020233 Active 016 Status: Active Not Available [facility] 02/24/2016 04:49:53 Problem Notes None recorded. Procedures Surgical History Date Name Laterality Status Provider Name and Address Organization Details Recorded Time 4 Neck Surgery completed Nelly Spencer [facility] 07/27/2017 14:59:12 Imaging Results None recorded. Procedure Notes None recorded. Medical Equipment None Reported. Allergies Allergen ID Allergen Name Allergen Category Reaction Reaction Severity Criticality Documentation Date Start Date Code Code System Note Provider Name and Address Organization Details Recorded Time 373369 Product containin g penicilli n (product) medicatio n Not available Not available Not available 02/19/20162006 69232 8001 SNOMED Comme nt: Creat ed By: Beranrd petersen; Creat ed Date: 2006 2:20: 21 PM; Not Available [facility] 6 13:31:21 415551 morphine sulfate medicatio n Not available Not available Not available 02/19/20162006 10021 RxNorm Comme nt: Creat ed By: Bernard petersen; Creat ed Date: 2006 2:21: 02 PM; Not Available [facility] 6 13:31:21 804062 codeine medicatio n Not available Not available Not available 02/19/20162006 2670 RxNorm Comme nt: irreg ular heart beat; Creat ed By: Bernard petersen; Creat ed Date: 2006 2:20: 10 PM; Not Available [facility] 6 13:58:58 368141 Demerol medicatio n Not available Not available Not available 02/19/20162006 82669 1 RxNorm Comme nt: irreg ular heart beat; Creat ed By: Bernard petersen; Creat ed Date: 2006 2:20: 29 PM; Not Available [facility] 6 13:58:58 742566 Iodinated contrast media (substanc e) medicatio n rash moderate Not available 02/19/20162007 63257 2004 SNOMED React ion: RASH; Sever ity: Moder ate; Comme nt: Hot feeli ng all over her body- react ion to gadil lium (MRI contr ast); Creat ed By: Carte r Madelaine l;Cre ated Date: 008 1:14: 36 PM; Not Available [facility] 6 13:58:58 Medications Name Sig Start Date [...] capsule Take one tab daily at bedtime 5 days then increased to twice a [...] Updated DateTime 07/27/2017 170.18 cm 25.4 kg/m2 20465.96 g 150 mm[Hg] 70 mm[Hg] Nelly Bay [facility] 8 14:57:32 Date Recorded Body height Body mass index (BMI) Body weight Heart rate Systolic blood pressure Diastolic blood pressure Provider Name and Address Organization Details Last Updated DateTime 8 170.18 cm 25.1 kg/m2 79518.7 8 g 75 /min 152 mm[Hg] 87 mm[Hg] Isabelle Alford [facility] 8 10:57:31 Social History None recorded. Functional Status None recorded. Mental Status None recorded. Family History Nothing Reported. Medical History Condition Response Sleep Apnea Y High Cholesterol Y Heart Attack (CT) Y Cancer Y Hypertension Y Asthma Y Gynecological HistoryNo gynecological history recorded. Obstetrics History GPAL:G 0 P 0 0 0 0 Past Encounters Encounter ID Performer Location Encounter Start Date Encounter Closed Date Diagnosis/Indication Diagnosis SNOMED-CT Code Diagnosis ICD10 Code Diagnosis Note [id number] AVNI DURHAM MD NEUROSURG [facility] [address] [place] [address] 07/27/2017 14:09:31 07/28/2017 10:55:17 Lumbosacral spondylosis with radiculopathy 519264560 M47.27 -The MRI was reviewed. CD-ROM. Mild [...] also consider referral for injections as well. [id number] AVNI DURHAM MD [facility] [address] [place] [address] 11/08/2017 10:38:33 11/09/2017 07:20:40 Lumbosacral spondylosis without myelopathy 92919384 M47.817 -The patient has responded well to [...] Recorded Advance Directives Directive None Recorded Payers Insurance Date Sequence Insurance Name Policy Number Policy Zavala Covered Member ID Zavala Member ID Guarantor Name 02/20/2020 1 [place] [id number] Justine Handley [id number] Justine Handley Notes Date Note Type Note Provider Name [...] for this treatment option. AVNI DURHAM MD [facility] [place], [address], [facility] 07/27/2017 16:04:23 11/08/2017 text/html Routine visit. T [...] doing well today. AVNI DURHAM MD [address] [place], [address], [facility] 11/08/2017 11:25:56 OBGyn Episode No OBEpisode recorded.
--- OUTSIDE RECORDS SUMMARY | 2024-09-03 08:50 | XMS_ITS | Clinical Summary ---
Author Organization Healthcare Address [address] [place] [address] Care Team Providers Care Criminal Defense Lawyer Name Role Phone Juan Pablo Nelson MD Primary Care Provider [phone] Social History Tobacco Use Types Packs/Day Years Used Date Smoking Tobacco: Never Assessed Comments Unknown Sex and Gender Information Value Date Recorded Sex Assigned at Not on file Legal Sex Female 12:31 PM EDT Gender Identity Not on file Sexual Orientation Not on file Last Filed Vital Signs Vital Sign Reading Time Taken Comments Blood Pressure 125/69 08/24/2022 12:36 PM EDT Pulse 39 08/24/2022 12:36 PM EDT Temperature - - Respiratory Rate - - Oxygen Saturation - - Inhaled Oxygen Concentration - - Weight 74.4 kg (164 lb) 08/24/2022 12:36 PM EDT Height 170.2 cm (5' 7 ) 08/24/2022 12:36 PM EDT Body Mass Index 25.69 08/24/2022 12:36 PM EDT Plan of Treatment Health Maintenance Due Date Last Done Comments [facility]-Bone Density Scan 1955 [facility]-Depression Screening 1955 [facility]-/Child/Adol SDOH Screenings 1955 [facility]- SDOH Screenings 09/08/1973 [facility]-Adult SDOH Screenings 09/08/1973 [facility]-DTaP,Tdap,and Td Vaccines (1 - Tdap) 09/08/1974 CT Colonography 09/08/2000 Colonoscopy 09/08/2000 FIT-DNA 09/08/2000 FIT 09/08/2000 FOBT 09/08/2000 Sigmoidoscopy 09/08/2000 [facility]-Colorectal Cancer Screening 09/08/2000 [facility]-Pneumococcal Vaccine: 50+ Years (1 of 1 - PCV) 09/08/2005 [facility]-Zoster Vaccines (1 of 2) 09/08/2005 [id number] Vaccine (5 - 2023- season) 2023 12/27/2021, 12/31/2020, 06/21/2020, Additional history exists [facility]-Influenza Vaccine (Season Ended) 2024 02/04/2022 [facility]-RSV Vaccine: 60+ Years or (1 - 1-dose 75+ series) 09/08/2030 [facility]-Hepatitis A Vaccines Aged Out 03/02/2018 No longer eligible based on patient's age to complete this topic HPV Vaccines Aged Out No longer eligi ble based on patient's age to complete this topic [facility]-HIB Vaccines Aged Out No longer e ligible based on patient's age to complete this topic [facility]-IPV Vaccines Aged Out No longer e ligible based on patient's age to complete this topic [facility]-Rotavirus Vaccines Aged Out No lo nger eligible based on patient's age to complete this topic Insurance MEDICARE [facility] Care Teams Criminal Defense Lawyer Relationship Specialty Start Date End Date Juan Pablo Nelson MD [address] [place] [address] PCP - General 08/25/22
[2024-09-03 09:09] VITALS: BP 110/65; RESP 14; O2SAT 97; BMI 25.8
== END 2024-09-03 23:59 | disposition home or self-care (01) ==
PROVIDERS: PCP Family Medicine; Visit Provider Nurse Practitioner Family
DX: M51.360 Other intervertebral disc degeneration, lumbar region with discogenic back pain only (principal); M70.61 Trochanteric bursitis, right hip; M70.62 Trochanteric bursitis, left hip; M46.1 Sacroiliitis, not elsewhere classified; Z79.1 Long term (current) use of non-steroidal anti-inflammatories (NSAID); Z79.01 Long term (current) use of anticoagulants
CPT/HCPCS: 99212; G0463

== ENCOUNTER 2024-09-13 08:00 | Outpatient (RCR) | payer MEDICARE, SELFPAY | END 2024-09-13 23:59 | disposition home or self-care (01) | LOC: PT 08:00 | PROVIDERS: Visit Provider Family Medicine | DX: M47.812 Spondylosis without myelopathy or radiculopathy, cervical region (principal) | CPT/HCPCS: 97035; 97110 ==

== ENCOUNTER 2024-09-24 15:09 | Outpatient (CLI) | payer MEDICARE, SELFPAY ==
--- OUTSIDE RECORDS SUMMARY | 2024-09-24 15:11 | XMS_ITS | Data Portability ---
Author Organization [facility] Address [address] [place] [address] Care Team Providers Care Consulting Psychologist Name Role Phone LAURA LUDWIG Referring Provider Assessment No assessment recorded. Plan of Treatment Reminders Order Date Submit Date Provider Last Modified By Organization Details Last Modified Time Details Appointments None recorded. Lab None recorded. Referral None recorded. Procedures None recorded. Surgeries None recorded. Imaging None recorded. Medication Orders Neurontin 300 mg capsule [address] [facility], [address], [address], 8 16:04:15 Patient TargetsNo targets recorded. Patient Instructions Encounter Date Encounter Id Patient Instructions Last Modified By Organization Details Last Modified Time 07/27/2017 [id number] Spent 20 total minutes with the patient today in counseling regarding information documented in my assessment and plan above. The time represents more than 50% of the encounter. [email or web address] Not available 07/27/2017 16:03:05 11/08/2017 [id number] Spent 10 total minutes with the patient today. Greater than 50% of this time was spent counseling/coordi nation of care as documented in my assessment and plan above. [email or web address] Not available 11/08/2017 11:25:24 Reason for Referral None Reported. Problems Name Problem SNOMED Code Status Onset Date Resolution Date Notes Provider Name and Address Organization Details Recorded Time Neck pain 96643410 Active 016 Status: Active Not Available [facility] 02/24/2016 04:49:53 Problem Notes None recorded. Procedures Surgical History Date Name Laterality Status Provider Name and Address Organization Details Recorded Time 4 Neck Surgery completed [place] [facility] 07/27/2017 14:59:12 Imaging Results None recorded. Procedure Notes None recorded. Medical Equipment None Reported. Allergies Allergen ID Allergen Name Allergen Category Reaction Reaction Severity Criticality Documentation Date Start Date Code Code System Note Provider Name and Address Organization Details Recorded Time 019777 Product containin g penicilli n (product) medicatio n Not available Not available Not available 02/19/20162006 27609 8001 SNOMED Comme nt: Creat ed By: Bernard petersen; Creat ed Date: 2006 2:20: 21 PM; Not Available [facility] 6 13:31:21 610373 morphine sulfate medicatio n Not available Not available Not available 02/19/20162006 21060 RxNorm Comme nt: Creat ed By: Bernard petersen; Creat ed Date: 2006 2:21: 02 PM; Not Available [facility] 6 13:31:21 930336 codeine medicatio n Not available Not available Not available 02/19/20162006 2670 RxNorm Comme nt: irreg ular heart beat; Creat ed By: Bernard petersen; Creat ed Date: 2006 2:20: 10 PM; Not Available [facility] 6 13:58:58 899643 Demerol medicatio n Not available Not available Not available 02/19/20162006 58297 1 RxNorm Comme nt: irreg ular heart beat; Creat ed By: Bernard petersen; Creat ed Date: 2006 2:20: 29 PM; Not Available [facility] 6 13:58:58 855258 Iodinated contrast media (substanc e) medicatio n rash moderate Not available 02/19/20162007 93451 2004 SNOMED React ion: RASH; Sever ity: Moder ate; Comme nt: Hot feeli ng all over her body- react ion to gadil lium (MRI contr ast); Creat ed By: Bernard kaur;Cre ated Date: 008 1:14: 36 PM; Not Available [facility] 6 13:58:58 Medications Name Sig Start Date [...] Updated DateTime 07/27/2017 170.18 cm 25.4 kg/m2 00057.96 g 150 mm[Hg] 70 mm[Hg] [place] [facility] 8 14:57:32 Date Recorded Body height Body mass index (BMI) Body weight Heart rate Systolic blood pressure Diastolic blood pressure Provider Name and Address Organization Details Last Updated DateTime 8 170.18 cm 25.1 kg/m2 15872.7 8 g 75 /min 152 mm[Hg] 87 mm[Hg] Isabelle Alford [facility] 8 10:57:31 Social History None recorded. Functional Status None recorded. Mental Status None recorded. Family History Nothing Reported. Medical History Condition Response Heart Attack (CT) Y Cancer Y Hypertension Y Asthma Y Sleep Apnea Y High Cholesterol Y Gynecological HistoryNo gynecological history recorded. Obstetrics History GPAL:G 0 P 0 0 0 0 Past Encounters Encounter ID Performer Location Encounter Start Date Encounter Closed Date Diagnosis/Indication Diagnosis SNOMED-CT Code Diagnosis ICD10 Code Diagnosis Note [id number] AVNI DURHAM MD [facility] [address] [place] [address] 07/27/2017 14:09:31 07/28/2017 10:55:17 Lumbosacral spondylosis with radiculopathy 480117756 M47.27 -The MRI was reviewed. CD-ROM. Mild [...] also consider referral for injections as well. [id number] AVNI DURHAM MD [facility] [address] [place] [address] 11/08/2017 10:38:33 11/09/2017 07:20:40 Lumbosacral spondylosis without myelopathy 07083835 M47.817 -The patient has responded well to [...] ID Guarantor Name 02/20/2020 1 [place] [id number] Justine Handley [id number] Justine Handley Notes Date Note Type [...] for this treatment option. AVNI DURHAM MD [facility] [place], [address], [facility] 07/27/2017 16:04:23 11/08/2017 text/html Routine visit. [...] doing well today. AVNI DURHAM MD [address] [place], [address], [facility] 11/08/2017 11:25:56 OBGyn Episode No OBEpisode recorded.
--- OUTSIDE RECORDS SUMMARY | 2024-09-24 15:11 | XMS_ITS | Clinical Summary ---
Author Organization Healthcare Address [address] [place] [address] Care Team Providers Care Fabric Stretcher Name Role Phone Juan Pablo Nelson MD Primary Care Provider [phone] Social History Tobacco Use Types Packs/Day Years [...] 09/08/2005 UKY-Zoster Vaccines (1 of 2) 09/08/2005 [id number] Vaccine (5 - 2023- season) 2023 12/27/2021, [...] age to complete this topic Insurance MEDICARE [facility] Care Teams Fabric Stretcher Relationship Specialty Start Date End Date Juan Pablo Nelson MD [address] [place] [address] PCP - General 08/25/22
--- NOTE | 2024-09-24 15:12 | XR_ITS ---
FINAL REPORT CLINICAL HISTORY: SACROILIAC JOINT PAIN, fall in July COMPARISON: None FINDINGS: SINGLE VIEW PELVIS: A single view of the pelvis was obtained. There is no acute fracture or dislocation. Vizualized joint spaces are normally aligned. There are moderately advanced degenerative changes present at the L4-5 and L5-S1 levels. Soft tissues are unremarkable. IMPRESSION: Moderately advanced degenerative changes of the L4-5 and L5-S1 levels, otherwise no acute bony abnormality. Reviewed, Interpreted and Dictated by Jim Guzman MD Transcribed by Bev Quinones Authenticated and [facility]
== END 2024-09-24 23:59 | disposition home or self-care (01) ==
LOC: RAD 15:10
PROVIDERS: PCP Family Medicine; Visit Provider Family Medicine
DX: M47.816 Spondylosis without myelopathy or radiculopathy, lumbar region (principal); M47.817 Spondylosis without myelopathy or radiculopathy, lumbosacral region
CPT/HCPCS: 72170

== ENCOUNTER 2024-10-01 07:40 | Outpatient (RCR) | payer MEDICARE, SELFPAY ==
--- NOTE | 2024-10-01 09:00 | HMH.PTOPEV ---
PT Outpatient Evaluation Rehab PT Outpatient Evaluation Start: 10/01/24 07:44 Freq: Status: Active Protocol: Document 10/01/24 07:44 DEIRDRE (Rec: 10/01/24 09:00 DEIRDRE [id number]) E-signed By Nilesh Burgos, PT Outpatient Therapy Subjective History Subjective History Pt is a 69 yof who is referred to [facility] outpatient PT with complaints of chronic low back pain and hip pain. Pt reports that her pain has been ongoing for 3+ years but worsened in July when she suffered a fall in the bathtub while on vacation. Pt reports that she hit her head and her hips when she fell. Pt had an x-ray on , which showcased advanced degeneration at L4, L5, S1 . Pt reports that she had PT for a few months earlier this year and noticed improvements. Reports that she has not been doing her exercises since being discharged . Pt reports that she is having a Watchman device implanted for A-fib on October 16. PMH: Heart attack, Afib, pancreatitis, cervical fusion, osteoporosis, breast cancer in 2006, Melanoma\ Occupation: [employer] 1 day/week New diagnosis of No cancer in past 12 months? Chief Complaint Pain,Stiff Symptom Type Ache,Sharp Symptoms Relieved By Heat,OTC Meds,Prescription Meds Symptoms Aggravated Supine,Sitting,Bending/Stooping,Walking,Lifting By Prior Functional None Limitations Current Functional Lifting,Housework,Standing,Sitting,Squatting,Walking, Limitations Stairs Symptom Description Constant but Variable,Activity Dependent Level of pain today 3 (0-10) Pain scale - at its 3 best (0-10) Pain scale - at its 8 worst (0-10) Lumbopelvic Eval Posture Thoracic Spine Increased Kyphosis Posture Standing Position Lumbar Spine Posture Flattened Standing Position Gait Observation General Gait Pattern Antalgic Gait,Hips Posterior to MIKE Observation Palapation tenderness bilateral lumbar spinal Yes: TTP 3/4 to L4-S1 and SIJ tenderness paraspinal Yes: TTP 3/4 to L4-S1 tenderness Lumbar/Sacral Tenderness,Spasm Palpation Findings Accessory Movement L4 bilateral L5 bilateral S1 bilateral Range of Motion Lumbar Spine Active 25% Flexion Range of Motion (degrees) Lumbar Spine Active 50% Extension Range of Motion (degrees) Left Lumbar Spine 25% Lateral Flexion Active Range of Motion (degrees) Right Lumbar Spine 25% Lateral Flexion Active Range of Motion (degrees) Lumbar Spine ROM Soft Tissue Tightness,Pain Limitations Manual Muscle Test Bilateral Knee Extension 3+ Fair+ Strength Grade Knee Flexion 3+ Fair+ Strength Grade Hip Flexion Strength 3 Fair Grade Hip Abduction 3- Fair- Strength Grade Hip Adduction 3 Fair Strength Grade Hip External 3+ Fair+ Rotation Strength Grade Hip Internal 3+ Fair+ Rotation Strength Grade Hip Extension 3 Fair Strength Grade Special Tests Lumbar Spine Screen Positive Anterior/Posterior Negative Left Rib Compression Test Forward Bending Test Negative Left - Sitting Hip Scouring ( Positive Left,Positive Right Quadrant) Test Hip Ken (CHRIS) Positive Left,Positive Right Test Sacroiliac Joint Positive Left,Positive Right Compression Test Sacroiliac Joint Positive Left,Positive Right Distraction Test Lower Extremity Functional Index Activities Today, do you or would you have any difficulty at all with: a.Any of your usual Moderate difficulty work, housework or school activities b. Your usual Quite a bit of difficulty hobbies, recreational or sporting activities c. Getting into or No difficulty out of the bath d. Walking between A little bit of difficulty rooms e. Putting on your A little bit of difficulty shoes or socks f. Squatting Moderate difficulty g. Lifting an object Moderate difficulty , like a bag of groceries from the floor h. Performing light Moderate difficulty activities around your home i. Performing heavy Quite a bit of difficulty activities around your home j. Getting into or Moderate difficulty out of a car k. Walking 2 blocks Quite a bit of difficulty l. Walking a mile Quite a bit of difficulty m. Going up or down Quite a bit of difficulty 10 stairs (about 1 flight of stairs) n. Standing for 1 Quite a bit of difficulty hour o. Sitting for 1 Quite a bit of difficulty hour p. Running on even Quite a bit of difficulty ground q. Running on uneven Quite a bit of difficulty ground r. Making sharp Quite a bit of difficulty turns while running fast s. Hopping Quite a bit of difficulty t. Rolling over in Quite a bit of difficulty bed LEFI Score Lower Extremity 32 Functional Index Score Miscellaneous Dx PT Eval Objective Objective TTP: 3/4 at both greater trochanters Sacral Thrust: + SI Distraction: + SI Compression: + CHRIS: + Posterior Thigh Thrust: + Outpatient Therapy Assessment Impairments Problems/ Palpation Tenderness,Impaired Range of Motion,Impaired Impairmments Strength,Impaired Gait Pattern,Impaired Walking, Impaired Standing,Impaired Sitting,Impaired Household Care,Subjective C/O Pain Prognosis Rehab Potential Good Clinical Impression Consistent with Yes Diagnosis Additional details: Bilateral Trochanteric Bursitis (M70.6) Sacroiliitis (M46.1) Short Term Goals Number of Weeks 4 Decreased Palpation Yes: 2/4 to TTP assessment above Tenderness Increase Range of Yes: 50-75% WNL Lumbar AROM Motion Increase Strength Yes: 4/5 to B hips Improve LEFI Score Yes: >42 Decrease Subjective Yes: 5/10 with above assessment C/O Pain Patient to be Ind w/ Yes HEP Chcf Goals Number of Weeks 8 Decreased Palpation Yes: 0-1/4 to TTP assessment above Tenderness Increase Range of Yes: 75-100% WNL Lumbar AROM Motion Increase Strength Yes: 4+/5 to B Hips Improve Gait Pattern Yes: Normalized Gait Mechanics without Assistive Device Increase Ability to Yes: 1 hour without increasing symptoms Stand Increase Ability to Yes: 1 hour without increasing symptoms Sit Improve Ability to Yes: Flight of stairs with reciprocal stepping pattern Climb Stairs Improve LEFI Score Yes: >52 Decrease Subjective Yes: 2-3/10 with above assessment. C/O Pain Improve Self Care/ Yes Self Management Patient to be Ind w/ Yes Advanced HEP Outpatient Therapy Plan of Care Treatment Plan May Include Therapeutic Exercise Yes Including Home Exercise Program Manual Therapy Yes Techniques Neuromuscular Re- Yes education Therapeutic Yes Activities to Return to Previous Functional/Work Level Gait Training Yes ADL/Self Care Yes Education Thermal Modalities Yes Electrical Yes Stimulation Ultrasound/ Yes Phonophoresis Iontophoresis Yes Massage Yes Manual Lymphatic Yes Drainage Eval/Re-Eval Yes Frequency Times per week 2 Duration Number of Weeks 6-8 Addendums This patient is a No candidate for social or vocational rehab ? Patient/Guardian Yes verbally acknowledges understanding of treatment program and consents to further treatment? Patient/Guardian Yes verbally acknowledges understanding of diagnosis, prognosis and goals for treatment? Eval Complexity PT Charges 00127 - High Complexity Shoulder/Elbow Eval Shoulder Objective Measurements Elbow Objective Measurements PHYSICIAN CERTIFICATION: I certify the specified therapy services for Justine Handley are required, authorized, and reviewed every 30 days.
== END 2024-10-01 23:59 | disposition home or self-care (01) ==
LOC: PT 07:40
PROVIDERS: Visit Provider Nurse Practitioner Family
DX: M70.61 Trochanteric bursitis, right hip (principal); M70.62 Trochanteric bursitis, left hip; M51.369 Other intervertebral disc degeneration, lumbar region without mention of lumbar back pain or lower extremity pain; M46.1 Sacroiliitis, not elsewhere classified
CPT/HCPCS: 97163; 97530

== ENCOUNTER 2024-11-05 09:03 | Outpatient (POV) | payer MEDICARE, SELFPAY ==
--- OUTSIDE RECORDS SUMMARY | 2024-09-20 10:15 | XMS_ITS | Encounter Summary ---
Author Organization [facility] Address [address] [place] [address] Care Team Providers Care Physician Liaison Name Role Phone Juan Pablo Nelson MD Primary Care Provider + Reason for Visit * Reason Comments Paroxysmal atrial fibrillation Encounter Details Date Type Department Care Team (Late st Contact Info) Description 09/20/2024 10:15 AM EDT Office Visit [facility] [address] [facility] [address] [place] [address] Latha Javier APRN [address] [facility] [address] [place] [address] Paroxysmal atrial fibrillation (Primary Dx); Coronary artery disease involving augustine coronary artery 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 Never 03/16/2024 Q2: How many drinks containi ng alcohol do you have on a typical day when you are drinking? Patient does not drink Q3: How often do you have si x or more drinks on one occasion? Never 03/16/2024 PHQ-2 Answer Date Recorded Retired PHQ-9: Brief Depression Severity Measure Score 10 11/15/2022 Abuse Screen Answer Date Recorded Feels Unsafe at Home or Work/School no 03/16/2024 Feels Threatened by Someone no 02/26 Does Anyone Try to Keep You From Having Contact with Others or Doing Things Outside Your Home? no 03/16/2024 Physical Signs of Abuse Present no 03/16/2024 Housing Stability Answer Date Recorded Current Living Arrangements home 02/26 Potentially Unsafe Housing Conditions Not on xiomara e 03/16/2024 Disabilities Answer Date Recorded Difficulty Concentrating, Remembering or Making Decisions no 03/16/2024 Difficulty Managing Errands Independently no 03/16/2024 Education Answer Date Recorded Help with school or training? Not on file Preferred Language Gambian 03/09/2024 PHQ-2 Answer Date Recorded Patient Health Questionnaire-2 Score 0 04/20/2024 Comments No Sex and Gender Information Value Date Recorded Sex Assigned at Female 06/07/2024 9:29 AM EDT Legal Sex Female 12:35 PM EDT Gender Identity Not on file Sexual Orientation Straight 06/07/2024 9: 29 AM EDT documented as of this encounter Last Filed Vital Signs Vital Sign Reading Time Taken Comments Blood Pressure 112/66 09/20/2024 10:21 AM EDT Pulse 63 09/20/2024 10:21 AM EDT Temperature - - Respiratory Rate - - Oxygen Saturation 97% 09/20/2024 10:21 AM EDT Inhaled Oxygen Concentration - - Weight 76 kg (167 lb 9.6 oz) 09/20/2024 10:21 AM EDT Height 170.2 cm (5' 7.01 ) 09/20/2024 10:21 AM E DT Body Mass Index 26.24 09/20/2024 10:21 AM EDT documented in this encounter Progress Notes * Latha Javier APRN - 09/20/2024 10:15 AM EDT Justinetony Handley [id number] 1955 [facility] Referring Provider: No ref. provider found Juan Pablo Nelson MD [address] [place] [address] Chief Complaint Patient presents with Paroxysmal atrial fibrillation Problem List Paroxysmal afib CHADSVASc = 4, AC on Coumadin Echocardiogram, 07/2022: EF 55-60%, data deficient AAD: failed sotalol PFA of PVI and PWI, 03/16/[address] Evans CAD Hx of VA, data deficient - No stent per patient Nuclear MPS 08/24/2022: EF 57% mediium sized, moderate, partially reversible defect consitent w infarct w/region of reversible ischemia C 09/03/2022: normal EF, mild nonflow limiting coronary disease HTN HLD Pulmonary HTN ISABELL previously treated by CPAP DM II GERD Hx of breast cancer Surgical history Cholecystectomy Hysterectomy Mastectomy History of Present Illness Justine Handley is a 69 y.o. female who presents to my electrophysiology clinic for follow up ofPAF s/p PFA of PVI and PWI in 02/2024. Since we last saw the patient, he has done well from a cardiac standpoint. She denies any palpitations, shortness of breath, lightheadedness, dizziness and syncope. She does complain of fatigue. She is scheduled for LAAO on 10/16. Patient is off her blood thinner due to not being able to go get INR checks on Coumadin and unable to afford DOAC. Outpatient Medications Marked as Taking for the 09/20/24 encounter (Office Visit) with Latha Javier APRN Medication Sig Dispense Refill albuterol sulfate HFA 108 (90 Base) MCG/ACT inhaler Inhale 2 puffs Every 4 (Four) Hours As Needed for Wheezing. 18 g 5 ALPRAZolam (XANAX) 0.5 MG tablet Take 1 tablet by mouth 3 (Three) Times a Day. 90 tablet 5 Baclofen (LIORESAL) 5 MG tablet Take 1 tablet by mouth 3 times a day. celecoxib (CeleBREX) 200 MG capsule Take 1 capsule by mouth Daily. 30 capsule 2 esomeprazole (nexIUM) 40 MG capsule Take 2 capsules by mouth Every Morning Before Breakfast. 180 capsule 3 estradiol (ESTRACE) 1 MG tablet Take 1 tablet by mouth Daily. 90 tablet 1 famotidine (PEPCID) 40 MG tablet Take 2 tablets by mouth Daily. 180 tablet 1 gabapentin (NEURONTIN) 300 MG capsule 1 Capsule in the morning and afternoon, 2 capsules by mouth at night 120 capsule 3 metFORMIN ER (GLUCOPHAGE-XR) 500 MG 24 hr tablet Take 1 tablet by mouth Daily With Breakfast. 90 tablet 3 methocarbamol (ROBAXIN) 500 MG tablet Take 1 tablet by mouth 4 (Four) Times a Day. 30 tablet 0 montelukast (SINGULAIR) 10 MG tablet Take 1 tablet by mouth Every Night. 90 tablet 3 olmesartan-hydrochlorothiazide (BENICAR HCT) 40-25 MG per tablet Take 1 tablet by mouth Daily. 90 tablet 1 ondansetron (ZOFRAN) 8 MG tablet TAKE 1 TABLET BY MOUTH EVERY 8 HOURS NEEDED FOR NAUSEA FOR VOMITING 30 tablet 0 rivaroxaban (XARELTO) 20 MG tablet Take 1 tablet by mouth Daily With Dinner. Semaglutide,0.25 or 0.5MG/DOS, (Ozempic, 0.25 or 0.5 MG/DOSE,) 2 MG/3ML solution pen-injector Inject 0.5 mg under the skin into the appropriate area as directed 1 (One) Time Per Week. 3 mL 1 zolpidem (AMBIEN) 10 MG tablet Take 1 tablet by mouth At Night As Needed for Sleep. 30 tablet 5 [DISCONTINUED] carvedilol (COREG) 12.5 MG tablet Take 0.5 tablets by mouth 2 (Two) Times a Day WithMeals. Indications: Atrial Fibrillation (Patient taking differently: Take 0.5 tablets by mouth 2 (Two) Times a Day With Meals. 6.25mg 2 times a day Indications: Atrial Fibrillation) Physical Exam Vitals: 09/20/24 1021 BP: 112/66 BP Location: Right arm Patient Position: Sitting Cuff Size: Adult Pulse: 63 SpO2: 97% Weight: 76 kg (167 lb 9.6 oz) Height: 170.2 cm (67.01 ) Body mass index is 26.24 kg/m??. Constitutional: Appearance: Healthy appearance. Neck: Vascular: JVD normal. Pulmonary: Effort: Pulmonary effort is normal. Breath sounds: Normal breath sounds. Cardiovascular: Normal rate. Regular rhythm. Normal S1. Normal S2. Murmurs: There is no murmur. No gallop. No rub. Pulses: Intact distal pulses. Edema: Peripheral edema absent. Neurological: General: No focal deficit present. Diagnostic Data Procedures EKG: Normal sinus rhythm, rightward axis, 63 bpm, AZ 202, QRS 120, QT/QTc 438/448 Lab Results Component Value Date GLUCOSE 104 (H) 03/16/2024 CALCIUM 9.1 03/16/2024 NA 138 03/16/2024 K 3.6 03/16/2024 CO2 20.0 (L) 03/16/2024 CL 103 03/16/2024 BUN 34 (H) 03/16/2024 CREATININE 0.99 03/16/2024 BCR 34.3 (H) 03/16/2024 ANIONGAP 15.0 03/16/2024 Lab Results Component Value Date WBC 6.81 03/09/2024 HGB 10.6 (L) 03/09/2024 HCT 34.0 03/09/2024 MCV 93.9 03/09/2024 PLT 199 03/09/2024 Lab Results Component Value Date INR 2.45 (H) 03/16/2024 PROTIME 26.6 (H) 03/16/2024 Lab Results Component Value Date TSH 1.860 02/14/2023 I personally viewed and interpreted the patient's EKG/Telemetry/lab data Justine Handley reports that she quit smoking about 40 years ago. Her smoking use included cigarettes. She has a 30 pack-year smoking history. She has been exposed to tobacco smoke. She has never used smokeless tobacco. I have educated her on the risk of diseases from using tobacco products suchas cancer, COPD, and heart disease. ACP discussion was declined by the patient. Patient does not have an advance directive, declines further assistance. Assessment and Plan Diagnoses and all orders for this visit: 1. Paroxysmal atrial fibrillation (Primary) 2. 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 Noncompliance with medication regimen 4. Essential hypertension Other orders - carvedilol (COREG) 3.125 MG tablet; Take 1 tablet by mouth 2 (Two) Times a Day. Dispense: 60 tablet; Refill: 2 Paroxsymal atrial fibrillation -s/p PVI and PWI 02/2024 -CHADSVASc = 4, previously on Coumadin - non-compliant with anticoagulation due to not being able to make to her frequent INR checks and financial hardships. - economical non-compliance - chronic anemia requiring GI evaluation - Patient scheduled for left atrial appendage occlusion device on 10/16. Patient has been off anticoagulation. Asked patient to start Xarelto 20 mg daily 4 weeks prior to procedure. She is agreeable and samples were given. Patient knows to hold Xarelto night before procedure. -Discussed left atrial appendage occlusion device. Procedure, risk, and alternatives have been discussed and patient feels comfortable proceeding with procedure. -Patient is feeling fatigued on carvedilol. Will reduce to 3.125 twice daily and see if fatigue improves. Could consider changing to diltiazem if fatigue continues. Coronary artery disease involving augustine coronary artery of augustine heart without angina pectoris - On Lipitor Essential hypertension - well controlled, continue current management Follow-Up Return for Next scheduled follow up, Follow up after procedure. Thank you for allowing me to participate in the care of your patient. Please to not hesitate to contact me with additional questions or concerns. documented in this encounter Plan of Treatment Upcoming Encounters Date Type Department Care Team (Late st Contact Info) Description 01/17/2025 9:30 AM EDT Office Visit [facility] [address] [facility] [address] [place] [address] Patrick Evans MD [address] [facility] [address] [place] [address] 04/19/2025 1:00 PM EST Telemedicine [facility] [address] [facility] [address] [place] [phone] Pj Marie APRN [address] [facility] [address] [place] [address] 04/25/2025 10:15 AM EST Office Visit [facility] [address] [facility] [address] [place] [id number] Juan Pablo Nelson MD [address] [facility] [place] [address] 07/15/2025 10:00 AM EDT Office Visit [facility] [address] [place] [address] Elsa Pham MD [address] [place] [address] documented as of this encounter Visit Diagnoses Diagnosis Paroxysmal atrial fibrillation- Primary Atrial fibrillation Coronary artery disease involving augustine coronary artery of augustine heart without angina pectoris Noncompliance with medication regimen Personal history of noncompliance with medical treatment, presenting hazards to health Essential hypertension Unspecified essential hypertension documented in this encounter Care Teams Physician Liaison Relationship Specialty Start Date End Date Juan Pablo Nelson MD PCP - General Family Medicine 11/01/19 documented as of this encounter
--- OUTSIDE RECORDS SUMMARY | 2024-09-24 10:45 | XMS_ITS | Encounter Summary ---
[facility] [address] [place] [address] Care Team Providers Care Supervisor Malt House Name Role Phone Juan Pablo Nelson MD Primary Care Provider + Reason for Visit * Reason Comments bilateral hip pain Encounter Details Date Type Department Care Team (Latest Contact Info) Description 09/24/2024 10:45 AM EDT Office Visit [facility] [address] [place] [address] Juan Pablo Nelson MD [address] [place] [address] Subacute left lumbar radiculopathy (Primary Dx); Sacroiliac joint pain Social History Tobacco Use Types Packs/Day Years Used Date Smoking Tobacco: Former Cigarettes 2 15 Q uit: 03/28/1984 Passive Smoke Exposure: Past Smokeless Tobacco: Never Comments:Started smoking eva und the age of 14 stopped at the [...] or training? Not on file Preferred Language Citizen Of [place] 03/09/2024 PHQ-2 Answer Date Recorded Patient Health [...] Sign Reading Time Taken Comments Blood Pressure 118/65 09/24/2024 10:45 AM EDT Pulse 69 09/24/2024 10:45 AM EDT Temperature 36.7 C (98.1 F) 09/24/2024 10:45 AM EDT Respiratory Rate 20 09/24/2024 10:45 AM EDT Oxygen Saturation 99% 09/24/2024 10:45 AM EDT Inhaled Oxygen Concentration - - Weight 74.8 kg (165 lb) 09/24/2024 10:45 AM EDT Height 170.2 cm (5' 7.01 ) 09/24/2024 10:45 AM E DT Body Mass Index 25.84 09/24/2024 10:45 AM EDT documented in this encounter Progress Notes * Juan Pablo Nelson MD - 09/24/2024 10:45 AM EDT Chief Complaint Patient presents with bilateral hip pain Subjective Justine Handley is a 69 y.o. who presents for bilateral hip pain which was worsened after a fallin July. Patient fell while in the shower striking her right hip. However the left hip and SI joint area is causing more severe pain with pain radiating down to the level of the knee. Patient sees [facility] pain management and she has been referred for physical therapy but is havingdifficulty getting an appointment scheduled Objective Vital Signs: BP 118/65 Pulse 69 Temp 98.1 ??F (36.7 ??C) Resp 20 Ht 170.2 cm (67.01 ) Wt 74.8 kg (165 lb) SpO2 99% BMI 25.84 kg/m?? Physical Exam Vitals reviewed. Musculoskeletal: Comments: Back exam: Tenderness out of proportion to palpation along the lumbar spine and paraspinals. Bilateral SI joint pain as well as left-sided gluteal tenderness. Bilateral trochanteric tenderness as well. Patient has normal strength assessment of the lower extremities with symmetric reflexes of the patellas and Achilles. Neurological: Mental Status: She is alert. Result Review Assessment and Plan Diagnoses and all orders for this visit: 1. Subacute left lumbar radiculopathy (Primary) 2. Sacroiliac joint pain - XR Pelvis 1 or 2 View; Future Plan 1. Patient's left-sided pain that radiates into the leg is most likely coming from her spine as shehas a history of degenerative lumbar disc disease with last MRI in November showing multiple bulging/herniated disks, neuroforaminal stenosis. I am in agreement that this would best respond to physical therapy. After physical therapy injection based therapies would be the next step. I did discuss increasing the patient's nighttime dose of gabapentin to 900 mg. Patient will utilize THC Gummies for now 2. For her SI joint pain an x-ray of the pelvis will be obtained. She has responded favorably to SIjoint injections in the past. This would be reasonable to do now before her procedure to implant a Watchman device in September. Procedure can be scheduled at the discretion of pain management Follow Up No follow-ups on file. Patient was given instructions and counseling regarding her condition or for health maintenance advice. Please see specific information pulled into the AVS if appropriate. documented in this encounter Plan of Treatment Upcoming Encounters Date Type Department Care Team (Late st Contact Info) Description 01/17/2025 9:30 AM EDT Office Visit [facility] [address] [facility] [address] [place] [phone] Patrick Evans MD [address] [facility] [address] [place] [address] 04/19/2025 1:00 PM EST Telemedicine [facility] [address] [facility] [address] [place] [phone] Pj Marie APRN [address] [facility] [address] [place], [place] [id number] 04/25/2025 10:15 AM EST Office Visit [facility] [address] [place] [phone] Juan Pablo Nelson MD [address] [place], [place] [id number] 07/15/2025 10:00 AM EDT Office Visit [facility] [place] [address] [place] [address] Elsa Pham MD [address] [place] [address] documented as of this encounter Procedures Procedure Name Priority Date/Time Associated Diagnosis Comments SCANNED - IMAGING 09/24/2024 documented in this encounter Results * IMAGING SCANNED (09/24/2024) Anatomical Region Laterality Modality Radiographic Vi ging Juan Pablo Nelson MD IMG DIAGNOSTIC IMAGING O RDERABLES Final Result documented in this encounter Visit Diagnoses Diagnosis Subacute left lumbar radiculopathy- Primary Sacroiliac joint pain Disorders of sacrum documented in this encounter Care Teams Supervisor Malt House Relationship Specialty Start Date End Date Juan Pablo Nelson MD PCP - General Family Medicine 11/01/19 documented as of this encounter
--- OUTSIDE RECORDS SUMMARY | 2024-10-16 06:18 | XMS_ITS | Encounter Summary ---
Author Organization [facility] Address [address] [place] [address] Care Team Providers Care Process Expert Name Role Phone Juan Pablo Nelson MD Primary Care Provider + Reason for Referral * Diagnostic Imaging (Routine) - Authorized Specialty Diagnoses / Procedures Referred By Contac t Referred To Contact Diagnoses AF (paroxysmal atrial fibrillation) Procedures Adult Transesophageal Echo (TORY) W/ Cont if Necessary Per Protocol Latha Javier APRN [address] [facility] [address] [place] [address] Phone: tel: fax: Referral ID Status Reason Start Date Expiration Date V isits Requested Visits Authorized [id number] Authorized 10/16/2024 01/15/2026 1 1 * Diagnostic Imaging (Routine) - Closed Specialty Diagnoses / Procedures Referred By Contac t Referred To Contact Diagnoses Paroxysmal atrial fibrillation Noncompliance with medication regimen Procedures Intra-Op Structural Heart TORY (Cardiology Read) Patrick Evans MD [address] [facility] [address] [place] [address] Phone: tel: fax: [facility] [address] [place] [address] Phone: tel: Referral ID Status Reason Start Date Expiration Date Visits Re quested Visits Authorized [id number] Closed 10/16/2024 09/17/2025 1 1 * Invasive Procedures (Routine) - Pending Review Specialty Diagnoses / Procedures Referred By Richard moore Referred To Contact Diagnoses Paroxysmal atrial fibrillation Noncompliance with medication regimen Procedures EP/CRM Study Patrick Evans MD [address] [address] Phone: tel: fax: Referral ID Status Reason Start Date Expiration Date V isits Requested Visits Authorized [id number] Pending Review 08/23/2024 11/22/2025 1 1 Reason for Visit * Auth/Cert Specialty Diagnoses / Procedures Referred By Richard moore Referred To Contact Diagnoses Paroxysmal atrial fibrillation Noncompliance with medication regimen Atrial Fibrillation Procedures LA PERQ CLSR TCAT L ATR APNDGE W/ENDOCARDIAL IMPLNT Atrial Appendage Occlusion; TORY WITH DR ZULUAGA Referral ID Status Reason Start Date Expiration Date Visits Re quested Visits Authorized [id number] 1 1 Encounter Details Date Type Department Care Team (Late st Contact Info) Description 10/16/2024 6:18 AM EDT - 10/16/2024 12:05 PM EDT Hospital Encounter [facility] [address] [place] [phone] Patrick Evans MD [address] [place] [address] AF (paroxysmal atrial fibrillation) (Primary Dx); Paroxysmal atrial fibrillation; Noncompliance with medication regimen Discharge Disposition: Home or Self Care Social History Tobacco Use Types Packs/Day Years [...] often do you have a drink containing alc ohol? Monthly or less 10/16/2024 Q2: How many drinks containi ng alcohol do you have on a typical day when you are drinking? 1 or 2 10/16/2024 Q3: How often do you have si x or more drinks on one occasion? Never 10/16/2024 PHQ-2 Answer Date Recorded Retired PHQ-9: Brief Depression Severity Measure Score 10 11/15/2022 Abuse Screen Answer Date Recorded Feels Unsafe at Home or Work/School no 10/16/2024 Feels Threatened by Someone no 09/26 Does Anyone Try to Keep You From Having Contact with Others or Doing Things Outside Your Home? no 10/16/2024 Physical Signs of Abuse Present no 10/16/2024 Housing Stability Answer Date Recorded Current Living Arrangements home 09/26 Potentially Unsafe Housing Conditions Not on xiomara e 10/16/2024 Disabilities Answer Date Recorded Difficulty Concentrating, Remembering or Making Decisions no 10/16/2024 Difficulty Managing Errands Independently no 10/16/2024 Education Answer Date Recorded Help with school or training? Not on file Preferred Language Comoran 03/09/2024 PHQ-2 Answer Date Recorded Patient Health [...] Sign Reading Time Taken Comments Blood Pressure 114/73 10/16/2024 11:00 AM EDT post ambulation Pulse 73 10/16/2024 11:00 AM EDT Temperature 36.1 C (97 F) 10/16/2024 8:45 AM EDT Respiratory Rate 15 10/16/2024 8:45 AM EDT Oxygen Saturation 98% 10/16/2024 11: 00 AM EDT Inhaled Oxygen Concentration - - Weight 77 kg (169 lb 12.8 oz) 6:26 AM EDT Height 170.2 cm (5' 7 ) 10/16/2024 6:26 AM EDT Body Mass Index 26.59 10/16/2024 6:26 AM EDT documented in this encounter Functional Status * Question Answer Date of Assessment Author 1. Wish to be (Past 1 Month) No 10/16/2024 6:40 AM EDT Helio Hicks RN 2. Non-Specific Active Suicidal Thoughts (Past 1 Month) No 10/16/2024 6:40 AM EDT Helio Hicks RN * Calculated C-SSRS Risk Score (Lifetime/Recent) Answer Date of Assessment Author No Risk Indicated 10/16/2024 6:40 AM EDT Naida Limon RN * [place]ay Suicide Severity Rating Scale (Screener/Recent Self-Report) Question Answer Date of Assessment Author 6. Suicidal Behavior (Lifetime) No 10/16/2024 6:40 AM EDT Helio Hicks RN documented as of this encounter Discharge Instructions * Attachments The following attachments cannot be sent through Care Everywhere. * Left Atrial Appendage Closure Device Implantation (Comoran) * Left Atrial Appendage Closure Device Implantation Care After (Comoran) * Femoral Site Care (Comoran) * General Anesthesia Adult Care After (Comoran) * Atrial Fibrillation (Comoran) * Rivaroxaban Tablets (Comoran) documented in this encounter Medications at Time of Discharge albuterol sulfate HFA 108 (90 Base) MCG/ACT inhaler Inhale 2 puffs Every 4 (Four) Hours As Needed for Wheezing. 18 g 5 02/29/2024 ALPRAZolam (XANAX) 0.5 MG tabletIndications: Anxiety about health Take 1 tablet by mouth 3 (Three) Times a Day. 90 tablet 5 07/10/2024 aspirin 81 MG EC tablet Take 1 tablet by mouth Daily. Baclofen (LIORESAL) 5 MG tablet Take 1 tablet by mouth 3 times a day. 09/03/2024 carvedilol (COREG) 3.125 MG tablet Take 1 tablet by mouth 2 (Two) Times a Day. 60 tablet 2 09/20/2024 celecoxib (CeleBREX) 200 MG capsuleIndications :Neck pain Take 1 capsule by mouth Daily. 30 capsule 2 08/13/2024 esomeprazole (nexIUM) 40 MG capsuleIndications :Gastroesophageal reflux disease without esophagitis Take 2 capsules by mouth Every Morning Before Breakfast. 180 capsule 3 08/29/2024 estradiol (ESTRACE) 1 MG tablet Take 1 tablet by mouth Daily. 90 tablet 1 06/11/2024 famotidine (PEPCID) 40 MG tabletIndications: Gastroesophageal reflux disease without esophagitis Take 2 tablets by mouth Daily. 180 tablet 1 06/01/2024 metFORMIN ER (GLUCOPHAGE-XR) 500 MG 24 hr tabletIndications: Type 2 diabetes mellitus without complication, without long-term current use of insulin Take 1 tablet by mouth Daily With Breakfast. 90 tablet 3 08/23/2024 methocarbamol (ROBAXIN) 500 MG tabletIndications: Cervical spine arthritis,Neck pain Take 1 tablet by mouth 4 (Four) Times a Day. 30 tablet 08/07/2024 montelukast (SINGULAIR) 10 MG tablet Take 1 tablet by mouth Every Night. 90 tablet 3 09/04/2024 olmesartan-hydroch lorothiazide (BENICAR HCT) 40-25 MG per tabletIndications: Essential hypertension Take 1 tablet by mouth once daily 90 tablet 1 10/08/2024 ondansetron (ZOFRAN) 8 MG tabletIndications: Gastroesophageal reflux disease without esophagitis TAKE 1 TABLET BY MOUTH EVERY 8 HOURS NEEDED FOR NAUSEA FOR VOMITING 30 tablet 10/12/2024 rivaroxaban (XARELTO) 20 MG tablet Take 1 tablet by mouth Daily With Dinner. zolpidem (AMBIEN) 10 MG tabletIndications: Primary insomnia Take 1 tablet by mouth At Night As Needed for Sleep. 30 tablet 5 07/10/2024 gabapentin (NEURONTIN) 300 MG capsuleIndications :Neuropathy of both feet 1 Capsule in the morning and afternoon, 2 capsules by mouth at night 120 capsule 3 06/11/2024 5 Semaglutide,0.25 or 0.5MG/DOS, (Ozempic, 0.25 or 0.5 MG/DOSE,) 2 MG/3ML solution pen-injectorIndica tions:Type 2 diabetes mellitus without complication, without long-term current use of insulin Inject 0.5 mg under the skin into the appropriate area as directed 1 (One) Time Per Week. 3 mL 1 08/23/2024 5 documented as of this encounter H&P Notes * Latha Javier APRN - 10/16/2024 7:11 AM EDT H&P reviewed. The patient was examined and there are no changes to the H&P. Vitals: 10/16/24 0626 10/16/24 0636 10/16/24 0639 BP: 113/78 BP Location: Right arm Patient Position: Lying Pulse: 66 Resp: 18 Temp: 96.7 ??F (35.9 ??C) TempSrc: Temporal SpO2: 97% Weight: 77 kg (169 lb 12.8 oz) Height: 170.2 cm (67 ) Lab Results Component Value Date GLUCOSE 104 (H) 03/16/2024 CALCIUM 9.1 03/16/2024 NA 138 03/16/2024 K 3.6 03/16/2024 CO2 20.0 (L) 03/16/2024 CL 103 03/16/2024 BUN 34 (H) 03/16/2024 CREATININE 0.99 03/16/2024 EGFR 62.2 03/16/2024 BCR 34.3 (H) 03/16/2024 ANIONGAP 15.0 03/16/2024 Lab Results Component Value Date WBC 6.81 03/09/2024 HGB 10.6 (L) 03/09/2024 HCT 34.0 03/09/2024 MCV 93.9 03/09/2024 PLT 199 03/09/2024 Patient is here today for atrial appendage occlusion device implantation and TORY. Procedure, risks,and alternatives have been discussed and patient is agreeable to proceed. Patient received 2 g Ancef for surgical prophylaxis. Further recommendations to follow. Electronically signed by Latha Javier APRN, 10/16/24, 7:11 AM EDT. Cosigned by Patrick Evans MD at 10/16/2024 9:42 AM EDT Associated attestation - Patrick Evans MD - 10/16/2024 9:42 AM EDT I have reviewed the above documentation and agree. Source Note - Latha Javier APRN - 09/20/2024 10:15 AM EDT Justine Handley [id number] 1955 [facility] Referring Provider: No ref. provider found Juan Pablo Nelson MD [address] [facility] [address] Chief Complaint Patient presents with Paroxysmal atrial fibrillation Problem List Paroxysmal afib CHADSVASc = 4, AC on Coumadin Echocardiogram, 07/2022: EF 55-60%, data deficient AAD: failed sotalol PFA of PVI and PWI, 03/16/[address] Evans CAD Hx of [place], data deficient - No stent per patient Nuclear MPS 08/24/2022: EF 57% mediium sized, moderate, partially reversible defect consitent w infarct w/region of reversible ischemia LHC 09/03/2022: normal EF, mild nonflow limiting coronary [...] Normal sinus rhythm, rightward axis, 63 bpm, LA 202, QRS 120, QT/QTc 438/448 Lab Results [...] fibrillation (Primary) 2. Coronary artery disease involving eek coronary artery of eek heart without angina pectoris 3. Noncompliance with [...] if fatigue continues. Coronary artery disease involving eek coronary artery of eek heart without angina pectoris - On Lipitor Essential hypertension - well controlled, continue current management Follow-Up Return for Next scheduled follow up, Follow up after procedure. Thank you for allowing me to participate in the care of your patient. Please to not hesitate to contact me with additional questions or concerns. documented in this encounter Nursing Notes * Sharla Cortez RN - 10/16/2024 9:54 AM EDT LAAO Procedure Information Justine Keller Emmanuelle 1955 [address] [place] [address] [facility] [address] (home) LESLEE Orifice Maximal Width: 20 mm Cumulative Air Kerma: 63 mGy Contrast Volume: 10 mL Dose Area Product: 520.53 ?Gy-M2 * Sharla Cortez RN - 10/10/2024 9:38 AM EDT PRE-LAAO HISTORY Justine Villatoro Emmanuelle [address] [facility] [address] (home) Referring MD: Elsa Pham MD Information obtained from: [x] Medical record review [x] Patient report Scheduled for: LAAO implant on October 16, [address] Evans [facility] Visit: Elsa Pham MD CHADS-VASc Risk Assessment 5 Total Score 1 Hypertension 1 DM 1 Age 65-74 1 1 Sex: Female Vascular Disease Criteria that do not apply: CHF Age >/= 75 PRIOR STROKE/TIA/THROMBO Vascular Disease History & Risk Factors (prior to LAAO implant) [id number] Risk Factors: Congestive HF [x] No [] Yes LV Dysfunction [x] No [] Yes Hypertension [] No [x] Yes Diabetes [] No [x] Yes Stroke [x] No [] Yes TIA [x] No [] Yes Thromboembolism [x] No [] Yes Vascular Disease [] No [x] Yes If Yes, Type [] Prior [place] [x] CAD [] Aortic Plaque Statin if indicated [] No [x] Yes- Allergy/intolerance HAS-BLED Risk Factors: HTN (uncontrolled) [] No [x] Yes Abnormal Renal Fxn [] No [x] Yes Abnormal Liver Fxn [x] No [] Yes Stroke [x] No [] Yes Bleeding event [] No [x] Yes Labile INR [x] No [] Yes Alcohol [x] No [] Yes Antiplatelets [x] No [] Yes NSAIDS [x] No [] Yes Additional Stroke & Bleeding Risk Factors: Increased Fall Risk [] No [x] Yes- fell on vacation out of the shower. Bleeding Event [x] No [] Yes If Yes, Type [] Intracranial [] Epistaxis [] GI [] Other Rhythm History: AFIBTYPE: paroxysmal Valvular AFib [x] No [] Yes If Yes, Rheum Valve Disease [] No [] Yes If Yes, Mitral Valve Replacement [] No [] Yes If Yes, Mechanical? [] No [] Yes If Yes, Mitral Valve Repair [] No [] Yes Attempt at AFib Termination: [] No [x] Yes If Yes, pharmacologic CV [] No [x] Yes If Yes, DC cardioversion [x] No [] Yes If Yes, catheter ablation [] No [x] Yes If Yes, Date of most recent: 03/16/2024 Atrial Flutter [x] No [] Yes If Yes, attempt at termination [] No [] Yes If Yes, pharmacologic cardioversion [] No [] Yes If Yes, DC cardioversion [] No [] Yes If Yes, catheter ablation [] No [] Yes If Yes, Date of most recent: LESLEE Intervention [x] No [] Yes Additional History & Risk Factors: Cardiomyopathy [x] No [] Yes Chronic Lung Disease [] No [x] Yes- Asthma Coronary Artery Disease [] No [x] Yes- Mild Sleep Apnea [] No [x] Yes If Yes, compliant with treatment [] No [x] Yes Epicardial Approach Considered [x] No [] Yes Diagnostic Studies: Last Echo: [x] TTE Date: none Pre-procedure blood thinner medications: Hold Xarelto the morning before surgery start daily 81 mg ASA. Discussed pre procedure workup, procedure, recovery and follow up appointments along with medication options. 10/10/24 09:38 EDT [facility] Revised 04/21/2023 Cosigned by Patrick Evans MD at 10/10/2024 6:07 PM EDT Associated attestation - Patrick Evans MD - 10/10/2024 6:07 PM EDT I have reviewed this documentation and agree. documented in this encounter Plan of Treatment Upcoming Encounters Date Type Department Care Team (Late st Contact Info) Description 01/17/2025 9:30 AM EDT Office Visit [facility] [address] [facility] [address] [place] [phone] Patrick Evans MD [address] [facility] [address] [place] [address] 04/19/2025 1:00 PM EST Telemedicine [facility] [address] [facility] [address] [place] [address] Pj Marie APRN [address] [facility] [address] [place], [place] [id number] 04/25/2025 10:15 AM EST Office Visit [facility] [address], [place] [address] Juan Pablo Nelson MD [address], [place] [address] 07/15/2025 10:00 AM EDT Office Visit [facility] [address] [place] [phone] Elsa Pham MD [address] [place] [address] Scheduled Orders Name Type Priority Associated Diagnoses Order Schedule Adult Transesophageal Echo (TORY) W/ Cont if Necessary Per Protocol Echocardiography Routine AF (paroxysmal atrial fibrillation) Expected: 11/30/2024, Expires: 10/16/2025 documented as of this encounter Procedures Procedure Name Priority Date/Time Associated Diagnosis Comments EP STUDY Routine 10/16/2024 8:34 AM EDT Paroxysmal atrial fibrillation Noncompliance with medication regimen POCT ACTIVATED CLOTTING TIME Routine 10/16/2024 8:23 AM EDT INTRA-OP STRUCTURAL HEART TORY (CARDIOLOGY READ) Routine 10/16/2024 7:37 AM EDT Paroxysmal atrial fibrillation Noncompliance with medication regimen POCT GLUCOSE FINGERSTICK Routine 10/16/2024 7:11 AM EDT CBC (NO DIFF) STAT 10/16/2024 6:41 AM EDT BASIC METABOLIC PANEL STAT 10/16/2024 6:41 AM EDT documented in this encounter Results * ATRIAL APPENDAGE OCCLUSION - CAR (10/16/2024 8:34 AM EDT) Anatomical Region Laterality Modality X-Ray Angiograph y Addenda Addendum by Patrick Evans MD on 10/16/2024 9:09 AM EDT FINAL IMPRESSIONS: 1. Successful insertion of a 20 mm Amulet Amplatzer left atrial appendage occlusive device. 2. Successful transseptal catheterization to the left atrium x 1. 3. Successful intracardiac ultrasound monitoring. RECOMMENDATION(S): 1. The patient will be monitored on telemetry. 2. If stable, the patient will be discharged to home today 3. DOAC until 45 day follow up TORY and can be transitioned to DAPT. Transition to bASA at her 90 day follow up appointment. Patrick Evans MD 10/16/24 09:03 EDT Procedure Narrative DATE OF PROCEDURE: 10/16/24 REFERRING PHYSICIAN: Dr. Pham DRESSING ROOM ATTENDANT/CUTTER TENDER: Patrick Evans MD PROCEDURE(S) PERFORMED: 1. Insertion of a left atrial appendage occlusive device (Amulet Amplatzer). 2. Transseptal catheterization to the left atrium x1. 3. Intracardiac ultrasound monitoring. INDICATIONS FOR PROCDEDURE: - AF - GIB Anesthesia: General MEDICATION(S) GIVEN TO PATIENT DURING THIS PROCEDURE: General anesthesia, heparin, dye, protamine DESCRIPTION(S) OF THE PROCEDURE: The patient was brought to the cardiovascular electrophysiology laboratory in a non-sedated state. The risks and benefits of conscious sedation and insertion of a left atrial appendage occlusive device were explained to the patient and written, informed consent was obtained. The patient was prepped and draped in the usual sterile manner. Access through the right femoral vein was achieved x 2 using the modified Seldinger technique and the following sheaths and catheters were inserted: 1. An 8-Lithuanian, intracardiac ultrasound catheter was advanced via a 9-Lithuanian sheath in the right femoral vein to the high right atrium for visualization of left atrial structures. 2. A 20 mm left atrial appendage occlusive Amulet Amplatzer device was advanced via a 14 Lithuanian sheath to the left atrial appendage for insertion. The patient arrived in the clinical electrophysiology laboratory in [facility] with a heart rate of 60 bpm. Intracardiac ultrasound demonstrated no left atrial appendage thrombus or significant left atrial smoke. Transseptal catheterization to the left atrium was then performed x 1 using a Diag transseptal needle and guided with the use of intracardiac ultrasound. Intravenous heparin was initiated during the study to maintain activated clotting times greater than 300 seconds. The 8 Lithuanian Daig transseptal sheath was exchanged for a 14 Lithuanian double curved Amulet sheath in the left atrium. A 6 Lithuanian pigtail catheter was then advanced in the left atrial appendage. Venograms of the left atrial appendage was then performed in 2 views. The 14 Lithuanian sheath was advanced over the pigtail in the appendage. A 20 mm Amulet Amplatzer device was then left in place. A 20 mm Amulet Amplatzer device was then deployed in the left atrial appendage ostially and left in place. No significant leakage around the device was seen by TORY. A tug test was performed which demonstrated excellent stability as well. After multiple measurements confirmed the stability of the device with no significant pedro-device leakage by TORY, the device was left in place. No pericardial effusion was seen at the end this study. The sheaths and catheters are removed and with Perclose closure system. Hemostasis was adequate. Estimated blood loss was minimal. The patient tolerated the procedure without difficulty and was transferred to their room in stable condition. COMPLICATIONS: None. Patrick Evans MD CV ELECTROPHYSIOLOGY ORDERABLES Edited Result - Final * (ABNORMAL) POC Activated Clotting Time (10/16/2024 8:23 AM EDT) [facility] Activated Clotting Time 441(H) 82 - 152 Seconds 10/16/2024 3:27 PM EDT [facility] Comment:Serial Number: [id number] 5Operator: [id number] Blood 10/16/2024 8:23 AM EDT 10/16/2024 3:27 PM EDT Patrick Evans MD POINT OF CARE TEST ORDERABLES Fi nal Result [facility]
[address] [place] [address], * Intra-Op Structural Heart TORY (Cardiology Read) (10/16/2024 7:37 AM EDT) [facility] CV VAS BP RIGHT ARM 164/78 mmHg Anatomical Region Laterality Modality Ultrasound Narrative 10/16/2024 12:05 PM EDT Intra-operative TORY imaging performed for LESLEE occlusion device. Prior to placement, the appendage was found to be free of thrombus and sizing measurements were obtained. A 20mm Amulet Amplatzer left atrial appendage occlusive device was placed under TORY imaging and after deployment was found to be well seated with coverage of the appendage and no color flow seen around the lobe section of the device. Left ventricular ejection fraction appears to be 56 - 60%. Normal left ventricular cavity size and wall thickness noted. All left ventricular wall segments contract normally. Biatrial dilation. The mitral valve is structurally normal with no significant stenosis present. Trace mitral valve regurgitation is present. Left Ventricle Left ventricular ejection fraction appears to be 56 - 60%. Normal left ventricular cavity size and wall thickness noted. All left ventricular wall segments contract normally. Right Ventricle Normal right ventricular cavity size and systolic function noted. Left Atrium The left atrial cavity is dilated. Left atrial appendage was found to be multilobar in nature. Left atrial appendage morphology best described as chicken wing. The left atrial appendage was visualized through multiple planes. Doppler interrogation shows normal flow within the left atrial appendage. No evidence of a left atrial appendage thrombus was present. Left atrial appendage occlusion device noted. Intra- operative TORY imaging performed for LESLEE occlusion device. Prior to placement, the appendage was found to be free of thrombus and sizing measurements were obtained. A 20mm Amulet Amplatzer left atrial appendage occlusive device was placed under TORY imaging and after deployment was found to be well seated with coverage of the appendage and no color flow seen around the lobe section of the device. There were 1 pulmonary veins interrogated. Normal pulmonary vein flow. Right Atrium The right atrial cavity is dilated. Mitral Valve The mitral valve is structurally normal with no significant stenosis present. Trace mitral valve regurgitation is present. Tricuspid Valve The tricuspid valve is normal in structure. Trace to mild tricuspid valve regurgitation is present. Aortic Valve The aortic valve is structurally normal with no stenosis present. The aortic valve appears trileaflet. No significant aortic valve regurgitation is present. Pulmonic Valve The pulmonic valve is structurally normal. There is no significant pulmonic valve regurgitation present. Pericardium The pericardium is normal. There is no evidence of pericardial effusion. . Greater Vessels No dilation of the aortic root is present. No dilation of the sinuses of Valsalva is present. No dilation of the descending aorta present. There is mild plaque in the descending aorta present. Study Quality The study is technically good for diagnosis. Normal sinus was the predominant rhythm observed during the procedure. TORY Procedure Details A transesophageal echocardiogram was performed for guidance of a transcatheter intracardiac or great vessel(s): LESLEE Occlusion/Closure. Informed consent for Transesophageal Echocardiogram, and use of contrast as needed, was obtained prior to the procedure. The procedure was performed in the slabber light. Patient was noted to be in a fasting state, with a peripheral IV in place. A bite block was placed for probe protection. Moderate sedation was utilized. An adult multi-frequency, multiplane transesophageal echocardiographic endoscope was inserted and manipulated in the standard fashion to achieve multiplane views. Transesophageal probe was able to be passed without difficulty. Usual basal, mid-esophageal, transgastric, and aortic views were obtained. The patient's vital signs, including blood pressure, heart rate, pulse oximetry, and cardiac rhythm were monitored throughout the procedure. Vitals signs remained stable throughout the study. Post-procedural recovery was completed in the tin can laborer and in the Cardio-Vascular/Close Observation Unit, The patient tolerated the procedure without evidence of oropharyngeal or esophageal trauma. us Patrick Evans MD CV ECHO ORDERABLES Final Result * POC Glucose Once (10/16/2024 7:11 AM EDT) [facility] Glucose 124 70 - 130 mg/dL 10/16/2024 7:13 AM EDT [facility] Blood 10/16/2024 7:11 AM EDT 10/16/2024 7:12 AM EDT us Patrick Evans MD POINT OF CARE TEST ORDERABLES Fi nal Result [facility]
[address] [place] [address], * (ABNORMAL) Basic Metabolic Panel (10/16/2024 6:41 AM EDT) [facility] Glucose 121(H) 65 - 99 mg/dL 10/16/2024 7:45 AM EDT [facility] BUN 20.1 8.0 - 23.0 mg/dL 10/16/2024 7:45 AM T [facility] Creatinine 0.84 0.57 - 1.00 mg/dL 10/16/2024 7:45 AM EDT [facility] Sodium 137 136 - 145 mmol/L 10/16/2024 7:45 AM EDT [facility] Potassium 4.1 3.5 - 5.2 mmol/L 10/16/2024 7:45 AM EDT [facility] Chloride 107 98 - 107 mmol/L 10/16/2024 7:45 AM EDT [facility] CO2 19.0(L) 22.0 - 29.0 mmol/L 10/16/2024 7:45 AM EDT [facility] Calcium 9.2 8.6 - 10.5 mg/dL 10/16/2024 7:45 AM EDT [facility] BUN/Creatinine Ratio 23.9 7.0 - 25.0 10/16/2024 7:45 AM T [facility] Anion Gap 11.0 5.0 - 15.0 mmol/L 10/16/2024 7:45 AM [facility] eGFR 75.3 >60.0 mL/min/1.7 3 10/16/2024 7:45 AM T [facility] Blood Line / Unknown 10/16/2024 6 :41 AM EDT 10/16/2024 7:10 AM EDT [facility] - 10/16/2024 7:45 AM EDT GFR Categories in Chronic Kidney Disease (CKD) GFR Category GFR (mL/min/1.73) Interpretation G1 90 or greater Normal or high (1) G2 60-89 Mild decrease (1) G3a 45-59 Mild to moderate decrease G3b 30-44 Moderate to severe decrease G4 15-29 Severe decrease G5 14 or less Kidney failure (1)In the absence of evidence of kidney disease, neither GFR category G1 or G2 fulfill the criteria for CKD. eGFR calculation 2020 CKD-EPI creatinine equation, which does not include race as a factor us Patrick Evans MD LAB BLOOD ORDERABLES Final Resul t [facility]
[address] [place] [address], * (ABNORMAL) CBC (No Diff) (10/16/2024 6:41 AM EDT) WBC 6.78 3.40 - 10.80 10*3/mm3 10/16/2024 7:25 AM EDT [facility] RBC 3.68(L) 3.77 - 5.28 10*6/mm3 10/16/2024 7:25 AM EDT [facility] Hemoglobin 10.8(L) 12.0 - 15.9 g/dL 10/16/2024 7:25 AM EDT [facility] Hematocrit 34.0 34.0 - 46.6 % 10/16/2024 7:25 AM EDT [facility] MCV 92.4 79.0 - 97.0 fL 10/16/2024 7:25 AM EDT [facility] MCH 29.3 26.6 - 33.0 pg 10/16/2024 7:25 AM EDT [facility] MCHC 31.8 31.5 - 35.7 g/dL 10/16/2024 7:25 AM EDT [facility] RDW 13.8 12.3 - 15.4 % 10/16/2024 7:25 AM EDT [facility] RDW-SD 46.9 37.0 - 54.0 fl 10/16/2024 7:25 AM EDT [facility] MPV 9.5 6.0 - 12.0 fL 10/16/2024 7:25 AM EDT [facility] Platelets 201 140 - 450 10*3/mm3 10/16[facility]24 [facility] Blood Line / Unknown 10/16/2024 6: 41 AM EDT 10/16/2024 7:10 AM EDT us Patrick Evans MD LAB BLOOD ORDERABLES Final Resul t [facility]
[address] [place] [address], documented in this encounter Visit Diagnoses Diagnosis Noncompliance with medication regimen- Primary Personal history of noncompliance with medical treatment, presenting hazards to health Paroxysmal atrial fibrillation Atrial fibrillation Noncompliance with medication regimen Personal history of noncompliance with medical treatment, presenting hazards to health AF (paroxysmal atrial fibrillation) Atrial fibrillation Paroxysmal atrial fibrillation Atrial fibrillation AF (paroxysmal atrial fibrillation) Atrial fibrillation Paroxysmal atrial fibrillation Atrial fibrillation Noncompliance with medication regimen Personal history of noncompliance with medical treatment, presenting hazards to health documented in this encounter Admitting Diagnoses Diagnosis Paroxysmal atrial fibrillation Atrial fibrillation Noncompliance with medication regimen Personal history of noncompliance with medical treatment, presenting hazards to health AF (paroxysmal atrial fibrillation) Atrial fibrillation documented in this encounter Administered Medications Inactive Administered Medications - up to 3 most recent administrations Medication Order MAR Action Action Date Dose Rate Site droperidol (INAPSINE) injection 0.625 mg 0.625 mg, Intravenous, Every 15 Minutes PRN, Nausea, Vomiting, Starting on Tue10/16/24 at 0908, For 2 doses droperidol (INAPSINE) injection 0.625 mg 0.625 mg, Intramuscular, Once As Needed, Nausea, Vomiting, Starting on Tue10/16/24 at 0908, For 2 doses famotidine (PEPCID) tablet 20 mg 20 mg, Oral, Once, On Tue10/16/24 at 0632, For 1 dose Given 10/16/2024 7:12 AM EDT 20 mg fentaNYL citrate (PF) (SUBLIMAZE) injection 50 mcg 50 mcg, Intravenous, Every 5 Minutes PRN, Moderate Pain, Starting on Tue10/16/24 at 0908, For 4 doses, Maximum total dose of fentanyl is 200 mcg. If given for pain, use the following pain scale: Mild Pain = Pain Score of 1-3, CPOT 1-2 Moderate Pain = Pain Score of 4-6, CPOT 3-4 Severe Pain = Pain Score of 7-10, CPOT 5-8 hydrALAZINE (APRESOLINE) injection 5 mg 5 mg, Intravenous, Every 10 Minutes PRN, High Blood Pressure, for systolic blood pressure greater than 180 mmHg or diastolic blood pressure greater than 105 mmHg, Starting on Tue10/16/24 at 0908, Up to 20 mg. Caution: Look alike/sound alike drug alert ipratropium-albuterol (DUO-NEB) nebulizer solution 3 mL 3 mL, Nebulization, Once As Needed, Wheezing, Shortness of Air, bronchospasm, Starting on Tue10/16/24 at 0908, For 1 dose lactated ringers bolus 250 mL 250 mL, Intravenous, at 1,666.7 mL/hr, Administer over 0.15 Hours, Once As Needed, Hypotension, Starting on Tue10/16/24 at 0908, For 2 doses, Indications: HypotensionIndications:Hypotension lactated ringers infusion 9 mL/hr, Intravenous, Continuous, Starting on Tue10/17/24 at 0600, For 1 day, May switch to NS IV at [facility] if renal / if indicated lactated ringers infusion 9 mL/hr, Intravenous, Continuous, Starting on Tue10/16/24 at 0910, For 1 day midazolam (VERSED) injection 0.5 mg 0.5 mg, Intravenous, Every 10 Minutes PRN, Anxiety prophylaxis, Pre-op comfort, Starting on Tue10/16/24 at 0630, For 2 doses, May repeat dose in 10 minutes one time then contact provider for additional orders. If given IV Push: give slowly over at least 2 minutes, unless provider at bedside for induction. ([facility]) naloxone (NARCAN) injection 0.4 mg 0.4 mg, Intravenous, As Needed, Opioid Reversal, unresponsiveness, decrease oxygen saturation, Starting on Tue10/16/24 at 0908 ondansetron (ZOFRAN) injection 4 mg 4 mg, Intravenous, Once As Needed, Nausea, Vomiting, Starting on Tue10/16/24 at 0908, For 1 dose, If BOTH ondansetron (ZOFRAN) and promethazine (PHENERGAN) are ordered use ondansetron first and THEN promethazine IF ondansetron is ineffective. promethazine (PHENERGAN) suppository 25 mg 25 mg, Rectal, Once As Needed, Nausea, Vomiting, Starting on Tue10/16/24 at 0908, For 1 dose, If BOTH ondansetron (ZOFRAN) and promethazine (PHENERGAN) are ordered use ondansetron first and THEN promethazine IF ondansetron is ineffective. promethazine (PHENERGAN) tablet 25 mg 25 mg, Oral, Once As Needed, Nausea, Vomiting, Starting on Tue10/16/24 at 0908, For 1 dose, If BOTH ondansetron (ZOFRAN) and promethazine (PHENERGAN) are ordered use ondansetron first and THEN promethazine IF ondansetron is ineffective. ([facility]) sodium chloride 0.9 % flush 10 mL 10 mL, Intravenous, Every 12 Hours Scheduled, First dose on Tue10/16/24 at 0900 sodium chloride 0.9 % flush 10 mL 10 mL, Intravenous, As Needed, Line Care, Starting on Tue10/16/24 at 0630 sodium chloride 0.9 % flush 3 mL 3 mL, Intravenous, Every 12 Hours Scheduled, First dose on Tue10/16/24 at 0910 sodium chloride 0.9 % flush 3-10 mL 3-10 mL, Intravenous, As Needed, Line Care, Starting on Tue10/16/24 at 0908 sodium chloride 0.9 % infusion 9 mL 9 mL, Intravenous, As Needed, Line Care, Starting on Tue10/16/24 at 0908, For 1 day, Following administration of an IV intermittent medication, flush line with 40mL NS at 100mL/hr. documented in this encounter Active and Recently Administered Medications Times are shown in EDT. Scheduled Medication Order 10/14/2024 10/15/2024 10/16/2024 ceFAZolin 2000 mg IVPB in 100 mL NS (MBP) (COMPLETED) 2,000 mg, Intravenous, Administer over 30 Minutes, Once, On Tue10/16/24 at 0632, For 1 dose, Caution: Look alike/sound alike drug alert, Indications: Surgical Prophylaxis 0744 ([facility] - Prov ider: Natasha Ortiz, EDGER MACHINE HELPER) famotidine (PEPCID) injection 20 mg 20 mg, Intravenous, Once, On Tue10/16/24 at 0632, For 1 dose, Give IV push over 2 minutes. 0632 (Due) famotidine (PEPCID) tablet 20 mg (COMPLETED) 20 mg, Oral, Once, On Tue10/16/24 at 0632, For 1 dose 0712 (Given - Provid er: Naida Hicks RN) sodium chloride 0.9 % flush 10 mL 10 mL, Intravenous, Every 12 Hours Scheduled, First dose on Tue10/16/24 at 0900 0900 (Due) sodium chloride 0.9 % flush 3 mL 3 mL, Intravenous, Every 12 Hours Scheduled, First dose on Tue10/16/24 at 0910 0910 (Due) Continuous Medication Order 10/14/2024 10/15/2024 10/16/2024 lactated ringers infusion 9 mL/hr, Intravenous, Continuous, Starting on Tue10/17/24 at 0600, For 1 day, May switch to NS IV at [facility] if renal / if indicated lactated ringers infusion 9 mL/hr, Intravenous, Continuous, Starting on Tue10/16/24 at 0910, For 1 day 0910 (Due) PRN Medication Order 10/14/2024 10/15/2024 10/16/2024 bupivacaine (MARCAINE) 0.5 % injection (CANCELED) Code / Trauma / Sedation Medication, Starting on Tue10/16/24 at 0803 0803 (Given - Provid er: Patrick Evans MD) diphenhydrAMINE (BENADRYL) injection (CANCELED) Code / Trauma / Sedation Medication, Starting on Tue10/16/24 at 0754 0754 (Given - Provid er: Radha Yu RN) droperidol (INAPSINE) injection 0.625 mg(Linked Group 1) 0.625 mg, Intravenous, Every 15 Minutes PRN, Nausea, Vomiting, Starting on Tue10/16/24 at 0908, For 2 doses droperidol (INAPSINE) injection 0.625 mg(Linked Group 1) 0.625 mg, Intramuscular, Once As Needed, Nausea, Vomiting, Starting on Tue10/16/24 at 0908, For 2 doses fentaNYL citrate (PF) (SUBLIMAZE) injection 50 mcg 50 mcg, Intravenous, Every 5 Minutes PRN, Moderate Pain, Starting on Tue10/16/24 at 0908, For 4 doses, Maximum total dose of fentanyl is 200 mcg. If given for pain, use the following pain scale: Mild Pain = Pain Score of 1-3, CPOT 1-2 Moderate Pain = Pain Score of 4-6, CPOT 3-4 Severe Pain = Pain Score of 7-10, CPOT 5-8 heparin (porcine) injection (CANCELED) Code / Trauma / Sedation Medication, Starting on Tue10/16/24 at 0808 0808 (Given - Provid er: Radha Yu RN) hydrALAZINE (APRESOLINE) injection 5 mg 5 mg, Intravenous, Every 10 Minutes PRN, High Blood Pressure, for systolic blood pressure greater than 180 mmHg or diastolic blood pressure greater than 105 mmHg, Starting on Tue10/16/24 at 0908, Up to 20 mg. Caution: Look alike/sound alike drug alert iopamidol (ISOVUE-370) 76 % injection (CANCELED) Code / Trauma / Sedation Medication, Starting on Tue10/16/24 at 0831 0831 (Given - Provid er: Patrick Evans MD) ipratropium-albuterol (DUO-NEB) nebulizer solution 3 mL 3 mL, Nebulization, Once As Needed, Wheezing, Shortness of Air, bronchospasm, Starting on Tue10/16/24 at 0908, For 1 dose lactated ringers bolus 250 mL 250 mL, Intravenous, at 1,666.7 mL/hr, Administer over 0.15 Hours, Once As Needed, Hypotension, Starting on Tue10/16/24 at 0908, For 2 doses, Indications: Hypotension lidocaine (XYLOCAINE) injection (CANCELED) Code / Trauma / Sedation Medication, Starting on Tue10/16/24 at 0803 0803 (Given - Provid er: Patrick Evans MD) methylPREDNISolone sodium succinate (SOLU-Medrol) injection (CANCELED) Code / Trauma / Sedation Medication, Starting on Tue10/16/24 at 0754 0754 (Given - Provid er: Radha Yu RN) midazolam (VERSED) injection 0.5 mg 0.5 mg, Intravenous, Every 10 Minutes PRN, Anxiety prophylaxis, Pre-op comfort, Starting on Tue10/16/24 at 0630, For 2 doses, May repeat dose in 10 minutes one time then contact provider for additional orders. If given IV Push: give slowly over at least 2 minutes, unless provider at bedside for induction. ([facility]) naloxone (NARCAN) injection 0.4 mg 0.4 mg, Intravenous, As Needed, Opioid Reversal, unresponsiveness, decrease oxygen saturation, Starting on Tue10/16/24 at 0908 ondansetron (ZOFRAN) injection 4 mg 4 mg, Intravenous, Once As Needed, Nausea, Vomiting, Starting on Tue10/16/24 at 0908, For 1 dose, If BOTH ondansetron (ZOFRAN) and promethazine (PHENERGAN) are ordered use ondansetron first and THEN promethazine IF ondansetron is ineffective. promethazine (PHENERGAN) suppository 25 mg(Linked Group 2) 25 mg, Rectal, Once As Needed, Nausea, Vomiting, Starting on Tue10/16/24 at 0908, For 1 dose, If BOTH ondansetron (ZOFRAN) and promethazine (PHENERGAN) are ordered use ondansetron first and THEN promethazine IF ondansetron is ineffective. promethazine (PHENERGAN) tablet 25 mg(Linked Group 2) 25 mg, Oral, Once As Needed, Nausea, Vomiting, Starting on Tue10/16/24 at 0908, For 1 dose, If BOTH ondansetron (ZOFRAN) and promethazine (PHENERGAN) are ordered use ondansetron first and THEN promethazine IF ondansetron is ineffective. ([facility]) protamine injection (CANCELED) Code / Trauma / Sedation Medication, Starting on Tue10/16/24 at 0831 0831 (Given - Provid er: Radha Yu RN) sodium chloride 0.9 % flush 10 mL 10 mL, Intravenous, As Needed, Line Care, Starting on Tue10/16/24 at 0630 sodium chloride 0.9 % flush 3-10 mL 3-10 mL, Intravenous, As Needed, Line Care, Starting on Tue10/16/24 at 0908 sodium chloride 0.9 % infusion 9 mL 9 mL, Intravenous, As Needed, Line Care, Starting on Tue10/16/24 at 0908, For 1 day, Following administration of an IV intermittent medication, flush line with 40mL NS at 100mL/hr. Linked Groups Order Group 1: droperidol (INAPSINE) injection 0.625 mgJump to med 0.625 mg, Intravenous, Every 15 Minutes PRN, Nausea, Vomiting, Starting on Tue10/16/24 at 0908, For 2 doses Or droperidol (INAPSINE) injection 0.625 mgJump to med 0.625 mg, Intramuscular, Once As Needed, Nausea, Vomiting, Starting on Tue10/16/24 at 0908, For 2 doses Group 2: promethazine (PHENERGAN) suppository 25 mgJump to med 25 mg, Rectal, Once As Needed, Nausea, Vomiting, Starting on Tue10/16/24 at 0908, For 1 dose, If BOTH ondansetron (ZOFRAN) and promethazine (PHENERGAN) are ordered use ondansetron first and THEN promethazine IF ondansetron is ineffective. Or promethazine (PHENERGAN) tablet 25 mgJump to med 25 mg, Oral, Once As Needed, Nausea, Vomiting, Starting on Tue10/16/24 at 0908, For 1 dose, If BOTH ondansetron (ZOFRAN) and promethazine (PHENERGAN) are ordered use ondansetron first and THEN promethazine IF ondansetron is ineffective. ([facility]) documented in this encounter Care Teams Process Expert Relationship Specialty Start Date End Date Juan Pablo Nelson MD PCP - General Family Medicine 11/01/19 documented as of this encounter
--- OUTSIDE RECORDS SUMMARY | 2024-10-16 07:10 | XMS_ITS | Encounter Summary ---
Author Organization [facility] Address [address] [place] [address] Care Team Providers Care Cardiovascular Sonographer Name Role Phone Juan Pablo Nelson MD Primary Care Provider + Reason for Visit * Auth/Cert Specialty Diagnoses / Procedures Referred By Contac t Referred To Contact Diagnoses Paroxysmal atrial fibrillation Noncompliance with medication regimen Atrial Fibrillation Procedures OH PERQ CLSR TCAT L ATR APNDGE W/ENDOCARDIAL IMPLNT Atrial Appendage Occlusion; TORY WITH DR ZULUAGA Referral ID Status Reason Start Date Expiration Date Visits Re quested Visits Authorized [id number] 1 1 Encounter Details Date Type Department Care Team (Late st Contact Info) Description 10/16/2024 7:10 AM EDT - 10/16/2024 9:10 AM EDT Surgery [facility] [address] [place] [id number] Patrick Evans MD [address] [facility] [address] [place] [address] Atrial Appendage Occlusion TORY WITH DR ZULUAGA [85621 (CPT )] Social History Tobacco Use Types Packs/Day Years [...] or training? Not on file Preferred Language Omani 03/09/2024 PHQ-2 Answer Date Recorded Patient Health [...] Sign Reading Time Taken Comments Blood Pressure 134/75 10/16/2024 9:00 AM EDT Pulse 80 10/16/2024 9:00 AM EDT Temperature 36.1 C (97 F) 10/16/2024 8:45 AM EDT Respiratory Rate 15 10/16/2024 8:45 AM EDT Oxygen Saturation 94% 10/16/2024 9:00 AM EDT Inhaled Oxygen Concentration - - Weight 77 kg (169 lb 12.8 oz) 10/16/2024 6:26 AM EDT Height 170.2 cm (5' [...] 6:40 AM EDT Naida Limon RN * [place] Suicide Severity Rating Scale (Screener/Recent Self-Report) Question Answer Date of Assessment Author 6. Suicidal Behavior (Lifetime) No 10/16/2024 6:40 AM EDT Helio Hicks RN documented as of this encounter Discharge Instructions * Attachments The following attachments cannot be sent through Care Everywhere. * Left Atrial Appendage Closure Device Implantation (Omani) * Left Atrial Appendage Closure Device Implantation Care After (Omani) * Femoral Site Care (Omani) * General Anesthesia Adult Care After (Omani) * Atrial Fibrillation (Omani) * Rivaroxaban Tablets (Omani) documented in this encounter Medications at Time [...] - 09/20/2024 10:15 AM EDT Justine Handley [id number] 1955 [facility] Referring Provider: No ref. provider found Juan Pablo Nelson MD [address] [place] [address] Chief Complaint Patient presents with Paroxysmal atrial fibrillation Problem List Paroxysmal afib CHADSVASc = 4, AC on Coumadin Echocardiogram, 07/2022: EF 55-60%, data deficient AAD: failed sotalol PFA of PVI and PWI, 03/16/[address] Evans CAD Hx of OH, data deficient - No stent per patient [...] Normal sinus rhythm, rightward axis, 63 bpm, OH 202, QRS 120, QT/QTc 438/448 Lab Results [...] fibrillation (Primary) 2. Coronary artery disease involving [place] coronary artery of [place] heart without angina pectoris 3. Noncompliance with [...] if fatigue continues. Coronary artery disease involving [place] coronary artery of [place] heart without angina pectoris - On Lipitor [...] Keller Emmanuelle 1955 [address] [place] [address] [facility] [address] (home) LESLEE Orifice Maximal Width: 20 mm Cumulative Air Kerma: 63 mGy Contrast Volume: 10 mL Dose Area Product: 520.53 ?Gy-M2 * Sharla Cortez RN - 10/10/2024 9:38 AM EDT PRE-LAAO HISTORY Justine Villatoro Emmanuelle [address] [facility] [address] (home) Referring MD: Elsa Pham MD Information obtained from: [x] Medical record review [x] Patient report Scheduled for: LAAO implant on October 16, [address] Evans [facility] Visit: Elsa Pham MD CHADS-VASc Risk Assessment 5 Total Score 1 Hypertension 1 DM 1 Age 65-74 1 1 Sex: Female Vascular Disease Criteria that do not apply: CHF Age >/= 75 PRIOR STROKE/TIA/THROMBO Vascular Disease History & Risk Factors (prior to LAAO implant) [id number] Risk Factors: Congestive HF [x] No [] Yes LV Dysfunction [x] No [] Yes Hypertension [] No [x] Yes Diabetes [] No [x] Yes Stroke [x] No [] Yes TIA [x] No [] Yes Thromboembolism [x] No [] Yes Vascular Disease [] No [x] Yes If Yes, Type [] Prior OH [x] CAD [] Aortic Plaque Statin if [...] along with medication options. 10/10/24 09:38 EDT [facility] Revised 04/21/2023 Cosigned by Patrick Evans MD at 10/10/2024 6:07 PM EDT Associated attestation - Patrick Evans MD - 10/10/2024 6:07 PM EDT I have reviewed this documentation and agree. documented in this encounter Plan of Treatment Upcoming Encounters Date Type Department Care Team (Late st Contact Info) Description 01/17/2025 9:30 AM EDT Office Visit [facility] [address] [facility] [address] [place] [phone] Patrick Evans MD [address] [place], [place] [id number] 04/19/2025 1:00 PM EST Telemedicine [facility] [address] [facility] [address] [place] [phone] Pj Marie APRN [address] [facility] [address] [place] [address] 04/25/2025 10:15 AM EST Office Visit [facility] [address] [place] [address] Juan Pablo Nelson MD [address] [place] [address] 07/15/2025 10:00 AM EDT Office Visit [facility] [address] [place] [address] Elsa Pham MD [address] [place] [address] Scheduled Orders Name Type Priority Associated Diagnoses [...] OF PROCEDURE: 10/16/24 REFERRING PHYSICIAN: Dr. Pham MOONER/PHOTOVOLTAIC SUBCONTRACTOR: Patrick Evans MD PROCEDURE(S) PERFORMED: 1. Insertion [...] sheaths and catheters were inserted: 1. An 8-Cuban, intracardiac ultrasound catheter was advanced via a 9-Cuban sheath in the right femoral vein to the high right atrium for visualization of left atrial structures. 2. A 20 mm left atrial appendage occlusive Amulet Amplatzer device was advanced via a 14 Cuban sheath to the left atrial appendage for insertion. The patient arrived in the clinical electrophysiology laboratory [facility] with a heart rate of 60 bpm. Intracardiac ultrasound demonstrated no left atrial appendage thrombus or significant left atrial smoke. Transseptal catheterization to the left atrium was then performed x 1 using a Diag transseptal needle and guided with the use of intracardiac ultrasound. Intravenous heparin was initiated during the study to maintain activated clotting times greater than 300 seconds. The 8 Cuban Daig transseptal sheath was exchanged for a 14 Cuban double curved Amulet sheath in the left atrium. A 6 Cuban pigtail catheter was then advanced in the left atrial appendage. Venograms of the left atrial appendage was then performed in 2 views. The 14 Cuban sheath was advanced over the pigtail in [...] their room in stable condition. COMPLICATIONS: None. us Patrick Evans MD CV ELECTROPHYSIOLOGY ORDERABLES Edited Result - Final * (ABNORMAL) POC Activated Clotting Time (10/16/2024 8:23 AM EDT) [facility] Activated Clotting Time 441(H) 82 - 152 Seconds 10/16/2024 3:27 PM EDT [facility] Comment:Serial Number: [id number] 5Operator: [id number] Blood 10/16/2024 8:23 AM EDT 10/16/2024 3:27 PM EDT us Patrick Evans MD POINT OF CARE TEST ORDERABLES Fi nal Result [facility]
[address] [place] [address], * Intra-Op Structural Heart TORY (Cardiology Read) (10/16/2024 7:37 AM EDT) [facility] CV VAS BP RIGHT ARM 164/78 mmHg [...] procedure. The procedure was performed in the syrup machine laborer. Patient was noted to be in a [...] study. Post-procedural recovery was completed in the laborer plumbing and in the Cardio-Vascular/Close Observation Unit, The patient tolerated the procedure without evidence of oropharyngeal or esophageal trauma. us Patrick Evans MD CV ECHO ORDERABLES Final Result * POC Glucose Once (10/16/2024 7:11 AM EDT) Glucose 124 70 - 130 mg/dL 10/16/2024 7:13 AM EDT [facility] Blood 10/16/2024 7:11 AM EDT 10/16/2024 7:12 AM EDT us Patrick Evans MD POINT OF CARE TEST ORDERABLES Fi nal Result [facility]
[address] [place] [address], * (ABNORMAL) Basic Metabolic Panel (10/16/2024 6:41 AM EDT) Glucose 121(H) 65 - 99 mg/dL 10/16/2024 7:45 AM EDT [facility] BUN 20.1 8.0 - 23.0 mg/dL 10/16/2024 7:45 AM EDT [facility] Creatinine 0.84 0.57 - 1.00 mg/dL 10/16/2024 7:45 AM EDT [facility] Sodium 137 136 - 145 mmol/L 10/16/2024 7:45 AM EDT [facility] Potassium 4.1 3.5 - 5.2 mmol/L 10/16/2024 7:45 AM EDT [facility] Chloride 107 98 - 107 mmol/L 10/16/2024 7:45 AM EDT [facility] CO2 19.0(L) 22.0 - 29.0 mmol/L 10/16/2024 7:45 AM EDT [facility] Calcium 9.2 8.6 - 10.5 mg/dL 10/16/2024 7:45 AM EDT [facility] BUN/Creatinine Ratio 23.9 7.0 - 25.0 10/16/2024 7:45 AM EDT [facility] Anion Gap 11.0 5.0 - 15.0 mmol/L 10/16/2024 7:45 AM T [facility] eGFR 75.3 >60.0 mL/min/1.7 3 10/16/2024 7:45 AM T [facility] Blood Line / Unknown 10/16/2024 6: 41 AM EDT 10/16/2024 7:10 AM EDT [facility] - 10/16/2024 7:45 AM EDT [...] MD LAB BLOOD ORDERABLES Final Resul t [facility]
[address] [place] [address], * (ABNORMAL) CBC (No Diff) (10/16/2024 6:41 AM EDT) WBC 6.78 3.40 - 10.80 10*3/mm3 10/16/2024 7:25 AM EDT [facility] RBC 3.68(L) 3.77 - 5.28 10*6/mm3 10/16/2024 7:25 AM EDT [facility] Hemoglobin 10.8(L) 12.0 - 15.9 g/dL 10/16/2024 7:25 AM EDT [facility] Hematocrit 34.0 34.0 - 46.6 % 10/16/2024 7:25 AM EDT [facility] MCV 92.4 79.0 - 97.0 fL 10/16/2024 7:25 AM EDT [facility] MCH 29.3 26.6 - 33.0 pg 10/16/2024 7:25 AM EDT [facility] MCHC 31.8 31.5 - 35.7 g/dL 10/16/2024 7:25 AM EDT [facility] RDW 13.8 12.3 - 15.4 % 10/16/2024 7:25 AM EDT [facility] RDW-SD 46.9 37.0 - 54.0 fl 10/16/2024 7:25 AM EDT [facility] MPV 9.5 6.0 - 12.0 fL 10/16/2024 7:25 AM EDT [facility] Platelets 201 140 - 450 10*3/mm3 10/16/2024 7:25 AM EDT [facility] Blood Line / Unknown 10/16/2024 6: 41 AM EDT 10/16/2024 7:10 AM EDT us Patrick Evans MD LAB BLOOD ORDERABLES Final Resul t [facility]
[address] [place] [address], documented in this encounter Visit Diagnoses Diagnosis [...] MAR Action Action Date Dose Rate Site bupivacaine (MARCAINE) 0.5 % injection Code / Trauma / Sedation Medication, Starting on Tue10/16/24 at 0803 Given 10/16/2024 8:03 AM EDT 10 mL Groin Right diphenhydrAMINE (BENADRYL) injection Code / Trauma / Sedation Medication, Starting on Tue10/16/24 at 0754 Given 10/16/2024 7:54 AM EDT 25 mg droperidol (INAPSINE) injection 0.625 mg 0.625 mg, [...] of 7-10, CPOT 5-8 heparin (porcine) injection Code / Trauma / Sedation Medication, Starting on Tue10/16/24 at 0808 Given 10/16/2024 8:08 AM EDT 14,000 Units hydrALAZINE (APRESOLINE) injection 5 mg 5 mg, Intravenous, Every 10 Minutes PRN, High Blood Pressure, for systolic blood pressure greater than 180 mmHg or diastolic blood pressure greater than 105 mmHg, Starting on Tue10/16/24 at 0908, Up to 20 mg. Caution: Look alike/sound alike drug alert iopamidol (ISOVUE-370) 76 % injection Code / Trauma / Sedation Medication, Starting on Tue10/16/24 at 0831 Given 10/16/2024 8:31 AM EDT 10 mL ipratropium-albuterol (DUO-NEB) nebulizer solution 3 mL 3 mL, Nebulization, Once As Needed, Wheezing, Shortness of Air, bronchospasm, Starting on Tue10/16/24 at 0908, For 1 dose lactated ringers bolus 250 mL 250 mL, Intravenous, at 1,666.7 mL/hr, Administer over 0.15 Hours, Once As Needed, Hypotension, Starting on Tue10/16/24 at 0908, For 2 doses, Indications: HypotensionIndications:Hyp otension lactated ringers infusion 9 mL/hr, Intravenous, Continuous, Starting on Tue10/17/24 at 0600, For 1 day, May switch to NS IV at [facility] if renal / if indicated lactated ringers infusion 9 mL/hr, Intravenous, Continuous, Starting on Tue10/16/24 at 0910, For 1 day lidocaine (XYLOCAINE) injection Code / Trauma / Sedation Medication, Starting on Tue10/16/24 at 0803 Given 10/16/2024 8:03 AM EDT 10 mL Groin Right methylPREDNISolone sodium succinate (SOLU-Medrol) injection Code / Trauma / Sedation Medication, Starting on Tue10/16/24 at 0754 Given 10/16/2024 7:54 AM EDT 125 mg midazolam (VERSED) injection 0.5 mg 0.5 mg, [...] IF ondansetron is ineffective. ([facility]) protamine injection Code / Trauma / Sedation Medication, Starting on Tue10/16/24 at 0831 Given 10/16/2024 8:31 AM EDT 100 mg sodium chloride 0.9 % flush 10 mL [...] drug alert, Indications: Surgical Prophylaxis 0744 (New Bag - Prov ider: Natasha Ortiz, COMPACTOR DRIVER) famotidine (PEPCID) injection 20 mg 20 mg, [...] and THEN promethazine IF ondansetron is ineffective. ([facility]) documented in this encounter Care Teams Cardiovascular Sonographer Relationship Specialty Start Date End Date Juan Pablo Nelson MD PCP - General Family Medicine 11/01/19 documented as of this encounter
--- OUTSIDE RECORDS SUMMARY | 2024-10-16 07:34 | XMS_ITS | Encounter Summary ---
Author Organization [facility] Address [address] [place] [address] Care Team Providers Care Chemical Strength Tester Name Role Phone Juan Pablo Nelson MD Primary Care Provider + Reason for Visit * Auth/Cert Specialty Diagnoses / Procedures Referred By Contac t Referred To Contact Diagnoses Paroxysmal atrial fibrillation Noncompliance with medication regimen Atrial Fibrillation Procedures [place] PERQ CLSR TCAT L ATR APNDGE W/ENDOCARDIAL IMPLNT Atrial Appendage Occlusion; TORY WITH DR ZULUAGA Referral ID Status Reason Start Date Expiration Date Visits Re quested Visits Authorized [id number] 1 1 Encounter Details Date Type Department Care Team (Late st Contact Info) Description 10/16/2024 7:34 AM EDT Anesthesia Event [facility] [address] [place] [address] Austyn Dunne MD [address] [place] [address] Anesthesia Record Procedure Summary Procedure Name Responsible Anesthesiologist Anesthesia Start Time Anesthesia Stop Time Atrial Appendage Occlusion TORY WITH Austyn Pederson MD 10/16/24 0734 10/16/24 0847 Events Date Time Event Comment 10/16/2024 0711 0734 AN Equip Check 0734 An Start The patient was reevaluated immediately before moderate or deep sedation use and before anesthesia induction. 0734 An Start Data 0747 An Induction 0749 An Intubation 0811 an delia now Clear site not reading accurately 0840 An Extubation SV maintained, suctioned airway, 90mm OPA inserted, pt opens eyes to voice/follows commands, extubated to 100% O2 to NC- pt tolerated well 0844 an stop data 0847 Handoff to RN The following has been completed: 1. Identification of Patient, chappell family member(s) or patient surrogate 2. Identification of the responsible Practitioner (primary service) 3. Discussion of the pertinent/attainable medical history 4. Discussion of the surgical/procedure course (procedure, reason for surgery, procedure performed) 5. Intraoperative anesthetic management and issue/concerns to include things such as airway, hemodynamics, narcotic, sedation level and paralytic management and intravenous fluids/blood products and urine output during the procedure 6. Expectations/Plans for the early post-procedure period to include things such as anticipated course (anticipatory guidance), complications, need for laboratory or ECG and medication administration 7. Opportunity for questions and acknowledgment of understanding of report from the receiving PACU/ICU team 0847 An Stop Meds Name Total ceFAZolin 2000 mg IVPB in 100 mL NS (MBP ) 2,000 mg lidocaine PF (XYLOCAINE) injection 1% 50 mg propofol (DIPRIVAN) 10 mg/mL injection 1 50 mg ondansetron (ZOFRAN) 2 mg/mL 4 mg rocuronium (ZEMURON) 50 mg/5 mL injectio n 50 mg phenylephrine (KAMAR-SYNEPHRINE) injection 100 mcg/mL 10 mL syringe 100 mcg sugammadex (BRIDION) 500 mg/5 mL injecti on 400 mg sodium chloride 0.9 % infusion 200 mL * Agents Name O2 N2O Air Sevoflurane Inspired Sevoflurane * Blood No blood administrations on file. Lines, Drains, and Airways Type Details Placement Removal Peripheral IV Placement Date: 09/26 05/22; Placement Time: 720; Catheter Size: 20 G; Orientation: Posterior, Right; Location: Wrist; Insertion Attempts: 1; Patient Tolerance: Tolerated well; Removal Date: 10/16/24; Removal Time: 1128 10/16/24720 by Naida Hicks RN 10/16/241127 by Mary Dobbins RN ETT Placement Date: 09/26 05/22; Placement Time: 748 (created via procedure documentation); Blade Size: 3; Location: Oral; Removal Date: 10/16/24; Removal Time: 0810/16/24 0749 by Natasha Ortiz CALIBRATION LABORATORY TECHNICIAN 10/16/24 0840 by Natasha Ortiz CRNA Venous Sheath 10/16/24; 0804; Yes; 8 Fr.; Right; Femoral; No; JL; Injectable; Chlorhexidine; Yes; PERCLOSE; 10/16/24; 0832; Per order; No complications, Dressing applied 10/16/24 0804 by Katlyn Gutierrez RN 10/16/24 0832 by Katlyn Gutierrez RN Venous Sheath 10/16/24; 0805; Yes; 9 Fr.; Right; Femoral; No; JL; Chlorhexidine; Yes; PERCLOSE; 10/16/24; 0833; Per order; No complications, Dressing applied 10/16/24 0805 by Katlyn Gutierrez RN 10/16/24 0833 by Katlyn Gutierrez RN documented in this encounter Social History Tobacco Use Types Packs/Day Years [...] or training? Not on file Preferred Language Togolese 03/09/2024 PHQ-2 Answer Date Recorded Patient Health Questionnaire-2 Score 0 04/20/2024 Comments No Sex and Gender Information Value Date Recorded Sex Assigned at Female 06/07/2024 9:29 AM EDT Legal Sex Female 12:35 PM EDT Gender Identity Not on file Sexual Orientation Straight 06/07/2024 9: 29 AM EDT documented as of this encounter Functional Status * Question Answer [...] 6:40 AM EDT Naida Limon RN * [place] Suicide Severity Rating Scale (Screener/Recent Self-Report) Question Answer Date of Assessment Author 6. Suicidal Behavior (Lifetime) No 10/16/2024 6:40 AM EDT Helio Hicks RN documented as of this encounter OR Notes * Anesthesia Postprocedure Evaluation - Natasha Ortiz CRNA - 10/16/2024 8:44 AM EDT Patient: Justine Handley Procedure Summary Date: 10/16/24 Room / Location: [facility] / [facility] INVASIVE [facility]ATION Anesthesia Start: 733 Anesthesia Stop: 846 Procedure: Atrial Appendage Occlusion TORY WITH DR ZULUAGA Diagnosis: Paroxysmal atrial fibrillation Noncompliance with medication regimen (Atrial Fibrillation) Providers: Patrick Evans MD Provider: Austyn Dunne MD Anesthesia Type: general ASA Status: 3 Anesthesia Type: general Vitals Temp: 97.0F BP: 142/73 HR: 85 O2: 98% on NC RR: 20 Post Anesthesia Care and Evaluation Patient location during evaluation: PACU Patient participation: complete - patient participated Level of consciousness: awake Pain score: 0 Pain management: adequate Airway patency: patent Anesthetic complications: No anesthetic complications PONV Status: none Cardiovascular status: hemodynamically stable and acceptable Respiratory status: nonlabored ventilation, acceptable and nasal cannula Hydration status: acceptable Comments: Report to RN at bedside - care accepted, pt maintains arms at sides * Anesthesia Procedure Notes - Natasha Ortiz CRNA - 10/16/2024 8:03 AM EDT Associated Order(s): Airway Airway Reason: elective Date/Time: 10/16/2024 7:49 AM Airway not difficult General Information and Staff Patient location during procedure: OR CALIBRATION LABORATORY TECHNICIAN/CAA: Natasha Ortiz CRNA Indications and Patient Condition Indications for airway management: airway protection Preoxygenated: yes MILS not maintained throughout Mask difficulty assessment: 1 - vent by mask Final Airway Details Final airway type: endotracheal airway Successful airway: ETT Cuffed: yes Successful intubation technique: video laryngoscopy Adjuncts used in placement: intubating stylet Endotracheal tube insertion site: oral Blade: Zimmer Blade size: 3 ETT size (mm): 7.0 Cormack-Lehane Classification: grade I - full view of glottis Placement verified by: chest auscultation and capnometry Measured from: lips ETT/EBT to lips (cm): 21 Number of attempts at approach: 1 Assessment: lips, teeth, and gum same as pre-op and atraumatic intubation Additional Comments Negative epigastric sounds, Breath sound equal bilaterally with symmetric chest rise and fall * Anesthesia Preprocedure Evaluation - Austyn Dunne MD - 10/15/2024 2:53 PM EDT Anesthesia Evaluation Patient summary reviewed and Nursing notes reviewed NPO Solid Status: > 8 hours NPO Liquid Status: > 2 hours Airway Mallampati: III TM distance: >3 FB Neck ROM: full Possible difficult intubation Dental Pulmonary (+) a smoker (1985) Former, cigarettes, asthma (PRN MDI),shortness of breath, sleep apnea (NC) (-) recent URI ROS comment: Sats 96% RA Cardiovascular ECG reviewed (+) hypertension, past ND (data def cath 2022 neg for CAD during a pancreatitis 10 yrs ago) >12 months, dysrhythmias Atrial Fib, Paroxysmal Atrial Fib, hyperlipidemia (-) CAD (data def cath 2022 neg for CAD), cardiac stents ROS comment: 1. Paroxysmal afib a. CHADSVASc = 4, AC on Coumadin b. Echocardiogram, 07/2022: EF 55-60%, data deficient c. AAD: failed sotalol d. PFA of PVI and PWI, 03/16/[address] Evans 2. CAD a. Hx of ND, data deficient - No stent per patient b. Nuclear MPS 08/24/2022: EF 57% mediium sized, moderate, partially reversible defect consitent w infarct w/region of reversible ischemia c. 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 Plan discussed with CALIBRATION LABORATORY TECHNICIAN. CODE STATUS: documented in this encounter Plan of Treatment Upcoming Encounters Date Type Department Care Team (Late st Contact Info) Description 01/17/2025 9:30 AM EDT Office Visit [facility] [address] [place] [address] [address] [place] [address] Patrick Evans MD [address] [facility] [address] [place] [address] 04/19/2025 1:00 PM EST Telemedicine [facility] [address] [facility] [address] [place] [id number] Pj Marie APRN [address] [facility] [address] [place], [place] [id number] 04/25/2025 10:15 AM EST Office Visit [facility] [address] [place] [address] Juan Pablo Nelson MD [address] [place] [address] 07/15/2025 10:00 AM EDT Office Visit [facility] [address] [place] [phone] Elsa Pham MD [address] [place] [address] documented as of this encounter Procedures Procedure Name Priority Date/Time Associated Diagnosis Comments ANESTHESIA INTUBATION Routine 10/16/2024 8:03 AM EDT documented in this encounter Results * BH AN ETT AIRWAY (10/16/2024 8:03 AM EDT) Narrative Natasha Ortiz CRNA - 10/16/2024 8:03 AM EDT Natasha Ortiz CRNA 10/16/2024 8:05 AM Airway Reason: elective Date/Time: 10/16/2024 7:49 AM Airway not difficult General Information and Staff Patient location during procedure: OR CALIBRATION LABORATORY TECHNICIAN/CAA: Natasha Ortiz CRNA Indications and Patient Condition Indications for airway management: airway protection Preoxygenated: yes MILS not maintained throughout Mask difficulty assessment: 1 - vent by mask Final Airway Details Final airway type: endotracheal airway Successful airway: ETT Cuffed: yes Successful intubation technique: video laryngoscopy Adjuncts used in placement: intubating stylet Endotracheal tube insertion site: oral Blade: Zimmer Blade size: 3 ETT size (mm): 7.0 Cormack-Lehane Classification: grade I - full view of glottis Placement verified by: chest auscultation and capnometry Measured from: lips ETT/EBT to lips (cm): 21 Number of attempts at approach: 1 Assessment: lips, teeth, and gum same as pre-op and atraumatic intubation Additional Comments Negative epigastric sounds, Breath sound equal bilaterally with symmetric chest rise and fall us Austyn Dunne MD ANESTHESIA ORDERABLES Final Res ult documented in this encounter Visit Diagnoses Not on filedocumented in this encounter Administered Medications Inactive Administered Medications - up to 3 most recent administrations Medication Order MAR Action Action Date Dose Rate Site ceFAZolin 2000 mg IVPB in 100 mL NS (MBP) 2,000 mg, Intravenous, Administer over 30 Minutes, Once, On Tue10/16/24 at 0632, For 1 dose, Caution: Look alike/sound alike drug alert, Indications: Surgical ProphylaxisIndications:Surgical Prophylaxis New Bag 10/16/2024 7:44 AM EDT 2,000 mg lidocaine PF 1% (XYLOCAINE) injection Intravenous, As Needed, Starting on Tue10/16/24 at 0747 Given 10/16/2024 7:47 AM EDT 50 mg ondansetron (ZOFRAN) injection Intravenous, As Needed, Starting on Tue10/16/24 at 0831 Given 10/16/2024 8:31 AM EDT 4 mg Phenylephrine HCl-NaCl 100 mcg/ml injection Intravenous, As Needed, Starting on Tue10/16/24 at 0827 Given 10/16/2024 8:27 AM EDT 100 mcg propofol (DIPRIVAN) injection Intravenous, As Needed, Starting on Tue10/16/24 at 0747 Given 10/16/2024 7:47 AM EDT 150 mg rocuronium (ZEMURON) injection Intravenous, As Needed, Starting on Tue10/16/24 at 0747 Given 10/16/2024 7:47 AM EDT 50 mg sodium chloride 0.9 % infusion Intravenous, Continuous PRN, Starting on Tue10/16/24 at 0734 New Bag 10/16/2024 7:34 AM EDT sugammadex (BRIDION) injection Intravenous, As Needed, Starting on Tue10/16/24 at 0836 Given 10/16/2024 8:36 AM EDT 400 mg documented in this encounter Care Teams Chemical Strength Tester Relationship Specialty Start Date End Date Juan Pablo Nelson MD PCP - General Family Medicine 11/01/19 documented as of this encounter
--- OUTSIDE RECORDS SUMMARY | 2024-10-18 09:45 | XMS_ITS | Encounter Summary ---
Author Organization [facility] Address [address] [place] [address] Care Team Providers Care Director Of Cardiac Cath Lab Name Role Phone Juan Pablo Nelson MD Primary Care Provider + Reason for Visit * Reason Comments Diabetes 6 mo f/up Encounter Details Date Type Department Care Team (Late st Contact Info) Description 10/18/2024 9:45 AM EDT Office Visit [facility] [address] [place] [address] Juan Pablo Nelson MD [address] [place] [address] Type 2 diabetes mellitus without complication, without long-term current use of insulin (Primary Dx); Type 2 diabetes mellitus without complication, without long-term current use of insulin; Neuropathy of both feet; AF (paroxysmal atrial fibrillation) Social History Tobacco Use Types Packs/Day Years [...] or training? Not on file Preferred Language Panamanian 03/09/2024 PHQ-2 Answer Date Recorded Patient Health [...] Sign Reading Time Taken Comments Blood Pressure 116/74 10/18/2024 9:42 AM EDT Pulse 66 10/18/2024 9:42 AM EDT Temperature 36.9 C (98.4 F) 10/18/2024 9:42 AM EDT Respiratory Rate 18 10/18/2024 9:42 AM EDT Oxygen Saturation 98% 10/18/2024 9:42 AM EDT Inhaled Oxygen Concentration - - Weight 77.1 kg (170 lb) 10/18/2024 9:42 AM EDT Height 170.2 cm (5' 7 ) 10/18/2024 9:42 AM EDT Body Mass Index 26.63 10/18/2024 9:42 AM EDT documented in this encounter Progress Notes * Juan Pablo Nelson MD - 10/18/2024 10:46 AM EDTAssociated Problem(s): AF (paroxysmal atrial fibrillation) I contacted the ARPN associated with patient's care regarding use of Xarelto and Asprin. The patient is to take both Xarelto and aspirin for 45 days at which point she will have a TORY. If the Watchman device is well-seated patient will transition to aspirin and Plavix for a brief period of time. Patient was contacted after she left the office and made aware of the need to take both Xarelto and aspirin * Juan Pablo Nelson MD - 10/18/2024 9:45 AM EDT Images from the original note were not included. Chief Complaint Patient presents with Diabetes 6 mo f/up Subjective Justine Handley is a 69 y.o. who presents for chronic care of diabetes with neuropathy. Patient underwent implantation of Watchman device [address] Evans. There is a little bit of confusion on her part about whether she should be taking both aspirin and Xarelto. Otherwise she is doing well except for profound fatigue since her procedure. At her last cardiology visit it does appear her carvedilol was decreased due to complaints of fatigue. The following portions of the patient's history were reviewed and updated as appropriate: allergies, current medications, past family history, past medical history, past social history, past surgicalhistory, and problem list. Review of Systems Objective Vital Signs: BP 116/74 Pulse 66 Temp 98.4 ??F (36.9 ??C) Resp 18 Ht 170.2 cm (67 ) Wt 77.1 kg (170 lb) SpO2 98% BMI 26.63 kg/m?? Physical Exam Vitals reviewed. Constitutional: Appearance: Normal appearance. HENT: Head: Normocephalic and atraumatic. Right Ear: Tympanic membrane and ear canal normal. Left Ear: Tympanic membrane and ear canal normal. Nose: Nose normal. Mouth/Throat: Mouth: Mucous membranes are moist. Pharynx: Oropharynx is clear. Eyes: Conjunctiva/sclera: Conjunctivae normal. Cardiovascular: Rate and Rhythm: Normal rate and regular rhythm. Heart sounds: Normal heart sounds. No murmur heard. Pulmonary: Effort: Pulmonary effort is normal. No respiratory distress. Breath sounds: Normal breath sounds. Musculoskeletal: Cervical back: Normal range of motion and neck supple. No tenderness. Lymphadenopathy: Cervical: No cervical adenopathy. Skin: General: Skin is warm and dry. Neurological: Mental Status: She is alert. Psychiatric: Mood and Affect: Mood normal. Result Review The following data was reviewed by: Juan Pablo Nelson MD on 10/18/2024: CBC 03/09/2024 10:39 10/16/2024 06:41 CBC WBC 6.81 6.78 RBC 3.62 3.68 Hemoglobin 10.6 10.8 Hematocrit 34.0 34.0 MCV 93.9 92.4 MCH 29.3 29.3 MCHC 31.2 31.8 RDW 14.0 13.8 Platelets 199 201 BMP 03/09/2024 10:39 03/16/2024 06:39 10/16/2024 06:41 BMP BUN 31 34 20.1 Creatinine 1.10 0.99 0.84 Sodium 138 138 137 Potassium 4.6 3.6 4.1 Chloride 102 103 107 CO2 23.0 20.0 19.0 Calcium 9.7 9.1 9.2 Data reviewed : Digital Retoucher notes Cardiology Office note September 20, 2024 Lab 10/18/24 0951 HEMOGLOBIN A1C 5.7 Assessment and Plan Diagnoses and all orders for this visit: 1. Type 2 diabetes mellitus without complication, without long-term current use of insulin (Primary) - Cancel: POC Albumin/Creatinine Ratio Urine - POC Glycosylated Hemoglobin (Hb A1C) - Semaglutide,0.25 or 0.5MG/DOS, (Ozempic, 0.25 or 0.5 MG/DOSE,) 2 MG/3ML solution pen-injector; Inject 0.5 mg under the skin into the appropriate area as directed 1 (One) Time Per Week. Dispense: 3 mL; Refill: 6 2. Type 2 diabetes mellitus without complication, without long-term current use of insulin Comments: Condition is well-controlled. Continue current medications of metformin and Ozempic Orders: - Cancel: POC Albumin/Creatinine Ratio Urine - POC Glycosylated Hemoglobin (Hb A1C) - Semaglutide,0.25 or 0.5MG/DOS, (Ozempic, 0.25 or 0.5 MG/DOSE,) 2 MG/3ML solution pen-injector; Inject 0.5 mg under the skin into the appropriate area as directed 1 (One) Time Per Week. Dispense: 3 mL; Refill: 6 3. Neuropathy of both feet - gabapentin (NEURONTIN) 300 MG capsule; 1 Capsule in the morning and afternoon, 2 capsules by mouth at night Dispense: 120 capsule; Refill: 3 4. AF (paroxysmal atrial fibrillation) Assessment & Plan: I contacted the ARPN associated with patient's care regarding use of Xarelto and Asprin. The patient is to take both Xarelto and aspirin for 45 days at which point she will have a TORY. If the Watchman device is well-seated patient will transition to aspirin and Plavix for a brief period of time. Patient was contacted after she left the office and made aware of the need to take both Xarelto and aspirin Follow Up Return in about 6 months (around 04/20/2025). Patient was given instructions and counseling regarding her condition or for health maintenance advice. Please see specific information pulled into the AVS if appropriate. documented in this encounter Plan of Treatment Upcoming Encounters Date Type Department Care Team (Late st Contact Info) Description 01/17/2025 9:30 AM EDT Office Visit [facility] [address] [facility] [address] [place] [address] Patrick Evans MD [address] [facility] [address] [place] [address] 04/19/2025 1:00 PM EST Telemedicine [facility] [address] [facility] [address] [place] [address] Pj Marie APRN [address] [facility] [address] [place] [address] 04/25/2025 10:15 AM EST Office Visit [facility] [address] [facility] [address] Juan Pablo Nelson MD [address] [place] [place] [address] 07/15/2025 10:00 AM EDT Office Visit [facility] [address] [place] [address] Elsa Pham MD [address] [place] [address] documented as of this encounter Procedures Procedure Name Priority Date/Time Associated Diagnosis Comments POCT GLYCOSYLATED HEMOGLOBIN (HGB A1C) Routine 10/18/2024 9:51 AM EDT Type 2 diabetes mellitus without complication, without long-term current use of insulin documented in this encounter Results * POC Glycosylated Hemoglobin (Hb A1C) (10/18/2024 9:51 AM EDT) Hemoglobin A1C 5.7 4.5 - 5.7 % [facility] Lot Number [id number] [facility] Expiration Date 06-25-2026 [facility] Blood 10/18/2024 9:51 AM EDT us Juan Pablo Nelson MD POINT OF CARE TEST ORDER ARLET Final Result [facility]
[address] [place] [address], documented in this encounter Visit Diagnoses Diagnosis Type 2 diabetes mellitus without complication, without long-term current use of insulin- Primary Neuropathy of both feet AF (paroxysmal atrial fibrillation) Atrial fibrillation documented in this encounter Care Teams Director Of Cardiac Cath Lab Relationship Specialty Start Date End Date Juan Pablo Nelson MD PCP - General Family Medicine 11/01/19 documented as of this encounter
--- OUTSIDE RECORDS SUMMARY | 2024-11-05 09:08 | XMS_ITS | Encounter Summary ---
Author Organization [facility] Address [address] [place] [address] Care Team Providers Care [facility] Pricing Consultant Name Role Phone Juan Pablo Nelson MD Primary Care Provider + Reason for Visit * Reason Onset Date Comments Med Refill 09/18/2024 Encounter Details Date Type Department Care Team (Late st Contact Info) Description 09/18/2024 Refill [facility] [address] [place] [address] Juan Pablo Nelson MD [address] [place] [address] Gastroesophageal reflux disease without esophagitis Social History Tobacco Use Types Packs/Day Years [...] or training? Not on file Preferred Language Vietnamese 03/09/2024 PHQ-2 Answer Date Recorded Patient Health Questionnaire-2 Score 0 04/20/2024 Comments No Sex and Gender Information Value Date Recorded Sex Assigned at Female 06/07/2024 9:29 AM EDT Legal Sex Female 12:35 PM EDT Gender Identity Not on file Sexual Orientation Straight 06/07/2024 9: 29 AM EDT documented as of this encounter Plan of Treatment Upcoming Encounters Date Type Department Care Team (Late st Contact Info) Description 01/17/2025 9:30 AM EDT Office Visit [facility] [address] [facility] [address] [place] [address] Patrick Evans MD [address] [facility] [address] [place] [address] 04/19/2025 1:00 PM EST Telemedicine [facility] [address] [facility] [address] [place] [address] Pj Marie APRN [address] [facility] [address] [place], [place] [id number] 04/25/2025 10:15 AM EST Office Visit [facility] [address] [place] [address] Juan Pablo Nelson MD [address] [facility] [place] [address] 07/15/2025 10:00 AM EDT Office Visit [facility] [address] [place] [address] Elsa Pham MD [address] [place] [address] documented as of this encounter Visit Diagnoses Diagnosis Gastroesophageal reflux disease without esophagitis Esophageal reflux documented in this encounter Care Teams Healthcare Network Pricing Consultant Relationship Specialty Start Date End Date Juan Pablo Nelson MD PCP - General Family Medicine 11/01/19 documented as of this encounter
--- OUTSIDE RECORDS SUMMARY | 2024-11-05 09:09 | XMS_ITS | Encounter Summary ---
[facility] Address [address] [place] [address] Care Team Providers Care Water Treatment Technician Name Role Phone Juan Pablo Nelson MD Primary Care Provider + Reason for Visit * Reason Comments Med Refill Encounter Details Date Type Department Care Team (Late st Contact Info) Description 09/18/2024 Refill [facility] [address] [place] [address] Juan Pablo Nelson MD [address] [place] [address] Gastroesophageal reflux disease without esophagitis [...] or training? Not on file Preferred Language German 03/09/2024 PHQ-2 Answer Date Recorded Patient Health [...] Description 01/17/2025 9:30 AM EDT Office Visit [facility] [address] [facility] [address] [place] [address] Patrick Evans MD [address] [facility] [address] [place] [address] 04/19/2025 1:00 PM EST Telemedicine [facility] [address] [facility] [address] [place] [phone] Pj Marie APRN [address] [facility] [address] [place] [address] 04/25/2025 10:15 AM EST Office Visit [facility] 210 [facility] [place] [address] Juan Pablo Nelson MD [address] [place] [address] 07/15/2025 10:00 AM EDT Office Visit [facility] [address] [place] [address] Elsa Pham MD [address] [place] [address] documented as of this encounter Visit Diagnoses Diagnosis Gastroesophageal reflux disease without esophagitis Esophageal reflux documented in this encounter Care Teams Water Treatment Technician Relationship Specialty Start Date End Date Juan Pablo Nelson MD PCP - General Family Medicine 11/01/19 documented as of this encounter
--- OUTSIDE RECORDS SUMMARY | 2024-11-05 09:09 | XMS_ITS | Encounter Summary ---
[facility] Address [address] [place] [address] Care Team Providers Care Car Rental Agent Name Role Phone Juan Pablo Nelson MD Primary Care Provider + Reason for Visit * Reason Onset Date Comments Med Refill 07/31/2024 Encounter Details Date Type Department Care Team (Late st Contact Info) Description 07/31/2024 Refill [facility] [address] [place] [address] Juan Pablo Nelson MD [address] [place] [address] Gastroesophageal reflux disease without esophagitis [...] or training? Not on file Preferred Language Slovak 03/09/2024 PHQ-2 Answer Date Recorded Patient Health [...] Description 01/17/2025 9:30 AM EDT Office Visit [facility] [address] [facility] 400 [place] [address] Patrick Evans MD [address]20 [facility] [address] [place] [address] 04/19/2025 1:00 PM EST Telemedicine [facility] [address] [facility] [address] [place] [address] Pj Marie APRN [address] [facility] [address] [place], [place] [id number] 04/25/2025 10:15 AM EST Office Visit [facility] [address] [place] [address] Juan Pablo Nelson MD 210 [facility] [address] 07/15/2025 10:00 AM EDT Office Visit [facility] [address] [place] [address] Elsa Pham MD [address] [place] [address] documented as of this encounter Visit Diagnoses Diagnosis Gastroesophageal reflux disease without esophagitis Esophageal reflux documented in this encounter Care Teams Car Rental Agent Relationship Specialty Start Date End Date Juan Pablo Nelson MD PCP - General Family Medicine 11/01/19 documented as of this encounter
--- OUTSIDE RECORDS SUMMARY | 2024-11-05 09:09 | XMS_ITS | Encounter Summary ---
[facility] Address [address] [place] [address] Care Team Providers Care Industrial Waste Treatment Technician Name Role Phone Juan Pablo Nelson MD Primary Care Provider + Reason for Visit * Reason Comments Med Refill Encounter Details Date Type Department Care Team (Late st Contact Info) Description 10/12/2024 Refill [facility] [address] [place] [address] Juan Pablo Nelson MD [address] [place] [address] Gastroesophageal reflux disease without esophagitis [...] or training? Not on file Preferred Language Bruneian 03/09/2024 PHQ-2 Answer Date Recorded Patient Health [...] Description 01/17/2025 9:30 AM EDT Office Visit [facility] [address] [facility] [address] [place] [address] Patrick Evans MD 1720 [facility] [address] [place] [address] 04/19/2025 1:00 PM EST Telemedicine [facility] [address] [facility] [address] [place] [phone] Pj Marie APRN 17[address] [facility] [address] [place] [address] 04/25/2025 10:15 AM EST Office Visit [facility] [address] [facility] [place] [address] Juan Pablo Nelson MD [address] [place] [address] 07/15/2025 10:00 AM EDT Office Visit [facility] [address] [place] [address] Elsa Pham MD [address] [place] [address] documented as of this encounter Visit Diagnoses Diagnosis Gastroesophageal reflux disease without esophagitis Esophageal reflux documented in this encounter Care Teams Industrial Waste Treatment Technician Relationship Specialty Start Date End Date Juan Pablo Nelson MD PCP - General Family Medicine 11/01/19 documented as of this encounter
--- OUTSIDE RECORDS SUMMARY | 2024-11-05 09:09 | XMS_ITS | Encounter Summary ---
[facility] [address] [place] [address] Care Team Providers Care Waste Handling Technician Name Role Phone Juan Pablo Nelson MD Primary Care Provider + Encounter Details Date Type Department Care Team (Latest Contact Info) Description 09/20/2024 Travel Social History Tobacco Use Types Packs/Day Years [...] or training? Not on file Preferred Language French 03/09/2024 PHQ-2 Answer Date Recorded Patient Health [...] Visit [facility] [address] [facility] 400 [place] [address] Patrick Evans MD 1720 [facility] 400 [place] [address] 04/19/2025 1:00 PM EST Telemedicine [facility] [address] [facility] [address] [place] [phone] Pj Marie APRN 1720 [facility] [address] [place] [address] 04/25/2025 10:15 AM EST Office Visit [facility] [address] [place] [address] Juan Pablo Nelson MD 210 [facility] [place] [address] 07/15/2025 10:00 AM EDT Office Visit [facility] [address] [place] [address] Elsa Pham MD [address] [place] [address] documented as of this encounter Visit Diagnoses Not on filedocumented in this encounter Care Teams Waste Handling Technician Relationship Specialty Start Date End Date Juan Pablo Nelson MD PCP - General Family Medicine 11/01/19 documented as of this encounter
--- OUTSIDE RECORDS SUMMARY | 2024-11-05 09:09 | XMS_ITS | Encounter Summary ---
Author Organization [facility] Address [address] [place] [address] Care Team Providers Care Clinical Informatics Educator Name Role Phone Juan Pablo Nelson MD Primary Care Provider + Encounter Details Date Type Department Care Team (Late st Contact Info) Description 09/26/2024 Results Follow-Up [facility] [address] [place] [address] Juan Pablo Nelson MD [address] [place] [address] Social History Tobacco Use Types Packs/Day Years [...] or training? Not on file Preferred Language Setswana 03/09/2024 PHQ-2 Answer Date Recorded Patient Health [...] Description 01/17/2025 9:30 AM EDT Office Visit [facility] 1720 [facility] 400 [place] [address] Patrick Evans MD [address] [facility] 400 [place] [address] 04/19/2025 1:00 PM EST Telemedicine [facility] 17[address] [facility] [address] [place] [address] Pj Marie APRN [address] [facility] [address] [place] [address] 04/25/2025 10:15 AM EST Office Visit [facility] 210 [facility] [place] [place] [address] Juan Pablo Nelson MD 210 [facility] [place] [address] 07/15/2025 10:00 AM EDT Office Visit [facility] [address] [place] [address] Elsa Pham MD [address] [place] [address] documented as of this encounter Visit Diagnoses Not on filedocumented in this encounter Care Teams Clinical Informatics Educator Relationship Specialty Start Date End Date Juan Pablo Nelson MD PCP - General Family Medicine 11/01/19 documented as of this encounter
--- OUTSIDE RECORDS SUMMARY | 2024-11-05 09:09 | XMS_ITS | Clinical Summary ---
Author Organization [facility] Address [address] [place] [address] Care Team Providers Care Financial Advocate Name Role Phone Juan Pablo Nelson MD Primary Care Provider + Allergies Active Allergy Reactions Criticality Noted Date Comments Atorvastatin Myalgia Medium 01/07/2022 Codeine Palpitations Low 09/14/2006 Contrast Dye (Echo Or Unknow n Ct/Mr) Rash Medium 05/04/2007 Ezetimibe Myalgia Medium 06/11/2024 Flecainide Itching Low 01/04/2024 Facial itching Hydrocodone Itching Medium 01/07/2022 Iodinated Contrast Media Rash Medium 05/04/2007 Ketorolac Itching Medium 01/07/2022 Meperidine Palpitations Low 09/14/2006 Morphine Palpitations Low 09/14/2006 Oxycodone Arrhythmia High 01/07/2022 Penicillins Hives Medium 09/14/2006 Rosuvastatin Myalgia Medium 06/11/2024 Sotalol Swelling Low 01/04/2024 HTN, BLE swelling Medications albuterol sulfate HFA 108 (90 Base) MCG/ACT inhaler Inhale 2 puffs Every 4 (Four) Hours As Needed for Wheezing. 18 g 5 02/29/20 24 Active famotidine (PEPCID) 40 MG tabletIndicatio ns:Gastroesopha geal reflux disease without esophagitis Take 2 tablets by mouth Daily. 180 tablet 1 06/02/19 25 Active estradiol (ESTRACE) 1 MG tablet Take 1 tablet by mouth Daily. 90 tablet 1 06/12/19 25 Active ALPRAZolam (XANAX) 0.5 MG tabletIndicatio ns:Anxiety about health Take 1 tablet by mouth 3 (Three) Times a Day. 90 tablet 5 07/11/19 25 Active zolpidem (AMBIEN) 10 MG tabletIndicatio ns:Primary insomnia Take 1 tablet by mouth At Night As Needed for Sleep. 30 tablet 5 07/11/19 25 Active methocarbamol (ROBAXIN) 500 MG tabletIndicatio ns:Cervical spine arthritis,Neck pain Take 1 tablet by mouth 4 (Four) Times a Day. 30 tablet 08/08/19 25 Active celecoxib (CeleBREX) 200 MG capsuleIndicati ons:Neck pain Take 1 capsule by mouth Daily. 30 capsule 2 08/14/19 25 Active metFORMIN ER (GLUCOPHAGE-XR) 500 MG 24 hr tabletIndicatio ns:Type 2 diabetes mellitus without complication, without long-term current use of insulin Take 1 tablet by mouth Daily With Breakfast. 90 tablet 3 08/24/19 25 Active esomeprazole (nexIUM) 40 MG capsuleIndicati ons:Gastroesoph ageal reflux disease without esophagitis Take 2 capsules by mouth Every Morning Before Breakfast. 180 capsule 3 08/30/19 25 Active montelukast (SINGULAIR) 10 MG tablet Take 1 tablet by mouth Every Night. 90 tablet 3 09/05/19 25 Active Baclofen (LIORESAL) 5 MG tablet Take 1 tablet by mouth 3 times a day. 09/04/19 25 Active carvedilol (COREG) 3.125 MG tablet Take 1 tablet by mouth 2 (Two) Times a Day. 60 tablet 2 09/21/19 25 Active rivaroxaban (XARELTO) 20 MG tablet Take 1 tablet by mouth Daily With Dinner. Active olmesartan-hydr ochlorothiazide (BENICAR HCT) 40-25 MG per tabletIndicatio ns:Essential hypertension Take 1 tablet by mouth once daily 90 tablet 1 10/09/19 25 Active ondansetron (ZOFRAN) 8 MG tabletIndicatio ns:Gastroesopha geal reflux disease without esophagitis TAKE 1 TABLET BY MOUTH EVERY 8 HOURS NEEDED FOR NAUSEA FOR VOMITING 30 tablet 10/13/19 25 Active aspirin 81 MG EC tablet Take 1 tablet by mouth Daily. Active Semaglutide,0.2 5 or 0.5MG/DOS, (Ozempic, 0.25 or 0.5 MG/DOSE,) 2 MG/3ML solution pen-injectorInd ications:Type 2 diabetes mellitus without complication, without long-term current use of insulin Inject 0.5 mg under the skin into the appropriate area as directed 1 (One) Time Per Week. 3 mL 6 10/19/19 25 Active gabapentin (NEURONTIN) 300 MG capsuleIndicati ons:Neuropathy of both feet 1 Capsule in the morning and afternoon, 2 capsules by mouth at night 120 capsule 3 10/19/19 25 Active olmesartan-hydr ochlorothiazide (BENICAR HCT) 40-25 MG per tabletIndicatio ns:Essential hypertension Take 1 tablet by mouth Daily. 90 tablet 1 01/20/20 24 2024 Discontinued gabapentin (NEURONTIN) 300 MG capsuleIndicati ons:Neuropathy of both feet 1 Capsule in the morning and afternoon, 2 capsules by mouth at night 120 capsule 3 06/12/19 25 2024 Discontinued(R eorder) Semaglutide,0.2 5 or 0.5MG/DOS, (Ozempic, 0.25 or 0.5 MG/DOSE,) 2 MG/3ML solution pen-injectorInd ications:Type 2 diabetes mellitus without complication, without long-term current use of insulin Inject 0.5 mg under the skin into the appropriate area as directed 1 (One) Time Per Week. 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 She has episodes of bleeding from external hemorrhoids every 1 to 2 weeks. She has new onset anemia identified in February with hemoglobin having decreased from greater than 12-10.6 since patient began warfarin approximately 1 year ago. Cardiology has referred her to GI. Patient would be a candidate for Watchman device Neuropathy of both feet 07/11/2023 Assessment & Plan (04/20/2024 1:05 PM EST): Paroxysmal atrial fibrillation 09/30/2022 Assessment & Plan (06/12/2024 6:21 PM EDT): Has stopped her warfarin recently after she has done well with ablation. Told her that I think given her [id number] score of 4 (age, female, hypertension, diabetes) that electrophysiology clinic will recommend she continue taking it. For now I will leave that decision to them and recommended she at least start low-dose aspirin. Also mention she could consider Watchman procedure. Assessment & Plan (04/27/2024 10:15 AM EST): -AF PFA with PVI/posterior wall isolation by Dr. Evans on 03/16/2024 -No recurrent arrhythmia symptoms since ablation -Regular rate/rhythm at time of exam. -[id number]: 4 -Continue anticoagulation with warfarin, management per PCP/[facility] clinic -Continue current medical therapy Assessment & Plan (02/03/2023 4:17 PM EST): After extensive discussion, patient agreeable to get started on Coumadin. Offered to minute clinic at [facility], however she lives in [facility], and would prefer to have have local follow-up; she will also inquire about different companies who could help with her supplemental D plan, in regards to direct oral anticoagulation pricing -Patient is intolerant of bisoprolol and diltiazem; will switch her over to carvedilol 6.25 mg p.o. twice daily, which she tolerated previously -Follow-up with me in 3 months after anticoagulation, to see if she needs more aggressive A-fib rhythm control ISABELL (obstructive sleep apnea) 07/12/2022 Assessment & Plan (06/12/2024 6:21 PM EDT): Only a few days of data on download. Discussed mask and wearing issues. Will give it some time and come back for another download. Assessment & Plan (04/27/2024 10:35 AM EST): She was diagnosed with mild ISABELL years ago but was never able to tolerate PAP therapy. She would like to retry PAP therapy as she knows this will help with the treatment of atrial fib. -PSG study due to history of Afib and previous inconclusive HST. -Follow up in 2 months for possible ISABELL compliance visit. Chronic daily headache 05/17/2022 Assessment & Plan (05/17/2022 11:09 AM EST): Headaches are worsening. Medication changes per orders. Melanoma in situ of back 11/13/2021 Essential hypertension 08/13/2021 Assessment & Plan (04/27/2024 10:15 AM EST): Hypertension is stable and controlled Continue current treatment regimen. Blood pressure will be reassessed in 6 months. Assessment & Plan (05/17/2022 11:08 AM EST): Hypertension is Controlled. Continue current treatment regimen. Blood pressure will be reassessed at the next regular appointment. Hypercholesterolemia 08/13/2021 Coronary artery disease invo lving karuk coronary artery of karuk heart without angina pectoris 08/13/2021 Assessment & Plan (06/12/2024 6:21 PM EDT): Prior history of possible ND which sounds like a type II infarction related to pancreatitis. Heart cath in 2022 fairly normal. Will continue primary prevention measures such as cholesterol monitoring and blood pressure monitoring. Orders: ECG 12 Lead Assessment & Plan (04/20/2024 1:05 PM EST): Anxiety about health 08/13/2021 Primary insomnia 08/13/2021 Type 2 diabetes mellitus wit hout complication, without long-term current use of insulin 08/13/2021 Assessment & Plan (04/20/2024 1:05 PM EST): Orders: Hemoglobin A1c Assessment & Plan (05/17/2022 11:08 AM EST): Diabetes is Meets the definition of remission with A1c of 5.6 more than 3 months after discontinuation of medication. Dietary recommendations for ADA diet. Diabetes will be reassessed in 6 months. Overweight with body mass in dex (BMI) of 28 to 28.9 in adult 08/13/2021 Dyspnea on exertion 11/01/2019 Moderate persistent asthma without complication 11/01/2019 GERD (gastroesophageal reflux disease) 0 Assessment & Plan (04/20/2024 1:05 PM EST): Cough 11/01/2019 Encounters Date Type Department Care Team Description 10/18/2024 9:45 AM EDT Office Visit [facility] [address] [place] [address] Juan Pablo Nelson MD Type 2 diabetes mellitus without complication, without long-term current use of insulin (Primary Dx); Type 2 diabetes mellitus without complication, without long-term current use of insulin; Neuropathy of both feet; AF (paroxysmal atrial fibrillation) 10/18/2024 Travel 10/17/2024 Call Center Programs [facility] [address] [place] [address] Jennifer Louise RN 10/16/2024 7:34 AM EDT Anesthesia Event [facility] EP LAB [address] [place] [address] Austyn Dunne MD 10/16/2024 7:10 AM EDT - 10/16/2024 9:10 AM EDT Surgery [facility] [address] [place] [address] Patrick Evans MD Atrial Appendage Occlusion TORY WITH DR ZULUAGA [72166 (CPT )] 10/16/2024 6:18 AM EDT - 10/16/2024 12:05 PM EDT Hospital Encounter [facility] [address] [place] [address] Patrick Evans MD AF (paroxysmal atrial fibrillation) (Primary Dx); Paroxysmal atrial fibrillation; Noncompliance with medication regimen Discharge Disposition: Home or Self Care 10/16/2024 Readmission Management [facility] [address] [facility] [place] [address] Litzy Greenberg RN 10/16/2024 Travel 10/12/2024 Refill [facility] [address] [place] [address] Juan Pablo Nelson MD Gastroesophageal reflux disease without esophagitis 10/06/2024 Refill [facility] [address] [place] [address] Juan Pablo Nelson MD Essential hypertension 09/26/2024 Results Follow-Up [facility] [address] [address] Juan Pablo Nelson MD 09/24/2024 10:45 AM EDT Office Visit [facility] [address] [address] Juan Pablo Nelson MD Subacute left lumbar radiculopathy (Primary Dx); Sacroiliac joint pain 09/24/2024 Travel 09/20/2024 10:15 AM EDT Office Visit [facility] [address] [address] Latha Javier APRN Paroxysmal atrial fibrillation (Primary Dx); Coronary artery disease involving karuk coronary artery of karuk heart without angina pectoris; Noncompliance with medication regimen; Essential hypertension 09/20/2024 Travel 09/18/2024 Refill [facility] [address] [place] [address] Juan Pablo Nelson MD Gastroesophageal reflux disease without esophagitis 09/18/2024 Refill [facility] [address] [place] [address] Juan Pablo Nelson MD Gastroesophageal reflux disease without esophagitis 09/04/2024 Refill [facility] [address] [place] [address] Juan Pablo Nelson MD 08/29/2024 Refill [facility] [address] [place] [address] Juan Pablo Nelson MD Gastroesophageal reflux disease without esophagitis 08/28/2024 Prep for Surgery [facility] ONLY [address] [place] [address] Latha Javier APRN Noncompliance with medication regimen (Primary Dx); Paroxysmal atrial fibrillation 08/27/2024 Refill [facility] [address] [place] [address] Juan Pablo Nelson MD Gastroesophageal reflux disease without esophagitis 08/24/2024 Refill [facility] [address] [place] [address] Juan Pablo Nelson MD Gastroesophageal reflux disease without esophagitis 08/24/2024 Refill [facility] [address] [place] [address] Juan Pablo Nelson MD Gastroesophageal reflux disease without esophagitis 08/23/2024 Refill [facility] [address] [place] [address] Juan Pablo Nelson MD Type 2 diabetes mellitus without complication, without long-term current use of insulin 08/23/2024 Refill [facility] [address] [place] [address] Juan Pablo Nelson MD Type 2 diabetes mellitus without complication, without long-term current use of insulin 08/12/2024 Refill [facility] [address] [place] [address] Juan Pablo Nelson MD Neck pain 08/12/2024 Refill [facility] [address] [place] [address] Juan Pablo Nelson MD Gastroesophageal reflux disease without esophagitis 08/07/2024 10:45 AM EDT Office Visit [facility] [address] [place] [address] Juan Pablo Nelson MD Concussion without loss of consciousness, initial encounter (Primary Dx); Cervical spine arthritis; Neck pain; Neck muscle spasm 08/07/2024 Travel from Last 3 Months Immunizations Immunization Administration Dates Next Due Fluzone High-Dose 65+YRS 01/20/2024 Fluzone High-Dose 65+yrs 12/27/2022,02/04/2022 Hepatitis A 03/02/2018 Pneumococcal Conjugate 20-Valent (PCV20) 024,05/05/2023 Family History Medical History Relation Name Comments Heart attack Father Clifford Sharif Heart disease Father Clifford Sharif Hyperlipidemia Father Clifford Sharif Heart attack Maternal Grandmother Tanya Aminvaldez Alcohol abuse Mother Rebecca Hatterick [place] Breast cancer Mother Rebecca Hatterick [place] Cancer Mother Rebecca Hatterick [place]ie Relation Name Status Comments Father Clifford Sharif Maternal Grandfather Maternal Grandmother Tanya Flaquito Mother Rebecca Aminvaldez Rachel Paternal Grandfather Paternal Grandmother Social History Tobacco Use Types Packs/Day Years [...] or training? Not on file Preferred Language Jordanian 03/09/2024 PHQ-2 Answer Date Recorded Patient Health Questionnaire-2 Score 0 04/20/2024 Comments No Sex and Gender Information Value Date Recorded Sex Assigned at Female 06/07/2024 9:29 AM EDT Legal Sex Female 12:35 PM EDT Gender Identity Not on file Sexual Orientation Straight 06/07/2024 9: 29 AM EDT Last Filed Vital Signs Vital Sign Reading [...] Mass Index 26.63 10/18/2024 9:42 AM EDT Plan of Treatment Upcoming Encounters Date Type Department Care Team (Late st Contact Info) Description 01/17/2025 9:30 AM EDT Office Visit [facility] [address] [facility] [address] [place] [address] Patirck Evans MD [address] [facility] [address] [place] [address] 04/19/2025 1:00 PM EST Telemedicine [facility] [address] [facility] [address] [place] [address] Pj Marie APRN [address] [facility] [address] [place] [address] 04/25/2025 10:15 AM EST Office Visit [facility] [address] [place] [address] Juan Pablo Nelson MD [address] [place] [address] 07/15/2025 10:00 AM EDT Office Visit [facility] [address] [place] [address] Elsa Pham MD [address] [place] [address] Health Maintenance Due Date Last Done Comments URINE MICROALBUMIN-CREATININ E RATIO (uACR) 09/08/1965 TDAP/TD VACCINES (1 - Tdap) 09/08/1974 COLOGUARD 09/08/2000 COLON CANCER SCREENING 5 YEA R SIGMOIDOSCOPY 09/08/2000 CT COLONOGRAPHY 09/08/2000 FECAL OCCULT BLOOD TEST 09/08/2000 FIT Testing (1 year) 09/08/2000 ZOSTER VACCINE (1 of 2) 09/08/2005 LIPID PANEL 11/13/2022 11/13/2021, 03/0 03/2021, 2020 DXA SCAN 12/22/2023 12/21/2021, 11/13/2021 COVID-19 Vaccine (2023-2 5 season) 2024 11/28/2023, 01/17/2023, 12/27/2021, Additional history exists INFLUENZA VACCINE 12/26/2024 01/20/2024, , 12/27/2022, Additional history exists ANNUAL WELLNESS VISIT 04/20/2025 04/20/2024 , 04/20/2024, 11/15/2022, Additional history exists HEMOGLOBIN A1C 04/20/2025 10/18/2024, 03/29, 04/20/2024, Additional history exists DIABETIC EYE EXAM 04/23/2025 04/23/2024, , 03/08/2023, Additional history exists DIABETIC FOOT EXAM 07/09/2025 07/09/2024, 1 , 02/14/2023, Additional history exists COLONOSCOPY 04/06/2032 04/06/2022, 03/28, 06/03/2016 COLORECTAL CANCER SCREENING 04/06/2032 Pneumococcal Vaccine 50+ Completed 10/20/2023, 0210/2023 HEPATITIS C SCREENING Completed 03/18/2024 Medical Devices Implanted Type Area Photographic Process Worker Device Identifier Shelf Expiration Date Model / Serial / Lot Kt Occl Atrial Appendage Amplatzer Amulet [id number] - [id number] Implanted:Qty: 1 on 10/16/2024 by Patrick Evans MD at [facility] Implant N/A: Heart JJ VASCULAR 07/25/2029 [id number] / / [id number] Procedures Procedure Name Priority Date/Time Associated Diagnosis Comments POCT GLYCOSYLATED HEMOGLOBIN (HGB A1C) Routine 10/18/2024 9:51 AM EDT Type 2 diabetes mellitus without complication, without long-term current use of insulin EP STUDY Routine 10/16/2024 8:34 AM EDT Paroxysmal atrial fibrillation Noncompliance with medication regimen POCT ACTIVATED CLOTTING TIME Routine 10/16/2024 8:23 AM EDT ANESTHESIA INTUBATION Routine 10/16/2024 8:03 AM EDT INTRA-OP STRUCTURAL HEART TORY (CARDIOLOGY READ) Routine 10/16/2024 7:37 AM EDT Paroxysmal atrial fibrillation Noncompliance with medication regimen POCT GLUCOSE FINGERSTICK Routine 10/16/2024 7:11 AM EDT BASIC METABOLIC PANEL STAT 10/16/2024 6:41 AM EDT CBC (NO DIFF) STAT 10/16/2024 6:41 AM EDT SCANNED - IMAGING 09/24/2024 SCANNED EKG 09/20/2024 SCANNED - FOOT EXAM 07/09/2024 SCANNED - EYE EXAM 04/23/2024 SCANNED - COLONOSCOPY 04/06/2022 LIPID PANEL Routine 11/13/2021 10:41 AM EDT Type 2 diabetes mellitus without complication, without long-term current use of insulin Coronary artery disease involving karuk coronary artery of karuk heart without angina pectoris Hypercholesterolemi a SCANNED - DEXA 11/13/2021 from Last 3 Months or Most Recently Relevant to Health Maintenance Results * POC Glycosylated Hemoglobin (Hb A1C) (10/18/2024 9:51 AM EDT) Hemoglobin A1C 5.7 4.5 - 5.7 % [facility] Lot Number [id number] [facility] Expiration Date 06-25-2026 [facility] Blood 10/18/2024 9:51 AM EDT us Juan Pablo Nelson MD POINT OF CARE TEST ORDER ARLET Final Result [facility]
[address] [place] [address], * ATRIAL APPENDAGE OCCLUSION - CAR (10/16/2024 [...] OF PROCEDURE: 10/16/24 REFERRING PHYSICIAN: Dr. Pham TECHNICAL SERVICE SPECIALIST/GRAPHICS ARTIST: Patrick Evans MD PROCEDURE(S) PERFORMED: 1. Insertion [...] sheaths and catheters were inserted: 1. An 8-English, intracardiac ultrasound catheter was advanced via a 9-English sheath in the right femoral vein to the high right atrium for visualization of left atrial structures. 2. A 20 mm left atrial appendage occlusive Amulet Amplatzer device was advanced via a 14 English sheath to the left atrial appendage for insertion. The patient arrived in the clinical electrophysiology laboratory in [facility] with a heart rate of 60 bpm. Intracardiac ultrasound demonstrated no left atrial appendage thrombus or significant left atrial smoke. Transseptal catheterization to the left atrium was then performed x 1 using a Diag transseptal needle and guided with the use of intracardiac ultrasound. Intravenous heparin was initiated during the study to maintain activated clotting times greater than 300 seconds. The 8 English Daig transseptal sheath was exchanged for a 14 English double curved Amulet sheath in the left atrium. A 6 English pigtail catheter was then advanced in the left atrial appendage. Venograms of the left atrial appendage was then performed in 2 views. The 14 English sheath was advanced over the pigtail in [...] room in stable condition. COMPLICATIONS: None. Patrick Evasn MD CV ELECTROPHYSIOLOGY ORDERABLES Edited Result - Final * (ABNORMAL) POC Activated Clotting Time (10/16/2024 8:23 AM EDT) Activated Clotting Time 441(H) 82 - 152 Seconds 10/16/2024 3:27 PM EDT [facility] Comment:Serial Number: [id number] [id number] Blood 10/16/2024 8:23 AM EDT 10/16/2024 3:27 PM EDT Patrick Evans MD POINT OF CARE TEST ORDERABLES Fi nal Result [facility]
[address] [id number], * AN ETT AIRWAY (10/16/2024 8:03 AM EDT) Narrative Natasha Ortiz CRNA - 10/16/2024 8:03 AM EDT Natasha Ortiz CRNA 10/16/2024 8:05 AM Airway Reason: elective Date/Time: 10/16/2024 7:49 AM Airway not difficult General Information and Staff Patient location during procedure: OR FLIGHT OPERATIONS DISPATCH CLERK/CAA: Natasha Ortiz CRNA Indications and Patient Condition [...] bilaterally with symmetric chest rise and fall Austyn Dunne MD ANESTHESIA ORDERABLES Final Res ult * Intra-Op Structural Heart TORY (Cardiology Read) (10/16/2024 7:37 AM EDT) CV VAS BP RIGHT ARM 164/78 mmHg [...] procedure. The procedure was performed in the medical laboratory technical officer. Patient was noted to be in a [...] study. Post-procedural recovery was completed in the laboratory operations coordinator and in the Cardio-Vascular/Close Observation Unit, The patient tolerated the procedure without evidence of oropharyngeal or esophageal trauma. us Patrick Evans MD CV ECHO ORDERABLES Final Result * POC Glucose Once (10/16/2024 7:11 AM EDT) Glucose 124 70 - 130 mg/dL 10/16/2024 7:13 AM EDT [facility] Blood 10/16/2024 7:11 AM EDT 10/16/2024 7:12 AM EDT us Patrick Evans MD POINT OF CARE TEST ORDERABLES Fi nal Result [facility]
[address] [place] [address], * (ABNORMAL) CBC (No Diff) (10/16/2024 6:41 AM EDT) WBC 6.78 3.40 - 10.80 10*3/mm3 10/16/2024 7:25 AM EDT [facility] RBC 3.68(L) 3.77 - 5.28 10*6/mm3 10/16/2024 7:25 AM EDT [facility] Hemoglobin 10.8(L) 12.0 - 15.9 g/dL 10/16/2024 7:25 AM EDT [facility] Hematocrit 34.0 34.0 - 46.6 % 10/16/2024 7:25 AM EDT [facility] MCV 92.4 79.0 - 97.0 fL 10/16/2024 7:25 AM EDT [facility] MCH 29.3 26.6 - 33.0 pg 10/16/2024 7:25 AM EDT [facility] MCHC 31.8 31.5 - 35.7 g/dL 10/16/2024 7:25 AM EDT [facility] RDW 13.8 12.3 - 15.4 % 10/16/2024 7:25 AM EDT [facility] RDW-SD 46.9 37.0 - 54.0 fl 10/16/2024 7:25 AM EDT [facility] MPV 9.5 6.0 - 12.0 fL 10/16/2024 7:25 AM EDT [facility] Platelets 201 140 - 450 10*3/mm3 10/16/2024 7:25 AM EDT [facility] Blood Line / Unknown 10/16/2024 6: 41 AM EDT 10/16/2024 7:10 AM EDT us Patrick Evans MD LAB BLOOD ORDERABLES Final Resul t [facility]
[address] [place] [address], * (ABNORMAL) Basic Metabolic Panel (10/16/2024 6:41 AM EDT) Glucose 121(H) 65 - 99 mg/dL 10/16/2024 7:45 AM EDT [facility] BUN 20.1 8.0 - 23.0 mg/dL 10/16/2024 7:45 AM EDT [facility] Creatinine 0.84 0.57 - 1.00 mg/dL 10/16/2024 7:45 AM EDT [facility] Sodium 137 136 - 145 mmol/L 10/16/2024 7:45 AM EDT [facility] Potassium 4.1 3.5 - 5.2 mmol/L 10/16/2024 7:45 AM EDT [facility] Chloride 107 98 - 107 mmol/L 10/16/2024 7:45 AM EDT [facility] CO2 19.0(L) 22.0 - 29.0 mmol/L 10/16/2024 7:45 AM EDT [facility] Calcium 9.2 8.6 - 10.5 mg/dL 10/16/2024 7:45 AM EDT [facility] BUN/Creatinine Ratio 23.9 7.0 - 25.0 10/16/2024 7:45 AM EDT [facility] Anion Gap 11.0 5.0 - 15.0 mmol/L 10/16/2024 7:45 AM EDT [facility] eGFR 75.3 >60.0 mL/min/1.7 3 10/16/2024 7:45 AM EDT [facility] Blood Line / Unknown 10/16/2024 6: 41 AM EDT 10/16/2024 7:10 AM EDT Narrative [facility] - 10/16/2024 7:45 AM EDT GFR [...] MD LAB BLOOD ORDERABLES Final Resul t [facility]
[address] [place] [address], * IMAGING SCANNED (09/24/2024) Anatomical Region Laterality Modality Radiographic Vi ging Juan Pablo Nelson MD G DIAGNOSTIC IMAGING O RDERABLES Final Result * ECG Scan (09/20/2024) Latha Javier APRN ECG ORDERABLES Final Result * FOOT EXAM SCANNED (07/09/2024) Result [facility] Juan Pablo Nelson MD CHART REVIEW TABS Fin al Result * EYE EXAM SCANNED (04/23/2024) Anatomical Region Laterality Modality Other Juan Pablo Nelson MD CHART REVIEW TABS Fin al Result * SCANNED - COLONOSCOPY (04/06/2022) Pancho Nicholson MD CHART REVIEW TABS Final Resul t * (ABNORMAL) Lipid Panel (11/13/2021 10:41 AM EDT) Total Cholesterol 133 0 - 200 mg/dL [facility] Comment: Cholesterol Reference Ranges (U.S. Department of Health and Human Services ATP III Classifications) Desirable <200 mg/dL Borderline High 200-239 mg/dL High Risk >240 mg/dL Triglyceride Reference Ranges (U.S. Department of Health and Human Services ATP III Classifications) Normal <150 mg/dL Borderline High 150-199 mg/dL High 200-499 mg/dL Very High >500 mg/dL HDL Reference Ranges (U.S. Department of Health and Human Services ATP III Classifications) Low <40 mg/dl (major risk factor for CHD) High >60 mg/dl ('negative' risk factor for CHD) LDL Reference Ranges (U.S. Department of Health and Human Services ATP III Classifications) Optimal <100 mg/dL Near Optimal 100-129 mg/dL Borderline High 130-159 mg/dL High 160-189 mg/dL Very High >189 mg/dL Triglycerides 244(H) 0 - 150 mg/dL [facility] HDL Cholesterol 39(L) 40 - 60 mg/dL [facility] VLDL Cholesterol Eduardo 39 5 - 40 mg/dL [facility] LDL Chol Calc (NIH) 55 0 - 100 mg/dL [facility] Blood 11/13/2021 10:4 1 AM EDT 11/13/2021 Narrative [facility] ([facility]) - 11/13/2021 8:08 PM EDT Performed at: [address] [place] [id number] Emblem Cutter: Anthony James MD, Phone: [phone] Juan Pablo Nelson MD LAB BLOOD ORDERABLES Fin al Result [facility] (AMBULATORY) [address] [place] [address], [facility] [address] [place] [address], * SCANNED - DEXA (11/13/2021) Anatomical Region Laterality Modality Other Juan Pablo Nelson MD CHART REVIEW TABS Fin al Result from Last 3 Months or Most Recently Relevant to Health Maintenance Insurance MEDICARE A & B [employer] OPTIONS Advance Directives * CPR (Attempt to Resuscitate) (Latest Code Status on File) Date Activated Date Inactivated Comments 10/16/2024 9:08 AM 10/16/2024 2:55 PM Question Answer Comments Code Status (Patient has no pulse and is not breathing): CPR (Attempt to Resuscitate) Medical Interventions (Patie nt has pulse or is breathing): Full Support Care Teams Financial Advocate Relationship Specialty Start Date End Date Juan Pablo Nelson MD PCP - General Family Medicine 11/01/19
--- OUTSIDE RECORDS SUMMARY | 2024-11-05 09:09 | XMS_ITS | Encounter Summary ---
[facility] [address] [place] [address] Care Team Providers Care Activity Leader Name Role Phone Juan Pablo Nelson MD Primary Care Provider + Encounter Details Date Type Department Care Team (Late st Contact Info) Description 10/16/2024 Readmission Management [facility] [address] [place] [phone] Litzy Greenberg, RN Social History Tobacco Use Types Packs/Day Years [...] or training? Not on file Preferred Language Hong Konger 03/09/2024 PHQ-2 Answer Date Recorded Patient Health [...] 6:40 AM EDT Naida Limon RN * [place] Suicide Severity Rating Scale (Screener/Recent Self-Report) Question Answer Date of Assessment Author 6. Suicidal Behavior (Lifetime) No 10/16/2024 6:40 AM EDT Helio Hicks RN documented as of this encounter Miscellaneous Notes * Outreach Note - Litzy Greenberg RN - 10/16/2024 1:23 PM EDT Images from the original note were not included. Prep Survey Flowsheet Row Responses [facility] [place] score < 7 ? Yes Eligibility Not Eligible What are the reasons patient is not eligible? Other [only 5 hours obs] Does the patient have one of the following disease processes/diagnoses(primary or secondary)? Other Prep survey completed? Yes LITZY Cedeño - Registered Nurse documented in this encounter Plan of Treatment Upcoming Encounters Date Type Department Care Team (Late st Contact Info) Description 01/17/2025 9:30 AM EDT Office Visit [facility] [address] [facility] [address] [place] [address] Patrick Evans MD [address] [place] [address] 04/19/2025 1:00 PM EST Telemedicine [facility] [address] [facility] [address] [place] [phone] Pj Marie APRN [address] [facility] [address] [place] [address] 04/25/2025 10:15 AM EST Office Visit [facility] [address] [place] [phone] Juan Pablo Nelson MD [address] [place] [address] 07/15/2025 10:00 AM EDT Office Visit [facility] [place] [address] [place] [address] Elsa Pham MD [address] [place] [address] documented as of this encounter Visit Diagnoses Not on filedocumented in this encounter Care Teams Activity Leader Relationship Specialty Start Date End Date Juan Pablo Nelson MD PCP - General Family Medicine 11/01/19 documented as of this encounter
--- OUTSIDE RECORDS SUMMARY | 2024-11-05 09:09 | XMS_ITS | Encounter Summary ---
[facility] [address] [place] [address] Care Team Providers Care Piping Design Specialist Name Role Phone Juan Pablo Nelson MD Primary Care Provider + Encounter Details Date Type Department Care Team (Latest Contact Info) Description 10/16/2024 Travel Social History Tobacco Use Types Packs/Day [...] or training? Not on file Preferred Language Cape Verdean 03/09/2024 PHQ-2 Answer Date Recorded Patient Health [...] 6:40 AM EDT Naida Limon RN * [place] Suicide Severity Rating Scale (Screener/Recent Self-Report) Question Answer Date of Assessment Author 6. Suicidal Behavior (Lifetime) No 10/16/2024 6:40 AM EDT Helio Hicks RN documented as of this encounter Plan of Treatment Upcoming Encounters Date Type Department Care Team (Late st Contact Info) Description 01/17/2025 9:30 AM EDT Office Visit [facility] [address] [facility] [address] [address] [place] [address] Patrick Evans MD [address] [place] [address] 04/19/2025 1:00 PM EST Telemedicine [facility] [address] [facility] [address] [place] [address] Pj Marie APRN [address] [facility] [address] [place] [address] 04/25/2025 10:15 AM EST Office Visit [facility] [address] [place] [phone] Juan Pablo Nelson MD [address] [place] [address] 07/15/2025 10:00 AM EDT Office Visit [facility] [address] [place] [address] Elsa Pham MD [address] [place] [address] documented as of this encounter Visit Diagnoses Not on filedocumented in this encounter Care Teams Piping Design Specialist Relationship Specialty Start Date End Date Juan Pablo Nelson MD PCP - General Family Medicine 11/01/19 documented as of this encounter
--- OUTSIDE RECORDS SUMMARY | 2024-11-05 09:09 | XMS_ITS | Encounter Summary ---
[facility] [address] [place] [address] Care Team Providers Care Induction Coordination Engineer Name Role Phone Juan Pablo Nelson MD Primary Care Provider + Encounter Details Date Type Department Care Team (Latest Contact Info) Description 09/24/2024 Travel Social History Tobacco Use Types Packs/Day [...] or training? Not on file Preferred Language Malay 03/09/2024 PHQ-2 Answer Date Recorded Patient Health [...] Description 01/17/2025 9:30 AM EDT Office Visit [facility] [address] [facility] [address] [place] [address] Patrick Evans MD [address] [facility] [address] [place] [address] 04/19/2025 1:00 PM EST Telemedicine [facility] [address] [facility] [address] [place] [phone] Pj Marie APRN [address] [facility] [address] [place] [address] 04/25/2025 10:15 AM EST Office Visit [facility] [address] [place] [address] Juan Pablo Nelson MD [address] [facility] [place] [address] 07/15/2025 10:00 AM EDT Office Visit [facility] [address] [place] [place] [address] Elsa Pham MD [address] [place] [address] documented as of this encounter Visit Diagnoses Not on filedocumented in this encounter Care Teams Induction Coordination Engineer Relationship Specialty Start Date End Date Juan Pablo Nelson MD PCP - General Family Medicine 11/01/19 documented as of this encounter
--- OUTSIDE RECORDS SUMMARY | 2024-11-05 09:09 | XMS_ITS ---
Author Organization [facility] Address [address] [place] [address] Care Team Providers Care Traveling Crane Operator Name Role Phone Juan Pablo Nelson MD Primary Care Provider + Active Problems Problem Noted Date Diagnosed Date [...] Noncompliance with medication regimen 06/18/2024 Hypersomnia 04/27/2024 senior living current use of anticoagulant Assessment & Plan [...] Told her that I think given her [id number] score of 4 (age, female, hypertension, diabetes) [...] ablation -Regular rate/rhythm at time of exam. -[id number]: 4 -Continue anticoagulation with warfarin, management per PCP/[facility] INR clinic -Continue current medical therapy Assessment & Plan (02/03/2023 4:17 PM EST): After extensive discussion, patient agreeable to get started on Coumadin. 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 Past Treatment and Therapy Plans No past plan information found. Lifetime Dose Tracking * Chemical Lifetime Dose Automatic Entry Manual Entr y Cumulative Air Kerma 82 mGy 0 mGy 82 mGy
--- OUTSIDE RECORDS SUMMARY | 2024-11-05 09:09 | XMS_ITS | Encounter Summary ---
[facility] Address [address] [place] [address] Care Team Providers Care Energy Conservation Representative Name Role Phone Juan Pablo Nelson MD Primary Care Provider + Reason for Visit * Reason Onset Date Comments PCI/Device 10/17/2024 LAAO implant Encounter Details Date Type Department Care Team (Late st Contact Info) Description 10/17/2024 Call Center Programs [facility] [address] [place] [phone] Jennifer Louise, RN Social History Tobacco Use Types Packs/Day [...] or training? Not on file Preferred Language Swazi 03/09/2024 PHQ-2 Answer Date Recorded Patient Health Questionnaire-2 Score 0 04/20/2024 Comments No Sex and Gender Information Value Date Recorded Sex Assigned at Female 06/07/2024 9:29 AM EDT Legal Sex Female 12:35 PM EDT Gender Identity Not on file Sexual Orientation Straight 06/07/2024 9: 29 AM EDT documented as of this encounter Miscellaneous Notes * Outreach Note - Jennifer Louise RN - 10/17/2024 10:06 AM EDT Images from the original note were not included. PCI/Device Survey Flowsheet Row Responses Facility patient discharged from? [facility] Procedure date 10/16/24 Procedure (if device, specify in description) Device Device Description LAAO implant Performing MD Other (annotate) [Dr. Patrick Evans] Attempt successful? Yes Call start time 1008 Call end time 1013 Has the patient had any of the following symptoms since discharge? -- [no symptoms noted] Nursing interventions Patient education provided Is the patient taking prescribed medications: ASA [Xarelto] Nursing intervention Reminded to continue to take prescribed medications, Nurse provided patient education Medication comments Bleeding precautions Does the patient have any of the following symptoms related to the cath/surgical site? -- [no symptoms noted] Nursing intervention Patient education provided Does the patient have an appointment scheduled with the washhouse hand? Yes Appointment comments Hospital follow up appt with washhouse hand Dr. Evans on 04/04/25 If the patient is a current smoker, are they able to teach back resources for cessation? Not a smoker Did the patient feel prepared to go home on the same day as the procedure? Yes Is the patient satisfied with the same day discharge process? Yes PCI/Device call completed Yes Jennifer Cristina - Registered Nurse documented in this encounter Plan of Treatment Upcoming Encounters Date Type Department Care Team (Late st Contact Info) Description 01/17/2025 9:30 AM EDT Office Visit [facility] [address] [facility] [address] [place] [address] Patrick Evans MD [address] [facility] [address] [place] [address] 04/19/2025 1:00 PM EST Telemedicine [facility] [address] [facility] [address] [place] [phone] Pj Marie APRN 1720 [facility] [address] [place], [place] [address] 04/25/2025 10:15 AM EST Office Visit [facility] [address] [place] [phone] Juan Pablo Nelson MD [address] [place] [address] 07/15/2025 10:00 AM EDT Office Visit [facility] [address] [place] [phone] Elsa Pham MD [address] [place] [address] documented as of this encounter Visit Diagnoses Not on filedocumented in this encounter Care Teams Energy Conservation Representative Relationship Specialty Start Date End Date Juan Pablo Nelson MD PCP - General Family Medicine 11/01/19 documented as of this encounter
--- OUTSIDE RECORDS SUMMARY | 2024-11-05 09:09 | XMS_ITS | Encounter Summary ---
[facility] Organization [facility] Address [address] [place] [address] Care Team Providers Care Cut Pressman Name Role Phone Juan Pablo Nelson MD Primary Care Provider + Reason for Visit * Reason Onset Date Comments Med Refill 12/30/2022 Encounter Details Date Type Department Care Team (Late st Contact Info) Description 12/30/2022 Refill [facility] [address] [place] [address] Juan Pablo Nelson MD [address] [place] [address] Type 2 diabetes mellitus without complication, without long-term current use of insulin Social History Tobacco Use Types Packs/Day Years Used Date Smoking Tobacco: Former Cigarettes Q uit: 03/28/1984 Smokeless Tobacco: Never Alcohol Use Standard Drinks/Week Comments Not Currently 0 (1 standard drink = 0.6 oz pur e alcohol) socially PHQ-2 Answer Date Recorded Retired PHQ-9: Brief Depression Severity Measure Score 10 11/15/2022 Abuse Screen Answer Date Recorded Unsafe at Home or Work/School Not on file Feels Threatened by Someone? Not on file 11/2022 Does Anyone Keep You from Co ntacting Others or Doint Things Outside the Home? Not on file 01/03/2023 Physical Sign of Abuse Present Not on file 1 Education Answer Date Recorded Help with school or training? Not on file Preferred Language Not on file 01/03/2023 PHQ-2 Answer Date Recorded Retired PHQ-9: Brief Depression Severity Measure Score 10 11/15/2022 Comments No Sex and Gender Information Value Date Recorded Sex Assigned at Female 06/07/2024 9:29 AM EDT Legal Sex Female 12:35 PM EDT Gender Identity Not on file Sexual Orientation Straight 06/07/2024 9: 29 AM EDT documented as of this encounter Plan of Treatment Upcoming Encounters Date Type Department Care Team (Late st Contact Info) Description 01/17/2025 9:30 AM EDT Office Visit [facility] [address] [facility] [address] [place] [address] Patrick Evans MD 1720 [facility] [address] [place] [address] 04/19/2025 1:00 PM EST Telemedicine [facility] [address] [facility] [address] [place] [address] Pj Marie APRN [address] [facility] [address] [place] [address] 04/25/2025 10:15 AM EST Office Visit [facility] [address] [place] [address] Juan Pablo Nelson MD [address] [place] [address] 07/15/2025 10:00 AM EDT Office Visit [facility] [address] [place] [address] Elsa Pham MD [address] [place] [address] documented as of this encounter Visit Diagnoses Diagnosis Type 2 diabetes mellitus without complication, without long-term current use of insulin documented in this encounter Additional Health Concerns Assessment Noted Time PHQ-2 Depression Total Score: 2 11/16/19 23 10:20 AM EDT documented as of this encounter Care Teams Cut Pressman Relationship Specialty Start Date End Date Juan Pablo Nelson MD PCP - General Family Medicine 11/01/19 documented as of this encounter
--- OUTSIDE RECORDS SUMMARY | 2024-11-05 09:09 | XMS_ITS | Encounter Summary ---
[facility] Address [address] [place] [address] Care Team Providers Care Yellow Pages Space Salesperson Name Role Phone Juan Pablo Nelson MD Primary Care Provider + Encounter Details Date Type Department Care Team (Latest Contact Info) Description 10/18/2024 Travel Social History Tobacco Use Types Packs/Day [...] or training? Not on file Preferred Language Niuean 03/09/2024 PHQ-2 Answer Date Recorded Patient Health [...] Description 01/17/2025 9:30 AM EDT Office Visit [facility] [address] [facility] [address] [place] [address] Patrick Evans MD 1720 [facility] [address] [place] [address] 04/19/2025 1:00 PM EST Telemedicine [facility] [address] [facility] [address] [place] [phone] Pj Marie APRN 1720 [facility] [address] [place] [address] 04/25/2025 10:15 AM EST Office Visit [facility] [address] [facility] [place] [address] Juan Pablo Nelson MD 210 [facility] [place] [address] 07/15/2025 10:00 AM EDT Office Visit [facility] [address] [place] [address] Elsa Pham MD [address] [place] [address] documented as of this encounter Visit Diagnoses Not on filedocumented in this encounter Care Teams Yellow Pages Space Salesperson Relationship Specialty Start Date End Date Juan Pablo Nelson MD PCP - General Family Medicine 11/01/19 documented as of this encounter
--- OUTSIDE RECORDS SUMMARY | 2024-11-05 09:09 | XMS_ITS | Clinical Summary ---
Author Organization Healthcare Address [address] [place] [address] Care Team Providers Care Utility Tender Carding Name Role Phone Juan Pablo Nelson MD Primary Care Provider Social History Tobacco Use Types Packs/Day Years [...] 09/08/2005 [facility]-Zoster Vaccines (1 of 2) 09/08/2005 [id number]-28 Vaccine (5 - 2023- season) 2023 12/27/2021, 12/31/2020, 06/21/2020, Additional history exists [facility]-Influenza Vaccine (#1) 2024 02/04/2022 [facility]-RSV Vaccine: 60+ Years or [...] age to complete this topic Insurance [facility] Care Teams Utility Tender Carding Relationship Specialty Start Date End Date Juan Pablo Nelson MD [address] [place] [address] PCP - General 08/25/22
--- OUTSIDE RECORDS SUMMARY | 2024-11-05 09:09 | XMS_ITS | Encounter Summary ---
[facility] [address] [place] [address] Care Team Providers Care Industrial Engineering Intern Name Role Phone Juan Pablo Nelson MD Primary Care Provider + Reason for Visit * Reason Comments Med Refill Encounter Details Date Type Department Care Team (Late st Contact Info) Description 10/06/2024 Refill [facility] [address] [place] [address] Juan Pablo Nelson MD [address] [place] [address] Essential hypertension Social History Tobacco Use Types [...] Description 01/17/2025 9:30 AM EDT Office Visit [facility] [address] [facility] [address] [place] [address] Patrick Evans MD 1720 [facility] [address] [place] [address] 04/19/2025 1:00 PM EST Telemedicine [facility] [address] [facility] [address] [place] [phone] Pj Marie APRN 1720 [facility] [address] [place] [address] 04/25/2025 10:15 AM EST Office Visit [facility] [address] [facility] [place] [place] [address] Juan Pablo Nelson MD 210 [facility] [place] [address] 07/15/2025 10:00 AM EDT Office Visit [facility] [address] [place] [address] Elsa Pham MD [address] [place] [address] documented as of this encounter Visit Diagnoses Diagnosis Essential hypertension Unspecified essential hypertension documented in this encounter Care Teams Industrial Engineering Intern Relationship Specialty Start Date End Date Juan Pablo Nelson MD PCP - General Family Medicine 11/01/19 documented as of this encounter
[2024-11-05 09:12] VITALS: BP 140/76; PULSE 65; RESP 14; O2SAT 98; BMI 26.6
--- NOTE | 2024-11-05 09:54 | EXP.PAIN.SOA ---
[facility] Disclaimer: The information contained in this section may have been updated after the patient was seen, as this information can be updated by other users. Medical History Abnormal electrocardiogram [ECG] [EKG] Cancer Depression Anxiety History of gastroesophageal reflux (GERD) Diabetes mellitus, type 2 She has lost 20 pounds working on lifestyle modification and most recent A1c hemoglobin 5.6. Random glucose level 99. Asthma History of heart attack Hypertension Hx of pancreatitis Nausea Dyspnea Stable angina pectoris Obstructive sleep apnea syndrome History of mild ISABELL previously treated with CPAP. She quit using the CPAP following [employer] recall. Since then she has lost 20 pounds. Gastroesophageal reflux disease Hyperlipidemia Hypertensive heart disease Surgical History S/P cervical spinal fusion History of mastectomy LIMB ALERT LT ARM History of hysterectomy History of cholecystectomy Family History Father Family history of AL (myocardial infarction) Grandmother Family history of AL (myocardial infarction) Mother Family history of breast cancer Family/Other Family history of lung cancer Family/Other Family history of kidney cancer Social History Smoking Status: Never smoker alcohol intake: never substance use type: denies use current occupational status: other Travel in the last 8 weeks?: None household members: spouse housing: house current occupational exposures/hazards: No PM Subjective & Objective Subjective Subjective:: Patient is a pleasant 69-year-old female who presents today for worsening pain. She states it is primarily in her hips and groin but does also have some in the low back. Patient states this pain is worse with increased walking or moving and that it is interfering with her ability perform activities of daily living such as cooking and cleaning. Patient has continued conservative therapy with no additional changes. Patient has been tried on compounded cream in the past with minimal changes. She is prescribed baclofen 5 mg 3 times daily as needed. She denies any side effects. Her Benjamin has been reviewed and is appropriate. Review of Systems: General: No recent weight changes, no fever, no sleep disturbances Respiratory: No cough, no shortness of air, no recurring pulmonary infections Cardiovascular/peripheral vascular: No chest pain, no palpitations, no edema, no shortness of breath Gastrointestinal: No new onset incontinence, normal bowel movements reported Genitourinary: No new onset incontinence Musculoskeletal: Bilateral hip pain, groin pain, low back pain Psychiatric: [Normal mood/affect] Neurological: [Denies weakness in extremities], [denies balance issues] Pain at rest (0-10 scale): 5 Objective Objective:: Physical Exam: General: Alert and oriented x3, no acute distress, pleasant and cooperative Lungs: Respirations even and unlabored, symmetrical chest expansion Eyes: PERRL Musculoskeletal: Flexion and extension of lumbar [spine] somewhat guarded secondary to pain, [antalgic gait noted] point tenderness along bilateral SIs and bilateral greater trochanteric bursa's with positive bilateral Svetlana's, Kishore's, Gaenslen's, compression and distraction exam Neurological: Speech clear, no gross sensory deficit Has patient had previous pain injection?: No Conservative treatment options previously tried: Home exercise plan Length of treatment: Longer than 12 weeks Meds Home Medications and Allergies Home Medications ?Medication ?Instructions ?Recorded ?Confirmed ?Type alprazolam 0.5 mg tablet 0.5 mg PO TID 01/16/24 11/05/24 History carvedilol 12.5 mg tablet 12.5 mg PO BID 01/16/24 11/05/24 History celecoxib 200 mg capsule 200 mg PO DAILY 01/16/24 11/05/24 History esomeprazole magnesium 40 mg 80 mg PO AM 01/16/24 11/05/24 History capsule,delayed release estradiol 1 mg tablet 1 mg PO DAILY 01/16/24 11/05/24 History famotidine 40 mg tablet 40 mg PO DAILY 01/16/24 11/05/24 History gabapentin 300 mg capsule 300 mg PO DAILY 01/16/24 11/05/24 History metformin 500 mg tablet,extended 500 mg PO DAILY 01/16/24 11/05/24 History release 24 hr montelukast 10 mg tablet 10 mg PO DAILY 01/16/24 11/05/24 History olmesartan 40 1 tab PO DAILY 01/16/24 11/05/24 History mg-hydrochlorothiazide 25 mg tablet semaglutide 0.25 mg or 0.5 mg (2 0.25 mg SQ WEEKLY 01/16/24 11/05/24 History mg/3 mL) subcutaneous pen injector (Ozempic) zolpidem 10 mg tablet 10 mg PO HS 01/16/24 11/05/24 History baclofen 5 mg tablet 5 mg PO TID #90 tabs 09/03/24 11/05/24 Rx New Prescriptions to Start Prescriptions: Allergies Allergy/AdvReac Type Severity Reaction Status Date / Time oxycodone (From PERCOCET) Allergy Severe IRREGULAR Verified 10/01/24 08:40 HEARTBEAT codeine Allergy Intermediate I-ITCHING, Verified 10/01/24 08:40 NAUSEA, FAST HEART RATE hydrocodone Allergy Intermediate I-ITCHING, Verified 10/01/24 08:40 NAUSEA, FAST HEART RATE ketorolac Allergy Intermediate I-ITCHING, Verified 10/01/24 08:40 NAUSEA, FAST HEART RATE meperidine (From Demerol) Allergy Intermediate I-ITCHING, Verified 10/01/24 08:40 NAUSEA, FAST HEART RATE morphine Allergy Intermediate I-ITCHING, Verified 10/01/24 08:40 NAUSEA, FAST HEART RATE Penicillins Allergy Intermediate I-ITCHING, Verified 10/01/24 08:40 NAUSEA, FAST HEART RATE flecainide Allergy Mild facial Verified 10/01/24 08:40 itching sotalol AdvReac Mild high BP Verified 10/01/24 08:40 Assessment and Plan *Assessment and plan (1) Bilateral sacroiliitis: Status: Acute Category: Medical Code(s): M46.1 - Sacroiliitis, not elsewhere classified (2) Greater trochanteric bursitis of both hips: Status: Acute Category: Medical Code(s): M70.61 - Trochanteric bursitis, right hip; M70.62 - Trochanteric bursitis, left hip Plan I did discuss with the patient that she did have significant point tenderness along her bilateral bursa's with limited range of motion. We did discuss what is most aggravating to her symptoms and it is when she is up walking or moving. Patient did also have symptoms consistent with bilateral sacroiliitis and that she may benefit from those injections in future. Risk and benefits of both of these injections were explained to the patient and she would like to proceed forward with this plan of care. Patient has continued conservative therapy including oral medication, heat and ice, topicals, physical therapy continue at home stretching exercise for longer than 12 weeks. Patient has had both of those injections in the past with her last bursa injections in June that did provide 80% relief and have worked well up until about now which is longer than 3 months of relief. Patient has had chronic hip and low back pain for longer than 6 months. Patient did have improved function overall with these injections and felt like the pain was much more manageable. We will plan on submitting for bilateral bursa injections under fluoroscopy. We will also continue to monitor how her pain in her low back does at the area of her SI joints and in future if she needs additional injections at this location we will schedule later on. Patient agrees with this plan of care. Patient has been instructed to contact the clinic with any concerns before the next appointment. Dr. Ragsdale has reviewed this note and agrees with this plan of care. This note was dictated using voice recognition software and make contain errors or omissions. All injections are used with Lidocaine, Bupivacaine and dexamethasone. Occasionally urine drug screen is needed to verify patient's compliance with our office pain contract. This is ordered based off specific treatments related to chronic pain with the potential to abuse certain medications.
== END 2024-11-05 23:59 | disposition home or self-care (01) ==
LOC: SC.PAIN 09:05
PROVIDERS: PCP Family Medicine; Visit Provider Nurse Practitioner Family
DX: M46.1 Sacroiliitis, not elsewhere classified (principal); M70.61 Trochanteric bursitis, right hip; Z79.899 Other long term (current) drug therapy
CPT/HCPCS: 99212; G0463

== ENCOUNTER 2024-12-28 15:13 | Day surgery (SDC) | payer MEDICARE, SELFPAY ==
[2024-12-28 15:30] VITALS: BP 113/58; PULSE 68; RESP 16; O2SAT 96; BMI 25.9
[2024-12-28 15:49] VITALS: BP 113/58; PULSE 68; RESP 16; O2SAT 96
[2024-12-28 15:52] VITALS: BP 113/58; PULSE 68; RESP 16; O2SAT 96
[2024-12-28] MEDS: BUPIVACAINE 0.25% 10ML INJ 25 MG IJ (15:53)
[2024-12-28] MEDS: DEXAMETHASONE 10MG/ML 1ML VIAL 10 MG (15:54)
[2024-12-28] MEDS: LIDOCAINE 1% 5ML PF VIAL 5 ML (15:54)
[2024-12-28 15:57] VITALS: BP 121/60; PULSE 64; RESP 16; O2SAT 96
--- NOTE | 2024-12-28 16:36 | P.PCN_ITS ---
Procedure Date: 12/28/24 Time: 15:45 Anesthesiologist:: Kayley Martino APRN Complications:: None Pre-procedure Diagnosis:: Greater trochanteric bursitis Post-procedure Diagnosis:: Same Indications for Procedure:: Patient is a pleasant 69-year-old female who presents today for bursa injections bilaterally. She rates her pain today a 6 out of 10 and denies any new falls or injuries. Patient is still having chronic pain there in her hips that is worse with increased ambulation or laying on her sides when trying to sleep. It continues to worsen and interfere with her ADLs. She denies any new falls or injuries. Her Benjamin has been reviewed and is appropriate. Physical Exam: General: Alert and oriented x3, no acute distress, pleasant and cooperative Lungs: Respirations even and unlabored, symmetrical chest expansion Eyes: PERRL Musculoskeletal: Flexion and extension of lumbar [spine] somewhat guarded secondary to pain, [antalgic gait noted] extreme point tenderness along bilateral greater trochanteric bursa's Neurological: Speech clear, no gross sensory deficit Procedure Details:: Patient did have noninvasive blood pressure cuff applied and pulse oximeter. Patient was placed in a supine position and palpated along her greater trochanteric bursa along the left side. The skin was cleansed using ChloraPrep and using a sterile 25-gauge spinal needle approximately 5 mL of 0.25% bupivacaine, 1% lidocaine and 10 mg dexamethasone were injected into her left greater trochanteric bursa. Needle was removed and sterile bandages applied. Patient tolerated the procedure well with no complications and was discharged neurologically intact. We then moved to the right side. Patient continued to have her noninvasive blood pressure cuff applied and pulse oximeter. The skin was cleansed using ChloraPrep along the right greater trochanteric bursa and using a sterile 25- gauge spinal needle approximately 5 mL of 0.25% bupivacaine, 1% lidocaine and 10 mg dexamethasone were injected into her left greater trochanteric bursa. Needle was removed and sterile bandages applied. Patient tolerated the procedure well with no complications and was discharged neurologically intact. Plan and Disposition:: Patient tolerated the procedure well with no complications and was discharged neurologically intact. Patient did state that she had already noticed some improvement when she had gotten up and started to ambulate. We will continue to monitor her efficacy with these injections. Patient will return to clinic in 2 weeks for reevaluation of symptoms and plan of care. Patient has been instructed to contact the clinic with any concerns before the next appointment. Dr. Ragsdale has reviewed this note and agrees with this plan of care. This note was dictated using voice recognition software and make contain errors or omissions. All injections are used with Lidocaine, Bupivacaine and dexamethasone. Occasionally urine drug screen is needed to verify patient's compliance with our office pain contract. This is ordered based off specific treatments related to chronic pain with the potential to abuse certain medications.
== END 2024-12-28 15:59 | disposition home or self-care (01) ==
LOC: SC.PAINP 15:14
PROVIDERS: PCP Family Medicine; Visit Provider Nurse Practitioner Family
DX: M70.61 Trochanteric bursitis, right hip (principal); M70.62 Trochanteric bursitis, left hip; F41.9 Anxiety disorder, unspecified; F32.A Depression, unspecified; K21.9 Gastro-esophageal reflux disease without esophagitis; J45.909 Unspecified asthma, uncomplicated; E11.9 Type 2 diabetes mellitus without complications; I11.9 Hypertensive heart disease without heart failure; I25.2 Old myocardial infarction; Z95.818 Presence of other cardiac implants and grafts; Z88.0 Allergy status to penicillin; Z88.5 Allergy status to narcotic agent; Z88.6 Allergy status to analgesic agent; Z88.8 Allergy status to other drugs, medicaments and biological substances; Z79.1 Long term (current) use of non-steroidal anti-inflammatories (NSAID); Z79.84 Long term (current) use of oral hypoglycemic drugs; Z79.85 Long-term (current) use of injectable non-insulin antidiabetic drugs; Z79.899 Other long term (current) drug therapy
CPT/HCPCS: 20610; J0665; J1100; J2003

== ENCOUNTER 2025-03-04 10:52 | Outpatient (CLI) | payer MEDICARE, SELFPAY ==
[2025-03-04] MEDS: SODIUM CHLORIDE 0.9% 10ML FLUSH SYRINGE 10 ML IV (11:30)
[2025-03-04 11:33] VITALS: BP 160/80; PULSE 64; RESP 14; TEMP 36.6; O2SAT 98
[2025-03-04] MEDS: ZOLEDRONIC ACID/MANNITOL-WATER 5 MG/100 ML PGGYBK.BTL 400 MG IV (11:33)
[2025-03-04 11:50] VITALS: BP 126/59; PULSE 64; RESP 14; TEMP 36.7; O2SAT 98
== END 2025-03-04 23:59 | disposition home or self-care (01) ==
LOC: INF 10:53
PROVIDERS: PCP Family Medicine; Visit Provider Family Medicine
DX: M81.0 Age-related osteoporosis without current pathological fracture (principal)
CPT/HCPCS: 96374; J3489